=== PATIENT | female | born 1955 | race Caucasian/White ===

== ENCOUNTER 2016-07-20 07:07 | Day surgery (SDC) | payer BC ==
[~2016-07-20 07:07] MED LIST: Acetaminophen TAB* 325 MG PO PRN; Buffered Lidocaine 1% SYRIN* 3 ML/SYR SYRINGE INTRADERM ONE
[2016-07-20] MEDS ORDERED: Midazolam* 1 MG/ML 5 ML VIAL (5 MG) ONE (08:23)
[2016-07-20 09:55] VITALS: BP 113/57
--- NOTE | 2016-07-20 10:48 | OP ---
DATE OF OPERATION: 07/20/2016. DATE OF : 1955. SURGEON: Tone Khanna M.D. PREOPERATIVE DIAGNOSIS: Cataract left eye. POSTOPERATIVE DIAGNOSIS: Cataract left eye. OPERATIVE PROCEDURE: Phacoemulsification left eye with IOL. PROCEDURE: The patient was brought to the operating room after being given 1/2% Alcaine with epinep hrine drops in the preoperative area. The eye was prepped and draped in the usual sterile fashion. Sterile drape and eyelid speculum were placed. Again, topical 1/2% Alcaine with epinephrine was gi nicci. A paracentesis incision was made at the 3 o'clock position with the No.75 blade. Clear cornea incision 2.2 x 2.2-mm was created at the 6 o'clock position starting at the anterior limbus using t he 2.2-mm keratome. The anterior chamber was irrigated with 0.4 mL of 1% non-preservative intracame ral lidocaine and filled with DisCoVisc. A capsulorrhexis was completed using the cystotome and the Utrata forceps. Hydrodissection was performed with balanced salt solution. The lens nucleus was re moved with the Phacoemulsification handpiece without incident. Cortex was removed with the irrigati on-aspiration handpiece. The capsular bag was re-inflated using DisCoVisc and an SN60WF 21.5 implan t was inserted with the shooter. The irrigation-aspiration handpiece was used to remove all residua l DisCoVisc. The eye was refilled with balanced salt solution and the wound checked and found to be watertight. Topical Maxitrol drops were given. [id number]/[facility] #: [id number]
[2016-07-20] MEDS ORDERED: acetaZOLAMIDE TAB* 250 MG ONE (13:40)
[2016-07-20] MEDS ORDERED: Lidocaine 1% MPF* 2 ML VIAL ONE (13:40)
[2016-07-20] MEDS ORDERED: Cyclopentolate 1% OPTH.SOL* 2 ML BTL ONE (13:40)
[2016-07-20] MEDS ORDERED: Flurbiprofen 0.03% OPTH.SOL* 2.5 ML BTL ONE (13:40)
[2016-07-20] MEDS ORDERED: Proparacaine 0.5% OPHTH.SOL* 15 ML BTL ONE (13:41)
[2016-07-20] MEDS ORDERED: Neomycin/Polymy/Dex OPTH.SUSP* MAXITROL 0.1% 5 ML ONE (13:41)
[2016-07-20] MEDS ORDERED: Povidone Iodine 5% OPTH* 30 ML BTL ONE (13:41)
[2016-07-20] MEDS ORDERED: Phenylephrine 2.5% OPTH.SOL* 2 ML BTL ONE (13:41)
[2016-07-20] MEDS ORDERED: Lidocaine 2% EPI 1:200000 MPF* 20 ML VIAL ONE (13:41)
== END 2016-07-20 09:52 | disposition home or self-care (01) ==
LOC: OREAST 07:07
PROVIDERS: ATTEND Specialist
DX: H25.812 Combined forms of age-related cataract, left eye (principal); H43.813 Vitreous degeneration, bilateral; Z87.891 Personal history of nicotine dependence; R01.1 Cardiac murmur, unspecified
CPT/HCPCS: A9270-GY; J2250; V2632

== ENCOUNTER 2017-05-09 13:31 | Emergency (ER) | payer BC ==
[2017-05-09 15:28] VITALS: BP 138/79
--- NOTE | 2017-05-09 16:10 | RAD ---
INDICATION: Right shoulder injury. TECHNIQUE: 4 views of the right shoulder were obtained. FINDINGS: The bones are in normal alignment. No fracture is seen. There is moderate osteoarthritic change in the acromioclavicular joint. IMPRESSION: NO EVIDENCE OF FRACTURE.
--- NOTE | 2017-05-09 16:10 | RAD ---
INDICATION: Right wrist pain and swelling after a fall COMPARISON: None. TECHNIQUE: 3 views right wrist. REPORT: The visualized bones are properly aligned and well corticated. The joint spaces are normal.There is no fracture, dislocation or other focal osseous abnormality. IMPRESSION: Normal radiograph of the right wrist. If the patient's symptoms persist, follow-up imaging is recommended.
--- NOTE | 2017-05-09 16:22 | UC ---
Shoulder Pain HPI - HPI Summary HPI Summary: Pt presents with right shoulder and wrist pain s/p fall earlier today. She tells me that she slipped on the ice and fell onto her right side - landing on her right shoulder and wrist. She heard two pops and had immediate shoulder pain. She came to urgent care directly after. Currently she is having radiation right shoulder pain down her right arm to her right wrist. Denies numbness or tingling. - History of Current Complaint Chief Complaint: UCUpperExtremity Stated Complaint: SHOULDER PAIN Time Seen by Provider: 05/09/17 15:46 Hx Obtained From: Patient Hx Last Menstrual Period: NA Onset/Duration: Sudden Onset Timing: Constant Severity Initially: Moderate Severity Currently: Moderate Pain Intensity: 6 Character: Sharp, Aching Aggravating Factor(s): Movement, Lifting, Flexion Alleviating Factor(s): Rest, Ice - Allergies/Home Medications Allergies/Adverse Reactions: Allergies Allergy/AdvReac Type Severity Reaction Status Date / Time No Known Allergies Allergy Verified 05/09/17 15:28 PMH/Surg Hx/FS Hx/Imm Hx Previously Healthy: Yes - Surgical History Surgical History: Yes Surgery Procedure, Year, and Place: GASTRIC LAP BAND - 2006 - [place]. HAMMER TOE SURGERY X2 - 2007 - [place]. FATTY TUMOR REMOVED FROM BACK - 2008 - [place] - Social History Lives: With Family Alcohol Use: Weekly Alcohol Amount: 3-4 DRINKS PER WEEK Substance Use Type: None Smoking Status (MU): Former Smoker Amount Used/How Often: 1/2 PPD When Did the Patient Quit Smoking/Using Tobacco: 1996 Review of Systems Constitutional: Negative Respiratory: Negative Cardiovascular: Negative Neurovascular: Negative Musculoskeletal: Decreased ROM - Right shoulder and wrist, Other: - Right wrist and shoulder pain Neurological: Negative Psychological: Negative All Other Systems Reviewed And Are Negative: Yes Physical Exam Triage Information Reviewed: Yes Appearance: Well-Appearing, No Pain Distress, Well-Nourished Vital Signs: Initial Vital Signs Temp 99.1 F 05/09/17 15:21 Pulse 76 05/09/17 15:21 Resp 18 05/09/17 15:21 BP 138/79 05/09/17 15:21 Pulse Ox 98 05/09/17 15:21 Vital Signs Reviewed: Yes Neck: Positive: Supple, No Lymphadenopathy, Other: - NTTP. FROM Respiratory: Positive: Lungs clear, Normal breath sounds, No respiratory distress, No accessory muscle use Cardiovascular: Positive: RRR, No Murmur, Pulses Normal - Right radial and ulnar , Brisk Capillary Refill - Right UE Musculoskeletal: Positive: Strength Intact - right wrist, ROM Intact - Right wrist, Strength Limited @ - right shoulder due to pain, ROM Limited @ - Right shoulder due to pain, Edema @ - Right wrist and right lateral shoulder - mild, Other: - TTP over anterior and posterior right shoulder. Unable to perform specialized tests due to shoulder pain. No obvious bony deformities Neurological: Positive: Alert, Other: - Sensations intact right UE C4-T1 Psychological: Positive: Age Appropriate Behavior Skin: Negative: rashes Shoulder Course/Dx - Course Course Of Treatment: Wrist XR: IMPRESSION: Normal radiograph of the right wrist. Shoulder XR: No evidence of fracture. Reference #: [id number]. iSTOP ok. Sling. RICE. [place] at bedtime prn. Ibuprofen throughout the day. F/u with ortho if symptoms persist - Differential Dx/Diagnosis Provider Diagnoses: Right shoulder pain. Right wrist pain Discharge - Discharge Plan Condition: Stable Disposition: HOME Prescriptions: HYDROcodone/ACETAMIN 5-325 MG* [[place] 5-325 TAB*] 1 tab PO BID PRN #8 tab MDD 2 PRN Reason: Pain Patient Education Materials: Shoulder Pain (ED) Referrals: Placido Macias NP [Primary Care Provider] - Pankaj Payton MD [Medical Doctor] - If Needed Additional Instructions: If you develop a fever, shortness of breath, chest pain, new or worsening symptoms - please call your PCP or go to the ED. Your blood pressure was high at todays visit. Please see your primary provider within 4 weeks for recheck and re-evaluation. 1) Rest, Ice, and elevate your wrist/shoulder as much as possible over the next 24-48hours. 2) May take ibuprofen as needed throughout the day every 6-8 hours 3) If your symptoms worsen or persist greater than 7-10 days, please call orthopedics at the number below to schedule a follow up appointment.
== END 2017-05-09 16:45 | disposition home or self-care (01) ==
LOC: UCEAST 13:31
DX: M25.511 Pain in right shoulder (principal); M25.531 Pain in right wrist; Z98.84 Bariatric surgery status; Z87.891 Personal history of nicotine dependence
CPT/HCPCS: 99213; G0463

== ENCOUNTER 2017-07-24 16:46 | Emergency (ER) | payer BC ==
--- OUTSIDE RECORDS SUMMARY | 2017-07-24 16:51 | XMS REPORT ---
:1955 External Reference #:[id number] Author Organization [employer] Address [address] [address] Phone [phone] Care Team Providers Name Role Phone Maci Magaña MD Primary Care Physician Unavailable Payers Type Date Identification Numbers Payment Provider Subscriber Commercial Policy Number: [id number] [employer] Teresa Resendiz PayID: [id number] [address] [address] [place] [address] Problems Date Description Provider Status Onset: 07/06/2016 Essential hypertension Placido Macias NP Active Onset: 07/06/2016 Depressive disorder Placido Macias NP Active Family History Date Family Member(s) Problem(s) Comments Father due to [place] () - 44 Mother brain tumor Mother Cerebrovascular Accident (CVA) at 87 Siblings 2 Brother at 68-throat and lung cancer, HTN Brother-66 HTN Social History Type Date Description Comments Marital Status Lives With Family ETOH Use Currently consumes alcohol 3 drinks/week Smoking Patient is a former smoker Smoking 16 Years Patient is a former smoker Daily Caffeine Consumes on average 2 cups of regular coffee per day Exercise Type/Frequency Exercises rarely Allergies, Adverse Reactions, Alerts Date Description Reaction Status Severity Comments 07/01/2016 NKDA active Medications Medication Date Status Form Strength Qnty SIG Indications Ordering Provider Fluticasone 07/07/ Active Suspension 50mcg/Act 16uni 2 sprays each H81.10 Placido Propionate 2017 ts nostril qd. TREVIN Macias Telmisartan 01/02/ Active Tablets 40mg 90tab One tablet Placido 2017 s daily TREVIN Macias Trintellix 07/25/ Active Tablets 10mg 90tab one tablet Placido 2017 s once daily TREVIN Macias Adults 50+ 00// Active Tablets 1 by mouth Unknown Daily Formula 0000 every day occasionally Sertraline 07/25/ Hx Tablets 50mg Placido HCL 2017 - TREVIN Macias 2016 Adults 50+ 04// Hx Tablets 90tab 1 by mouth Placido Daily Formula 2017 - s every day TREVIN Macias 2016 Immunizations CPT Code Status Date Vaccine Lot # [id number] Given 01/02/2017 Influenza Virus Vaccine, Quadrivalent, Split, [id number] Preservative Free Vital Signs Date Vital Result Comment 07/07/2017 Weight 198.00 lb Heart Rate 79 /min BP Systolic 125 mmHg BP Diastolic 65 mmHg Body Temperature 97.3 F O2 % BldC Oximetry 98 % 01/02/2017 Weight 202.00 lb Heart Rate 68 /min BP Systolic Sitting 126 mmHg BP Diastolic Sitting 68 mmHg O2 % BldC Oximetry 98 % 09/19/2016 Weight 205.75 lb Heart Rate 78 /min BP Systolic 118 mmHg BP Diastolic 64 mmHg Body Temperature 97.7 F O2 % BldC Oximetry 99 % 07/25/2016 Weight 207.50 lb Heart Rate 70 /min BP Systolic 118 mmHg BP Diastolic 66 mmHg Body Temperature 98.3 F O2 % BldC Oximetry 98 % 07/01/2016 Height 61.5 inches 5'1.50" Weight 203.75 lb Heart Rate 76 /min BP Systolic 130 mmHg BP Diastolic 66 mmHg Body Temperature 97.7 F O2 % BldC Oximetry 98 % BMI (Body Mass Index) 37.9 kg/m2 Results Test Date Test Result H/L Range Note CBC Auto Diff 07/05/2017 White Blood Count 7.2 10^3/uL 3.5-10.8 Red Blood Count 4.45 10^6/uL 4.0-5.4 Hemoglobin 13.8 g/dL 12.0-16.0 Hematocrit 41 % 35-47 Mean Corpuscular Volume 92 fL 80-97 Mean Corpuscular Hemoglobin 31 pg 27-31 Mean Corpuscular HGB Conc 34 g/dL 31-36 Red Cell Distribution Width 14 % 10.5-15 Platelet Count 244 10^3/uL 150-450 Mean Platelet Volume 7.7 um3 7.4-10.4 Abs Neutrophils 4.3 10^3/uL 1.5-7.7 Abs Lymphocytes 2.2 10^3/uL 1.0-4.8 Abs Monocytes 0.6 10^3/uL 0-0.8 Abs Eosinophils 0.1 10^3/uL 0-0.6 Abs Basophils 0.1 10^3/uL 0-0.2 Abs Nucleated RBC 0 10^3/uL Granulocyte % 59.8 % 38-83 Lymphocyte % 30.1 % 25-47 Monocyte % 7.7 % High 0-7 Eosinophil % 1.5 % 0-6 Basophil % 0.9 % 0-2 Nucleated Red Blood Cells % 0 Comp Metabolic Panel 07/05/2017 Sodium 139 mmol/L 139-145 Potassium 3.8 mmol/L 3.5-5.0 Chloride 101 mmol/L 101-111 Co2 Carbon Dioxide 28 mmol/L 22-32 Anion Gap 10 mmol/L 2-11 Glucose 93 mg/dL 70-100 Blood Urea Nitrogen 20 mg/dL 6-24 Creatinine 0.72 mg/dL 0.51-0.95 BUN/Creatinine Ratio 27.8 High 8-20 Calcium 9.3 mg/dL 8.6-10.3 Total Protein 7.0 g/dL 6.4-8.9 Albumin 4.2 g/dL 3.2-5.2 Globulin 2.8 g/dL 2-4 Albumin/Globulin Ratio 1.5 1-3 Total Bilirubin 0.50 mg/dL 0.2-1.0 Alkaline Phosphatase 52 U/L 34-104 Alt 11 U/L 7-52 Ast 15 U/L 13-39 Egfr Non- 81.8 >60 Egfr 105.2 >60 1 Laboratory test 12/19/2016 Surgical Interface SEE RESULT BELOW 2, 3 finding Order Comp Metabolic Panel 07/07/2016 Sodium 137 mmol/L 133-145 Potassium 4.2 mmol/L 3.5-5.0 Chloride 100 mmol/L Low 101-111 Co2 Carbon Dioxide 31 mmol/L 22-32 Anion Gap 6 mmol/L 2-11 Glucose 88 mg/dL 70-100 Blood Urea Nitrogen 15 mg/dL 6-24 Creatinine 0.63 mg/dL 0.51-0.95 BUN/Creatinine Ratio 23.8 High 8-20 Calcium 9.6 mg/dL 8.6-10.3 Total Protein 6.9 g/dL 6.4-8.9 Albumin 4.1 g/dL 3.2-5.2 Globulin 2.8 g/dL 2-4 Albumin/Globulin Ratio 1.5 1-3 Total Bilirubin 0.60 mg/dL 0.2-1.0 Alkaline Phosphatase 62 U/L 34-104 Alt 14 U/L 7-52 Ast 17 U/L 13-39 Egfr Non- 95.8 >60 Egfr 123.1 >60 4 CBC Auto Diff 07/07/2016 White Blood Count 6.9 10^3/uL 3.5-10.8 Red Blood Count 4.77 10^6/uL 4.0-5.4 Hemoglobin 14.1 g/dL 12.0-16.0 Hematocrit 42 % 35-47 Mean Corpuscular Volume 89 fL 80-97 Mean Corpuscular Hemoglobin 30 pg 27-31 Mean Corpuscular HGB Conc 33 g/dL 31-36 Red Cell Distribution Width 14 % 10.5-15 Platelet Count 252 10^3/uL 150-450 Mean Platelet Volume 8 um3 7.4-10.4 Abs Neutrophils 4.9 10^3/uL 1.5-7.7 Abs Lymphocytes 1.1 10^3/uL 1.0-4.8 Abs Monocytes 0.6 10^3/uL 0-0.8 Abs Eosinophils 0.2 10^3/uL 0-0.6 Abs Basophils 0.1 10^3/uL 0-0.2 Abs Nucleated RBC 0 10^3/uL Granulocyte % 71.2 % 38-83 Lymphocyte % 16.4 % Low 25-47 Monocyte % 8.2 % 1-9 Eosinophil % 2.9 % 0-6 Basophil % 1.3 % 0-2 Nucleated Red Blood Cells % 0 Laboratory test finding 07/07/2016 TSH (Thyroid Stim Horm) 2.06 mcIU/mL 0.34-5.60 5 Vitamin B12 421 pg/mL 180-914 6 Lipid Profile (Trig/Chol/HDL) 07/07/2016 Triglycerides 152 mg/dL 7 Cholesterol 285 mg/dL 8 HDL Cholesterol 69.7 mg/dL 9 LDL Cholesterol 185 mg/dL 10 1 Because ethnic data is not always readily available, this report includes an eGFR for both -Americans and non- Americans. The National Kidney Disease Education Program (NKDEP) does not endorse the use of the MDRD equation for patients that are not between the ages of 18 and 70, are , have extremes of body size, muscle mass, or nutritional status, or are non- or non-. According to the National Kidney Foundation, irrespective of diagnosis, the stage of the disease is based on the level of kidney function: Stage Description GFR(mL/min/1.73 m(2)) 1 Kidney damage with normal or decreased GFR 90 2 Kidney damage with mild decrease in GFR 60-89 3 Moderate decrease in GFR 30-59 4 Severe decrease in GFR 15-29 5 Kidney failure <15 (or dialysis) 2 [id number] 3 SEE RESULT BELOW Name: TERESA RESENDIZ : [address]: Angela Langston MD Acct: [id number] Unit: [id number] AGE: 61 Location: [facility] Re12/19/16 SEX: F Status: DEP REF SPEC: [id number] DOUGIE: 12/19/16-09[address] [facility] [address]: Angela Langston MD REQ: [id number] RECD: 12/19/16075 STATUS: AKHIL AHUJA DR: Placido Macias DIE CAST TECHNICIAN _ ORDERED: LEVEL 4 COMMENTS: [id number] FINAL DIAGNOSIS Colon, ascending, biopsy: -- Tubular adenoma. -- No high grade dysplasia or malignancy. CLINICAL HISTORY Await pathology, increase fiber in diet POST-OPERATIVE DIAGNOSIS Ascending colon polyp, status post jumbo forceps polypectomy.; internal hemorrhoids GROSS DESCRIPTION The specimen is received in formalin labeled, Ascending Colon Polyp, and consists of a 0.3 x 0.2 x 0.1 cm ojeda polypoid soft tissue fragment which is inked and submitted entirely in one cassette. Signed (signature on file) Mayda Hook MD 1054 END OF REPORT * ML=Testing performed at Main Lab DEPARTMENT OF PATHOLOGY, [address] [place] [address] Fidel Matthew M.D. Director [facility] # [id number] 4 Because ethnic data is not always readily available, this report includes an eGFR for both -Americans and non- Americans. The National Kidney Disease Education Program (NKDEP) does not endorse the use of the MDRD equation for patients that are not between the ages of 18 and 70, are , have extremes of body size, muscle mass, or nutritional status, or are non- or non-. According to the National Kidney Foundation, irrespective of diagnosis, the stage of the disease is based on the level of kidney function: Stage Description GFR(mL/min/1.73 m(2)) 1 Kidney damage with normal or decreased GFR 90 2 Kidney damage with mild decrease in GFR 60-89 3 Moderate decrease in GFR 30-59 4 Severe decrease in GFR 15-29 5 Kidney failure <15 (or dialysis) 5 FASTING 10 HOUR 6 Normal Range 180 to 914 Indeterminate Range 145 to 180 Deficient Range <145 7 Desirable <150 Borderline high 150-199 High 200-499 Very High >500 8 Desirable <200 Borderline high 200-239 High >239 9 Low <40 Desirable: 40-60 High: >60 10 Desirable: <100 mg/dL Near Optimal: 100-129 mg/dL Borderline High: 130-159 mg/dL High: 160-189 mg/dL Very High: >189 mg/dL Procedures Date CPT Code Description Status 12/19/2016 53378 Moderate Sedation Services; Same Phys Intl 15 Mins; PT Completed >=5 Years 12/19/2016 99296 Colonoscopy Flexible W/Biopsy Completed 12/19/2016 Colonoscopy Completed 07/13/2016 Mammogram Completed Encounters Type Date Location Provider CPT E/M Dx Office Visit 01/02/2017 10:20a [facility] [place] [address] F32.89 Emmet E78.5 Z23 Office Visit 09/19/2016 8:40a [facility] [place] [address] F32.89 Jude I10 Office Visit 07/25/2016 9:00a [facility] [place] [address] F32.89 Emmet Office Visit 07/01/2016 11:00a [facility] [place] [address] R53.83 Emmet Z12.31 Z13.220 Z12.11 Plan of Care Future Appointment(s):01/08/2018 8:40 am - Placido Macias NP at [facility] Internal Medicine - Mmoereggs19/13/2018 - Placido Macias NPZ01.818 Encounter for other preprocedural mxvaybcsjprC31.511 Pain in right fahsbnqvF82 Essential (primary) hypertensionFollow up:Cancel 08/01 appt., reschedule for 6 months. KAL: [facility] ddpvglqrQ94.10 Benign paroxysmal vertigo, unspecified earNew Medication:Fluticasone Propionate 50 mcg/ActComments:Try the modified somersault maneuver as we discussed.Start using the Flonase, two sprays each nostril once daily.
--- NOTE | 2017-07-24 16:54 | UC ---
Skin Complaint HPI - HPI Summary HPI Summary: Pt presents with painful red lump to her lower back first noticed 3 days ago. She tells me that she had this about 7-8 years ago and it needed to be drained. Over the last 3 days the area has become increasingly painful, swollen, and red. Denies fever, chills. - History of Current Complaint Time Seen by Provider: 07/24/17 16:54 Stated Complaint: SORE SPOT ON BACK Hx Obtained From: Patient Hx Last Menstrual Period: NA Onset/Duration: Gradual Onset Onset Severity: Mild Current Severity: Moderate Pain Intensity: 5 Pain Scale Used: 0-10 Numeric - Allergy/Home Medications Allergies/Adverse Reactions: Allergies Allergy/AdvReac Type Severity Reaction Status Date / Time No Known Allergies Allergy Verified 07/24/17 16:55 Review of Systems Constitutional: Negative Skin: Other - Abscess lower back Respiratory: Negative Cardiovascular: Negative Gastrointestinal: Negative Neurovascular: Negative Neurological: Negative Psychological: Negative All Other Systems Reviewed And Are Negative: Yes PMH/Surg Hx/FS Hx/Imm Hx Previously Healthy: Yes Cardiovascular History: Hypertension - Surgical History Surgical History: Yes Surgery Procedure, Year, and Place: GASTRIC LAP BAND - 2006 - [place]. HAMMER TOE SURGERY X2 - 2007 - [place]. FATTY TUMOR REMOVED FROM BACK - 2008 - [place] - Family History Known Family History: Positive: Hypertension - Social History Occupation: Employed Full-time Lives: With Family Alcohol Use: Weekly Alcohol Amount: 3-4 DRINKS PER WEEK Substance Use Type: None Smoking Status (MU): Former Smoker Amount Used/How Often: 1/2 PPD When Did the Patient Quit Smoking/Using Tobacco: 1996 Physical Exam - Summary Physical Exam Summary: GENERAL: NAD. WDWN. No pain distress. SKIN: 3.0cm skin abscess to lower back with mild erythema and induration. TTP. No bleeding, drainage, or streaking. NECK: Supple. Nontender. No lymphadenopathy. CHEST: No accessory muscle use. Breathing comfortably and in no distress. CV: RRR. Without m/r/g. NEURO: Alert. CN II-XII grossly intact. PSYCH: Age appropriate behavior. Triage Information Reviewed: Yes Course/Dx - Course Course Of Treatment: A time out was performed, witnessed, and signed. 2mL of 2% lidocaine without epi was administered and good anesthetization was achieved. A 3mm incision was made with a #11 blade and copious purulent material was able to be expressed. Pt tolerated procedure well. Area was bandaged with mepilex. A culture was taken and will be sent to the lab. - Diagnoses Provider Diagnoses: Skin abscess lower back Discharge - Sign-Out/Discharge Documenting (check all that apply): Discharge/Admit/Transfer - Discharge Plan Condition: Stable Disposition: HOME Prescriptions: Cephalexin CAP* [Keflex CAP*] 500 mg PO BID #10 cap Patient Education Materials: Abscess (ED) Referrals: Placido Macias NP [Primary Care Provider] - Additional Instructions: If you develop a fever, shortness of breath, chest pain, new or worsening symptoms - please call your PCP or go to the ED. 1) Change dressing daily - should only need this for 2-3 days 2) If you noticed increased pain/swelling/redness - please call or return to urgent care. - Billing Disposition and Condition Condition: STABLE Disposition: HOME
[2017-07-24 16:56] VITALS: BP 135/78
[2017-07-24] MEDS ORDERED: Lidocaine 2% PF * 5 ML VIAL INJ ONE (17:04)
--- NOTE | 2017-07-27 11:11 | UC ---
- Progress Note Progress Note: MRSA neg 2+ neutrophils await sensitivity pt on cephalexin no change Ashokj 07/27/17 Discharge - Sign-Out/Discharge Documenting (check all that apply): Discharge/Admit/Transfer - Discharge Plan Condition: Stable Disposition: HOME Prescriptions: Cephalexin CAP* [Keflex CAP*] 500 mg PO BID #10 cap Patient Education Materials: Abscess (ED) Referrals: Placido Macias, MANAGEMENT INFORMATION SYSTEMS DIRECTOR [Primary Care Provider] - Additional Instructions: If you develop a fever, shortness of breath, chest pain, new or worsening symptoms - please call your PCP or go to the ED. 1) Change dressing daily - should only need this for 2-3 days 2) If you noticed increased pain/swelling/redness - please call or return to urgent care. - Billing Disposition and Condition Condition: STABLE Disposition: HOME
== END 2017-07-24 17:46 | disposition home or self-care (01) ==
LOC: UCEAST 16:46
DX: L02.212 Cutaneous abscess of back [any part, except buttock and flank] (principal); I10 Essential (primary) hypertension; Z87.891 Personal history of nicotine dependence
CPT/HCPCS: 10060; 87070; 87205; 87640; 87641; 99212; G0463

== ENCOUNTER 2018-02-24 12:19 | Emergency (ER) | payer BC ==
[2018-02-24] MEDS ORDERED: Ibuprofen TAB* 600 MG PO ONE (12:36)
[2018-02-24] MEDS ORDERED: Ondansetron ODT TAB* 4 MG PO ONE (13:37)
--- NOTE | 2018-02-24 14:15 | UC ---
Abdominal Pain Female HPI - HPI Summary HPI Summary: 62 y/o female with PMH + for HTN, depression presents for 24 hours of nausea with active vomiting, unable to tolerate PO, + fever x 24 hours, mild diffuse upper abdominal pain, moer left sided, + chronic back pain. Denies urinary urgency, frequency, burning, no diarrhea, loose stools, no recent or h/o UTIs, no sick contacts, no new foods or others sick after eating same foods. - History of Current Complaint Chief Complaint: UCRespiratory Stated Complaint: FLU SYMPTOMS Time Seen by Provider: 02/24/18 13:46 Hx Obtained From: Patient, Family/Child Care Development Specialist - Hx Last Menstrual Period: NA ?: No Onset/Duration: Sudden Onset, Lasting Hours - 24 hours Severity Initially: Moderate Severity Currently: Moderate Pain Intensity: 7 Pain Scale Used: 0-10 Numeric Location: Discrete At: RUQ, Discrete At: LUQ, Epigastric Character: Dull Associated Signs and Symptoms: Positive: Fever, Vomiting Allergies/Adverse Reactions: Allergies Allergy/AdvReac Type Severity Reaction Status Date / Time No Known Allergies Allergy Verified 02/24/18 12:35 Home Medications: Home Medications D-Methorphan/PE/Acetaminophen [Vicks Dayquil Liquicaps] 2 cap PO 02/24/18 [ History] Multivitamin [Multivitamins] 1 cap PO 02/24/18 [History] PMH/Surg Hx/FS Hx/Imm Hx Previously Healthy: Yes - Surgical History Surgical History: Yes Surgery Procedure, Year, and Place: GASTRIC LAP BAND - 2006 - [place]. HAMMER TOE SURGERY X2 - 2007 - [place]. FATTY TUMOR REMOVED FROM BACK - 2008 - [place] - Family History Known Family History: Positive: Hypertension - Social History Alcohol Use: Daily Alcohol Amount: 3-4 DRINKS PER WEEK Substance Use Type: None Smoking Status (MU): Former Smoker Amount Used/How Often: 1/2 PPD When Did the Patient Quit Smoking/Using Tobacco: 1996 Review of Systems All Other Systems Reviewed And Are Negative: Yes Constitutional: Positive: Fever Is Patient Immunocompromised?: No Physical Exam Triage Information Reviewed: Yes Appearance: No Pain Distress, Well-Nourished, Ill-Appearing - moderately Vital Signs: Initial Vital Signs Temp 102.5 F 02/24/18 12:30 Pulse 113 02/24/18 12:30 Resp 18 02/24/18 12:30 BP 125/70 02/24/18 12:30 Pulse Ox 95 02/24/18 12:30 Vital Signs Reviewed: Yes Eyes: Positive: Conjunctiva Clear ENT: Positive: Pharynx normal, TMs normal, Uvula midline. Negative: Sinus tenderness Neck: Positive: Supple, Nontender, No Lymphadenopathy. Negative: Nuchal Rigidity Respiratory: Positive: Chest non-tender, Lungs clear, Normal breath sounds, No respiratory distress, No accessory muscle use. Negative: Crackles, Rhonchi, Stridor, Wheezing Cardiovascular: Positive: No Murmur, Tachycardia Abdomen Description: Positive: No Organomegaly, Soft, Bruit, Other: - minimal tenderness with deep palpation over gastric, suprapubic area neg psoas, neg obturator. Negative: CVA Tenderness (R), CVA Tenderness (L) Bowel Sounds: Positive: Present Neurological Exam: Normal Skin Exam: Normal Abd Pain Female Course/Dx - Course Course Of Treatment: unable to do CT at urgent care, no US. Discussed with patient, symptoms improved with zofran, able to tolerate PO, discussed need fr ER if increased fever, pain, back pain. - Differential Dx/Diagnosis Provider Diagnosis: UTI (urinary tract infection), Vomiting Discharge - Sign-Out/Discharge Documenting (check all that apply): Patient Departure All imaging exams completed and their final reports reviewed: No Studies - Discharge Plan Condition: Guarded Disposition: HOME Prescriptions: Ciprofloxacin TAB* [Cipro 500 MG TAB*] 500 mg PO BID #14 tab Ondansetron ODT TAB* [Zofran 4 MG Odt TAB*] 4 mg PO Q8H PRN #10 tab.odt PRN Reason: Nausea Patient Education Materials: Urinary Tract Infection in Women (DC) Referrals: Placido Macias, INFORMATION TECHNOLOGY ARCHITECT [Primary Care Provider] - Additional Instructions: - Increase fluid intake - Zofran as needed for nausea/ vomiting - If increased pain, fever, chills, back pain, urinary symptoms, go to ER for further evaluation. Unable to do imaging at urgent care - Motrin as needed for fever, chills. ANtibiotics as directed. Urine culture to be completed in 1-2 days - Billing Disposition and Condition Condition: GUARDED Disposition: Home
[2018-02-24 14:59] VITALS: BP 118/54
--- NOTE | 2018-02-26 08:58 | PN ---
Progress Note - Progress Note Date of Service: 02/26/18 Note: patient urine culture grew staph aureus >100,000. patient was admitted for icu for treatment. no further action required.
== END 2018-02-24 15:11 | disposition home health service (06) ==
LOC: UCEAST 12:19
DX: N39.0 Urinary tract infection, site not specified (principal); B95.61 Methicillin susceptible Staphylococcus aureus infection as the cause of diseases classified elsewhere; R11.10 Vomiting, unspecified; Z87.891 Personal history of nicotine dependence
CPT/HCPCS: 81003; 87077; 87086; 87186; 99212; A9270-GY; G0463

== ENCOUNTER 2018-02-25 08:01 | Inpatient (IN) | payer BC ==
[2018-02-25] MEDS ORDERED: NS 0.9% 1000 ML*IV.FLUID IV ONE (08:25)
[2018-02-25] MEDS ORDERED: cefTRIAXone(*) 2 GM in NS 0.9% 100 ML* 100 ML IVPB ONE (08:28)
[2018-02-25] MEDS ORDERED: Acetaminophen TAB* 325 MG PO ONE (08:28)
--- NOTE | 2018-02-25 08:33 | ED ---
Neurological HPI - HPI Summary HPI Summary: The patient is a 62 y/o F presenting to the ED with a chief complaint of confusion. She reports some left neck pain, fevers, cough, constipation, and abdominal pain in the lower abdomen. The pt denies photophobia, shortness of breath, or chest pain. - History of Current Complaint Chief Complaint: EDAbdPain Stated Complaint: FLU LIKE SYMPTOMS Time Seen by Provider: 02/25/18 08:12 Hx Obtained From: Patient Hx Last Menstrual Period: NA Onset/Duration: Sudden Onset, Started hours ago, Still Present Timing: Constant Onset Severity: Mild Current Severity: Mild Pain Intensity: 9 Pain Scale Used: 0-10 Numeric Character: Confusion, Lethargy - Allergy/Home Medications Allergies/Adverse Reactions: Allergies Allergy/AdvReac Type Severity Reaction Status Date / Time No Known Allergies Allergy Verified 02/25/18 08:05 PMH/Surg Hx/FS Hx/Imm Hx Previously Healthy: No Endocrine/Hematology History: Denies: Hx Diabetes, Hx Thyroid Disease Cardiovascular History: Reports: Hx Hypertension Respiratory History: Denies: Hx Asthma, Hx Chronic Obstructive Pulmonary Disease (COPD) GI History: Denies: Hx Ulcer Musculoskeletal History: Reports: Hx Arthritis - LEFT HIP Sensory History: Reports: Hx Cataracts - BILATERAL Opthamlomology History: Reports: Hx Cataracts - BILATERAL Psychiatric History: Reports: Hx Anxiety - CONTROLLED WITH MED, Hx Depression - CONTROLLED WITH MED - Surgical History Surgery Procedure, Year, and Place: GASTRIC LAP BAND - 2006 - [place]. HAMMER TOE SURGERY X2 - 2007 - [place]. FATTY TUMOR REMOVED FROM BACK - 2008 - [place] Hx Anesthesia Reactions: No Infectious Disease History: No Infectious Disease History: Denies: Hx Hepatitis, Hx Human Immunodeficiency Virus (HIV), Traveled Outside the in Last 30 Days - Family History Known Family History: Positive: Hypertension - Social History Alcohol Use: Daily Alcohol Amount: 3-4 DRINKS PER WEEK Substance Use Type: Reports: None Smoking Status (MU): Former Smoker Amount Used/How Often: 1/2 PPD Review of Systems Positive: Fever Negative: Photophobia Negative: Chest Pain Positive: Cough. Negative: Shortness Of Breath Positive: Abdominal Pain, Other - constipation Positive: Myalgia - L neck pain Neurological: Other - confusion All Other Systems Reviewed And Are Negative: Yes Physical Exam - Summary Physical Exam Summary: VITAL SIGNS: Reviewed. Pt is febrile GENERAL: Patient is a well-developed and nourished female who is lying comfortable in the stretcher. Patient is not in any acute respiratory distress. HEAD AND FACE: No signs of trauma. No ecchymosis, hematomas or skull depressions. No sinus tenderness. EYES: PERRLA, EOMI x 2, No injected conjunctiva, no nystagmus. No photophobia. EARS: Hearing grossly intact. Ear canals and tympanic membranes are within normal limits. MOUTH: Dry oral mucosa. NECK: Supple, trachea is midline, no adenopathy, no JVD, no carotid bruit, no c- spine tenderness, neck with full ROM. No meningeal signs, no Kernig's or brudzinskis signs. CHEST: Symmetric, no tenderness at palpation LUNGS: Clear to auscultation bilaterally. No wheezing or crackles. CVS: Tachycardic, S1 and S2 present, no murmurs or gallops appreciated. ABDOMEN: Soft, non-tender. No signs of distention. No rebound no guarding, and no masses palpated. Bowel sounds are normal. EXTREMITIES: FROM in all major joints, no edema, no cyanosis or clubbing. NEURO: Alert but not oriented. No meningeal symptoms. No acute neurological deficits. Speech is normal and follows commands. SKIN: Dry and warm GCS: 15 Triage Information Reviewed: Yes Vital Signs On Initial Exam: Initial Vitals Temp Pulse Resp BP Pulse Ox 99.5 F 123 16 114/60 96 02/25/18 08:05 02/25/18 08:05 02/25/18 08:05 02/25/18 08:05 02/25/18 08:05 Vital Signs Reviewed: Yes Diagnostics - Vital Signs Vital Signs Temp Pulse Resp BP Pulse Ox 02/25/18 08:05 99.5 F 123 16 114/60 96 - Laboratory Result Diagrams: 02/26/18 05:47 02/26/18 05:47 Lab Statement: Any lab studies that have been ordered have been reviewed, and results considered in the medical decision making process. - Radiology CXR Radiology Interpretation Completed By: Radiologist Summary of Radiographic Findings: No evidence for acute disease. ED physician has reviewed this report. - CT Brain CT CT Interpretation Completed By: Radiologist Summary of CT Findings: No evidence for acute intracranial abnormality. ABD/PELV CT CT Interpretation Completed By: Radiologist Summary of CT Findings: 1. FOCAL AREA OF DECREASED DENSITY IN THE INFERIOR POLE OF THE RIGHT KIDNEY, DIFFERENTIAL. DIAGNOSIS WOULD INCLUDE LOBAR NEPHRONIA, AN INFARCT OR A MASS. RECOMMEND UROLOGIC. CONSULTATION AND FOLLOW-UP CT IMAGING TO DEMONSTRATE RESOLUTION. 2. MILD HEPATOMEGALY AND HEPATIC STEATOSIS. 3. STATUS POST LAPAROSCOPIC BANDING PROCEDURE. 4. 3.3 CM LEFT OVARIAN CYST. RECOMMEND A FOLLOW-UP OUTPATIENT PELVIC ULTRASOUND FOR. FURTHER EVALUATION. ED physician has reviewed this report. - EKG 0836 Cardiac Rate: NL - 96bpm EKG Rhythm: Sinus Rhythm ST Segment: Normal Ectopy: None EKG Comparison: No Significant Change Summary of EKG Findings: Q wave in lead III w/o ST elevation. Similar to assessment. NIH Scale - NIH Scale Level of Consciousness: Alert/Keenly Responsive Ask Patient the Month and His/Her Age: Both Correct Ask Pt to Open/Close Eyes and Business Services Representative/Release Non-Paretic Hand: Both Correctly Best Gaze (Only Horizontal Eye Movement): Normal Visual Field Testing: No Visual Loss Facial Paresis-Pt to Smile & Close Eyes or Grimace Symmetry: Normal/Symmetrical Motor Function - Right Arm: No Drift-Holds 10 Seconds Motor Function - Left Arm: No Drift-Holds 10 Seconds Motor Function - Right Leg: No Drift-Holds 10 Seconds Motor Function - Left Leg: No Drift-Holds 10 Seconds Limb Ataxia-Must be out of Proportion to Weakness Present: Absent Sensory (Use Pinprick to Test Arms/Legs/Trunk/Face): Normal Best Language (Describe Picture, Name Items): No Aphasia Dysarthria (Read Several Words): Normal Extinction and Inattention: No Abnormality Total Score: 0 Course/Dx - Course Assessment/Plan: The patient is a 62 y/o F presenting to the ED with a chief complaint of confusion. She reports some left side neck pain, fevers, cough, constipation, and abdominal pain in the lower abdomen. The pt denies photophobia , headache, shortness of breath, or chest pain. Past medical history significant for hypertension and dyslipidemia and gastric bypass. The patient is tachycardic, febrile, with altered mental status, probably septic therefore the patient was started with IV fluids 30 cc's per KG, I started with vancomycin and Rocephin, a broad-spectrum antibiotic since at this point don't have the source of infection. Blood test results without any significant abnormality except for platelet count of 109, sodium is 131, chloride is 94, BUN is 30, creatinine is 1.39, CPK of 7.8, troponin is 0.8, CRP is 437 and BNP 122. Urinalysis is negative for UTI. Influenza A and B is negative. Head CT impression: No evidence for acute intracranial abnormality. I have a low suspicion for meningitis since the patient does not have any significant headache, she doesn't have any neck pain and she doesn't have any meningeal signs. Abdominal and pelvic CT IMPRESSION: 1. FOCAL AREA OF DECREASED DENSITY IN THE INFERIOR POLE OF THE RIGHT KIDNEY, DIFFERENTIAL DIAGNOSIS WOULD INCLUDE LOBAR NEPHRONIA, AN INFARCT OR A MASS. RECOMMEND UROLOGIC CONSULTATION AND FOLLOW-UP CT IMAGING TO DEMONSTRATE RESOLUTION. 2. MILD HEPATOMEGALY AND HEPATIC STEATOSIS. 3. STATUS POST LAPAROSCOPIC BANDING PROCEDURE. 4. 3.3 CM LEFT OVARIAN CYST. RECOMMEND A FOLLOW-UP OUTPATIENT PELVIC ULTRASOUND FOR FURTHER EVALUATION. I discussed my physical exam findings and test results with and Dr. Randolph from urology and he recommends for the patient to be started and gentamicin 120 mg bolus and he will consult for this patient. Dr. Randolph thinks that the patient is living with urosepsis. Since the patient continues to have these hypotensive episodes the patient was given 4 L of IV fluids in total. At this time I discussed my physical exam, findings and test results with Dr. Prado from the ICU services who accepted the patient for admission. The patient is stable for asmission to critical care. - Diagnoses Provider Diagnoses: Sepsis due to urinary tract infection - Critical Care Time Critical Care Time: 75-104 min Discharge - Sign-Out/Discharge Documenting (check all that apply): Patient Departure - admit - Discharge Plan Condition: Stable Disposition: ADMITTED TO [facility] - Billing Disposition and Condition Condition: STABLE Disposition: Admitted to [facility] - Attestation Statements Document Initiated by Scribe: Yes Documenting Scribe: Bette Sotelo Provider For Whom Birdie is Documenting (Include Credential): Robin Robledo MD. Scribe Attestation: Bette Patel, scribed for Robin Robledo MD. on 02/26/18 at 0731. Scribe Documentation Reviewed: Yes Provider Attestation: The documentation as recorded by the scribe, Bette Sotelo accurately reflects the service I personally performed and the decisions made by me, Robin Robledo MD. Status of Birdie Document: Viewed Consult Consult: [id number] - Spoke with Dr. Randolph about the pt's condition who will be coming to assess the patient.
[2018-02-25] MEDS ORDERED: Acetaminophen SUPP* 650 MG SUPP PR ONE (08:37)
[2018-02-25] MEDS ORDERED: Vancomycin(*) 1,000 MG in NS 0.9% 250 ML* 250 ML IVPB ONE (08:37)
[2018-02-25] MEDS ORDERED: Acetaminophen SUPP* 650 MG SUPP ONE (08:38)
[2018-02-25 09:05] LABS: EGFR Non-African American 38.3 (>60)
[2018-02-25 09:10] LABS: Hematocrit 41 % (35-47); Hemoglobin 13.8 g/dl (12.0-16.0); Mean Corpuscular HGB Conc 34 g/dl (31-36); Mean Corpuscular Hemoglobin 30 pg (27-31); Mean Corpuscular Volume 90 fL (80-97); Mean Platelet Volume 7.7 fL (7.4-10.4); Platelet Count 109 10^3/ul (150-450); Red Blood Count 4.57 10^6/ul (4.00-5.40); Red Cell Distribution Width 13 % (10.5-15); White Blood Count 8.8 10^3/ul (3.5-10.8)
[2018-02-25 09:16] LABS: INR 1.02 (0.77-1.02)
[2018-02-25] MEDS ORDERED: Iodixanol* (CONTRAST) 320 MG/ML 100 ML SDV IV ONE (09:19)
[2018-02-25 09:26] LABS: Urine Appearance Cloudy; Urine Blood 3+ (Negative); Urine Color Amber; Urine Ketones Negative (Negative); Urine Protein 2+(100 mg/dL) (Negative); Urine Red Blood Cell 3+(>10/hpf) (Absent); Urine Specific Gravity 1.024 (1.010-1.030); Urine Urobilinogen Positive (Negative); Urine White Blood Cell 2+(11-20/hpf) (Absent)
[2018-02-25 09:34] LABS: Monocytes % 2 %
[2018-02-25] MEDS ORDERED: NS 0.9% 1000 ML* 1,000 ML IV ONE ×4 (10:00→15:35)
[2018-02-25] MEDS ORDERED: Gentamicin ADULT (*) 40 MG/ML VIAL IVPB ONE (10:52)
--- NOTE | 2018-02-25 11:40 | HP ---
H&P (Free Text) History and Physical: History and Physical Limitations in history/physical: none HPI: 62y F w/pmhx of HTN, Anxiety disorder, past history of Gastric banding 2006 ; presents to ER for complaints of chills/fevers for 2 days (started monday). Associated with nausea/vom since monday, decrease PO intake. no diarrhea. abd pain+, constipiation+. no sick contacts. no cp/sob. cough+, no sputum. has chronic neck pain. no muscle cramps. no dizziness/syncope. no headache. no recent travel. no runny nose/sneezing/rhinorrhea. In ER, she was tmax 104, tachycardic, BP 100s, no resp distress or significant tachypnea. She was started on sepsis protocol with IVF and IV abx. CXR demonstrated no signficant infiltrates. CT brain without acute process. Urinalysis appears contaminated but no overt bacteria noted. CT abd/pelvis showed some hypodensity on right kidney but no apparent hydro. Her BP has been 90s to 100s now, cunningham in place with some urine+. She is in no resp distress, giving history, at bedside. last temps 100-101 range, given tylenol. IV ceftriaxone/vanco/genta given. ROS: negative except for pertinent positives mentioned above. PMHx: HTN, Anxiety disorder, past history of Gastric banding 2006 PSHx: gastric banding Family History: HTN Social History: Ngbsmds-3-9eqwlre/week, Smoking- 1/2 ppd, Drug use-none Allergies: Allergies Allergy/AdvReac Type Severity Reaction Status Date / Time No Known Allergies Allergy Verified 02/25/18 08:05 Home Medications: Telmisartan [Micardis] 40 mg PO QAM 07/07/16 [History Confirmed 05/09/17] Vortioxetine (NF) [Trintellix (NF)] 10 mg PO DAILY 12/19/16 [History Confirmed 05/09/17] Ciprofloxacin TAB* [Cipro 500 MG TAB*] 500 mg PO BID #14 tab 02/24/18 [Rx] D-Methorphan/PE/Acetaminophen [Vicks Dayquil Liquicaps] 2 cap PO 02/24/18 [ History] Multivitamin [Multivitamins] 1 cap PO 02/24/18 [History] Ondansetron ODT TAB* [Zofran 4 MG Odt TAB*] 4 mg PO Q8H PRN #10 tab.odt [Rx] Tele: sinus tachy, now NSR Vitals: Vital Signs Temp 99.7 F 02/25/18 11:45 Pulse 89 02/25/18 11:45 Resp 21 02/25/18 11:45 BP 107/60 02/25/18 11:45 Pulse Ox 95 02/25/18 11:45 Intake & Output 02/24/18 02/25/18 02/25/18 18:59 06:59 18:59 Intake Total 4350 Balance 4350 Weight 56.699 kg Intake: IV Fluids 4350 O2/Vent: 2L NC Infusions: NS bolus Current Medications: Gentamicin Sulfate 120 mg/ (Sodium Chloride) 103 mls @ 206 mls/hr IVPB ED ONCE ONE Stop: 02/25/18 12:29 Last Admin: 02/25/18 11:17 Dose: 206 mls/hr Sodium Chloride (Ns 0.9% 1000 Ml*) 1,000 mls @ 75 mls/hr IV PER RATE ARIANNA Ceftriaxone Sodium 1 gm/ (Sodium Chloride) 50 mls @ 200 mls/hr IVPB Q24H ARIANNA Ondansetron HCl (Zofran Inj*) 4 mg IV Q4H PRN PRN Reason: NAUSEA/VOMITING Physical Exam: General: awake, alert, no distress, no diaphoresis Head: normocephalic, atraumatic HEENT: no pallor, no icterus, moist mucous membranes Neck: soft, supple, no jvd, no stridor CVS: normal rate, regular, no murmur Resp: bilateral air entry, no rhales, no wheeze, no rhonchi, no acc muscle use Abdomen: soft, mild RLQ tenderness on deep palpation, no guarding/ridigity, nondistended, bowel sounds present Ext: pulses+, warm, no edema Skin: intact Neuro: awake, alert, orientedx3, moving all extremities, no gross focal deficit Labs: Laboratory Results - last 24 hr 02/25/18 02/25/18 02/25/18 08:37 08:37 08:37 WBC 8.8 RBC 4.57 Hgb 13.8 Hct 41 MCV 90 MCH 30 MCHC 34 RDW 13 Plt Count 109 L MPV 7.7 Neut % (Auto) Not Reportable Lymph % (Auto) Not Reportable [place] % (Auto) Not Reportable Eos % (Auto) Not Reportable Baso % (Auto) Not Reportable Absolute Neuts (auto) Not Reportable Absolute Lymphs (auto) Not Reportable Absolute Monos (auto) Not Reportable Absolute Eos (auto) Not Reportable Absolute Basos (auto) Not Reportable Absolute Nucleated RBC Not Reportable Immature Gran % 11 H Neutrophils % 83 Band Neutrophils % 11 H Lymphocytes % 4 Monocytes % 2 Nucleated RBC % Not Reportable Platelet Morphology Normal RBC Morphology Normal INR (Anticoag Therapy) 1.02 APTT 26.0 Patient Temperature ABG pH ABG pH (Temp Correct) ABG pCO2 ABG pCO2 (Temp Corrct ABG pO2 ABG pO2 (Temp Correct ABG HCO3 ABG O2 Saturation ABG Base Excess Respiration Rate O2 Delivery Device Ventilator Type Vent Mode FiO2 Inspiratory Time PEEP Pressure Support Pressure Control EPAP IPAP BiPAP Sodium 131 L Potassium 3.5 Chloride 94 L Carbon Dioxide 28 Anion Gap 9 BUN 30 H Creatinine 1.39 H Est GFR ( Amer) 46.3 Est GFR (Non-Af Amer) 38.3 BUN/Creatinine Ratio 21.6 H Glucose 124 H Lactic Acid Calcium 9.1 Total Bilirubin 0.80 AST 71 H ALT 42 Alkaline Phosphatase 62 Total Creatine Kinase 708 H Troponin I 0.80 H* C-Reactive Protein 437.89 H B-Natriuretic Peptide Total Protein 7.1 Albumin 3.7 Globulin 3.4 Albumin/Globulin Ratio 1.1 Procalcitonin Urine Color Urine Appearance Urine pH Ur Specific Matthews Urine Protein Urine Ketones Urine Blood Urine Nitrate Urine Bilirubin Urine Urobilinogen Ur Leukocyte Esterase Urine WBC (Auto) Urine RBC (Auto) Ur Squamous Epith Cells Urine Bacteria Hyaline Casts RBC Casts Urine Glucose Influenza A (Rapid) Influenza B (Rapid) 02/25/18 02/25/18 02/25/18 08:37 08:37 08:37 WBC RBC Hgb Hct MCV MCH MCHC RDW Plt Count MPV Neut % (Auto) Lymph % (Auto) [place] % (Auto) Eos % (Auto) Baso % (Auto) Absolute Neuts (auto) Absolute Lymphs (auto) Absolute Monos (auto) Absolute Eos (auto) Absolute Basos (auto) Absolute Nucleated RBC Immature Gran % Neutrophils % Band Neutrophils % Lymphocytes % Monocytes % Nucleated RBC % Platelet Morphology Normal RBC Morphology INR (Anticoag Therapy) APTT Patient Temperature ABG pH ABG pH (Temp Correct) ABG pCO2 ABG pCO2 (Temp Corrct ABG pO2 ABG pO2 (Temp Correct ABG HCO3 ABG O2 Saturation ABG Base Excess Respiration Rate O2 Delivery Device Ventilator Type Vent Mode FiO2 Inspiratory Time PEEP Pressure Support Pressure Control EPAP IPAP BiPAP Sodium Potassium Chloride Carbon Dioxide Anion Gap BUN Creatinine Est GFR ( Amer) Est GFR (Non-Af Amer) BUN/Creatinine Ratio Glucose Lactic Acid 2.2 H* Calcium Total Bilirubin AST ALT Alkaline Phosphatase Total Creatine Kinase Troponin I C-Reactive Protein B-Natriuretic Peptide 122 H Total Protein Albumin Globulin Albumin/Globulin Ratio Procalcitonin 16.9 H Urine Color Urine Appearance Urine pH Ur Specific Matthews Urine Protein Urine Ketones Urine Blood Urine Nitrate Urine Bilirubin Urine Urobilinogen Ur Leukocyte Esterase Urine WBC (Auto) Urine RBC (Auto) Ur Squamous Epith Cells Urine Bacteria Hyaline Casts RBC Casts Urine Glucose Influenza A (Rapid) Influenza B (Rapid) 02/25/18 02/25/18 02/25/18 09:04 09:20 09:27 WBC RBC Hgb Hct MCV MCH MCHC RDW Plt Count MPV Neut % (Auto) Lymph % (Auto) [place] % (Auto) Eos % (Auto) Baso % (Auto) Absolute Neuts (auto) Absolute Lymphs (auto) Absolute Monos (auto) Absolute Eos (auto) Absolute Basos (auto) Absolute Nucleated RBC Immature Gran % Neutrophils % Band Neutrophils % Lymphocytes % Monocytes % Nucleated RBC % Platelet Morphology Normal RBC Morphology INR (Anticoag Therapy) APTT Patient Temperature Not Reportable ABG pH 7.43 ABG pH (Temp Correct) Not Reportable ABG pCO2 35 ABG pCO2 (Temp Corrct Not Reportable ABG pO2 109 H ABG pO2 (Temp Correct Not Reportable ABG HCO3 24.4 ABG O2 Saturation 99.2 H ABG Base Excess -0.7 Respiration Rate Not Reportable O2 Delivery Device 2l nc Ventilator Type Not Reportable Vent Mode Not Reportable FiO2 Not Reportable Inspiratory Time Not Reportable PEEP Not Reportable Pressure Support Not Reportable Pressure Control Not Reportable EPAP Not Reportable IPAP Not Reportable BiPAP Not Reportable Sodium Potassium Chloride Carbon Dioxide Anion Gap BUN Creatinine Est GFR ( Amer) Est GFR (Non-Af Amer) BUN/Creatinine Ratio Glucose Lactic Acid Calcium Total Bilirubin AST ALT Alkaline Phosphatase Total Creatine Kinase Troponin I C-Reactive Protein B-Natriuretic Peptide Total Protein Albumin Globulin Albumin/Globulin Ratio Procalcitonin Urine Color Betty Urine Appearance Cloudy Urine pH 5.0 Ur Specific [place] 1.024 Urine Protein 2+(100 mg/dl) A Urine Ketones Negative Urine Blood 3+ A Urine Nitrate Negative Urine Bilirubin Negative Urine Urobilinogen Positive A Ur Leukocyte Esterase Negative Urine WBC (Auto) 2+(11-20/hpf) A Urine RBC (Auto) 3+(>10/hpf) A Ur Squamous Epith Cells Present A Urine Bacteria Absent Hyaline Casts Present A RBC Casts Present A Urine Glucose Negative Influenza A (Rapid) Negative Influenza B (Rapid) Negative Imaging: cxr 02/25 - no acute process CT brain 02/25 - no acute process CT abd/pelvis - (report reviewed); right lower kidney hypodensity+ Assessment: 62y F w/pmhx of HTN, Anxiety disorder, past history of Gastric banding 2006; presents to ER for complaints of chills/fevers for 2 days ( started monday). Associated with nausea/vom since monday, decrease PO intake. no diarrhea. abd pain+, constipiation+. cough+, no sputum. has chronic neck pain. In ER, she was tmax 104, tachycardic, BP 100s, no resp distress or significant tachypnea. She was started on sepsis protocol with IVF and IV abx. CXR demonstrated no signficant infiltrates. CT brain without acute process. Urinalysis appears contaminated but no overt bacteria noted. CT abd/pelvis showed some hypodensity on right kidney but no apparent hydro. -Sepsis, unclear origin; r/o UTI -Right kidney hypodensity -NILO, likely pre-renal HTN Anxiety disorder Plan: Neuro- awake, alert. chronic neck pain for years, no symptoms of nuchal rigidity or photophobia concerning for meningeal signs at this time. delirium prec. asp prec CVS- tachycardia improved with IVF. BP >100. making urine, cunningham+. IV abx. hold antihypertensives. Sepsis w/u. Trend LA. start NS infusion Resp- no resp distress, on 2 L NC, cont to wean. CXR clear otherwise. no sig viral symptoms noted either. IV abx empirically. ID- tmax 104. wbc 8, bandemia 11. CXR clear. CT abd/pelvis no signs of diverticulitus/inflammed bowel. pending blood and urine cultures. BP stable. Influenza neg. Agree with empriric IV ABx vanco x1, Ceftriaxone (day#1), Gentamycin x1 dose. GI- improved nausea. Zofran PRN. start clear liquid as tolerated. Mild abd RLQ tenderness, CT a/p unremarkable so far. cont to monitor. Renal- NILO, likely from combination of poor po intake and GI losses from N/V. IVF bolus x3-4 liter given, start NS 75cc/hr. cunningham+. follow urinalysis and culture. -noted CT findings of Right lower kidney hypodensity, no hydronpehrosis noted. unclear what this may be. Urology consult placed. Heme- hg stable. mild thrombocytopenia+, no bleeding. will monitor. DVT proph scds/heparin sq. Endo- check hba1c and tsh tomorrow. Musculsk- pressure ulcer prophylaxis. Bedrest. Wounds- none Nutrition- Clear liquid diet as tolerated DVT prophylaxis: scd/heparin GI prophylaxis: h2n Cunningham Cathetor: yes Disposition: stable for admission to medical floor; signed out to hospitalist service; if any change, reconsult Critical care Code Status: full code Alonso Prado MD [employer] (Electronically Signed)
[2018-02-25] MEDS ORDERED: Ondansetron INJ* 2 MG/ML VIAL IV PRN (11:48)
[2018-02-25] MEDS ORDERED: Gentamicin ADULT (*) 120 MG in NS 0.9% 100 ML* 100 ML IVPB ONE (12:00)
[2018-02-25] MEDS: Acetaminophen TAB* 325 MG PO PRN (15:16)
[2018-02-25] MEDS: NS 0.9% 1000 ML* 1,000 ML IV SCH ×2 (15:18→19:00)
--- NOTE | 2018-02-25 16:34 | PN ---
Progress Note - Progress Note Date of Service: 02/25/18 Note: Patient sent to medical floor, developed sudden severe rigors, temp to 105, tachycardic 130-150s Medical floor SCREW SUPERVISOR saw patient and examined. Transferred to ICU for fevers/rigors and cooling blanket. cont tylenol, add 1 dose motrin noted trop to 1.2, repeat EKG without only some ectopy, no st/t changes. possibly demand ischemia bedside echo done, hyperdynamic LV/RV, trace pericardial effusion only. IVF noncollapsed. current temp 103 now; cont cooling blanket. IV abx continued; no clear source identified. mental status okay, no overt symptoms noted. Possible viral etiology?? Alonso Prado long chain beamer
[2018-02-25] MEDS ORDERED: Ibuprofen TAB* 800 MG PO ONE (16:52)
[2018-02-25] MEDS ORDERED: Azithromycin IV(*) 500 MG in NS 0.9% 250 ML* 250 ML IVPB SCH (17:00)
[2018-02-25 17:36] LABS: Urine Appearance Cloudy; Urine Blood 3+ (Negative); Urine Color Amber; Urine Ketones Trace (Negative); Urine Protein 2+(100 mg/dL) (Negative); Urine Red Blood Cell 3+(>10/hpf) (Absent); Urine Specific Gravity 1.029 (1.010-1.030); Urine Urobilinogen Positive (Negative); Urine White Blood Cell Trace(0-5/hpf) (Absent)
[2018-02-25] MEDS ORDERED: Phenylephrine INJ* 10 MG/ML 1 ML VIAL (10 MG) ONE (19:13)
[2018-02-25] MEDS ORDERED: NS 0.9% 500 ML* 500 ML IV ONE (19:15)
[2018-02-25 19:49] LABS: EGFR Non-African American 73.5 (>60)
[2018-02-25] MEDS ORDERED: Phenylephrine INJ* 50 MG in NS 0.9% 250 ML* 245 ML IV SCH (20:00)
--- NOTE | 2018-02-25 20:04 | CONS ---
CC: Placido Macias NP * UROLOGY CONSULTATION: DATE OF CONSULT: 02/25/18 REQUESTING PHYSICIAN: Dr. Robin Robledo. DIAGNOSIS: Probable urosepsis. HISTORY OF PRESENT ILLNESS: Teresa Gore is a 62-year-old lady who presented to the emergency room with history of confusion and some diffuse lower abdominal pain. She had actually been evaluated at the [facility] the day earlier for symptoms that had been going on for 2 to 3 days and had been diagnosed with urinary tract infection. Because of worsening confusion and fever, she presented to the emergency room and on initial presentation, was noted to have a temperature of 104 and was quite confused. She responded to intravenous fluids and the urinalysis is suspicious, but not definitely diagnostic for a urinary tract infection. In addition, CT scan was obtained which is consistent with what appears to be an area of lobar nephronia (focal pyelonephritis in the lower part of the right kidney). There is no hydronephrosis and no evidence of any urolithiasis. She has improved significantly in terms of her mentation after the hydration. PAST MEDICAL HISTORY: Significant for: 1. Depression. 2. Hypertension. 3. History of morbid obesity status post gastric lap band in 2006. REVIEW OF SYSTEMS: She denies any chest pain or shortness of breath. There is no history of diabetes mellitus or any other major systemic illness. PHYSICAL EXAM: Reveals a pleasant middle-aged lady who is at the time of my examination much more alert and oriented compared to her initial presentation. Blood pressure is 106/57, pulse rate 88 per minute and regular, temperature 100 degrees Fahrenheit, oxygen saturation 97% on room air. Cardiovascular Exam: Regular rate and rhythm. S1 and S2. Lungs: Clear bilaterally. Abdomen is soft with no localized tenderness. There is no rebound or guarding. There is no flank tenderness. DIAGNOSTIC STUDIES/LAB DATA: Review of labs reveal a white count of 8.8, hemoglobin and hematocrit of 13.8 and 41, platelet count is reduced at 109. Review of the chemistry reveals a sodium of 131, BUN and creatinine are mildly elevated at 30 and 1.39 with a glucose of 124. Lactic acid is 2.2. Urinalysis shows pH of 5.0, 2+ protein, greater than 10 per high-power field red blood cells, greater than 10 per high-power field white blood cells, nitrite is negative. Urine and blood cultures are pending. IMPRESSION: Overall picture is consistent with a urinary tract infection, probable right-sided pyelonephritis. The other differential diagnosis given the findings of the right kidney on imaging would have been of a renal infarction. However, given the presentation with confusion, fever, I think a urinary tract infection would be more likely, although an infarction cannot be definitively ruled out at the present time. Since she has responded to intravenous fluids and antibiotics, I think the management at this point should be of urinary sepsis and I would recommend obtaining a repeat imaging study, possibly an ultrasound within the next 24 to 48 hours to check for evolution of the abnormal appearing area in the right kidney. [id number]/CPS #: [id number] MTDD
[2018-02-25] MEDS: Aspirin EC TAB* 81 MG TAB.EC PO SCH (22:07)
[2018-02-25] MEDS ORDERED: Heparin VIAL(*) 5000 UNITS/ML VIAL (FIVE THOUSAND) SUBCUT SCH (23:59)
[2018-02-26] MEDS: ceFAZolin 2 GM in NS PREMIX(*) 2 GM/100 ML BAG IVPB SCH ×2 (00:27→01:12)
[2018-02-26] MEDS: ceFAZolin 2 GM PREMIX in ORs 2 GM/50 ML BAG IVPB SCH ×3 (01:00→17:50)
[2018-02-26 06:12] LABS: Hematocrit 39 % (35-47); Hemoglobin 12.9 g/dl (12.0-16.0); Mean Corpuscular HGB Conc 33 g/dl (31-36); Mean Corpuscular Hemoglobin 30 pg (27-31); Mean Corpuscular Volume 91 fL (80-97); Mean Platelet Volume 8.4 fL (7.4-10.4); Platelet Count 69 10^3/ul (150-450); Red Cell Distribution Width 14 % (10.5-15); White Blood Count 6.4 10^3/ul (3.5-10.8)
[2018-02-26 06:23] LABS: EGFR Non-African American 99.1 (>60)
[2018-02-26] MEDS ORDERED: cefTRIAXone(*) 1 GM in NS 0.9% 50 ML* 50 ML IVPB SCH (08:00)
[2018-02-26] MEDS: Acetaminophen TAB* 325 MG PO PRN ×3 (09:05→17:12)
[2018-02-26] MEDS: Famotidine TAB* 20 MG PO SCH (09:05)
[2018-02-26] MEDS ORDERED: Perflutren Lipid Microsphere* 3 ML VIAL ONE (10:14)
[2018-02-26] MEDS ORDERED: Phenylephrine INJ* 50 MG in NS 0.9% 250 ML* 245 ML IV SCH ×3 (11:00→14:53)
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
[2018-02-26] MEDS ORDERED: ALPRAZolam TAB* 0.25 MG PO ONE (11:12)
[2018-02-26] MEDS ORDERED: LORazepam INJ* 2 MG/ML 1 ML VIAL IV PUSH ONE (11:14)
[2018-02-26] MEDS ORDERED: LORazepam INJ* 2 MG/ML 1 ML VIAL ONE (11:15)
[2018-02-26] MEDS ORDERED: Potassium Chlor TAB* 20 MEQ TAB.ER PO ONE (12:13)
--- NOTE | 2018-02-26 12:27 | PN ---
Progress Note - Progress Note Date of Service: 02/26/18 Note: Progress Note - Critical Care 24 hour events: -awake, alert; yesterday events with wording finding, mild aphasia, left hemianopsia+ -speech unchanged, frustrated; no change in visiion further, no headache/n/v/ dizziness. no cp/sob/abd pain. -CT brain 02/25 with small right parietal watershed infarct+ -BP and HR stable, has been on TRISHA infusion overnight -still on cooling pads; was afebrile, back to 100.9 -TTE done this morning -Neurology and cardiology has seen patient this morning -Brother at bedside, updated yesterday also Tele: NSR now, no further tachycardia Vitals: Vital Signs Temp 100.9 F 02/26/18 10:15 Pulse 87 02/26/18 10:15 Resp 30 02/26/18 10:15 BP 117/69 02/26/18 10:15 Pulse Ox 100 02/26/18 10:15 Intake & Output 02/25/18 02/26/18 02/26/18 18:59 06:59 18:59 Intake Total 5453 1984.7 Output Total 467 905 180 Balance 4986 1079.7 -180 Weight 97.658 kg 98.1 kg 98.1 kg Intake: IV Fluids 5453 1571 NS (0.9%) 1571 IVPB 335 ABX - AZITHROMYCIN 270 ABX - CEFAZOLIN 65 Medicated IV 78.7 CC - Phenylephrine/ 78.7 Neosynephrine Oral 0 Output: Cunningham 467 905 180 Other: Date of Last Bowel 01/27/18 Movement # Bowel Movements 1 Estimated Stool Amount Medium Small O2/Vent: 2L NC Infusions: NS 75 Current Medications: Acetaminophen (Tylenol Tab*) 650 mg PO Q4H PRN PRN Reason: PAIN Last Admin: 02/26/18 09:05 Dose: 650 mg Aspirin (Aspirin Ec Tab*) 81 mg PO 2100 [facility] Last Admin: 02/25/18 22:07 Dose: 81 mg Famotidine (Pepcid Tab*) 20 mg PO DAILY [facility] Last Admin: 02/26/18 09:05 Dose: 20 mg Sodium Chloride (Ns 0.9% 1000 Ml*) 1,000 mls @ 75 mls/hr IV PER RATE [facility] Last Admin: 02/25/18 19:00 Dose: 75 mls/hr Cefazolin Sodium/Dextrose (Kefzol 2 Gm Premix In Ors(*)) 2 gm in 50 mls @ 100 mls/hr IVPB Q8H ARIANNA Last Admin: 02/26/18 09:05 Dose: 100 mls/hr Phenylephrine HCl 50 mg/ (Sodium Chloride) 250 mls @ 6 mls/hr IV Q40H ARIANNA; Protocol Ondansetron HCl (Zofran Inj*) 4 mg IV Q4H PRN PRN Reason: NAUSEA/VOMITING Physical Exam: General: awake, alert, no distress, no diaphoresis Head: normocephalic, atraumatic HEENT: no pallor, no icterus, moist mucous membranes Neck: soft, supple, no jvd, no stridor CVS: normal rate, regular, no murmur Resp: bilateral air entry, no rhales, no wheeze, no rhonchi, no acc muscle use Abdomen: soft, mild RLQ tenderness on deep palpation, no guarding/ridigity, nondistended, bowel sounds present Ext: pulses+, warm, no edema Skin: intact Neuro: awake, alert, orientedx3, no facial droop noted, word finding with mild aphasia on certain words only, left homonymous hemianopsia+, strength 5/5 all ext Labs: Laboratory Results - last 24 hr 02/25/18 02/25/18 02/25/18 08:37 14:21 14:21 WBC RBC Hgb Hct MCV MCH MCHC RDW Plt Count MPV Sodium 131 L Potassium 3.5 Chloride 94 L Carbon Dioxide 28 Anion Gap 9 BUN 30 H Creatinine 1.39 H Est GFR ( Amer) 46.3 Est GFR (Non-Af Amer) 38.3 BUN/Creatinine Ratio 21.6 H Glucose 124 H Hemoglobin A1c Lactic Acid 1.3 Calcium 9.1 Magnesium Total Bilirubin 0.80 AST 71 H ALT 42 Alkaline Phosphatase 62 Total Creatine Kinase 708 H Troponin I 0.80 H* 1.29 H* C-Reactive Protein 437.89 H Total Protein 7.1 Albumin 3.7 Globulin 3.4 Albumin/Globulin Ratio 1.1 Amylase 57 Lipase 166 H TSH Urine Color Urine Appearance Urine pH Ur Specific Edison Urine Protein Urine Ketones Urine Blood Urine Nitrate Urine Bilirubin Urine Urobilinogen Ur Leukocyte Esterase Urine WBC (Auto) Urine RBC (Auto) Urine Bacteria RBC Casts Urine Glucose 02/25/18 02/25/18 02/26/18 16:35 19:05 05:47 WBC RBC Hgb Hct MCV MCH MCHC RDW Plt Count MPV Sodium 136 Potassium 3.0 L Chloride 108 Carbon Dioxide 21 L Anion Gap 7 BUN 15 Creatinine 0.79 Est GFR ( Amer) 88.9 Est GFR (Non-Af Amer) 73.5 BUN/Creatinine Ratio 19.0 Glucose 128 H Hemoglobin A1c 5.7 H Lactic Acid Calcium 7.1 L Magnesium 1.6 L Total Bilirubin AST ALT Alkaline Phosphatase Total Creatine Kinase Troponin I 1.86 H* C-Reactive Protein Total Protein Albumin Globulin Albumin/Globulin Ratio Amylase Lipase TSH Urine Color Betty Urine Appearance Cloudy Urine pH 5.0 Ur Specific Edison 1.029 Urine Protein 2+(100 mg/dl) A Urine Ketones Trace A Urine Blood 3+ A Urine Nitrate Negative Urine Bilirubin Negative Urine Urobilinogen Positive A Ur Leukocyte Esterase Negative Urine WBC (Auto) Trace(0-5/hpf) Urine RBC (Auto) 3+(>10/hpf) A Urine Bacteria Absent RBC Casts Present A Urine Glucose Negative 02/26/18 02/26/18 02/26/18 05:47 05:47 06:17 WBC 6.4 RBC 4.30 Hgb 12.9 Hct 39 MCV 91 MCH 30 MCHC 33 RDW 14 Plt Count 69 L MPV 8.4 Sodium 139 Potassium 3.4 L Chloride 110 Carbon Dioxide 22 Anion Gap 7 BUN 12 Creatinine 0.61 Est GFR ( Amer) 119.9 Est GFR (Non-Af Amer) 99.1 BUN/Creatinine Ratio 19.7 Glucose 103 H Hemoglobin A1c Lactic Acid Calcium 7.6 L Magnesium Total Bilirubin AST ALT Alkaline Phosphatase Total Creatine Kinase 785 H Troponin I 1.22 H* C-Reactive Protein Total Protein Albumin Globulin Albumin/Globulin Ratio Amylase Lipase TSH 3.14 Urine Color Urine Appearance Urine pH Ur Specific Edison Urine Protein Urine Ketones Urine Blood Urine Nitrate Urine Bilirubin Urine Urobilinogen Ur Leukocyte Esterase Urine WBC (Auto) Urine RBC (Auto) Urine Bacteria RBC Casts Urine Glucose Imaging: cxr 02/25 - no acute process CT brain 02/25 - no acute process CT abd/pelvis - (report reviewed); right lower kidney hypodensity+ CT brain 02/25 - subtle acute right MCA/CONSUMER INSIGHT ANALYST parietal watershed infarct Assessment: 62y F w/pmhx of HTN, Anxiety disorder, past history of Gastric banding 2006; presents to ER for complaints of chills/fevers for 2 days ( started monday). Associated with nausea/vom since monday, decrease PO intake. no diarrhea. abd pain+, constipiation+. cough+, no sputum. has chronic neck pain. In ER, she was tmax 104, tachycardic, BP 100s, no resp distress or significant tachypnea. She was started on sepsis protocol with IVF and IV abx. CXR demonstrated no signficant infiltrates. CT brain without acute process. Urinalysis appears contaminated but no overt bacteria noted. CT abd/pelvis showed some hypodensity on right kidney but no apparent hydro. -Severe Sepsis with Shock -Staph aureus bacteremia -Staph aureus UTI?? -Acute Right MCA/CONSUMER INSIGHT ANALYST watershed infarct+ -r/o endocarditis -NSTEMI 2/2 to demand ischemia suspected -Right kidney hypodensity -NILO, likely pre-renal -thrombocytopenia HTN Anxiety disorder Plan: Neuro- awake, alert. Aprexia seems to be present, still with left homonymous hemianopsia+. CT Brain 02/25 reivewed. -Plan for MRI brain/MRA head/neck today. Unable to give contrast due to contrast CT yesterday -swallow intact, taking PO -maintain asa 81mg -maintain SBP >120 or higher, on trisha now -unclear if this is a thrombotic cva vs possible septic emboli given her staph bacteremia/sepsis state. TTE to follow, may need CHARLETTE also. IV abx continued. -change neurochecks to q2h. -PRN xanax/ativan for anxiety if absolutely needed. CVS- HR improved. shock on trisha now. maintain SBP>120 for cerebral perfusion for CVA, in addition for septic shock. Cont NS 75cc/hr. making urine, cunningham+. IV abx for Bacteremia. TTE followup for endocarditis, possible CHARLETTE needed. hold antihypertensives. -trops downtrended; suspect demand ischemia from sepsis, no overt EKG abnormalities otherwise noted. cont ASA. pending TTE findings Resp- on NC, no distress. CXR clear otherwise. ID- tmax 105, afebrile then, now back to low 100s. wbc 6. Urine culture in process. Blood cx x2 with Staph organism, MRSA neg. IV pressors. IV abx now Cefazolin 2gm q8h (day#2). GI- passed bedside swallow, advance clear liquid to mechanical soft for now. advance as tolerated. asp prec. CT a/p unremarkable Renal- NILO, likely from combination of poor po intake and GI losses from N/V. Cr improved. Cont NS 75cc/hr. Making urine. Cunningham+. -noted CT findings of Right lower kidney hypodensity, no hydronpehrosis noted. unclear what this may be. Will plan for repeat imaging of kidney in next 24-48 hours. Heme- hg stable. thrombocytopenia+, 60s, no bleeding. DVT proph scds. Endo- fingerstick prn. Musculsk- pressure ulcer prophylaxis. Bedrest. Wounds- none Nutrition- soft diet DVT prophylaxis: scd GI prophylaxis: h2b Cunningham Cathetor: yes Disposition: ICU for septic shock, CVA, bacteremia Code Status: full code Total Critical Care time 45 min, not including teaching/procedures Alonso Prado MD Boat Camp Operator (Electronically Signed)
--- NOTE | 2018-02-26 13:23 | ECHO ---
Patient: ASHLEY RESENDIZ [facility] Rec#: [id number] : 1955 Date: 02/26/2018 Age: 62y Height: 157 cm / 61.8 in Weight: 102.3 kg / 225.5 lbs Sex: F BSA: 2 Room#: ICU 12 Admit Date#: 02/25/2018 Type: Inpatient Referring: Gladis Avila NP Reading: Jersey Weller MD Locomotive Firer/Fireman: Syeda Campos RN RDCS CC: AN STALEY NP Transthoracic Echocardiogram Indication: Bacteremia, CVA, elevated troponin levels BP: 134/84 HR: 87 Rhythm: NSR Findings History: HTN, HLD, smoker, obesity, gastric banding 2006, heart murmur Technical Comments: The study quality is fair. The study is technically limited due to patient body habitus. The study is technically limited due to the patient's smoking history. Left Ventricle: The left ventricular chamber size is normal. Mild concentric left ventricular hypertrophy is observed. There is increased basal septal hypertrophy noted without evidence of an increased gradient across the left ventricular outflow tract. There is a focal wall motion abnormality present.small area in the inferoseptal region There is normal left ventricular systolic function. The estimated ejection fraction is 55-60%. Abnormal left ventricular diastolic function is observed. Left Atrium: The left atrium is mildly dilated. Right Ventricle: The right ventricular chamber size and systolic function are within normal limits. Right Atrium: The right atrium is mildly dilated. Aortic Valve: The aortic valve is trileaflet. The aortic valve leaflets are mildly thickened. There is evidence of aortic sclerosis without stenosis. There is aortic annular calcification. There is no evidence of aortic regurgitation. Mitral Valve: There is posterior mitral annular calcification.with small mobile areas Endocarditis can not be ruled out The mitral valve leaflets are mildly thickened. There is moderate mitral regurgitation. There is no evidence of mitral stenosis. Tricuspid Valve: The tricuspid valve leaflets are normal. There is moderate tricuspid regurgitation. The right ventricular systolic pressure is estimated to be 65-70 mmHg. There is evidence of severe pulmonary hypertension. There is no tricuspid stenosis. Pulmonic Valve: The pulmonic valve appears normal. There is mild pulmonic regurgitation. There is no pulmonic stenosis. Pericardium: There is no significant pericardial effusion. A pericardial fat pad is visualized. Aorta: There is no dilatation of the ascending aorta. There is no dilatation of the aortic arch. There is no dilation of the aortic root. Pulmonary Artery: The main pulmonary artery is not well visualized. Venous: The venous system is not well visualized. The inferior vena cava is not visualized. Contrast: Definity was used to optimize study. A total of 3 ml of diluted Definity was given IV. Summary: There was not any prior study for comparison. Conclusions Mild concentric left ventricular hypertrophy is observed. There is increased basal septal hypertrophy noted without evidence of an increased gradient across the left ventricular outflow tract. The estimated ejection fraction is 55-60%. There is normal left ventricular systolic function. There is a focal wall motion abnormality present.small area in the inferoseptal region The right ventricular chamber size and systolic function are within normal limits. There is evidence of aortic sclerosis without stenosis. There is aortic annular calcification. There is no evidence of aortic regurgitation. There is posterior mitral annular calcification.with small mobile areas Endocarditis can not be ruled out There is moderate mitral regurgitation. There is no evidence of mitral stenosis. There is moderate tricuspid regurgitation. The right ventricular systolic pressure is estimated to be 65-70 mmHg. There is evidence of severe pulmonary hypertension. There is no significant pericardial effusion. Measurements Name Value Normal Range RVIDd (AP) 2D 3.2 cm (0.9 - 2.6) RVDdMajor (2D) 3.5 cm (2.2 - 4.4) RAd ISD 4CH 5.1 cm (3.4 - 4.9) RA (A4C)W 4 cm (2.9 - 4.6) IVSd (2D) 1.2 cm (0.6 - 1) LVPWd (2D) 1.2 cm (0.6 - 1) LVIDd (2D) 4.1 cm (3.6 - 5.4) LVIDs (2D) 2.9 cm - LV FS (2D) 29 % (25 - 45) Aortic Annulus 1.7 cm (1.4 - 2.6) Ao root diameter (2D) 2.5 cm (2.1 - 3.5) Ascending Ao 3.2 cm (2.1 - 3.4) LA dimension (AP) 2D 4.9 cm (2.3 - 3.8) LAd ISD 4CH 5.7 cm (2.9 - 5.3) LA ISD 4CH W 3.9 cm (2.5 - 4.5) Name Value Normal Range LA ESV BP (A/L) index 32.2 ml/m2 - Name Value Normal Range MV E-wave Vmax 1.5 m/sec - MV deceleration time 278 msec - MV A-wave Vmax 1.4 m/sec - MV E:A ratio 1.1 ratio - LV septal e' Vmax 0.07 m/sec - LV lateral e' Vmax 0.08 m/sec - LV E:e' septal ratio 21.4 ratio - LV E:e' lateral ratio 18.8 ratio - Name Value Normal Range AV Vmax 1.9 m/sec - AV VTI 33.7 cm - AV peak gradient 15 mmHg - AV mean gradient 8 mmHg - LVOT Vmax 1.1 m/sec - LVOT VTI 18.8 cm - LVOT peak gradient 5 mmHg - LVOT mean gradient 3 mmHg - Name Value Normal Range MR Vmax 4.9 m/sec - MR VTI 142 cm - MR volume (PISA) 27 ml - MR ERO 0.19 cm2 - MR PISA radius 0.7 cm - MR alias Vmax 30.8 cm/sec - Name Value Normal Range TR Vmax 3.9 m/sec - TR peak gradient 61 mmHg - RAP 8 mmHg - RVSP 69 mmHg - Name Value Normal Range PV Vmax 1.1 m/sec -
[2018-02-26] MEDS ORDERED: Norepinephrine 16MCG/ML IVPRE* 4,000 MCG/250 ML BAG IV SCH (17:00)
[2018-02-26] MEDS ORDERED: Ibuprofen TAB* 800 MG PO ONE (17:09)
[2018-02-26] MEDS ORDERED: Norepinephrine VIAL* 4 MG in NS 0.9% 250 ML* 246 ML IV SCH ×2 (18:00→23:45)
[2018-02-26] MEDS: NS 0.9% 1000 ML* 1,000 ML IV SCH (18:11)
[2018-02-26] MEDS ORDERED: Lidocaine 1% INJ* 10 MG/ML 30 ML SDV ONE (19:46)
--- NOTE | 2018-02-26 20:36 | PN ---
Progress Note - Progress Note Date of Service: 02/26/18 Note: Arterial Line Procedure Note Indication: invasive hemodynamic monitoring Diagnosis - Severe sepsis with shock, mSSA bacteremia, CVA Performed by: Alonso Prado MD Consent: Informed; placed in bedside chart Risk/Benefits of procedure explained. [place] Protocol: Time-out was performed and the correct patient and site were verified - Prior labs/history was reviewed prior to procedure - Full sterile precautions with chlorhexidine/full drapes/gowns/gloves utilized - left radial artery visualized with US - Vessel accessed with return of pulsatile blood. One attempt was made to access vessel. A cathetor was threaded over wire into vessel. Good arterial waveform was observed on monitor. - Arterial Catheter was sutured to site; dressing applied to site. EBL <2 cc No immediate complications noted, patient tolerated procedure well. Alonso Prado MD [employer] (Electronically Signed)
[2018-02-26] MEDS: Aspirin EC TAB* 81 MG TAB.EC PO SCH (22:04)
[2018-02-27] MEDS: ceFAZolin 2 GM PREMIX in ORs 2 GM/50 ML BAG IVPB SCH ×3 (00:42→17:11)
[2018-02-27] MEDS: Acetaminophen TAB* 325 MG PO PRN ×4 (03:09→20:15)
[2018-02-27] MEDS: Norepinephrine VIAL* 4 MG in NS 0.9% 250 ML* 246 ML IV SCH ×4 (05:30→22:40)
[2018-02-27 06:24] LABS: Hematocrit 36 % (35-47); Hemoglobin 12.1 g/dl (12.0-16.0); Mean Corpuscular HGB Conc 33 g/dl (31-36); Mean Corpuscular Hemoglobin 30 pg (27-31); Mean Corpuscular Volume 90 fL (80-97); Red Blood Count 4.01 10^6/ul (4.00-5.40); Red Cell Distribution Width 14 % (10.5-15); White Blood Count 8.2 10^3/ul (3.5-10.8)
[2018-02-27 06:26] LABS: EGFR Non-African American 127.6 (>60)
[2018-02-27 07:40] LABS: Mean Platelet Volume 9.4 fL (7.4-10.4); Platelet Count 63 10^3/ul (150-450)
[2018-02-27] MEDS: Famotidine TAB* 20 MG PO SCH (09:07)
[2018-02-27] MEDS: NS 0.9% 1000 ML* 1,000 ML IV SCH ×2 (10:14→20:16)
[2018-02-27] MEDS ORDERED: Potassium Chlor TAB* 20 MEQ TAB.ER PO ONE (12:20)
--- NOTE | 2018-02-27 12:42 | PN ---
Progress Note - Progress Note Date of Service: 02/27/18 Note: Progress Note - Critical Care 24 hour events: -no events overnight; remains on levophed; febrile 101 at times still -awake, alert, no distress; still with some word finding/motor dysarthria at some words -no strength weakness Tele: NSR Vitals: Vital Signs Temp 100.6 F 02/27/18 11:30 Pulse 86 02/27/18 11:30 Resp 22 02/27/18 11:30 BP 120/61 02/27/18 07:51 Pulse Ox 96 02/27/18 11:30 Intake & Output 02/26/18 02/27/18 02/27/18 18:59 06:59 18:59 Intake Total 2048 1931 475 Output Total 727 530 205 Balance 1321 1401 270 Weight 98.1 kg 100.9 kg Intake: IV Fluids 1049 862 400 NS (0.9%) 1049 862 400 IVPB 63 60 ABX - CEFAZOLIN 63 60 Medicated IV 456 559 CC - Norepinephrine/ 476 Levophed CC - Phenylephrine/ 456 83 Neosynephrine Oral 480 450 75 Output: Harry 727 530 205 Other: Date of Last Bowel 01/27/18 Movement # Bowel Movements 1 Estimated Stool Amount Small O2/Vent: 2L NC Infusions: NS 75, levophed 15 Current Medications: Acetaminophen (Tylenol Tab*) 650 mg PO Q4H PRN PRN Reason: PAIN Last Admin: 02/27/18 09:07 Dose: 650 mg Aspirin (Aspirin Ec Tab*) 81 mg PO 2100 [facility] Last Admin: 02/26/18 22:04 Dose: 81 mg Famotidine (Pepcid Tab*) 20 mg PO DAILY [facility] Last Admin: 02/27/18 09:07 Dose: 20 mg Sodium Chloride (Ns 0.9% 1000 Ml*) 1,000 mls @ 75 mls/hr IV PER RATE [facility] Last Admin: 02/27/18 10:14 Dose: 75 mls/hr Cefazolin Sodium/Dextrose (Kefzol 2 Gm Premix In Ors(*)) 2 gm in 50 mls @ 100 mls/hr IVPB Q8H [facility] Last Admin: 02/27/18 09:14 Dose: 100 mls/hr Norepinephrine Bitartrate 4 mg (/ Sodium Chloride) 250 mls @ 45 mls/hr IV Q5H [facility]ANNA; Protocol Last Admin: 02/27/18 05:30 Dose: 45 mls/hr Ondansetron HCl (Zofran Inj*) 4 mg IV Q4H PRN PRN Reason: NAUSEA/VOMITING Potassium Chloride (Klor Con Er Tab*) 40 meq PO UC ONCE ONE Stop: 02/27/18 12:21 Physical Exam: General: awake, alert, no distress, no diaphoresis Head: normocephalic, atraumatic HEENT: no pallor, no icterus, moist mucous membranes Neck: soft, supple, no jvd, no stridor CVS: normal rate, regular, no murmur Resp: bilateral air entry, no rhales, no wheeze, no rhonchi, no acc muscle use Abdomen: soft, nontender, nondistended, bowel sounds present Ext: pulses+, warm, no edema Skin: intact Neuro: awake, alert, orientedx3, no facial droop noted, word finding with mild dysarthria on certain words only, left homonymous hemianopsia+, strength 5/5 all ext Labs: Laboratory Results - last 24 hr 02/25/18 02/27/18 02/27/18 08:37 05:50 05:50 WBC 8.2 RBC 4.01 Hgb 12.1 Hct 36 MCV 90 MCH 30 MCHC 33 RDW 14 Plt Count 63 L MPV 9.4 Hem Pathologist Commnt Sodium 138 Potassium 3.4 L Chloride 107 Carbon Dioxide 22 Anion Gap 9 BUN 10 Creatinine 0.49 L Est GFR ( Amer) 154.3 Est GFR (Non-Af Amer) 127.6 BUN/Creatinine Ratio 20.4 H Glucose 114 H Lactic Acid Calcium 7.6 L Procalcitonin 02/27/18 02/27/18 05:50 05:50 WBC RBC Hgb Hct MCV MCH MCHC RDW Plt Count MPV Hem Pathologist Commnt Sodium Potassium Chloride Carbon Dioxide Anion Gap BUN Creatinine Est GFR ( Amer) Est GFR (Non-Af Amer) BUN/Creatinine Ratio Glucose Lactic Acid 1.0 Calcium Procalcitonin 7.6 H Imaging: cxr 02/25 - no acute process CT brain 02/25 - no acute process CT abd/pelvis - (report reviewed); right lower kidney hypodensity+ CT brain 02/25 - subtle acute right MCA/DIRECT CUSTOMER SERVICE REPRESENTATIVE parietal watershed infarct MRI brain 02/26 - right parito-occipital acute infarct++, multiple bilateral areas of hypodense lesions suspicious for emboli MRA brain/neck - no sig stenosis noted TTE 02/26 - intact LV function; MV calcification with some possible small vegetations/projections (report reviewed) Assessment: 62y F w/pmhx of HTN, Anxiety disorder, past history of Gastric banding 2006; presents to ER for complaints of chills/fevers for 2 days ( started monday). Associated with nausea/vom since monday, decrease PO intake. no diarrhea. abd pain+, constipiation+. cough+, no sputum. has chronic neck pain. In ER, she was tmax 104, tachycardic, BP 100s, no resp distress or significant tachypnea. She was started on sepsis protocol with IVF and IV abx. CXR demonstrated no signficant infiltrates. CT brain without acute process. Urinalysis appears contaminated but no overt bacteria noted. CT abd/pelvis showed some hypodensity on right kidney but no apparent hydro. -Severe Sepsis with Shock -Staph aureus bacteremia -Staph aureus UTI?? -Acute Right MCA/DIRECT CUSTOMER SERVICE REPRESENTATIVE watershed infarct+ -r/o endocarditis -NSTEMI 2/2 to demand ischemia suspected -Right kidney hypodensity, possible embolic? -NILO, likely pre-renal -thrombocytopenia HTN Anxiety disorder Plan: Neuro- awake, alert. Aprexia seems to be present, not much change but better than days past. still with left homonymous hemianopsia+. -CT Brain 02/25 reivewed. MRI brain 02/26 with right occipital area infarct thats large and multiple small bilateral infarcts, suspicious for emboli+ -swallow intact, taking PO; speech therapy -maintain asa 81mg; hold if plt drops further -maintain SBP >120 for today and taper down levo; for cerebral perfusion post CVA or higher, on lizzy now -suspect septic emboli, by definition endocarditis; TTE suspected mitral source , already embolized any vegetations. for CHARLETTE for further localization. -IV abx -change neurochecks to q2h. -PRN xanax/ativan for anxiety if absolutely needed. CVS- HR stable, NSR, no arrythmia. On levophed for Shock and cerebral perfusion. Maintain SBP>120. Cont NS 75cc/hr. making urine. -IV abx for MSSA Bacteremia. TTE done, CHARLETTE planned today. -suspect demand ischemia from sepsis, no overt EKG abnormalities otherwise noted. cont ASA. Resp- on NC, no distress. ID- tmax 101, wbc normal. Urine culture nbo growth now; had staph growth on 02/24. Blood cx x2 with MSSA. on Cefazolin 2gm q8h (day#3). May reculture from blood. unclear other source of fever. Septic cerebral emboli+. Suspect Right renal emboli vs nephromia/infection. Will re-image kidney with US to eval for any collection. New cerebral vegetations may also be source. -obtain ID consult GI- NPO for CHARLETTE. regular diet/heart healthy otherwise. asp prec. Renal- NILO, likely from combination of poor po intake and GI losses from N/V. Cr improved. Cont NS 75cc/hr. Making urine. Harry+. -noted CT findings of Right lower kidney hypodensity, no hydronpehrosis noted. Collection? abscess? infarct from emboli? US kidney to further eval again. -discussed with urology Heme- hg stable. thrombocytopenia+, 60s, no bleeding. DVT proph scds. ASA 81mg daily, will hold if further plt drop tomorrow. Endo- fingerstick prn. Musculsk- pressure ulcer prophylaxis. Bedrest. Wounds- none Nutrition- NPO, restart cardiac diet after procedure. DVT prophylaxis: scd GI prophylaxis: h2b midline cath 12/3 right arm arterial line: right rad 12/3 Harry Cathetor: yes Disposition: ICU for septic shock, CVA, bacteremia Code Status: full code Total Critical Care time 45 min, not including teaching/procedures Alonso Prado MD [employer] (Electronically Signed)
[2018-02-27] MEDS ORDERED: Midazolam* 1 MG/ML 10 ML VIAL (10 MG) ONE (15:15)
[2018-02-27] MEDS ORDERED: Flumazenil* 0.1 MG/ML 5 ML MDV ONE (15:16)
[2018-02-27] MEDS ORDERED: Lidocaine 2% VISCOUS* 15 ML UDC ONE (15:16)
[2018-02-27] MEDS ORDERED: fentaNYL* 50 MCG/ML 2 ML VIAL (100 MCG VIAL) ONE (15:16)
[2018-02-27] MEDS ORDERED: Naloxone* 0.4 MG/ML 1 ML VIAL ONE (15:16)
[2018-02-27] MEDS ORDERED: NS 0.9% 1000 ML* 1,000 ML IV ONE (18:00)
--- NOTE | 2018-02-27 20:14 | CONS ---
CONSULTATION REPORT: DATE OF CONSULT: 02/27/18 REQUESTING PHYSICIAN: Dr. Prado. CONSULTING SERVICE: Infectious Disease. REASON FOR CONSULTATION: Staph aureus bacteremia and central nervous system emboli. IMPRESSION: 1. Staphylococcus aureus bacteremia, methicillin sensitive with bilateral embolic infarct to the brain, changes in the mitral valve on transthoracic echocardiogram, suspect all related to infectious endocarditis of the mitral valve. There is right kidney mass, which could be infarct, abscess, or unrelated to this process. She has no prosthetic material present. She has no spine or joint pain to suggest another additional undrained focus. 2. Obesity. 3. Non-ST elevation myocardial infarction, could be embolic as well. 4. Hypertension. RECOMMENDATIONS: Continue Ancef 2 g IV every 8 hours. We will recheck her blood cultures tomorrow. She may be bacteremic for a few days. She is going to have a transesophageal echocardiogram today. I discussed with Dr. 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 Her neurologic exam has been stable over the last 24 hours apparently. HISTORY OF PRESENT ILLNESS: This 62-year-old woman with obesity, hypertension, admitted with sudden onset fever, chills, malaise on Monday. Because of these symptoms, she went to the Urgent Care. She had a urine culture grew staph aureus. Her symptoms persisted, in fact got worse. So, she came to the hospital on 02/25/18. The brain CT showed no acute abnormality. Abdominal CT showed right sided kidney mass. Chest x-ray was unremarkable. Because of left leg and arm weakness and some aphasia a few hours after admission, she had a repeat brain CT. There is acute right MCA, TE[employer]ER [employer]USTRI[employer] watershed infarct. She was seen by Neurology. She had been febrile through that time and was then started on antibiotics. Her brain MRI showed multiple bilateral infarcts that were likely present previously, just not seen on the CT. Today, she has ongoing fever, intermittent pressor requirements, none currently. She has no pain and no headache. She has no neck stiffness or spine pain. No prosthetic material present. Her joints are not bothering her. She feels sick overall with loss of appetite. She is frustrated by difficulty getting her words out. PAST MEDICAL HISTORY: 1. Obesity. 2. Weight loss surgery in the past. 3. Hypertension. 4. Anxiety. ALLERGIES: No known drug allergies. MEDICATIONS: 1. Tylenol. 2. Aspirin. 3. Cefazolin 2 g IV every 8 hours. 4. Famotidine. 5. Zofran. SOCIAL HISTORY: She lives in [place] with her brother. 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 She smokes half a pack a day. No injection drugs. FAMILY HISTORY: Hypertension. REVIEW OF SYSTEMS: All negative except as noted above to 14-point review. PHYSICAL EXAM: Vital Signs: Temperature is 39, heart rate of 100, respiratory rate 25, blood pressure 150/94, oxygen saturation 92% on 2 L by nasal cannula. In general, she is awake, not in distress. Neurologic: She is oriented x3. Follows all commands, answers all questions. She has difficulty getting some words out, but knows what she wants to say. There are left-sided visual field deficits. Cranial nerves II through XII are otherwise intact. HEENT: There is no conjunctival hemorrhage. Oropharynx without lesions. Neck: Supple without mass. Heart: Regular and tachycardic without murmurs. Lungs: Clear to auscultation bilaterally. Abdomen: Soft, nontender, nondistended. There are bowel sounds present. There is no flank tenderness to palpation. Skin: There is no rash or splinter hemorrhages. Musculoskeletal: There is no spine tenderness to palpation or joint synovitis. DIAGNOSTIC STUDIES/LAB DATA: White blood cell count 8, hemoglobin 12, platelets 63. Creatinine is 0.5. Procalcitonin is 7.6, troponin is 1.2. Urinalysis shows blood and protein. Influenza PCR negative. Please see impression and recommendations as outlined above, which I have discussed with Dr. Prado. Thank you for asking me to see Ms. Gore in consultation. [id number]/[facility] #: [id number] [facility] MED[facility] CENTEREnrique
[2018-02-27] MEDS: Aspirin EC TAB* 81 MG TAB.EC PO SCH (20:15)
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
[2018-02-28] MEDS: Norepinephrine VIAL* 4 MG in NS 0.9% 250 ML* 246 ML IV SCH ×3 (00:19→11:08)
[2018-02-28] MEDS ORDERED: Acetaminophen IV 1GM/100ML * 100 ML IVPB ONE (00:30)
[2018-02-28] MEDS ORDERED: Furosemide IV* 10 MG/ML 2 ML VIAL (20 MG) IV ONE ×2 (00:58→10:06)
[2018-02-28] MEDS: ceFAZolin 2 GM PREMIX in ORs 2 GM/50 ML BAG IVPB SCH ×2 (01:13→08:20)
--- NOTE | 2018-02-28 01:58 | PN ---
Progress Note - Progress Note Date of Service: 02/28/18 Note: CXR - increase in interstitial markings. With her history - concern for pulmonary septic emboli. Will give Lasix [address] on vapotherm.
[2018-02-28 06:48] LABS: Hematocrit 33 % (35-47); Hemoglobin 11.1 g/dl (12.0-16.0); Mean Corpuscular HGB Conc 34 g/dl (31-36); Mean Corpuscular Hemoglobin 30 pg (27-31); Mean Corpuscular Volume 89 fL (80-97); Platelet Count 56 10^3/ul (150-450); Red Blood Count 3.68 10^6/ul (4.00-5.40); Red Cell Distribution Width 14 % (10.5-15); White Blood Count 9.7 10^3/ul (3.5-10.8)
[2018-02-28 07:30] LABS: EGFR Non-African American 99.1 (>60)
[2018-02-28] MEDS: Famotidine TAB* 20 MG PO SCH (08:16)
[2018-02-28] MEDS ORDERED: Potassium Chlor TAB* 20 MEQ TAB.ER PO ONE (09:44)
[2018-02-28] MEDS ORDERED: Magnesium Sulfate 2 GM IV* 2 GM/50 ML BAG IV ONE (09:44)
--- NOTE | 2018-02-28 09:49 | PN ---
Progress Note - Progress Note Date of Service: 02/28/18 Note: HPI: Feeling better. Brother at bedside indicates improved speech. Some continued errors. Concern re: vision loss was raised. CHARLETTE yesterday confirmed mobile lesion on mitral valve. Some soreness of throat today. Able to reduce pressers yesterday. Still on low dose Norepinephrine. No new change in vision, numbness or weakness of arms or legs. Continued fevers. CXR with increased interstitial markings last night. Seen by hospitalist and dania ordered. ICU attending discussing case with cardiology and potential transfer to institution with cardiac surgery. ID consulted yesterday. Active Medications Generic Name Dose Route Start Last Admin Trade Name Freq PRN Reason Stop Dose Admin Acetaminophen 650 mg 02/25/18 15:06 02/27/18 20:15 Tylenol Tab* PO 650 mg Q4H PRN Administration PAIN Aspirin 81 mg 02/25/18 22:00 02/27/18 20:15 Aspirin Ec Tab* PO 81 mg 2100 ARIANNA Administration Famotidine 20 mg 02/26/18 09:00 02/28/18 08:16 Pepcid Tab* PO 20 mg DAILY ARIANNA Administration Cefazolin Sodium/Dextrose 2 gm in 50 mls @ 100 mls/hr 02/26/18 01:07 08:20 Kefzol 2 Gm Premix In Ors(*) IVPB 100 mls/hr Q8H ARIANNA Administration Norepinephrine Bitartrate 4 mg 250 mls @ 45 mls/hr 02/27/18 05:00 02/28/18 05 :23 / Sodium Chloride IV 45 mls/hr Q5H ARIANNA Administration Protocol Magnesium Sulfate 2 gm/ Sodium 104 mls @ 104 mls/hr 02/28/18 09:44 Chloride IV 02/28/18 10:43 ONCE ONE Potassium Chloride 20 meq in 100 mls @ 50 mls/hr 02/28/18 10:00 Potassium Chloride 20 Meq/100 Ml Ivpremix* IV 02/28/18 15:59 Q2H ARIANNA Ondansetron HCl 4 mg 02/25/18 11:48 02/27/18 20:36 Zofran Inj* IV 4 mg Q4H PRN Administration NAUSEA/VOMITING Potassium Chloride 40 meq 02/28/18 09:44 Klor Con Er Tab* PO 02/28/18 09:45 UC ONCE ONE EXAMINATION: Temp Pulse Resp BP Pulse Ox 101.8 F 91 41 145/77 96 02/28/18 09:01 02/28/18 09:01 02/28/18 09:01 02/28/18 09:01 02/28/18 09:01 General: Awake, Alert, Oriented x3 HEENT: Normocephelic/MASK for oxygen Neck: Supple Chest: Clear to auscultation bilaterally Cardiovascular: Regular rate and rhythm without murmurs, rubs, gallops Extremities: No edema, rash, petechiae, cord to palpation in calves Neurological Findings: Tired appearing, Oriented x3 Speech: occasional stumbling over words, or difficulty completing a phrase with decreased frequency compared to yesterday. Cranial Nerve: PE, EOM intact, decreased visual mae on left to confrontation , albeit better than yesterday, no nystagmus, face symmetric bilaterally, facial sensation intact Motor: s/s throughout, proximal and distal extremities x4 tone/bulk normal Sensation: intact to LT/PP bilaterally upper and lower extremities Deep Tendon Reflex: 2+ symmetric in the upper/lower extremities, Babinski - down going Finger to nose without dysmetria, heel to wasserman hard, but accurate without dysmetria. Gait: not tested secondary to clinical status. DATA: Laboratory Results - last 24 hr 02/28/18 02/28/18 06:00 06:00 WBC 9.7 RBC 3.68 L Hgb 11.1 L Hct 33 L MCV 89 MCH 30 MCHC 34 RDW 14 Plt Count 56 L MPV 10.0 Sodium 136 Potassium 3.0 L Chloride 104 Carbon Dioxide 25 Anion Gap 7 BUN 10 Creatinine 0.61 Est GFR ( Amer) 119.9 Est GFR (Non-Af Amer) 99.1 BUN/Creatinine Ratio 16.4 Glucose 97 Calcium 7.7 L Magnesium 1.8 L Reviewed: CXR, consult with Dr. Neely in ID, Dr. Del Rio's update last night CHARLETTE: 1.7cm x 0.9cm mitral valve mass on atrial side with extensions that are highly mobile. See report for details. IMPRESSION: 62 year old woman admitted with multiple ischemic strokes in multiple vascular lesions, with fever, hypotension, blood cultures growing out Staph Aureus, elevated CRP and CK, found to have mobile mitral valve lesion consistent with endocarditis. On antibiotics, ICU in discussions with cardiology, and discussing transfer to institution with cardiac surgery. She is at risk for further stroke. Anticoagulation and antiplatelets are not indicated with endocarditis. Will stop aspirin. 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 Slowly tolerating wean of pressers. Required lasix in setting of increased interstitial markings on CXR. Concern re: kidney infarct; Dr. Prado planning further imaging. 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 Education given regarding findings to date, diagnoses of endocarditis and stroke , what strokes she has and deficits, how strokes heal, guarded prognosis, and further treatment plan. Continue speech therapy. Have held off on PT and OT given critical state. > 45 minutes was spent in direct face to face patient care. > 50% of the time was spent in education and counseling.
[2018-02-28] MEDS: KCL 20 MEQ/100 ML IVPREMIX* 20 MEQ/100 ML BAG IV SCH ×3 (10:33→15:21)
--- NOTE | 2018-02-28 10:38 | PN ---
Progress Note - Progress Note Date of Service: 02/28/18 Note: Progress Note - Critical Care 24 hour events: -overnight requiring increasing oxygen requiremtns, was on hiflow, now on oximask -given lasix and fluids stopped -remains febrile persistently 101 -on low dose levophed -CHARLETTE 02/27 done with MV vegetation++ -discussed with family and patient about transfer to center with CTS services for further evaluation, they have decided [facility] -she is awake, alert; no distress. minimal tachypnea. no cough/sputum. no abd pain/n/v/diarrhea. Tele: NSR Vitals: Vital Signs Temp 101.8 F 02/28/18 09:01 Pulse 91 02/28/18 09:01 Resp 41 02/28/18 09:01 BP 145/77 02/28/18 09:01 Pulse Ox 96 02/28/18 09:01 Intake & Output 02/27/18 02/28/18 02/28/18 18:59 06:59 18:59 Intake Total 1992 182 Output Total 625 1430 330 Balance 1368 390 -330 Weight 102.1 kg Intake: IV Fluids 702 1543 NS (0.9%) 702 1543 IVPB 223 ABX - CEFAZOLIN 123 Ofirmev 100 Medicated IV 316 54 CC - Norepinephrine/ 316 54 Levophed Oral 975 Output: Harry 625 1430 330 Other: Estimated Stool Amount Small O2/Vent: 6L oximask Infusions: levophed 2-4 Current Medications: Acetaminophen (Tylenol Tab*) 650 mg PO Q4H PRN PRN Reason: PAIN Last Admin: 02/27/18 20:15 Dose: 650 mg Aspirin (Aspirin Ec Tab*) 81 mg PO 2100 ARIANNA Last Admin: 02/27/18 20:15 Dose: 81 mg Famotidine (Pepcid Tab*) 20 mg PO DAILY ARIANNA Last Admin: 02/28/18 08:16 Dose: 20 mg Furosemide (Lasix Iv*) 20 mg IV ONCE ONE Stop: 02/28/18 10:07 Cefazolin Sodium/Dextrose (Kefzol 2 Gm Premix In Ors(*)) 2 gm in 50 mls @ 100 mls/hr IVPB Q8H [facility] Last Admin: 02/28/18 08:20 Dose: 100 mls/hr Norepinephrine Bitartrate 4 mg (/ Sodium Chloride) 250 mls @ 45 mls/hr IV Q5H ARIANNA; Protocol Last Admin: 02/28/18 05:23 Dose: 45 mls/hr Magnesium Sulfate (Magnesium Sulfate 2 Gm Iv*) 2 gm in 50 mls @ 50 mls/hr IV ONCE ONE Stop: 02/28/18 10:43 Potassium Chloride (Potassium Chloride 20 Meq/100 Ml Ivpremix*) 20 meq in 100 mls @ 50 mls/hr IV Q2H ARIANNA Stop: 02/28/18 15:59 Ondansetron HCl (Zofran Inj*) 4 mg IV Q4H PRN PRN Reason: NAUSEA/VOMITING Last Admin: 02/27/18 20:36 Dose: 4 mg Physical Exam: General: awake, alert, no distress, no diaphoresis Head: normocephalic, atraumatic HEENT: no pallor, no icterus, moist mucous membranes Neck: soft, supple, no jvd, no stridor CVS: normal rate, regular, no murmur Resp: bilateral air entry, mild scattered rhales+, no wheeze, no rhonchi, no acc muscle use Abdomen: soft, nontender, nondistended, bowel sounds present Ext: pulses+, warm, no edema Skin: intact Neuro: awake, alert, orientedx3, no facial droop noted, word finding with mild dysarthria on certain words only, left homonymous hemianopsia+, strength 5/5 all ext Labs: Laboratory Results - last 24 hr 02/28/18 02/28/18 06:00 06:00 WBC 9.7 RBC 3.68 L Hgb 11.1 L Hct 33 L MCV 89 MCH 30 MCHC 34 RDW 14 Plt Count 56 L MPV 10.0 Sodium 136 Potassium 3.0 L Chloride 104 Carbon Dioxide 25 Anion Gap 7 BUN 10 Creatinine 0.61 Est GFR ( Amer) 119.9 Est GFR (Non-Af Amer) 99.1 BUN/Creatinine Ratio 16.4 Glucose 97 Calcium 7.7 L Magnesium 1.8 L Imaging: cxr 02/25 - no acute process CT brain 02/25 - no acute process CT abd/pelvis - (report reviewed); right lower kidney hypodensity+ CT brain 02/25 - subtle 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 Associated with nausea/vom since monday, decrease PO intake. no diarrhea. abd pain+, constipiation+. cough+, no sputum. has chronic neck pain. In ER, she was tmax 104, tachycardic, BP 100s, no resp distress or significant tachypnea. She was started on sepsis protocol with IVF and IV abx. CXR demonstrated no signficant infiltrates. CT brain without acute process. Urinalysis appears contaminated but no overt bacteria noted. CT abd/pelvis showed some hypodensity on right kidney but no apparent hydro. -Severe Sepsis with Shock -MV endocarditis with MSSA -Staph aureus UTI?? 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 vs collection? -NILO, likely pre-renal -thrombocytopenia HTN Anxiety disorder Plan: Neuro- awake, alert. Aprexia stable, still with left homonymous hemianopsia+. -CT Brain 02/25 reivewed. MRI brain 02/26 with right occipital area infarct thats large and multiple small bilateral infarcts, suspicious for emboli+ -swallow intact, taking PO; speech therapy -d/c asa for dropping plts and likely embolic cvas than thrombotic -on levophed -suspect septic emboli 2/2 to endocarditis; confirmed MV vegetation -IV abx -change neurochecks to q4h. -PRN xanax/ativan for anxiety if absolutely needed. CVS- HR stable; remains on levophed low dose, still febrile. no arrythmias/afib noted. Maintain SBP>120. d/c ivf -CXR with congestion; repeat lasix 20mg IV now -CHARLETTE 02/27 noted with MV vegetation, mod MR, no sig valve destruction noted intact LV function -IV abx for MSSA Bacteremia. -suspect demand ischemia from sepsis, no overt EKG abnormalities otherwise noted. Resp- increased fio2 overnight. CXR with congestion, r/o infiltrate. off hiflow , on oximask. s/p lasix, repeat diuretics, off IVF. CT chest ID- tmax 101, wbc 9. Urine cx 02/24 with staph aureus. Blood cx x2 with MSSA; repeat blood culture x2 today. ID consult reviewed. Will ask about possible esaclation of Abx to dapto if needed. Cont Cefazolin 2gm q8h (day#4). CT abd/ pelvis/chest w/ and w/o contrast GI- mechanical soft cardiac diet. asp prec. Renal- NILO resolved. Replete IV KCL and Mg. making urine. d/c ivf. repeat Lasix 20mg IV. still on low dose pressors. -repeat CT abd/pelvis w/ and w/o contrast Heme- hg stable. thrombocytopenia+, 50s, no bleeding. DVT proph scds. d/c asa. Endo- fingerstick prn. Musculsk- pressure ulcer prophylaxis. Bedrest. Wounds- none Nutrition- mech soft diet DVT prophylaxis: scd GI prophylaxis: h2b midline cath 02/26 right arm arterial line: right rad 02/26 Harry Cathetor: yes Disposition: ICU for septic shock, CVA, bacteremia, endocarditis will call [facility] for transfer to higher level of care for CTS evaluation. Code Status: full code Total Critical Care time 45 min, not including teaching/procedures Alonso Prado MD [employer] Chief [employer] (Electronically Signed)
[2018-02-28] MEDS ORDERED: Acetaminophen IV 1GM/100ML * 100 ML ONE (11:20)
[2018-02-28] MEDS ORDERED: Acetaminophen IV 1GM/100ML * 100 ML IVPB SCH (11:30)
[2018-02-28] MEDS ORDERED: Iohexol 300* (CONTRAST) 10 ML SDV IV ONE (13:59)
[2018-02-28 15:20] VITALS: BP 136/89
--- NOTE | 2018-02-28 20:08 | DS ---
Discharge Summary Patient Name: Teresa Gore , [id number] Date of Admission: 02/25/2018 Date of Discharge: 02/28/2018 Attending: Dr Alonso Prado (head start coordinator) Consultants: Dr Claudia Garcia (Neurology), Dr Chan Alexander (neurology), Dr Dominic Newton (ID), Dr Weller (Cardiology) Admitting Diagnoses: 1) Sepsis of unclear origin 2) Metabolic encephalopathy 3) Acute Kidney Injury Discharge Diagnoses: 1) MSSA Bacteremia 2) Mitral Valve Endocarditis 3) Severe Sepsis with Shock 4) Right Parietal/Occipital CVA 2/2 to Septic Emboli 5) Bilateral Cerebral Septic Emboli 6) Acute Kidney Injury 7) Thrombocytopenia 8) Acute Hypoxic Respiratory Failure 9) Acute decompensated LV diastolic heart failure HPI/Hospital Course: 62y F w/pmhx of HTN, Anxiety disorder, past history of Gastric banding 2006; presents to ER for complaints of chills/fevers for 2 days (started monday). Associated with nausea/vom since monday, decrease PO intake. no diarrhea. abd pain+, constipiation+. no sick contacts. no cp/sob. cough+, no sputum. has chronic neck pain. no muscle cramps. no dizziness/syncope. no headache. no recent travel. no runny nose/sneezing/rhinorrhea. In ER, she was tmax 104, tachycardic, BP 100s, no resp distress or significant tachypnea. She was started on sepsis protocol with IVF and IV abx. CXR demonstrated no signficant infiltrates. CT brain without acute process. Urinalysis appears contaminated but no overt bacteria noted. CT abd/pelvis showed some hypodensity on right kidney but no apparent hydro. She was admitted to the medical floor for further sepsis tx/workup. Hours later she developed tachycardia to 150s, fever to 105 and was restless, upgraded to ICU for cooling blankets. At that time fever was being managed with acetaminophen and cooling blankets. Shortly later in the evening she was noted to have some neglect of the left side while have some dinner when the nurse examined. A neuro exam demonstrated a left sided homonomous hemianopsia. On further exam she was also noted to have a mild dysarthria apparent. It was unclear as to the timing of this event as she was verbalizing well on initial admission in the morning and was well as stated by boyfriend. A stat CT brain was performed demonstrating a subtle Right parietal watershed infarct. She was not given tPA due to unknown true time course of this event in the past [address] results. A differential of endocarditis was not being considered given her overall picture. She was started on asa 81mg. IV antibiotics with Vanco/Ceftriaxone and gentamycin x1 were continued. On 02/26 AM she had an MRI/MRA brain performed demonstrating acute right parietal /occipital ischemic infarct along with multiple bilateral acute hypodensities concerning for embolization. Her blood cultures also returned as Staph Aureus, subsequently MSSA+. She was started on lizzy and subsequently norepinephrine for hypotension and septic shock on 02/25 night. IV vasopressors were continued and she was kept at a higher SBP >120-140 for maintaining cerebral perfusion given the acute ischemic embolic CVA, which did show some improvement in symptoms with better BPs. A TTE was performed showing MV calcification with some small possible vegetations. Antibiotics were narrowed to Cefazolin. At this point it was unclear of the original source of MSSA bacteremia, as no wounds/lesions cutaneously were found except a small heel wound which appears healed. A CHARLETTE was performed 02/27 showing moderate MR, with large 1.7x1.0cm Mobile mitral valve vegetation. She remained febrile, mostly ~101, upto 102-[address] abd/pelvis was repeated with contrast and the same right renal hypodensity was noted along with new splenic infarcts. Concern now was for embolization to the spleen and a right renal infarct. Discussion with the family (brother) , boyfriend and patient about the matter was had. We discussed that given her MV endocarditis, cerebral embolization and embolization to other sites and risk of further embolization with the MV vegetation, transfer to a center with Cardiothoracic surgery services would be the best for evaluation and possible need for intervention for source control in the likelihood sepsis could not be controlled or if further embolization were to occur. Family agreed and wished to transfer to [facility] in [place], [place] when [facility]. She was transferred to [facility] on 02/28 to the MICU, i had discussed the case with the ICU head start coordinator, Hospitalist and CT surgery (Dr Zabala). All were in agreement. Procedures/Imaging: Transthoracic echocardiography, Transesophageal echocardiography, Computer Tomography of Brain, MRI brain, MRA head, MRA neck Laboratory/Data: see chart Discharge Medications to other facility: Cefazolin 2gm IV q8h, Norepinephrine Infusion Diet: cardiac diet Condition upon discharge: guarded, critical Disposition: transfer to [place], [place] for MICU/CTS evaluation Code Status: full code Total Discharge time <30minutes Alonso Prado MD [employer] (Electronically Signed)
== END 2018-02-28 15:45 | disposition short-term general hospital (02) | DRG 720 ==
LOC: ED 08:01 → ICU 11:40 → MED 13:44 → ICU 16:05
PROVIDERS: ADMIT Internal Medicine; ATTEND Internal Medicine Critical Care Medicine
PROC: 3E033XZ Introduction of Vasopressor into Peripheral Vein, Percutaneous Approach (ICD-10-PCS; 2018-02-25)
PROC: 4A133B1 Monitoring of Arterial Pressure, Peripheral, Percutaneous Approach (ICD-10-PCS; principal; 2018-02-26)
DX: A41.01 Sepsis due to Methicillin susceptible Staphylococcus aureus (principal); R65.21 Severe sepsis with septic shock; I50.33 Acute on chronic diastolic (congestive) heart failure; J96.01 Acute respiratory failure with hypoxia; I63.49 Cerebral infarction due to embolism of other cerebral artery; G93.41 Metabolic encephalopathy; N17.9 Acute kidney failure, unspecified; N12 Tubulo-interstitial nephritis, not specified as acute or chronic; R47.01 Aphasia; I76 Septic arterial embolism; Z68.41 Body mass index [BMI] 40.0-44.9, adult; M16.12 Unilateral primary osteoarthritis, left hip; K59.00 Constipation, unspecified; M54.2 Cervicalgia; N83.202 Unspecified ovarian cyst, left side; E78.5 Hyperlipidemia, unspecified; F17.210 Nicotine dependence, cigarettes, uncomplicated; K76.0 Fatty (change of) liver, not elsewhere classified; G89.29 Other chronic pain; D69.6 Thrombocytopenia, unspecified; H53.47 Heteronymous bilateral field defects; H26.9 Unspecified cataract; F41.9 Anxiety disorder, unspecified; F32.9 Major depressive disorder, single episode, unspecified; R47.1 Dysarthria and anarthria; R29.700 NIHSS score 0; I05.9 Rheumatic mitral valve disease, unspecified; N28.89 Other specified disorders of kidney and ureter; R53.1 Weakness; E66.01 Morbid (severe) obesity due to excess calories; I11.0 Hypertensive heart disease with heart failure; I95.9 Hypotension, unspecified; Z98.84 Bariatric surgery status; Z82.49 Family history of ischemic heart disease and other diseases of the circulatory system; Z72.89 Other problems related to lifestyle
CPT/HCPCS: 36415; 70450; 70544; 70547; 70551; 71045; 71260; 74177; 80048; 80053; 81003; 81015; 82150; 82550; 82803; 83036; 83516; 83605; 83690; 83735; 83880; 84145; 84443; 84484; 85025; 85027; 85060; 85302; 85306; 85610; 85613; 85730; 86140; 87040; 87077; 87086; 87150; 87186; 87205; 87641; 93005; 93306; 93312; 93325; 99156; 99285; A9270-GY; C8929; J0456; J0690; J0696; J1580; J1940; J2060; J2250; J2310; J2405; J3010; J3370; J3475; J3480; Q9967

== ENCOUNTER 2018-05-23 12:13 | Emergency (ER) | payer BC ==
--- NOTE | 2018-05-23 12:36 | ED ---
Shortness of Breath - HPI Summary HPI Summary: This patient is a 63 year old F presenting to ED with a chief complaint of SOB since a couple days ago. She was sent by her PCP for possibility of jaundice. The patient rates the pain 2/10 in severity. Symptoms aggravated by exertion. Symptoms alleviated by nothing. Patient reports palpitations (heart fluttering) , decreased appetite, and hematuria. Patient denies bilateral pedal edema, fever , and CP. PMHx of heart mitral valve replacement (D/C right after [place] in 2018) and stroke. - History of Current Complaint Chief Complaint: EDDysrhythmPalp Time Seen by Provider: 05/23/18 12:20 Hx Obtained From: Patient Onset/Duration: Sudden Onset, Lasting Days, Still Present Timing: Constant Current Severity: Mild - 2/10 Dyspnea At: Exertion Aggrevating Factors: Other - exertion Alleviating Factors: Nothing - Allergy/Home Medications Allergies/Adverse Reactions: Allergies Allergy/AdvReac Type Severity Reaction Status Date / Time No Known Allergies Allergy Verified 05/23/18 12:34 Home Medications: Home Medications Acetaminophen TAB* [Tylenol TAB*] 650 mg PO Q4H PRN MDD 3000 mg 05/23/18 [ History Confirmed 05/23/18] Atorvastatin* [Lipitor*] 80 mg PO QPM 05/23/18 [History Confirmed 05/23/18] Furosemide TAB* [Lasix TAB*] 80 mg PO DAILY 05/23/18 [History Confirmed 05/23/18 ] Magnesium Oxide TAB* [MagOx 400 TAB*] 400 mg PO BID 05/23/18 [History Confirmed 05/23/18] Metoprolol Tartrate TAB* [Lopressor TAB*] 12.5 mg PO BID 05/23/18 [History Confirmed 05/23/18] Pantoprazole TAB (NF) [Protonix TAB (NF)] 40 mg PO DAILY 05/23/18 [History Confirmed 05/23/18] Potassium Chlor TAB* [Klor Con ER TAB*] 20 meq PO BID 05/23/18 [History Confirmed 05/23/18] RX: Ferrous Sulfate TAB* 325 mg PO DAILY 05/23/18 [History Confirmed 05/23/18] Senna TAB* [Senokot TAB*] 2 tab PO DAILY PRN 05/23/18 [History Confirmed ] Warfarin TAB(*) [Coumadin TAB(*)] 4 mg PO SUTUTHSA 05/23/18 [History Confirmed 05/23/18] Warfarin TAB(*) [Coumadin TAB(*)] 6 mg PO MOWEFR 05/23/18 [History Confirmed ] PMH/Surg Hx/FS Hx/Imm Hx Endocrine/Hematology History: Denies: Hx Diabetes, Hx Thyroid Disease Cardiovascular History: Reports: Hx Hypertension Denies: Hx Pacemaker/ICD Respiratory History: Denies: Hx Asthma, Hx Chronic Obstructive Pulmonary Disease (COPD) GI History: Denies: Hx Ulcer Musculoskeletal History: Reports: Hx Arthritis - LEFT HIP Sensory History: Reports: Hx Cataracts - BILATERAL Denies: Hx Contacts or Glasses, Hx Hearing Aid Opthamlomology History: Reports: Hx Cataracts - BILATERAL Denies: Hx Contacts or Glasses Psychiatric History: Reports: Hx Anxiety - CONTROLLED WITH MED, Hx Depression - CONTROLLED WITH MED Denies: Hx Panic Disorder - Surgical History Surgery Procedure, Year, and Place: GASTRIC LAP BAND - 2006 - [place]. HAMMER TOE SURGERY X2 - 2007 - [place]. FATTY TUMOR REMOVED FROM BACK - 2008 - [place]. ROTATOR CUFF Hx Anesthesia Reactions: No Infectious Disease History: No Infectious Disease History: Denies: Hx Hepatitis, Hx Human Immunodeficiency Virus (HIV), Traveled Outside the [place] in Last 30 Days - Family History Known Family History: Positive: Hypertension - Social History Alcohol Use: Daily Alcohol Amount: 3-4 DRINKS PER WEEK Substance Use Type: Reports: None Smoking Status (MU): Former Smoker Amount Used/How Often: 1/2 PPD Review of Systems Negative: Fever Positive: Palpitations - heart fluttering. Negative: Chest Pain Positive: Shortness Of Breath Positive: Other - decreased appetite Positive: hematuria Negative: Edema All Other Systems Reviewed And Are Negative: Yes Physical Exam - Summary Physical Exam Summary: Appearance: Well appearing, no pain distress Skin: warm, dry, reflects adequate perfusion, Scar over the chest Head/face: normal Eyes: EOMI, DAWSON, Sclera has a little discoloration ENT: normal Neck: supple, non-tender Respiratory: CTA, breath sounds present Cardiovascular: RRR, pulses symmetrical Abdomen: non-tender, soft Musculoskeletal: normal, strength/ROM intact Neuro: normal, sensory motor intact, A&Ox3 Rectal: Brown stool was found. No black stool seen. Female director of placement present. Triage Information Reviewed: Yes Vital Signs On Initial Exam: Initial Vitals Temp Pulse Resp BP Pulse Ox 98.2 F 89 22 155/79 94 05/23/18 12:17 05/23/18 12:17 05/23/18 12:17 05/23/18 12:17 05/23/18 12:17 Vital Signs Reviewed: Yes Diagnostics - Vital Signs Vital Signs Temp Pulse Resp BP Pulse Ox 05/23/18 12:17 98.2 F 89 22 155/79 94 - Laboratory Result Diagrams: 05/23/18 13:07 05/23/18 13:07 Lab Statement: Any lab studies that have been ordered have been reviewed, and results considered in the medical decision making process. - Radiology CXR Radiology Interpretation Completed By: Radiologist Summary of Radiographic Findings: CARDIOMEGALY. NO ACTIVE CARDIOPULMONARY DISEASE. ED physician has reviewed this radiology report. - Ultrasound No standard instances Ultrasound Interpretation Completed By: Radiologist Summary of Ultrasound Findings: Abdomen US reveals ECHOGENIC RIGHT KIDNEY SUGGESTIVE OF MEDICAL RENAL DISEASE. THE RIGHT RENAL INFARCT NOTED ON THE PREVIOUS CT EXAMINATION IS NOT CLEARLY PATIENT IS ON THE CURRENT EXAMINATION. THE GALLBLADDER IS INCOMPLETELY DISTENDED BUT IS GROSSLY NORMAL. ED physician has reviewed this radiology report. - EKG 1238 Cardiac Rate: NL - 77 BPM EKG Rhythm: Sinus Rhythm Summary of EKG Findings: No acute changes Re-Evaluation - Re-Evaluation First Eval Re-Evaluation Time: 14:08 Comment: Discussed all results from workup with the patient. Rectal exam was done at this time. Discussed that she has anemia and will be admitted. Patient understands and agrees with this plan. Course/Dx - Course Assessment/Plan: This patient is a 63 year old F presenting to ED with a chief complaint of SOB since a couple days ago. She was sent by her PCP for possibility of jaundice. Blood work/UA obtained. EKG done at 1238 reveals NSR at 77 BPM and no acute changes. CXR reveals CARDIOMEGALY. NO ACTIVE CARDIOPULMONARY DISEASE. ECHOGENIC RIGHT KIDNEY SUGGESTIVE OF MEDICAL RENAL DISEASE. THE RIGHT RENAL INFARCT NOTED ON THE PREVIOUS CT EXAMINATION IS NOT CLEARLY PATIENT IS ON THE CURRENT EXAMINATION. THE GALLBLADDER IS INCOMPLETELY DISTENDED BUT IS GROSSLY NORMAL. Consulted Dr. Crowe about the patient's case and she accepts her for admission. This patient will be admitted with dx of symptomatic anemia, positive troponin, dyspnea, jaundice, and dehydration. Patient understands and agrees with this plan. - Diagnoses Differential Diagnosis/HQI/PQRI: Positive: CHF, Pneumonia, Pulmonary Edema, Other - dyspnea, jaundice, dehydration Provider Diagnoses: Symptomatic anemia, Elevated troponin, Jaundice, Dehydration, Dyspnea - Physician Notifications Discussed Care of Patient With: Lamar Crowe Time Discussed With Above Provider: 14:36 Instructed by Provider To: Other - Consulted Dr. Crowe about the patient's case and she accepts the patient for admission. - Critical Care Time Critical Care Time: 30-74 min Discharge - Sign-Out/Discharge Documenting (check all that apply): Patient Departure - admit Patient Received Moderate/Deep Sedation with Procedure: No - Discharge Plan Condition: Stable Disposition: ADMITTED TO [facility] Referrals: Placido Macias EVALUATION ANALYST [Primary Care Provider] - - Billing Disposition and Condition Condition: STABLE Disposition: Admitted to [facility] - Attestation Statements Document Initiated by Antonettee: Yes Documenting Scribe: Bo Castellon Provider For Whom Scribe is Documenting (Include Credential): Mike Little MD Scribe Attestation: Bo Patel, scribed for Mike Little MD on 05/23/18 at 1520. Scribe Documentation Reviewed: Yes Provider Attestation: The documentation as recorded by the Bo roberts accurately reflects the service I personally performed and the decisions made by Mike cooper MD Status of Scribe Document: Viewed
[2018-05-23 13:17] LABS: ABS Basophils 0.1 10^3/ul (0-0.2); ABS Eosinophils 0.1 10^3/ul (0-0.6); ABS Lymphocytes 1.1 10^3/ul (1.0-4.8); ABS Monocytes 0.6 10^3/ul (0-0.8); ABS Neutrophils 7.3 10^3/ul (1.5-7.7); ABS Nucleated RBC 0 10^3/ul; Hematocrit 24 % (35-47); Hemoglobin 7.9 g/dl (12.0-16.0); Mean Corpuscular HGB Conc 33 g/dl (31-36); Mean Corpuscular Hemoglobin 28 pg (27-31); Mean Corpuscular Volume 84 fL (80-97); Mean Platelet Volume 8.1 fL (7.4-10.4); Nucleated Red Blood Cells % 0.3; Platelet Count 279 10^3/ul (150-450); Red Blood Count 2.86 10^6/ul (4.00-5.40); Red Cell Distribution Width 18 % (10.5-15); White Blood Count 9.2 10^3/ul (3.5-10.8)
[2018-05-23 13:21] LABS: INR 3.85 (0.77-1.02)
[2018-05-23 13:38] LABS: ALT 31 U/L (7-52); Albumin 3.7 g/dL (3.2-5.2); Albumin/Globulin Ratio 1.1 (1-3); Alkaline Phosphatase 76 U/L (34-104); BUN/Creatinine Ratio 20.8 (8-20); Blood Urea Nitrogen 27 mg/dL (6-24); CO2 Carbon Dioxide 28 mmol/L (22-32); Calcium 9.5 mg/dL (8.6-10.3); Chloride 101 mmol/L (101-111); EGFR African American 49.9 (>60); EGFR Non-African American 41.2 (>60); Globulin 3.4 g/dL (2-4); Glucose 117 mg/dL (70-100); Sodium 138 mmol/L (135-145); Total Protein 7.1 g/dL (6.4-8.9)
[2018-05-23 13:50] LABS: Anion Gap 9 mmol/L (2-11); Troponin I 0.04 ng/mL (<0.04)
--- OUTSIDE RECORDS SUMMARY | 2018-05-23 14:06 | XMS REPORT | Continuity of Care Document ---
:1955 External Reference #:[id number] Author Name Rosalee Jackson Care Team Providers Name Role Phone Maci Magaña MD Primary Care Physician Unavailable Payers Type Date Identification Numbers Payment Provider Subscriber Policy Number: [id number] [employer] Teresa Resendiz PayID: [id number] [address] [address] [place] [address] Advance Directives Description No Information Available Problems Date Description Provider Status Onset: 07/06/2016 Essential hypertension Placido Macias NP Active Onset: 07/06/2016 Depressive disorder Placido Macias NP Active Onset: 03/29/2018 Thrombotic stroke Placido Macias NP Active Onset: 03/29/2018 History of mechanical Placido Macias NP Active prosthetic mitral valve replacement Onset: 03/29/2018 Long-term current use of Placido Macias NP Active anticoagulant Onset: 04/24/2018 Chest pain Karthikeyan Franco M.D., [facility], Active FASNC Onset: 04/23/2018 Acute and subacute bacterial Chan Alexander M.D. Active endocarditis Family History Date Family Member(s) Problem(s) Comments Father due to [place] () - 44 Mother brain tumor Mother Cerebrovascular Accident (CVA) at 87 Siblings 2 Brother at 68-throat and lung cancer, HTN Brother-66 HTN Social History Type Date Description Comments Sex Unknown Marital Status Lives With Family ETOH Use Currently consumes 3 drinks/week alcohol Tobacco Use Start: Unknown End: Patient is a former Unknown smoker Tobacco Use Start: Unknown End: Patient is a former smoker Smoking Status Reviewed: 04/24/18 Patient is a former smoker Exercise Type/Frequency Exercises rarely Allergies, Adverse Reactions, Alerts Description No Known Drug Allergies Medications Medication Date Status Form Strength Qnty SIG Indications Ordering Provider Atorvastatin 04/16 Active Tablets 80mg 30tab 1 by mouth Placido Calcium /2018 s every day TREVIN Macias Furosemide 03/29 Active Tablets 40mg 60tab take 1 tablet Placido /2018 s by mouth TREVIN Macias twice a day Potassium 03/29 Active Tablets ER 20Meq 30tab take 2 Placido Chloride Dhara /2018 s tablets by TREVIN Macias ER mouth once daily Warfarin 03/29 Active Tablets 2mg 60tab take 2 tablet Placido Sodium /2018 s by mouth once TREVIN Macias daily or as directed Adults 50+ 00/00 Active Tablets 1 by mouth Unknown Daily Formula /0000 every day occasionally Metoprolol Active Tablets 25mg take 1/2 Unknown Tartrate /0000 tablet by mouth every 12 hours AT 6Am And 6PM Hold If BL... (Refer To Prescription Notes). Acetaminophen Active Tablets ER 650mg 1 tab by Unknown ER /0000 mouth q4 hours as needed pain Docusate Active Capsules 100mg 1 tab every Unknown Sodium /0000 12 hours as needed for constipation Magnesium Active Capsules 400mg 1 by mouth Unknown Oxide -MG /0000 every day Supplement [facility] Ferrous Active Tablets 325(65Fe) 1 tablet po Unknown Sulfate /0000 mg daily Trintellix 01/08 Hx Tablets 20mg 30tab one tablet Placido s once daily TREVIN Macias - 04/22 Fluticasone 07/07 Hx Suspension 50mcg/Act 16uni 2 sprays each H81.10 Placido ts nostril qd. TREVIN Macias - 04/22 Telmisartan 01/02 Hx Tablets 40mg 90tab take 1 tablet Placido s by mouth once TREVIN Macias - daily 04/22 Sertraline HCL 07/25 Hx Tablets 50mg Placido /2016 TREVIN Macias - 07/25 Trintellix 07/25 Hx Tablets 10mg 90tab one tablet Placido /2016 s once daily TREVIN Macias - 01/08 Adults 50+ /07 Hx Tablets 90tab 1 by mouth Placido Daily Formula s every day TREVIN Macias - 07/01 Pantoprazole 00/[address] 40mg take 1 tablet Unknown Sodium /0000 by mouth at - bedtime 04/22 Cefazolin 00/00 Hx Soln 2GM/20ML Unknown Sodium /0000 Prefill - Syringe 04/22 Immunizations CPT Code Status Date Vaccine Lot # [id number] Given 01/08/2018 Influenza Virus Vaccine, Quadrivalent, Split, [id number] Preservative Free [id number] Given 01/02/2017 Influenza Virus Vaccine, Quadrivalent, Split, [id number] Preservative Free Vital Signs Date Vital Result Comment 04/24/2018 1:53pm Height 61.5 inches 5'1.50" Weight 191.00 lb without shoes Heart Rate 72 /min BP Systolic 124 mmHg Rue reg cuff BP Diastolic 80 mmHg Rue reg cuff BP Systolic Sitting 132 mmHg Lue reg cuff BP Diastolic Sitting 78 mmHg Lue reg cuff BP Systolic Standing 140 mmHg Lue reg cuff BP Diastolic Standing 80 mmHg Lue reg cuff Respiratory Rate 16 /min BMI (Body Mass Index) 35.5 kg/m2 Ejection Fraction 55% date 03/01/18 ECHO 04/23/2018 8:57am Height 61.5 inches 5'1.50" Weight 186.00 lb Heart Rate 97 /min BP Systolic Sitting 138 mmHg BP Diastolic Sitting 80 mmHg Respiratory Rate 18 /min BMI (Body Mass Index) 34.6 kg/m2 03/29/2018 2:04pm Height 61.5 inches 5'1.50" Weight 214.00 lb Heart Rate 74 /min BP Systolic Sitting 150 mmHg BP Diastolic Sitting 89 mmHg BP Systolic Recheck 132 mmHg BP Diastolic Recheck 82 mmHg O2 % BldC Oximetry 99 % BMI (Body Mass Index) 39.8 kg/m2 01/08/2018 8:29am Weight 203.00 lb Heart Rate 68 /min BP Systolic 130 mmHg BP Diastolic 76 mmHg Body Temperature 97.4 F O2 % BldC Oximetry 97 % 07/07/2017 9:14am Weight 198.00 lb Heart Rate 79 /min BP Systolic 125 mmHg BP Diastolic 65 mmHg Body Temperature 97.3 F O2 % BldC Oximetry 98 % 01/02/2017 10:19am Weight 202.00 lb Heart Rate 68 /min BP Systolic Sitting 126 mmHg BP Diastolic Sitting 68 mmHg O2 % BldC Oximetry 98 % 09/19/2016 8:21am Weight 205.75 lb Heart Rate 78 /min BP Systolic 118 mmHg BP Diastolic 64 mmHg Body Temperature 97.7 F O2 % BldC Oximetry 99 % 07/25/2016 8:57am Weight 207.50 lb Heart Rate 70 /min BP Systolic 118 mmHg BP Diastolic 66 mmHg Body Temperature 98.3 F O2 % BldC Oximetry 98 % 07/01/2016 11:20am Height 61.5 inches 5'1.50" Weight 203.75 lb Heart Rate 76 /min BP Systolic 130 mmHg BP Diastolic 66 mmHg Body Temperature 97.7 F O2 % BldC Oximetry 98 % BMI (Body Mass Index) 37.9 kg/m2 Results Test Date Facility Test Result H/L Range Note Protime W/ Inr 04/20/2018 [facility] 1.8 Protime W/ Inr 04/13/2018 [facility] Inr 2.2 CBC Auto Diff 04/06/2018 [facility] White Blood 7.1 10^3/uL N 3.5-10.[address] [place] [address] [phone] Red Blood Count 3.19 10^6/uL Low 4.00-5.40 Hemoglobin 8.8 g/dL Low 12.0-16.0 Hematocrit 27 % Low 35-47 Mean Corpuscular Volume 86 fL N 80-97 Mean Corpuscular Hemoglobin 28 pg N 27-31 Mean Corpuscular HGB Conc 32 g/dL N 31-36 Red Cell Distribution Width 16 % High 10.5-15 Platelet Count 367 10^3/uL N 150-450 Mean Platelet Volume 7.5 fL N 7.4-10.4 Comp Metabolic Panel 04/06/2018 [facility] Sodium 141 mmol/L N 135-[address] [place] [address] [phone] Potassium 3.7 mmol/L N 3.5-5.0 Chloride 102 mmol/L N 101-111 Co2 Carbon Dioxide 31 mmol/L N 22-32 Anion Gap 8 mmol/L N 2-11 Glucose 96 mg/dL N 70-100 Blood Urea Nitrogen 11 mg/dL N 6-24 Creatinine 1.25 mg/dL High 0.51-0.95 BUN/Creatinine Ratio 8.8 N 8-20 Calcium 9.0 mg/dL N 8.6-10.3 Total Protein 6.6 g/dL N 6.4-8.9 Albumin 3.5 g/dL N 3.2-5.2 Globulin 3.1 g/dL N 2-4 Albumin/Globulin Ratio 1.1 N 1-3 Total Bilirubin 0.50 mg/dL N 0.2-1.0 Alkaline Phosphatase 91 U/L N 34-104 Alt < 3 U/L Low 7-52 Ast 16 U/L N 13-39 Egfr Non- 43.3 >60 Egfr 52.4 >60 1 Laboratory test 04/06/2018 [facility] C Reactive 25.90 mg/L High <8.[address] [place] [address] [phone] Manual 04/06/2018 [facility] Neutrophil % 79 % Differential [address] [place] [address] [phone] Lymphocytes % 11 % Monocytes % 6 % Eosinophils % 1 % Basophil % 2 % Variant Lymph % 1 % N 0-6 Polychromasia 1+ Anisocytosis 1+ Abs Neutrophils 5.6 10^3/uL N 1.5-7.7 Abs Lymphocytes 0.85 10^3/uL Low 1.0-4.8 Abs Monocytes 0.43 10^3/uL N 0-0.8 Abs Eosinophils 0.07 10^3/uL N 0-0.6 Abs Basophils 0.15 10^3/uL N 0-0.2 Laboratory test 04/06/2018 [facility] Blood Culture SEE RESULT [address] [place] [address] [phone] Pathologist Review (SEE NOTE) 3 Basic Metabolic Panel 04/02/2018 [facility] Sodium 142 mmol/L N 135-[address] [place] [address] [phone] Potassium 3.2 mmol/L Low 3.5-5.0 Chloride 100 mmol/L Low 101-111 Co2 Carbon Dioxide 33 mmol/L High 22-32 Anion Gap 9 mmol/L N 2-11 Glucose 87 mg/dL N 70-100 Blood Urea Nitrogen 9 mg/dL N 6-24 Creatinine 0.71 mg/dL N 0.51-0.95 BUN/Creatinine Ratio 12.7 N 8-20 Calcium 8.6 mg/dL N 8.6-10.3 Egfr Non- 83.1 >60 Egfr 100.6 >60 5 CBC Auto Diff 04/02/2018 [facility] White Blood 7.4 10^3/uL N 3.5-10.[address] [place] [address] [phone] Red Blood Count 3.13 10^6/uL Low 4.00-5.40 Hemoglobin 8.7 g/dL Low 12.0-16.0 Hematocrit 27 % Low 35-47 Mean Corpuscular Volume 87 fL N 80-97 Mean Corpuscular Hemoglobin 28 pg N 27-31 Mean Corpuscular HGB Conc 32 g/dL N 31-36 Red Cell Distribution Width 16 % High 10.5-15 Platelet Count 397 10^3/uL N 150-450 Mean Platelet Volume 7.6 fL N 7.4-10.4 Abs Neutrophils 5.4 10^3/uL N 1.5-7.7 Abs Lymphocytes 1.4 10^3/uL N 1.0-4.8 Abs Monocytes 0.5 10^3/uL N 0-0.8 Abs Eosinophils 0.1 10^3/uL N 0-0.6 Abs Basophils 0.1 10^3/uL N 0-0.2 Abs Nucleated RBC 0 10^3/uL Granulocyte % 72.7 % Lymphocyte % 18.5 % Monocyte % 6.2 % Eosinophil % 1.9 % Basophil % 0.7 % Nucleated Red Blood Cells % 0.1 Protime W/ Inr 04/02/2018 Other [facility] Inr 2.5 Protime W/ Inr 03/30/2018 Other Rendering Inr 1.4 Protime W/ Inr 03/28/2018 Other Rendering Inr 1.4 CBC Auto Diff 03/26/2018 [facility] White Blood 7.4 10^3/uL N 3.5-10.[address] [place] [address] [phone] Red Blood Count 2.99 10^6/uL Low 4.00-5.40 Hemoglobin 8.3 g/dL Low 12.0-16.0 Hematocrit 26 % Low 35-47 Mean Corpuscular Volume 87 fL N 80-97 Mean Corpuscular Hemoglobin 28 pg N 27-31 Mean Corpuscular HGB Conc 32 g/dL N 31-36 Red Cell Distribution Width 16 % High 10.5-15 Platelet Count 392 10^3/uL N 150-450 Mean Platelet Volume 7.3 fL Low 7.4-10.4 Abs Neutrophils 5.4 10^3/uL N 1.5-7.7 Abs Lymphocytes 1.3 10^3/uL N 1.0-4.8 Abs Monocytes 0.5 10^3/uL N 0-0.8 Abs Eosinophils 0.1 10^3/uL N 0-0.6 Abs Basophils 0.1 10^3/uL N 0-0.2 Abs Nucleated RBC 0 10^3/uL Granulocyte % 73.3 % Lymphocyte % 17.3 % Monocyte % 7.3 % Eosinophil % 1.2 % Basophil % 0.9 % Nucleated Red Blood Cells % 0 Comp Metabolic Panel 03/26/2018 [facility] Sodium 142 mmol/L N 135-145 [address] [place] [address] [phone] Potassium 3.6 mmol/L N 3.5-5.0 Chloride 105 mmol/L N 101-111 Co2 Carbon Dioxide 32 mmol/L N 22-32 Anion Gap 5 mmol/L N 2-11 Glucose 67 mg/dL Low 70-100 Blood Urea Nitrogen 8 mg/dL N 6-24 Creatinine 0.65 mg/dL N 0.51-0.95 BUN/Creatinine Ratio 12.3 N 8-20 Calcium 8.4 mg/dL Low 8.6-10.3 Total Protein 6.2 g/dL Low 6.4-8.9 Albumin 2.9 g/dL Low 3.2-5.2 Globulin 3.3 g/dL N 2-4 Albumin/Globulin Ratio 0.9 Low 1-3 Total Bilirubin 0.30 mg/dL N 0.2-1.0 Alkaline Phosphatase 90 U/L N 34-104 Alt < 3 U/L Low 7-52 Ast 15 U/L N 13-39 Egfr Non- 92.1 >60 Egfr 111.4 >60 7 Laboratory test 03/26/2018 [facility] C Reactive 24.98 mg/L High <8.01 [address] [place] [address] [phone] Arterial Blood 02/25/2018 [facility] O2 Device 2l NC Gas [address] [place] [address] [phone] PH Arterial 7.43 N 7.35-7.45 Pco2 Arterial 35 mmHg N 35-45 Po2 Arterial 109 mmHg High 80-100 O2 Saturation Arterial 99.2 % High 95-98 Base Excess Arterial -0.7 N -2.0-2.0 9 Hco3 Arterial 24.4 mmol/L N 19-31 Rapid Influenza 02/25/2018 [facility] Influenza A NEGATIVE Negative 10 A & B Molecular [address] Molecular [place], [place] [id number] [phone] Influenza B Molecular NEGATIVE Negative Laboratory test 02/25/2018 [facility] Rapid SEE RESULT [address] Influ[place] [address] Antigen [phone] Laboratory test 02/25/2018 [facility] Lactic Acid 2.2 mmol/L High 0.5-2 [address]0 [place], [place] [id number] [phone] Amylase 57 U/L N 29-103 Lipase 166 U/L High 11.0-82.0 Blood Culture SEE RESULT BELOW 13 Pathologist Review (SEE NOTE) 14 Laboratory test 02/25/2018 [facility] B-Type 122 pg/mL High <= [address] [place] [address] Peptide BNP [phone] Comp Metabolic 02/25/2018 [facility] Sodium 131 Low 135-[address] mmol/[place] [address] [phone] Potassium 3.5 mmol/L N 3.5-5.0 Chloride 94 mmol/L Low 101-111 Co2 Carbon Dioxide 28 mmol/L N 22-32 Anion Gap 9 mmol/L N 2-11 Glucose 124 mg/dL High 70-100 Blood Urea Nitrogen 30 mg/dL High 6-24 Creatinine 1.39 mg/dL High 0.51-0.95 BUN/Creatinine Ratio 21.6 High 8-20 Calcium 9.1 mg/dL N 8.6-10.3 Total Protein 7.1 g/dL N 6.4-8.9 Albumin 3.7 g/dL N 3.2-5.2 Globulin 3.4 g/dL N 2-4 Albumin/Globulin Ratio 1.1 N 1-3 Total Bilirubin 0.80 mg/dL N 0.2-1.0 Alkaline Phosphatase 62 U/L N 34-104 Alt 42 U/L N 7-52 Ast 71 U/L High 13-39 Egfr Non- 38.3 >60 Egfr 46.3 >60 15 Laboratory test 02/25/2018 [facility] Creatine 708 U/L High 10 -[address] Kinase(CK) [place], [place] [id number] [phone] C Reactive Protein 437.89 mg/L High <8.01 Troponin-I (TnI) 0.80 ng/mL High <0.04 16 Inr/Protime 02/25/2018 [facility] Inr 1.02 N 0.77-1.[address] [place] [address] [phone] Laboratory test 02/25/2018 [facility] Partial 26.0 seconds N 26.0-36.[address] [place] [address] PTT [phone] CBC Auto Diff 02/25/2018 [facility] White Blood 8.8 10^3/uL N 3.5-10.8 [place] [address] [phone] Red Blood Count 4.57 10^6/uL N 4.00-5.40 Hemoglobin 13.8 g/dL N 12.0-16.0 Hematocrit 41 % N 35-47 Mean Corpuscular Volume 90 fL N 80-97 Mean Corpuscular Hemoglobin 30 pg N 27-31 Mean Corpuscular HGB Conc 34 g/dL N 31-36 Red Cell Distribution Width 13 % N 10.5-15 Platelet Count 109 10^3/uL Low 150-450 Mean Platelet Volume 7.7 fL N 7.4-10.4 Manual Differential 02/25/2018 [facility] Immature 11 % High 0 -[address] [place] [address] [phone] Platelet Morphology (SEE NOTE) 17 Neutrophil % 83 % Band % 11 % High 0-8 Lymphocytes % 4 % Monocytes % 2 % RBC Morphology Normal Normal Laboratory test 02/25/2018 [facility] Procalcitonin 16.9 ng/mL High <0.[address] [place] [address] [phone] Urinalysis 02/25/2018 [facility] Urine Color Betty Profile [address] [place] [address] [phone] Urine Appearance Cloudy Urine Specific [place] 1.024 N 1.010-1.030 Urine pH 5.0 N 5-9 Urine Urobilinogen Positive Abnormal Negative Urine Ketones Negative Negative Urine Protein 2+(100 mg/dL) Abnormal Negative Urine Leukocytes Negative Negative Urine Blood 3+ Abnormal Negative Urine Nitrite Negative Negative Urine Bilirubin Negative Negative Urine Glucose Negative Negative Urine White Blood Cell 2+(11-20/hpf) Abnormal Absent Urine Red Blood Cell 3+(>10/hpf) Abnormal Absent Urine Bacteria Absent Absent Urine Squamous Epithelial Cell Present Abnormal Absent Urine Hyaline Casts Present Abnormal Absent Urine Red Blood Cell Casts Present Abnormal Absent Urine Culture And 02/24/2018 [facility] Urine SEE RESULT 19 , [address] [place] [address] [phone] Rapid Influenza A 02/24/2018 [facility] Influenza A NEGATIVE Negative 21 & B Molecular [address] Molecular [place], [place] [address] [phone] Influenza B Molecular NEGATIVE Negative Poc Urinalysis 02/24/2018 [facility] Poc Glucose, Negative Negative [address] [place] [address] [phone] Poc Bilirubin, Urine 1+ Abnormal Negative Poc Ketone, Urine Negative Negative Poc Specific [place], Urine >=1.030 N 1.010-1.030 Poc Blood, Urine 3+ Abnormal Negative Poc pH, Urine 5.5 N 5-9 Poc Protein, Urine 3+ Abnormal Negative Poc Urobilinogen, Urine 1.0 Negative Poc Nitrite, Urine Positive Abnormal Negative Poc Leukocytes, Urine Negative Negative Poc Color, Urine Betty Poc Clarity, Urine Clear 22 Wound 07/24/2017 [facility] Wound/Misc SEE RESULT 23, 24 Culture/Sensi [address] [place] [address] Stain [phone] Laboratory test 07/24/2017 [facility] MRSA/S. aureus SEE RESULT [address] Ssti PCR BELOW [place], [place] [address] [phone] CBC Auto Diff 07/05/2017 [facility] White Blood 7.2 N 3.5- [address] Count 10^3/uL 10.8 [place] [address] [phone] Red Blood Count 4.45 10^6/uL N 4.0-5.4 Hemoglobin 13.8 g/dL N 12.0-16.0 Hematocrit 41 % N 35-47 Mean Corpuscular Volume 92 fL N 80-97 Mean Corpuscular Hemoglobin 31 pg N 27-31 Mean Corpuscular HGB Conc 34 g/dL N 31-36 Red Cell Distribution Width 14 % N 10.5-15 Platelet Count 244 10^3/uL N 150-450 Mean Platelet Volume 7.7 um3 N 7.4-10.4 Abs Neutrophils 4.3 10^3/uL N 1.5-7.7 Abs Lymphocytes 2.2 10^3/uL N 1.0-4.8 Abs Monocytes 0.6 10^3/uL N 0-0.8 Abs Eosinophils 0.1 10^3/uL N 0-0.6 Abs Basophils 0.1 10^3/uL N 0-0.2 Abs Nucleated RBC 0 10^3/uL Granulocyte % 59.8 % N 38-83 Lymphocyte % 30.1 % N 25-47 Monocyte % 7.7 % High 0-7 Eosinophil % 1.5 % N 0-6 Basophil % 0.9 % N 0-2 Nucleated Red Blood Cells % 0 Comp Metabolic Panel 07/05/2017 [facility] Sodium 139 mmol/L N 139-145 [address] [place] [address] [phone] Potassium 3.8 mmol/L N 3.5-5.0 Chloride 101 mmol/L N 101-111 Co2 Carbon Dioxide 28 mmol/L N 22-32 Anion Gap 10 mmol/L N 2-11 Glucose 93 mg/dL N 70-100 Blood Urea Nitrogen 20 mg/dL N 6-24 Creatinine 0.72 mg/dL N 0.51-0.95 BUN/Creatinine Ratio 27.8 High 8-20 Calcium 9.3 mg/dL N 8.6-10.3 Total Protein 7.0 g/dL N 6.4-8.9 Albumin 4.2 g/dL N 3.2-5.2 Globulin 2.8 g/dL N 2-4 Albumin/Globulin Ratio 1.5 N 1-3 Total Bilirubin 0.50 mg/dL N 0.2-1.0 Alkaline Phosphatase 52 U/L N 34-104 Alt 11 U/L N 7-52 Ast 15 U/L N 13-39 Egfr Non- 81.8 >60 Egfr 105.2 >60 26 Laboratory test 12/19/2016 [facility] Surgical Interface SEE RESULT 27, [address] [place] [address] [phone] Lipid Profile 07/07/2016 [facility] Triglycerides 152 mg/dL N 29 (Trig/Chol/HDL) [address] [place] [address] [phone] Cholesterol 285 mg/dL N 30 HDL Cholesterol 69.7 mg/dL N 31 LDL Cholesterol 185 mg/dL N 32 Laboratory test 07/07/2016 [facility] TSH (Thyroid 2.06 mcIU/mL N 0.34-5.[address] Stim [place]orm) [place] [address] [phone] Vitamin B12 421 pg/mL N 180-914 34 CBC Auto Diff 07/07/2016 [facility] White Blood 6.9 10^3/uL N 3.5-10.[address] [place] [address] [phone] Red Blood Count 4.77 10^6/uL N 4.0-5.4 Hemoglobin 14.1 g/dL N 12.0-16.0 Hematocrit 42 % N 35-47 Mean Corpuscular Volume 89 fL N 80-97 Mean Corpuscular Hemoglobin 30 pg N 27-31 Mean Corpuscular HGB Conc 33 g/dL N 31-36 Red Cell Distribution Width 14 % N 10.5-15 Platelet Count 252 10^3/uL N 150-450 Mean Platelet Volume 8 um3 N 7.4-10.4 Abs Neutrophils 4.9 10^3/uL N 1.5-7.7 Abs Lymphocytes 1.1 10^3/uL N 1.0-4.8 Abs Monocytes 0.6 10^3/uL N 0-0.8 Abs Eosinophils 0.2 10^3/uL N 0-0.6 Abs Basophils 0.1 10^3/uL N 0-0.2 Abs Nucleated RBC 0 10^3/uL N Granulocyte % 71.2 % N 38-83 Lymphocyte % 16.4 % Low 25-47 Monocyte % 8.2 % N 1-9 Eosinophil % 2.9 % N 0-6 Basophil % 1.3 % N 0-2 Nucleated Red Blood Cells % 0 N Comp Metabolic Panel 07/07/2016 [facility] Sodium 137 mmol/L N 133-[address] [place] [address] [phone] Potassium 4.2 mmol/L N 3.5-5.0 Chloride 100 mmol/L Low 101-111 Co2 Carbon Dioxide 31 mmol/L N 22-32 Anion Gap 6 mmol/L N 2-11 Glucose 88 mg/dL N 70-100 Blood Urea Nitrogen 15 mg/dL N 6-24 Creatinine 0.63 mg/dL N 0.51-0.95 BUN/Creatinine Ratio 23.8 High 8-20 Calcium 9.6 mg/dL N 8.6-10.3 Total Protein 6.9 g/dL N 6.4-8.9 Albumin 4.1 g/dL N 3.2-5.2 Globulin 2.8 g/dL N 2-4 Albumin/Globulin Ratio 1.5 N 1-3 Total Bilirubin 0.60 mg/dL N 0.2-1.0 Alkaline Phosphatase 62 U/L N 34-104 Alt 14 U/L N 7-52 Ast 17 U/L N 13-39 Egfr Non- 95.8 N >60 Egfr 123.1 N >60 35 1 Because ethnic data is not always [...] 5 Kidney failure <15 (or dialysis) 2 SEE RESULT BELOW Name: TERESA RESENDIZ : [address]: Jennifer Downing DO Acct: [id number] Unit: [id number] AGE: 62 Location: LABCRAFT Re04/06/18 SEX: F Status: REG REF SPEC: [id number] DOUGIE: 04/06/[address]: Jennifer Downing DO REQ: [id number] RECD: 04/06/18 STATUS: RES OTHR DR: Karthikeyan Nunez, _ SOURCE: BLOOD,VENO SPDESC: ORDERED: Blood Cult Procedure Result Reported Site Aerobic Culture Bottle Preliminary 01/15/19- 1514 ML No Growth Day 4 Anaerobic Culture Bottle Final 04/11/18- 1511 ML No Growth Day 5 * ML - Main Lab . END OF REPORT DEPARTMENT OF PATHOLOGY, [address] [place] [address] Fidel Matthew M.D. Director [facility] # [id number] 3 Moderate normocytic anemia noted. Additional studies as clinically warranted. Reviewed by Dr. Matthew 4 [id number] 5 Because ethnic data is not always readily [...] 15-29 5 Kidney failure <15 (or dialysis) 6 PLEASE FAX COPY TO [place] [phone] DR JENNIFER DOWNING PHONE # [phone] 7 Because ethnic data is not always readily [...] 15-29 5 Kidney failure <15 (or dialysis) 8 PLEASE FAX COPY TO [place] [phone] DR JENNIFER DOWNING PHONE # [phone] 9 Reference ranges based on room air. 10 Sweeper Driver: [id number] 11 SEE RESULT BELOW Name: TERESA RESENDIZ : [address]: Robin Robledo MD Acct: [id number] Unit: [id number] AGE: 62 Location: ED Re02/25/18 SEX: F Status: REG ER SPEC: [id number] DOUGIE: 02/25/[address] [facility] [address]: Robin Robledo MD REQ: [id number] RECD: 02/25/18 STATUS: CHELLY AHUJA DR: Placido Macias CVT TECH _ SOURCE: NASAL SPDESC: ORDERED: Flu A B Request Procedure Result Reported Site Rapid Influenza A B Request Final 02/25/18916 ML Specimen received for Influenza A/B Molecular testing * ML - Main Lab . END OF REPORT DEPARTMENT OF PATHOLOGY, [address] [place] [address] Fidel Matthew M.D. Director [facility] # [id number] 12 Critical Result LACT:2.2 Called to [id number] at: 09:28:02 by:[id number] Read back by:[id number] [facility] Severe Sepsis and Septic Shock Management Bundle Measure requires all lactic acids initially measuring >2.0 mmol/L be repeated. 13 SEE RESULT BELOW Name: TERESA RESENDIZ : [address]: Alonso Prado MD Acct: [id number] Unit: [id number] AGE: 62 Location: ICU [id number] Re02/25/18 SEX: F Status: ADM IN SPEC: [id number] DOUGIE: 02/25/[address] [facility] [address]: Robin Robledo MD REQ: [id number] RECD: 02/25/18 STATUS: COMP [facility] DR: Placido Macias CVT TECH _ SOURCE: BLOOD,VENO SPDESC: ORDERED: Blood Cult COMMENTS: Verbal to [id number] by [id number] at 2320 on 02/25/18. Results read back accurately. Procedure Result Reported Site Aerobic Culture Bottle Final 02/27/18- 0838 ML Aerobic Bottle Gram Stain Gram Positive Cocci, resemb. Staph Organism 1 STAPHYLOCOCCUS AUREUS 1. STAPHYLOCOCCUS AUREUS M.I.C. RX --------- ------ Penicillin R Clindamycin <=0.25 S Erythromycin >=8 R Gentamicin <=0.5 S Linezolid 2 S Oxacillin 0.5 S * Quinupristin/Dalfopristin <=0.25 S Rifampin <=0.5 S Tetracycline <=1 S Doxycycline - Deduced S * Minocycline - Deduced S Trimethoprim/Sulfamethoxazole <=10 S Vancomycin 1 S Imipenem-Deduced S * Ampicillin/Sulbactam-Deduced S Cefazolin-Deduced S * These antibiotics are not available in the [facility] Formulary Contact the Microbiology Department for any additional antibiotic reporting. Anaerobic Culture Bottle Final 02/27/18837 ML CONTINUED ON NEXT PAGE DEPARTMENT OF PATHOLOGY, [address] [place] [address] Fidel Matthew M.D. Director [facility] # [id number] Patient: TERESA RESENDIZ [id number] (Continued) Specimen: [id number] Collected: 02/25/18 Received: 02/25/18 (Continued) Procedure Result Reported Site Anaerobic Culture Bottle Final (continued) 02/27/18- 0838 Anaerobic Btl Gram Stain Gram Positive Cocci resembling Staph Organism 1 STAPHYLOCOCCUS AUREUS#2 Please refer to [id number] culture AEROBIC bottle for sensitivity testing. * ML - Main Lab . END OF REPORT DEPARTMENT OF PATHOLOGY, [address] [place] [place] [address] Fidel Matthew M.D. Director [facility] # [id number] 14 Moderate thrombocytopenia noted. No schistocytes or blasts identified. Additional studies as clinically warranted. Reviewed by Dr. Matthew 15 Because ethnic data is not always readily [...] 15-29 5 Kidney failure <15 (or dialysis) 16 Result TnIDx:0.80 Called to [id number] at: 09:12:51 by:[id number] Read back by: [id number] Troponin-I testing on Plasma Separator Tubes (PST) has a known false positive rate of 0.20-0.40%. All positive troponins reflex immediate secondary confirmatory testing. 17 VACUOLATED NEUTROPHILS SEEN ON SMEAR 18 Interpretive information available on [employer] Test Catalog at [email or web address] 19 [id number] 20 SEE RESULT BELOW Name: SUREKHARayTERESA : [address]: Jennifer Ty MD Acct: [id number] Unit: [id number] AGE: 62 Location: [facility] Re02/24/18 SEX: F Status: DEP ER SPEC: [id number] DOUGIE: 02/24/[address]: Nataliia Hardy NP REQ: [id number] RECD: 02/24/18805 STATUS: CHELLY AHUJA DR: Beatriz Physicians Placido Macias CVT TECH _ SOURCE: URINE SPDESC: ORDERED: Urine Culture COMMENTS: [id number] Procedure Result Reported Site Urine Culture Final 02/26/18- 32 ML Organism 1 STAPHYLOCOCCUS AUREUS [place] Count >100,000 (Many) CFU/ML 1. STAPHYLOCOCCUS AUREUS M.I.C. RX --------- ------ Penicillin 0.25 R Gentamicin <=0.5 S Linezolid 2 S Nitrofurantoin <=16 S Oxacillin 0.5 S * Quinupristin/Dalfopristin <=0.25 S Rifampin <=0.5 S Tetracycline <=1 S Doxycycline - Deduced S * Minocycline - Deduced S Trimethoprim/Sulfamethoxazole <=10 S Vancomycin 1 S Imipenem-Deduced S * Ampicillin/Sulbactam-Deduced S Cefazolin-Deduced S * These antibiotics are not available in the [facility] Formulary Contact the Microbiology Department for any additional antibiotic reporting. * ML - Main Lab . END OF REPORT DEPARTMENT OF PATHOLOGY, [address] [place] [address] Fidel Matthew M.D. Director [facility] # [id number] 21 Sweeper Driver: [id number] Sweeper Driver: [id number] 23 [id number] 24 SEE RESULT BELOW Name: TERESA RESENDIZ : [address]: Fredy Holbrook MD Acct: [id number] Unit: [id number] AGE: 62 Location: [facility] Re07/24/17 SEX: F Status: DEP ER SPEC: [id number] DOUGIE: 07/24/[address] [facility] [address]: Davis GARAY REQ: [id number] RECD: 07/25/17 STATUS: RES LEIGHA DR: Fredy Macias CVT TECH _ SOURCE: BACK SPDESC: ORDERED: MRSA/SA SSTI, Culture Stain COMMENTS: [id number] Procedure Result Reported Site MRSA/S. aureus SSTI PCR PENDING Wound/Misc Gram Stain Final 07/25/17- 1158 ML 2+ Neutrophils Possible 1+ Gram Positive Cocci Wound/Misc Culture PENDING * ML - Main Lab . END OF REPORT DEPARTMENT OF PATHOLOGY, [address] [place] [address] Fidel Matthew M.D. Director [facility] # [id number] 25 SEE RESULT BELOW Name: TERESA RESENDIZ : [address]: Fredy Holbrook MD Acct: [id number] Unit: [id number] AGE: 62 Location: [facility] Re07/24/17 SEX: F Status: DEP ER SPEC: [id number] DOUGIE: 07/24/[address] [facility] [address]: Davis GARAY REQ: [id number] RECD: 07/25/17 STATUS: CHELLY AHUJA DR: Fredy Macias CVT TECH _ SOURCE: BACK [facility]: ORDERED: MRSA/SA SSTI, Culture Stain COMMENTS: [id number] Procedure Result Reported Site MRSA/S. aureus SSTI PCR Final 07/25/17- 1312 ML Organism 1 MRSA NEGATIVE Organism 2 S.AUREUS NEGATIVE Wound/Misc Gram Stain Final 07/25/17- 1158 ML 2+ Neutrophils Possible 1+ Gram Positive Cocci Wound/Misc Culture Final 07/28/17- 1240 ML Organism 1 ACTINOMYCES NEUII Quantity 3+ Organism 2 FINEGOLDIA MAGNA Quantity 3+ Anaerobic sensitivities are not routinely performed. Positive isolates will be saved for one week. Please call the Microbiology Laboratory if susceptibility testing is needed. * ML - Main Lab . END OF REPORT DEPARTMENT OF PATHOLOGY, [address], [place], [place] [address] Fidel Matthew M.D. Director [facility] # [id number] 26 Because ethnic data is not always readily [...] 15-29 5 Kidney failure <15 (or dialysis) 27 [id number] 28 SEE RESULT BELOW Name: MARTÍNLUZ MARIATERESA : [address]: Angela Langston MD Acct: [id number] Unit: [id number] AGE: 61 Location: [facility] Re12/19/16 SEX: F Status: DEP REF SPEC: [id number] DOUGIE: 12/19/16-[address] [facility] [address]: Angela aLngston MD REQ: [id number] RECD: 12/19/16 STATUS: AKHIL AHUJA DR: Placido Macias CVT TECH _ ORDERED: LEVEL 4 COMMENTS: [id number] FINAL DIAGNOSIS Colon, ascending, biopsy: -- Tubular [...] performed at Main Lab DEPARTMENT OF PATHOLOGY, [address] [place] [address] Fidel Matthew M.D. Director [facility] # [id number] 29 Desirable <150 Borderline high 150-199 High 200-499 Very High >500 30 Desirable <200 Borderline high 200-239 High >239 31 Low <40 Desirable: 40-60 High: >60 32 Desirable: <100 mg/dL Near Optimal: 100-129 mg/dL Borderline High: 130-159 mg/dL High: 160-189 mg/dL Very High: >189 mg/dL 33 FASTING 10 HOUR 34 Normal Range 180 to 914 Indeterminate Range 145 to 180 Deficient Range <145 35 Because ethnic data is not always readily [...] 15-29 5 Kidney failure <15 (or dialysis) Procedures Date Code Description Status 04/24/2018 50183 EKG Tracing & Interpretation Completed 02/27/2018 92242 Moderate Sedation Services; Same Phys Intl 15 Mins; PT Completed >=5 Years 02/27/2018 57137 Color Flow Doppler/Interp & Reprt Completed 02/27/2018 77561 Pulse Wave/Continuous-Interp.RPT Completed 02/27/2018 86539 Echocardiography, Transesophageal, Real Time W/Image Completed 2D W/W/O M-M 02/26/2018 46747 ECHO Transthorasic Realtime 2D W Doppler & Color Flow Completed Hosp 11/01/2017 65045198 Mammogram Completed 07/07/2017 31206 EKG Tracing & Interpretation Completed 12/19/2016 33066 Moderate Sedation Services; Same Phys Intl 15 Mins; PT Completed >=5 Years 12/19/2016 68080 Colonoscopy Flexible W/Biopsy Completed 12/19/2016 [id number] Colonoscopy Completed 07/13/2016 78976020 Mammogram Completed 06/29/2016 708004271 Diabetic Retinal Eye Exam Completed Encounters Type Date Location Provider Dx Diagnosis Office Visit 03/29/2018 [facility] Placido Macias NP I63.9 Cerebral infarction, 1:40p Medicine - unspecified [place] R65.21 Severe sepsis with septic shock Z95.2 Presence of prosthetic heart valve R47.02 Dysphasia M54.5 Low back pain Office Visit 02/28/2018 Neurohospitalist Claudia I63.9 Cerebral 7:00a Berto Garcia M.D. 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 infarction, unspecified R93.1 Abnormal findings on dx imaging of heart and cor circ I10 Essential (primary) hypertension Office Visit 02/27/2018 12:20p [facility] Dominic Carlin 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 I33.0 Acute and subacute infective endocarditis I21.4 Non-St elevation (Nstemi) myocardial infarction R78.81 Bacteremia B95.61 Methicillin suscep staph infct causing dis classd elswhr Office Visit 02/27/2018 8:28a Intensivists Alonso Prado MD R65.21 Severe sepsis with septic shock R78.81 Bacteremia D69.6 Thrombocytopenia, unspecified B95.7 Oth staphylococcus as the cause of diseases classd elswhr I21.4 Non-St elevation (Nstemi) myocardial infarction N17.9 Acute kidney failure, unspecified Office 02/26/2018 Neurohospitalist Chna I63.9 Cerebral Visit 7:00a Berto Alexander M.D. infarction, unspecified I10 Essential (primary) hypertension R50.9 Fever, unspecified Office Visit 02/26/2018 8:27a Intensivists Alonso Prado MD R65.21 Severe sepsis with septic shock I63.9 Cerebral infarction, unspecified I10 Essential (primary) hypertension R78.81 Bacteremia B95.7 Oth staphylococcus as the cause of diseases classd elswhr N17.9 Acute kidney failure, unspecified Office Visit 02/25/2018 Intensivists Alonso Prado I63.9 Cerebral 8:27a MD beckham, unspecified Office Visit 01/08/2018 [facility] Placido Gilberto, TREVIN I10 Essential 8:40a Medicine - (primary) [place] hypertension F32.89 Other specified depressive episodes R06.83 Snoring R53.83 Other fatigue Z23 Encounter for immunization Office Visit 07/07/2017 9:20a [facility] Internal Placido Gilberto, Z01.818 Encounter for other Medicine - CVT TECH preprocedural [place]ray[place] examination M25.511 Pain in right shoulder I10 Essential (primary) hypertension H81.10 Benign paroxysmal vertigo, unspecified ear Office Visit 01/02/2017 10:20a [facility] Internal Placido Gilberto, F32.89 Other specified Medicine - CVT TECH depressive Drayton episodes E78.5 Hyperlipidemia, unspecified Z23 Encounter for immunization Office Visit 09/19/2016 8:40a [facility] Internal Placido Gilberto, F32.89 Other specified Medicine - CVT TECH depressive [place]ray[place] episodes I10 Essential (primary) hypertension Office Visit 07/25/2016 9:00a [facility] Internal Placido Gilberto, F32.89 Other specified Medicine - CVT TECH depressive Drayton episodes Office Visit 07/01/2016 11:00a [facility] Internal Placido Gilberto, R53.83 Other fatigue Medicine - CVT TECH [place] Z12.31 Encntr screen mammogram for malignant neoplasm of breast Z13.220 Encounter for screening for lipoid disorders Z12.11 Encounter for screening for malignant neoplasm of colon Plan of Treatment Future Appointment(s):10/22/2018 10:45 am - Chan Alexander M.D. at [facility]07/09/2018 8:40 am - Placido Macias NP at [facility] Internal Medicine [facility]04/24/2018 - Karthikeyan Franco M.D., [facility], IYPZNP65.2 Presence of prosthetic heart valveNew Therapy:Cardiac CpjxfI65.9 Chest pain, unspecifiedNew Orders:Echocardiogram, Ordered: 04/24/18Comments:I will refer you to cardiac rehab. I will recheck your echocardiogram in 3 months.Follow up: after echo in 3 months. Referral completed for cardiac rehab.
--- OUTSIDE RECORDS SUMMARY | 2018-05-23 14:06 | XMS REPORT | Continuity of Care Document ---
:1955 External Reference #:[id number] Author Name Broderick Gonzales M.D. Address [address] [facility] [address] Care Team Providers Name Role Phone Maci Magaña M.D. Primary Care Physician Unavailable Payers Date Identification Numbers Payment Provider Subscriber Policy Number: [id number] [facility] Teresa Gore PayID: [id number] [address] [place] [id number] Advance Directives Description No Information Available Problems Date Description Provider Status Onset: Essential hypertension Active Onset: 06/20/2016 Combined form of senile cataract Tone Khanna M.D. Active Onset: 06/20/2016 Vitreous degeneration Tone Khanna M.D. Active Onset: 07/21/2016 Presence of intraocular lens Tone Khanna M.D. Active Onset: Thrombotic stroke Active Onset: H/O: depression Active Onset: Subacute bacterial endocarditis Active Onset: 05/01/2018 Arterial retinal branch occlusion Broderick Gonzales M.D. Active Onset: 05/01/2018 Central retinal artery occlusion Broderick Gonzales M.D. 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 /2017 eye every 2 Arleo, hours M.D. Telmisartan 00 Active Tablets 40mg Unknown /0000 Multi Vitamin 00 Active Tablets Unknown Daily /0000 Trintellix 00 Active Tablets 10mg Unknown /0000 Atorvastatin Active Tablets 80mg take 1 tablet Unknown Calcium /0000 by mouth once daily Furosemide Active Tablets 40mg take 1 tablet Unknown /0000 by mouth twice a day Potassium Active Tablets ER 20Meq take 2 Unknown Chloride Dhara /0000 tablets by ER mouth once daily Warfarin Active Tablets 2mg Unknown Sodium /0000 Metoprolol Active Tablets 25mg take 1/2 Unknown Tartrate /0000 tablet by mouth every 12 hours AT 6Am And 6PM Hold If BL... (Refer To Prescription Notes). Amoxicillin Active Capsules 500mg take 4 Unknown /0000 capsules by mouth 1 hour prior to dental appointment Ketorolac 07/04 Hx Solution 0.5% 10ml use one drop Tone J. Tromethamine in the right Arleo, - eye three M.D. 08/03 times a day, start the day before surgery Ciprofloxacin 07/04 Hx Solution 0.3% 10ml instill one Tone J. HCL drop in the Arleo, - right eye M.D. 07/27 three times a day, start the day before surgery Prednisolone 07/04 Hx Suspension 1% 10ml 1 drops right Tone J. Acetate /2017 eye three Arleo, - times a day. M.D. 08/03 taper as directed Sertraline HCL Hx Tablets 50mg Unknown /0000 - 08/03 Immunizations Description No Information Available Vital Signs Description No Information Available Results Description No Information Available Procedures Date Code Description Status 07/20/2016 80728 Extracapsular Cataract Extraction W/Intraocular Lens Completed 07/13/2016 81755 Extracapsular Cataract Extraction W/Intraocular Lens Completed 07/04/2016 13740 Ophthalmic Biometry Completed 07/04/2016 17241 Scanning Computerized Opthalmic Diagnostic Posterior Seg Completed Retina 07/04/2016 09704 Computerized Corneal Topography Completed 06/20/2016 52098 New Patient Comprehensive Exam Completed 11/09/2004 01031 Determination Of Refractive State Completed 11/09/2004 99135 New Patient Comprehensive Exam Completed Encounters Type Date Location Provider Dx Diagnosis Office Visit 07/04/2016 Tone Khanna, Tone Khanna, H25.811 Combined forms of 10:45a , daxa Gates age-related cataract, right eye H25.812 Combined forms of age-related cataract, left eye H43.813 Vitreous degeneration, bilateral Plan of Treatment 05/01/2018 - Broderick Gonzales M.D.H34.11 Central retinal artery occlusion, right eyeComments:YOU HAD A BLOCKAGE TO THE BLOOD FLOW TO THE RIGHT EYE.I WILL RECHECK ON YOU AGAIN IN 1 MONTHCALL FORANY FURTHER CHANGE IN THE VISIONFollow up :1MONTH, DFE, OCT MAC You can expect to have your eyes dilated at your next visit. If Dr. Gonzales orders any additional testing, it may require extra time. We recommend that you bring sunglasses, as dilation drops often make you light sensitive until they wear off. We always recommend you bring someone to drive you home if you are uncomfortable driving with your eyes dilated. If you have any questions before your next visit, feel free to call our office at [phone].H34.232 Retinal artery branch occlusion, left eyeComments:You have a Branch Retinal Artery Occlusion in your left eye. This occurs when the retinal arteries have become blocked by, amongst other things, fat deposits or a blood clot. You are at an increased risk of having a Branch Retinal Artery Occlusion if there has been any hardening of the arteries in the eye. Please follow any instructions given to you by Dr. Gonzales.H53.453 Other localized visual field defect, bilateralComments:You have a visual field defect in both eyes. Further testing is often required to properly diagnose the cause of this. Please follow all of Dr. Gonzales's instructions and keep all follow up appointments.
[2018-05-23] MEDS ORDERED: NS 0.9% 1000 ML** 1,000 ML IV ONE (14:48)
[2018-05-23 15:18] LABS: C Reactive Protein 14.72 mg/L (<8.01)
--- NOTE | 2018-05-23 15:48 | ED ---
Progress - Progress Note Progress Note: This patient was evaluated by Dr. Crowe and since the patient has a paravalvular leak, she recommends to transfer the patient to [place] to Dr. Alonso Aguirre. Consulted Dr. Alonso Aguirre at 1606 who says that he is out of town and to call [facility] for transfer. Spoke with the transfer center at [facility] at 1638 and they will call us back with an accepting physician. Spoke with Dr. Portillo, hospitalist, from [facility] at 1723 who accepts patient for admission. Re-Evaluation - Re-Evaluation First Eval Re-Evaluation Time: 14:08 Comment: Discussed all results from workup with the patient. Rectal exam was done at this time. Discussed that she has anemia and will be admitted. Patient understands and agrees with this plan. Second Eval Re-Evaluation Time: 16:10 Comment: Discussed next step in plan of care for the patient. Course/Dx - Course Course Of Treatment: Called the transfer center in [place] and they say that Dr. Aguirre is not in currently and will find someone else to accept the patient. Dr. Portillo, hospitalist, accepts the patient at [facility]. - Diagnoses Provider Diagnoses: Symptomatic anemia, Elevated troponin, Jaundice, Dehydration, Dyspnea, Hemolytic anemia - Critical Care Time Critical Care Time: 30-74 min Discharge - Sign-Out/Discharge Documenting (check all that apply): Patient Departure - transfer - Discharge Plan Condition: Stable Disposition: TRANS HIGHER LVL OF CARE FAC Referrals: Placido Macias, FUR BLOWER [Primary Care Provider] - - Billing Disposition and Condition Condition: STABLE Disposition: Trans Higher Lvl of Care Fac - Attestation Statements Document Initiated by Birdie: Yes Documenting Scribe: Bo Castellon Provider For Whom Birdie is Documenting (Include Credential): Mike Little MD Scribe Attestation: I, Bo Castellon, scribed for Mike Little MD on 05/23/18 at 1842. Scribe Documentation Reviewed: Yes Provider Attestation: The documentation as recorded by the Bo roberts accurately reflects the service I personally performed and the decisions made by me, Mike Little MD Status of Scribe Document: Viewed
--- NOTE | 2018-05-23 16:26 | ECHO ---
Patient: ASHLEY RESENDIZ [facility] Rec#: [id number] : 1955 Date: 05/23/2018 Age: 63y Height: 157 cm / 61.8 in Weight: 86 kg / 189.5 lbs Sex: F BSA: 1.86 Room#: -3 Admit Date#: 05/23/2018 Type: Inpatient Referring: Lamar Crowe MD Reading: Anne Marie Pond MD Reel And Rewinder Operator: Aura Lopez RDCS CC: AN ST[employer] LICENSE EXAMINER Transthoracic Echocardiogram Indication: Dyspnea, s/p MVR BP: 153/88 HR: 80 Rhythm: NSR Findings History: S/P MVR mechanical valve, CVA, HTN, HLD, smoker, obesity, heart murmur. Technical Comments: The study quality is fair. Completed at 1600. Left Ventricle: The left ventricular chamber size is normal. Mild concentric left ventricular hypertrophy is observed. Left ventricular systolic function is at the lower limits of normal. The estimated ejection fraction is 50-55%. Post surgical hypokinesis of the interventricular septum is observed consistent with valve replacement. There is no consistent Doppler evidence of clinically significant diastolic dysfunction.Unable to fully evaluate due to mitral valve prosthesis. Left Atrium: The left atrium is moderate to severely dilated. Right Ventricle: The right ventricle is mild to moderately dilated. The right ventricular global systolic function is low normal. Right Atrium: The right atrium is mildly dilated. A prominent chiari network is noted in the right atrium. Aortic Valve: The aortic valve is trileaflet. The aortic valve leaflets are mildly thickened. There is a trace of aortic regurgitation. There is no evidence of aortic stenosis. Mitral Valve: There is mild mitral regurgitation. There is no evidence of mitral stenosis. A mechanical prosthetic mitral valve is present. There is a perivalvular leak of the mechanical mitral valve. Seen in 3 chamber view, posteriorly directed and on short axis with regurgentent jet along the intra atrial septum (frame 35). Tricuspid Valve: The tricuspid valve leaflets are mildly thickened. There is severe tricuspid regurgitation. The right ventricular systolic pressure is estimated at 73 mmHg. There is evidence of severe pulmonary hypertension. There is no tricuspid stenosis. Pulmonic Valve: The pulmonic valve appears normal. There is mild pulmonic regurgitation. There is no pulmonic stenosis. Pericardium: There is no significant pericardial effusion. A pericardial fat pad is visualized. Aorta: There is no dilatation of the ascending aorta. There is no dilatation of the aortic arch. The aortic root is normal in size. Pulmonary Artery: The main pulmonary artery appears normal. Venous: The inferior vena cava is dilated. There is less than 50% respiratory change in the inferior vena cava dimension. Conclusions Mild concentric left ventricular hypertrophy is observed. Left ventricular systolic function is at the lower limits of normal. The estimated ejection fraction is 50-55%. The right ventricular global systolic function is low normal. The left atrium is moderate to severely dilated. The aortic valve leaflets are mildly thickened with trace aortic regurgitation. A mechanical prosthetic mitral valve is present. There is a perivalvular leak of the mechanical mitral valve seen in 3 chamber view, posteriorly directed and on short axis with regurgentent jet along the intra atrial septum (frame 35). There is severe tricuspid regurgitation. There is evidence of severe pulmonary hypertension estimated at 73 mmHg. Compared pre MVR CHARLETTE of 02/27/18, LVEF is stable, mechanical mitral prosthetic valve is new, prior MR was moderate (and vegetation seen), prior TR was moderate and prior PA pressure was 63 mmHg. Recommendation: consider CHARLETTE (transesophogeal echo) to better evaluate MV prosthesis and leak. Measurements Name Value Normal Range RVIDd (AP) 2D 3.7 cm (0.9 - 2.6) RVDdMajor (2D) 5.3 cm (2.2 - 4.4) RAd ISD 4CH 5 cm (3.4 - 4.9) RA (A4C)W 5 cm (2.9 - 4.6) IVSd (2D) 1.1 cm (0.6 - 1) LVPWd (2D) 1.1 cm (0.6 - 1) LVIDd (2D) 4.5 cm (3.6 - 5.4) LVIDs (2D) 3.8 cm - LV FS (2D) 17 % (25 - 45) Aortic Annulus 1.7 cm (1.4 - 2.6) Ao root diameter (2D) 2.6 cm (2.1 - 3.5) Ascending Ao 3.2 cm (2.1 - 3.4) Aortic arch 2.3 cm (1.8 - 3.4) LA dimension (AP) 2D 4.8 cm (2.3 - 3.8) LAd ISD 4CH 5.6 cm (2.9 - 5.3) LA ISD 4CH W 5.1 cm (2.5 - 4.5) Name Value Normal Range LA ESV BP (A/L) index 48 ml/m2 - Name Value Normal Range MV E-wave Vmax 1.8 m/sec - MV deceleration time 46 msec - MV A-wave Vmax 1.5 m/sec - MV E:A ratio 1.4 ratio - LV septal e' Vmax 0.05 m/sec - LV lateral e' Vmax 0.09 m/sec - LV E:e' septal ratio 36 ratio - LV E:e' lateral ratio 20 ratio - Name Value Normal Range AV Vmax 1.7 m/sec - AV VTI 28 cm - AV peak gradient 12 mmHg - AV mean gradient 5 mmHg - LVOT diameter 2 cm - LVOT Vmax 0.8 m/sec - LVOT VTI 14 cm - LVOT peak gradient 3 mmHg - LVOT mean gradient 1 mmHg - DOI (VTI) 0.5 ratio - LEX Vmax 0.8 m/sec - Name Value Normal Range MV Vmax 1.9 m/sec - MV VTI 31 cm - MV peak gradient 15 mmHg - MV mean gradient 8 mmHg - MV PHT 58 msec - MVA (PHT) 3.8 cm2 - Name Value Normal Range TR Vmax 3.8 m/sec - TR peak gradient 58 mmHg - RAP 15 mmHg - RVSP 73 mmHg - IVC diameter 2.2 cm - Name Value Normal Range PV Vmax 0.9 m/sec - PV peak gradient 4 mmHg - RI end-diastolic Vmax 2 m/sec - PA end-diastolic [id number] mmHg -
[2018-05-23 17:07] LABS: Potassium Redraw 3.7 mmol/L (3.5-5.0)
--- NOTE | 2018-05-23 17:36 | CONS ---
CC: Placido Macias NP; Dr. Pond; Dr. Franco; Dr. Aguirre from Cardiothoracic Surgery in [facility] * BRIEF CONSULTATION REPORT/ER NOTE: DATE OF CONSULT: 05/23/18 - EMERGENCY DEPT PRIMARY CARE PROVIDER: Placido Macias NP PHYSICIAN REQUESTING CONSULT: Dr. Little. REASON FOR CONSULTATION: Possibility of admission of a patient with anemia. CHIEF COMPLAINT: Shortness of breath. 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 The patient was admitted to our facility on 02/25/18 and transferred to hospital in [place] on 02/28/18. The patient stated that in [place], she had mitral valve replaced with mechanical mitral valve. She finished her 6 weeks of IV antibiotic treatment just 2 weeks ago. From the hospital in [place], she was placed in a rehabilitation center from where she was discharged home on . She did well postoperatively. She stated that she just started driving 2 weeks ago. She had been doing overall well with her weight control. She had been on Coumadin with therapeutic INRs. For the past couple of days, she noted worsening shortness of breath and yesterday, she noted blood in her urine. She denies any fevers or chills or recent illnesses. She came to the ED today for evaluation and was noted to have a hemoglobin of 7.9. Please also note that the patient's hemoglobin since her discharge and mitral valve surgery had been in the 8.7 to 9.9 range, although the patient did have hemoglobin of 12.1 documented on 05/08/18. Today, the patient's bilirubin is elevated at 2.7. I discussed the case briefly with Dr. Pond who looked at the patient's echocardiogram and from preliminary report, it was noted that the patient has likely periprosthetic paravalvular mitral valve leak. At this time, the suspicion is that likely the patient has hemolytic anemia due to paravalvular leak. I discussed the case with both the patient as well as Dr. Little. At this point, recommendation is for the patient to be evaluated in the hospital where Cardiothoracic Surgery is available for possibility of repair of paravalvular leak. The patient's preferable hospitalist is at the hospital in [place] since the patient's cardiothoracic surgeon is there. The patient agrees to transfer to the facility for further evaluation and treatment. At this point , due to likely hemolytic anemia and as the patient has mild symptoms of dyspnea on exertion without problems with chest pain or hypoxemia, transfusion was not recommended. From remaining laboratory values, the patient was noted to have creatinine of 1.3, lactic acid of 2.5, troponin of 0.04. Bilirubin was 2.7. LDH and haptoglobin level are pending. C-reactive protein was 14.7. The patient's MCV today on her CBC was 84 with hemoglobin of 7.9 and hematocrit of 24. The patient's white blood cell count was 9.2 and platelets of 279. The patient's portable chest x-ray showed cardiomegaly with no active cardiopulmonary disease. Please note that the above-mentioned report was gathered from conversation when the patient had been undergoing transthoracic echocardiogram. The patient was not examined by myself. The case was discussed with Dr. Little from the emergency department. TIME SPENT: Overall, 20 minutes were spent on this abbreviated consult. Thank you very much for allowing me to see your patient in consultation. [id number] #: [id number] OSIRIS
[2018-05-23 19:14] VITALS: BP 146/82
== END 2018-05-23 19:14 | disposition short-term general hospital (02) ==
LOC: ED 12:13
DX: D64.9 Anemia, unspecified (principal); R17 Unspecified jaundice; E86.0 Dehydration; R06.00 Dyspnea, unspecified; R79.89 Other specified abnormal findings of blood chemistry; Z87.891 Personal history of nicotine dependence; I10 Essential (primary) hypertension; Z79.01 Long term (current) use of anticoagulants; Z95.2 Presence of prosthetic heart valve
CPT/HCPCS: 36415; 71045; 76705; 80053; 82272; 83010; 83605; 83615; 83880; 84484; 85025; 85610; 85730; 86140; 86850; 86880; 86900; 86901; 86922; 87040; 93005; 93306; 96360; 96361; 99284

== ENCOUNTER 2018-07-13 22:00 | Emergency (ER) | payer BC ==
[2018-07-13] MEDS ORDERED: NS 0.9% 1000 ML** 1,000 ML IV ONE (22:33)
--- NOTE | 2018-07-13 22:37 | ED ---
Neurological HPI - HPI Summary HPI Summary: Time seen by provider: [id number]. The patient is a 63 y/o F presenting to [facility] accompanied by with a chief complaint of sudden onset confusion and inability to form sentences tonight. Per , throughout the day, she seemed alright until they were out for dinner, and he had to pull the car over so that she could vomit because she was nauseous. Then she had some confusion and difficulty with her speech. She has hx of stroke in February 2018, and then she had a valve operation later that month due to a plaque formation. Then in May 2018, she had another valve operation at [facility], but she has since been symptom free until today. During the first stroke, she did not have any paralysis, but she had visual and speech changes along with a fever as a result of infection. Currently in the ED, she has a slight left-sided weakness. Three days ago, she had a PICC line removed from long-term abx treatment. - History of Current Complaint Chief Complaint: EDNeurologicalDeficit Stated Complaint: CONFUSED PER PT Time Seen by Provider: 07/13/18 22:24 Hx Obtained From: Patient, Family/Plant And Maintenance Technician - Hx Last Menstrual Period: NA Onset/Duration: Sudden Onset, Started hours ago, Still Present Timing: Sudden Onset Onset Severity: Moderate Current Severity: Moderate Pain Scale Used: 0-10 Numeric Character: Impaired Speech - inability to form a sentence, Confusion Aggravating: Nothing Alleviating: Nothing Associated Signs and Symptoms: Positive: Memory Loss, Weakness - left-sided, Impaired Speech - difficulty forming sentence, Nausea/Vomiting TPA Considered: Yes - Additional Pertinent History Primary Care Physician: [facility]AO - Allergy/Home Medications Allergies/Adverse Reactions: Allergies Allergy/AdvReac Type Severity Reaction Status Date / Time No Known Allergies Allergy Verified 05/23/18 12:34 Home Medications: Home Medications FLUoxetine CAP* 20 mg PO DAILY 07/13/18 [History Confirmed 07/13/18] Sertraline* 50 mg PO DAILY 07/13/18 [History Confirmed 07/13/18] Telmisartan (NF) 40 mg PO DAILY 07/13/18 [History Confirmed 07/13/18] PMH/Surg Hx/FS Hx/Imm Hx Endocrine/Hematology History: Denies: Hx Diabetes, Hx Thyroid Disease Cardiovascular History: Reports: Hx Hypertension Denies: Hx Pacemaker/ICD Respiratory History: Denies: Hx Asthma, Hx Chronic Obstructive Pulmonary Disease (COPD) GI History: Denies: Hx Ulcer Musculoskeletal History: Reports: Hx Arthritis - LEFT HIP Sensory History: Reports: Hx Cataracts - BILATERAL Denies: Hx Contacts or Glasses, Hx Hearing Aid Opthamlomology History: Reports: Hx Cataracts - BILATERAL Denies: Hx Contacts or Glasses Psychiatric History: Reports: Hx Anxiety - CONTROLLED WITH MED, Hx Depression - CONTROLLED WITH MED Denies: Hx Panic Disorder - Surgical History Surgery Procedure, Year, and Place: GASTRIC LAP BAND - 2006 - [place]. HAMMER TOE SURGERY X2 - 2007 - [place]. FATTY TUMOR REMOVED FROM BACK - 2008 - [place]. ROTATOR CUFF Hx Anesthesia Reactions: No - Immunization History Date of Influenza Vaccine: 01/2018 Infectious Disease History: No Infectious Disease History: Denies: Hx Hepatitis, Hx Human Immunodeficiency Virus (HIV), Traveled Outside the in Last 30 Days - Family History Known Family History: Positive: Hypertension - Social History Alcohol Use: Daily Alcohol Amount: 3-4 DRINKS PER WEEK Substance Use Type: Reports: None Hx Tobacco Use: Yes Smoking Status (MU): Former Smoker Amount Used/How Often: 1/2 PPD Review of Systems Positive: Vomiting, Nausea Neurological: Other - confusion Positive: Weakness - on the left side, Slurred Speech - unable to form sentence All Other Systems Reviewed And Are Negative: Yes Physical Exam - Summary Physical Exam Summary: Time seen by provider: 2223. Appearance: Well-appearing, Well-nourished, lying in bed comfortably Skin: Warm, dry, no obvious rash Eyes: sclera anicteric, no conjunctival pallor ENT: mucous membranes moist, pharynx appears normal Neck: Supple, nontender Respiratory: Clear to auscultation, no signs of respiratory distress Cardiovascular: Normal S1, S2. No murmurs. Normal distal pulses in tibial and radial bilaterally. Abdomen: Soft, nontender, normal active bowel sounds present Musculoskeletal: Normal, Strength/ROM Intact Neurological: Awake and alert, seems confused, unable to tell date of or address, Left sided weakness involving left arm and left leg, there is also a left-sided hemineglect, GCS: 15, NIH: 7 Psychiatric: affect is normal, does not appear anxious or depressed Triage Information Reviewed: Yes Vital Signs On Initial Exam: Initial Vitals Temp BP 97.3 F 154/91 07/13/18 22:19 07/13/18 22:19 Vital Signs Reviewed: Yes - Rosa Coma Scale Best Eye Response: 4 - Spontaneous Best Motor Response: 6 - Obeys Commands Best Verbal Response: 5 - Oriented Coma Scale Total: 15 Diagnostics - Vital Signs Vital Signs Temp BP 07/13/18 22:19 97.3 F 154/91 - Laboratory Result Diagrams: 07/13/18 22:42 07/13/18 22:42 Lab Statement: Any lab studies that have been ordered have been reviewed, and results considered in the medical decision making process. - Radiology CXR Radiology Interpretation Completed By: Radiologist Summary of Radiographic Findings: No acute process. ED physician has reviewed this report. - CT Brain CT CT Interpretation Completed By: Radiologist Summary of CT Findings: 1. No acute intracranial abnormality. ASPECT = 10. 2. Chronic right parietal watershed territory infarct. ED physician has reviewed this report. Head CTA CT Interpretation Completed By: Radiologist Summary of CT Findings: 1. Normal head CTA. ASPECT = 10. 2. Chronic right parietal watershed territorial infarct. ED physician has reviewed this report. - EKG 23:03 Cardiac Rate: Other Rate - Ventricular paced, 104 BPM Summary of EKG Findings: Ventricular paced. No ST elevations. NIH Scale - NIH Scale Level of Consciousness: Alert/Keenly Responsive Ask Patient the Month and His/Her Age: One Correct/Not Aphasic Ask Pt to Open/Close Eyes and Site Safety Manager/Release Non-Paretic Hand: Both Correctly Best Gaze (Only Horizontal Eye Movement): Normal Visual Field Testing: No Visual Loss Facial Paresis-Pt to Smile & Close Eyes or Grimace Symmetry: Normal/Symmetrical Motor Function - Right Arm: No Drift-Holds 10 Seconds Motor Function - Left Arm: Effort Against Climax Motor Function - Right Leg: No Drift-Holds 10 Seconds Motor Function - Left Leg: Effort Against [place] Limb Ataxia-Must be out of Proportion to Weakness Present: Absent Sensory (Use Pinprick to Test Arms/Legs/Trunk/Face): Normal Best Language (Describe Picture, Name Items): Some Loss Dysarthria (Read Several Words): Normal Extinction and Inattention: Inattention Total Score: 7 Re-Evaluation - Re-Evaluation First Eval Re-Evaluation Time: 00:00 Change: Unchanged Comment: I spoke with the family concerning results thus far and plan to transfer the patient to [facility]. Course/Dx - Course Course Of Treatment: Time seen by provider: 2324. The patient is a 63 y/o F presenting to [facility] accompanied by with a chief complaint of sudden onset confusion and inability to form sentences tonight. Symptoms started with nausea and vomiting, followed by speech impairment and more recent left-sided weakness. Hx of stroke in February 2018 with valve operations in mid-February and early May 2018 due to plaque formation. During the first stroke, she did not have any paralysis, but she had visual and speech changes along with a fever as a result of infection. PICC line removed three days ago from long-term abx treatment. Reese jones called at 2232. Upon physical exam, the patient reveals to be awake and alert, seems confused, unable to tell date of or address, left sided weakness involving left arm and left leg; there is also a left-sided hemineglect, GCS: 15, NIH: 7. In the ED course, the patient was administered Ns, Ativan, Keppra, and Activase. Blood work reveals elevated RDW, INR, creatinine, glucose, troponin of 0.05, and decreased RBC, hgb, hct, abs lymphs, and potassium. EKG reveals ventricular paced rhythm. CXR reveals no acute process. Brain CT and head CTA reveal chronic right parietal watershed territory infarct but are both otherwise normal. I consulted [facility] at 2335 for admission for transfer. The patient had a seizure at 2354. She is diagnosed with CVA. She and her family agree with and understand the need to transfer to [facility] for further care. Critical care time of 45 minutes. - Diagnoses Provider Diagnoses: CVA (cerebral vascular accident) During the Visit The Following Alert/Code Occurred: Reese Jones - Called at 22:31 - Physician Notifications Time Discussed With Above Provider: 23:35 Instructed by Provider To: Other - I spoke with the provider at [facility] concerning acceptance of admission for transfer of patient at 2335. Admit/Transition Orders Completed By ED Provider: Yes Reason For Transfer: Patient not appropriate for [facility] - Critical Care Time Critical Care Time: 30-74 min - CC of 45 minutes Discharge - Sign-Out/Discharge Documenting (check all that apply): Patient Departure - Patient will be transferred to [facility]. Patient Received Moderate/Deep Sedation with Procedure: No - Discharge Plan Condition: Guarded Disposition: TRANS HIGHER LVL OF CARE FAC Referrals: Placido Macias, GLUE PLANT OPERATOR [Primary Care Provider] - - Billing Disposition and Condition Condition: GUARDED Disposition: Trans Higher Lvl of Care Fac - Attestation Statements Document Initiated by Birdie: Yes Documenting Scribe: Maira Juan Provider For Whom Birdie is Documenting (Include Credential): Dr. Mauricio Tao MD Scribe Attestation: Maira Patel scribed for Dr. Mauricio Tao MD on 07/14/18 at 0056. Scribe Documentation Reviewed: Yes Provider Attestation: The documentation as recorded by the Maira roberts accurately reflects the service I personally performed and the decisions made by me, Dr. Mauricio Tao MD Status of Birdie Document: Viewed
--- OUTSIDE RECORDS SUMMARY | 2018-07-13 22:38 | XMS REPORT | Continuity of Care Document ---
:1955 External Reference #:[id number] Author Name Starr Enrique Care Team Providers Name Role Phone Maci Magaña MD Primary Care Physician Unavailable Payers Date Identification Numbers Payment Provider Subscriber Policy Number: [id number] [employer] Teresa Resendiz PayID: [id number] [address] [address] [place] [address] Advance Directives Description No Information Available Problems Date Description Provider Status Onset: 07/06/2016 Essential hypertension Placido Macias NP Active Onset: 07/06/2016 Depressive disorder Placido Macias NP Active Onset: 03/29/2018 Thrombotic stroke Placido Macias NP Active Onset: 03/29/2018 History of mechanical Placido Macias NP Active prosthetic mitral valve replacement Onset: 03/29/2018 Long-term current use of Placido Macias NP Active anticoagulant Onset: 04/23/2018 Acute and subacute bacterial Chan Alexander M.D. Active endocarditis Onset: 04/24/2018 Chest pain Karthikeyan Franco M.D., [facility], Active FASNC Family History Date Family Member(s) Observation Comments Father due to SD () - 44 Mother brain tumor Mother Cerebrovascular Accident (CVA) at 87 Siblings 2 Brother at 68-throat and lung cancer, HTN Brother-66 HTN Social History Type Date Description Comments Sex Unknown Marital Status Lives With Family ETOH Use Denies alcohol use Tobacco Use Start: Unknown End: Patient is a former smoker Unknown Tobacco Use Start: Unknown End: Patient is a former smoker Smoking Status Reviewed: 07/09/18 Patient is a former smoker Exercise Type/Frequency Exercises rarely Allergies, Adverse Reactions, Alerts Description No Known Drug Allergies Medications Medication Date Status Form Strength Qnty SIG Indications Ordering Provider Warfarin 06/22 Active Tablets 5mg 60tab take 2 Placido Sodium s tablets by TREVIN Macias mouth every evening or as directed Pantoprazole 05/[address] 40mg 30tab take 1 tablet Placido Sodium /2018 s by mouth at TREVIN Macias bedtime prn Atorvastatin 04/16 Active Tablets 80mg 90tab 1 by mouth Placido Calcium /2018 s every day TREVIN Macias Warfarin 03/29 Active Tablets 2mg 60tab take 2 tablet Placido Sodium /2018 s by mouth once TREVIN Macias daily or as directed KP Adults 50+ Active Tablets 1 by mouth Unknown Daily Formula /0000 every day occasionally Metoprolol Active Tablets 25mg 30tab take 1/2 Placido Tartrate / s tablet by TREVIN Macias mouth every 12 hours at 6am and 6pm hold if blood systolic presure less 110 and/or heart rate less 60 Acetaminophen Active Tablets ER 650mg 1 tab by Unknown ER /0000 mouth q4 hours as needed pain Docusate Active Capsules 100mg 1 tab every Unknown Sodium /0000 12 hours as needed for constipation Aspirin Ec Low Active Tablets DR 81mg 1 by mouth Unknown Dose /0000 every day Folic Acid Active Tablets 1mg stopped 1 by Unknown /0000 mouth every day Gentamicin Active 80 mg, Unknown 1.6-0.9 /0000 Intravenous, MG/ML-% every24 hrs Moisturizing Active 1 Unknown Cream /0000 application, apply externally prn Polyvinyl Active Solution 1.4% 1 drop to Unknown Alcohol /0000 both eyes daily as needed for dry eyes. Rifampin Active Capsules 300mg 1 by mouth, Unknown /0000 Shift Vancomycin HCL Active Solution 1gm iv 1,250 mg, Unknown /0000 Rec every 12 hrs Ondansetron Active Tablets 4mg dissolve one Unknown /0000 Dispers tablet orally every 8 hours as needed for nausea. Klor-Con M10 06/11 Active Tablets ER 10Meq 60tab take 2 Placido s tablets once TREVIN Macias daily while taking furosemide Furosemide 03/29 Hx Tablets 40mg 60tab stopped take Placido s 1 tablet by TREVIN Macias - mouth once a Potassium 03/29 Hx Tablets ER 20Meq 180ta take 2 Placido Chloride Dhara bs tablets by TREVIN Macias ER - mouth once 06/04 Trintellix 01/08 Hx Tablets 20mg 30tab one tablet Placido s once daily TREVIN Macias - 04/22 Fluticasone 07/07 Hx Suspension 50mcg/Act 16uni 2 sprays each H81.10 Placido Propionate ts nostril qd. TREVIN Macias - 04/22 Telmisartan 01/02 Hx Tablets 40mg 90tab take 1 tablet s by mouth once TREVIN Macias - daily 04/22 Sertraline HCL 07/25 Hx Tablets 50mg Placido TREVIN Macias - 07/25 Trintellix 07/25 Hx Tablets 10mg 90tab one tablet s once daily TREVIN Macias - 01/08 KP Adults 50+ 07/01 Hx Tablets 90tab 1 by mouth Placido Daily s every day TREVIN Macias - 07/[address] 40mg take 1 tablet Unknown Sodium /0000 by mouth at - bedtime 04/22 Cefazolin Hx Soln 2GM/20ML Unknown Sodium /0000 Prefill - Syringe 04/22 Magnesium 0000 Hx Capsules 400mg 1 by mouth Unknown Oxide -MG /0000 every day Supplement - 07/03 [facility] Ferrous Hx Tablets 325(65Fe) 1 tablet po Unknown Sulfate /0000 mg daily - 07/03 Vitamin C 00 Hx Tablets 500mg 1 by mouth Unknown /0000 every day - 07/03 Potassium 00 Hx Tablets ER 10Meq 20 mEq, oral, Unknown Chloride ER /0000 daily - standard 06/11 Immunizations CPT Code Status Date Vaccine Lot # [id number] Given 01/08/2018 Influenza Virus Vaccine, Quadrivalent, Split, [id number] Preservative Free [id number] Given 01/02/2017 Influenza Virus Vaccine, Quadrivalent, Split, [id number] Preservative Free Vital Signs Date Vital Result Comment 07/09/2018 8:45am Height 61.5 inches 5'1.50" Weight 182.25 lb Heart Rate 89 /min BP Systolic 154 mmHg BP Diastolic 87 mmHg BP Systolic Recheck 142 mmHg BP Diastolic Recheck 84 mmHg Body Temperature 99.0 F O2 % BldC Oximetry 97 % BMI (Body Mass Index) 33.9 kg/m2 07/04/2018 1:22pm Height 61.5 inches 5'1.50" Weight 182.00 lb Heart Rate 80 /min BP Systolic Sitting 120 mmHg lue reg cuff BP Diastolic Sitting 70 mmHg lue reg cuff BP Systolic Standing 124 mmHg lue reg cuff BP Diastolic Standing 70 mmHg lue reg cuff Respiratory Rate 16 /min BMI (Body Mass Index) 33.8 kg/m2 Ejection Fraction 55-60% echo.06/18/18 06/06/2018 11:34am Height 61.5 inches 5'1.50" Weight 191.00 lb Heart Rate 79 /min BP Systolic 123 mmHg BP Diastolic 70 mmHg Body Temperature 98.7 F O2 % BldC Oximetry 96 % BMI (Body Mass Index) 35.5 kg/m2 05/23/2018 11:07am Height 61.5 inches 5'1.50" Weight 191.00 lb Heart Rate 82 /min BP Systolic Sitting 142 mmHg BP Diastolic Sitting 85 mmHg Body Temperature 98.1 F O2 % BldC Oximetry 100 % BMI (Body Mass Index) 35.5 kg/m2 04/24/2018 1:53pm Height 61.5 inches 5'1.50" Weight [...] Result H/L Range Note Protime W/ Inr 07/09/2018 [facility] Prothrombin Time 24.0 Inr 2.0 CBC Auto Diff 07/03/2018 [facility] White Blood 6.5 10^3/uL N 3.5-10.[address] [place] [address] [phone] Red Blood Count 3.57 10^6/uL Low 3.70-4.87 Hemoglobin 9.7 g/dL Low 12.0-16.0 Hematocrit 30 % Low 33-41 Mean Corpuscular Volume 85 fL N 80-97 Mean Corpuscular Hemoglobin 27 pg N 27-31 Mean Corpuscular HGB Conc 32 g/dL N 31-36 Red Cell Distribution Width 17 % High 10.5-15 Platelet Count 276 10^3/uL N 150-450 Mean Platelet Volume 8.0 fL N 7.4-10.4 Abs Neutrophils 5.0 10^3/uL N 1.5-7.7 Abs Lymphocytes 0.6 10^3/uL Low 1.0-4.8 Abs Monocytes 0.5 10^3/uL N 0-0.8 Abs Eosinophils 0.3 10^3/uL N 0-0.6 Abs Basophils 0 10^3/uL N 0-0.2 Abs Nucleated RBC 0 10^3/uL Granulocyte % 77.5 % Lymphocyte % 8.8 % Monocyte % 8.3 % Eosinophil % 4.9 % Basophil % 0.5 % Nucleated Red Blood Cells % 0 Iron & Iron Binding 07/03/2018 [facility] Iron 27 g/dL Low 50-[address] [place] [address] [phone] Unsaturated Iron Binding < 222 g/dL Total Iron Binding Capacity 237 g/dL Low 250-450 Transferrin 169 mg/dL Low 203-362 % Iron Saturation 11 % Low 15-55 Laboratory test 07/03/2018 [facility] Ferritin 296.8 N 11-[address] ng/[place] [address] [phone] Protime W/ Inr 06/25/2018 Other Rendering Inr 1.9 Protime W/ Inr 06/22/2018 Other Rendering Inr 1.9 Protime W/ Inr 06/14/2018 Other Rendering Inr 2.3 Protime W/ Inr 06/11/2018 Other Rendering Inr 2.5 Protime W/ Inr 06/08/2018 Other Rendering Inr 2.1 Protime W/ Inr 06/06/2018 [facility] Prothrombin Time 21.0 Inr 1.7 Ua Routine 05/23/2018 [facility] Ua Specific [place] 1.000 Ua PH 5 Ua Color brown Ua Appera cloudy Ua WBC trace Ua Protein +30 Ua Glucose neg Ua Ketones neg Ua Bilirubin Positive + Ua Urobilinogen neg Ua Nitrite neg Ua Occult Blood 250 Laboratory test 05/23/2018 [facility] Troponin-I 0.04 ng/mL High <0.04 [address] (TnI) [place] [address] [phone] Potassium Redraw 3.7 mmol/L N 3.5-5.0 Ast Redraw 91 U/L High 13-39 LDH 1946 U/L High 140-271 Laboratory test 05/23/2018 [facility] Blood Culture SEE RESULT [address] [place] [address] [phone] Stool Occult 05/23/2018 [facility] Stool Occult SEE RESULT 3 Blood Diag [address] Blood, Diag BELOW [place], [place] [id number] [phone] CBC Auto Diff 05/23/2018 [facility] White Blood 9.2 10^3/uL N 3.5-[address] Count .8 [place] [address] [phone] Red Blood Count 2.86 10^6/uL Low 4.00-5.40 Hemoglobin 7.9 g/dL Low 12.0-16.0 Hematocrit 24 % Low 35-47 Mean Corpuscular Volume 84 fL N 80-97 Mean Corpuscular Hemoglobin 28 pg N 27-31 Mean Corpuscular HGB Conc 33 g/dL N 31-36 Red Cell Distribution Width 18 % High 10.5-15 Platelet Count 279 10^3/uL N 150-450 Mean Platelet Volume 8.1 fL N 7.4-10.4 Abs Neutrophils 7.3 10^3/uL N 1.5-7.7 Abs Lymphocytes 1.1 10^3/uL N 1.0-4.8 Abs Monocytes 0.6 10^3/uL N 0-0.8 Abs Eosinophils 0.1 10^3/uL N 0-0.6 Abs Basophils 0.1 10^3/uL N 0-0.2 Abs Nucleated RBC 0 10^3/uL Granulocyte % 79.5 % Lymphocyte % 12.0 % Monocyte % 6.7 % Eosinophil % 1.0 % Basophil % 0.8 % Nucleated Red Blood Cells % 0.3 Inr/Protime 05/23/2018 [facility] Inr 3.85 High 0.77-1.[address] [place] [address] [phone] Laboratory test 05/23/2018 [facility] Partial 35.0 N 26.0- 36.[address] [place] [address] Time PTT [phone] B-Type Natriuretic Peptide BNP 303 pg/mL High <=100 Comp Metabolic Panel 05/23/2018 [facility] Sodium 138 mmol/L N 135-[address] [place] [address] [phone] Chloride 101 mmol/L N 101-111 Co2 Carbon Dioxide 28 mmol/L N 22-32 Glucose 117 mg/dL High 70-100 Blood Urea Nitrogen 27 mg/dL High 6-24 Creatinine 1.30 mg/dL High 0.51-0.95 BUN/Creatinine Ratio 20.8 High 8-20 Calcium 9.5 mg/dL N 8.6-10.3 Total Protein 7.1 g/dL N 6.4-8.9 Albumin 3.7 g/dL N 3.2-5.2 Globulin 3.4 g/dL N 2-4 Albumin/Globulin Ratio 1.1 N 1-3 Total Bilirubin 2.70 mg/dL High 0.2-1.0 Alkaline Phosphatase 76 U/L N 34-104 Alt 31 U/L N 7-52 Egfr Non- 41.2 >60 Egfr 49.9 >60 4 Potassium TNP mmol/L 3.5-5.0 5 Anion Gap 9 mmol/L N 2-11 Ast TNP U/L 13-39 6 Laboratory test 05/23/2018 [facility] Troponin-I 0.04 ng/mL High <0.[address] (TnI) [place] [address] [phone] Lactic Acid 2.5 mmol/L High 0.5-2.0 8 C Reactive Protein 14.72 mg/L High <8.01 LDH TNP U/L 140-271 Haptoglobin <14 mg/dL Abnormal 30 - 200 9 Urine Culture And 05/23/2018 [facility] Urine Culture SEE RESULT [address] [place] [address] [phone] Protime W/ Inr 05/17/2018 [facility] Prothrombin Time 37.3 Inr 3.1 CBC No Diff 05/08/2018 [facility] White Blood 7.4 10^3/uL N 3.5-10.[address] [place] [address] [phone] Red Blood Count 4.59 10^6/uL N 4.00-5.40 Hemoglobin 12.1 g/dL N 12.0-16.0 Hematocrit 38 % N 35-47 Mean Corpuscular Volume 83 fL N 80-97 Mean Corpuscular Hemoglobin 26 pg Low 27-31 Mean Corpuscular HGB Conc 32 g/dL N 31-36 Red Cell Distribution Width 16 % High 10.5-15 Platelet Count 331 10^3/uL N 150-450 Mean Platelet Volume 7.6 fL N 7.4-10.4 Iron & Iron Binding 05/08/2018 [facility] Iron 42 g/dL Low 50-212 Capacity [address] [place] [address] [phone] Unsaturated Iron Binding < 342 g/dL Total Iron Binding Capacity 357 g/dL N 250-450 Transferrin 255 mg/dL N 203-362 % Iron Saturation 12 % Low 15-55 Laboratory test 05/08/2018 [facility] Ferritin 255.4 ng/mL N 11-307 finding [address] [place] [address] [phone] Protime W/ Inr 05/04/2018 Other Rendering Inr 2.4 Protime W/ Inr 04/27/2018 Other Rendering Inr 2.7 Protime W/ Inr 04/20/2018 Other Rendering Inr 1.8 Protime W/ Inr 04/13/2018 Other Rendering Inr 2.2 CBC Auto Diff 04/06/2018 [facility] White Blood 7.1 10^3/uL N 3.5-10.8 [address] [place] [address] [phone] Red Blood Count 3.19 10^6/uL Low 4.00-5.40 [...] fL N 7.4-10.4 Comp Metabolic Panel 04/06/2018 [facility] Sodium 141 mmol/L N 135-145 [address] [place] [address] [phone] Potassium 3.7 mmol/L N 3.5-5.0 Chloride 102 [...] Egfr Non- 43.3 >60 Egfr 52.4 >60 11 Laboratory test 04/06/2018 [facility] C Reactive 25.90 mg/L High <8.[address] [place] [address] [phone] Manual 04/06/2018 [facility] Neutrophil % 79 % Differential [address] [place] [address] [phone] Lymphocytes % 11 % Monocytes % 6 % Eosinophils % 1 % Basophil % 2 % Variant Lymph % 1 % N 0-6 Polychromasia 1+ Anisocytosis 1+ Abs Neutrophils 5.6 10^3/uL N 1.5-7.7 Abs Lymphocytes 0.85 10^3/uL Low 1.0-4.8 Abs Monocytes 0.43 10^3/uL N 0-0.8 Abs Eosinophils 0.07 10^3/uL N 0-0.6 Abs Basophils 0.15 10^3/uL N 0-0.2 Laboratory test 04/06/2018 [facility] Blood Culture SEE RESULT [address] [place] [address] [phone] Pathologist Review (SEE NOTE) 13 Basic Metabolic Panel 04/02/2018 [facility] Sodium 142 mmol/L N 135-[address] [place] [address] [phone] Potassium 3.2 mmol/L Low 3.5-5.0 Chloride 100 mmol/L Low 101-111 Co2 Carbon Dioxide 33 mmol/L High 22-32 Anion Gap 9 mmol/L N 2-11 Glucose 87 mg/dL N 70-100 Blood Urea Nitrogen 9 mg/dL N 6-24 Creatinine 0.71 mg/dL N 0.51-0.95 BUN/Creatinine Ratio 12.7 N 8-20 Calcium 8.6 mg/dL N 8.6-10.3 Egfr Non- 83.1 >60 Egfr 100.6 >60 15 CBC Auto Diff 04/02/2018 [facility] White Blood 7.4 10^3/uL N 3.5-10.[address] [place] [address] [phone] Red Blood Count 3.13 10^6/uL Low 4.00-5.40 [...] Rendering Inr 1.4 CBC Auto Diff 03/26/2018 [facility] White Blood 7.4 10^3/uL N 3.5-10.[address] [place] [address] [phone] Red Blood Count 2.99 10^6/uL Low 4.00-5.40 [...] Cells % 0 Comp Metabolic Panel 03/26/2018 [facility] Sodium 142 mmol/L N 135-[address] [place] [address] [phone] Potassium 3.6 mmol/L N 3.5-5.0 Chloride 105 [...] Egfr Non- 92.1 >60 Egfr 111.4 >60 17 Laboratory test 03/26/2018 [facility] C Reactive 24.98 mg/L High <8.01 [address] [place] [address] [phone] Arterial Blood 02/25/2018 [facility] O2 Device 2l NC Gas [address] [place] [address] [phone] PH Arterial 7.43 N 7.35-7.45 Pco2 Arterial 35 mmHg N 35-45 Po2 Arterial 109 mmHg High 80-100 O2 Saturation Arterial 99.2 % High 95-98 Base Excess Arterial -0.7 N -2.0-2.0 19 Hco3 Arterial 24.4 mmol/L N 19-31 Rapid Influenza 02/25/2018 [facility] Influenza A NEGATIVE Negative 20 A & B Molecular [address] [place] [address] [phone] Influenza B Molecular NEGATIVE Negative Laboratory test 02/25/2018 [facility] Rapid Influenza SEE RESULT [address] [place] [address] [phone] Laboratory test 02/25/2018 [facility] B-Type 122 pg/mL High <= [address] [place] [address] Peptide BNP [phone] Comp Metabolic 02/25/2018 [facility] Sodium 131 mmol/L Low 135 -[address] [place] [address] [phone] Potassium 3.5 mmol/L N 3.5-5.0 Chloride 94 [...] Egfr Non- 38.3 >60 Egfr 46.3 >60 22 Laboratory test 02/25/2018 [facility] Creatine 708 U/L High 10 -[address] Kinase(CK) [place], [place] [address] [phone] C Reactive Protein 437.89 mg/L High <8.01 Troponin-I (TnI) 0.80 ng/mL High <0.04 23 Inr/Protime 02/25/2018 [facility] Inr 1.02 N 0.77-1.[address] [place] [address] [phone] Laboratory test 02/25/2018 [facility] Partial 26.0 seconds N 26.0-36.[address] [place] [address] PTT [phone] CBC Auto Diff 02/25/2018 [facility] White Blood 8.8 10^3/uL N 3.5-10.[address] [place] [address] [phone] Red Blood Count 4.57 10^6/uL N 4.00-5.40 Hemoglobin 13.8 g/dL N 12.0-16.0 Hematocrit 41 % N 35-47 Mean Corpuscular Volume 90 fL N 80-97 Mean Corpuscular Hemoglobin 30 pg N 27-31 Mean Corpuscular HGB Conc 34 g/dL N 31-36 Red Cell Distribution Width 13 % N 10.5-15 Platelet Count 109 10^3/uL Low 150-450 Mean Platelet Volume 7.7 fL N 7.4-10.4 Manual Differential 02/25/2018 [facility] Immature 11 % High 0 -[address] [place] [address] [phone] Platelet Morphology (SEE NOTE) 24 Neutrophil % 83 % Band % 11 % High 0-8 Lymphocytes % 4 % Monocytes % 2 % RBC Morphology Normal Normal Laboratory test 02/25/2018 [facility] Procalcitonin 16.9 ng/mL High <0.6 [address] [place] [address] [phone] Urinalysis 02/25/2018 [facility] Urine Color Betty Profile [address] [place], [place] [address] [phone] Urine Appearance Cloudy Urine Specific [place] 1.024 N 1.010-1.030 Urine pH 5.0 N [...] Red Blood Cell Casts Present Abnormal Absent Laboratory test 02/25/2018 [facility] Lactic Acid 2.2 mmol/L High 0.5-2.0 [address] [place], [place] [address] [phone] Amylase 57 U/L N 29-103 Lipase 166 U/L High 11.0-82.0 Blood Culture SEE RESULT BELOW 27 Pathologist Review (SEE NOTE) 28 Urine Culture And 02/24/2018 [facility] Urine SEE RESULT 29 , [address] Culture BELOW [place], [place] [address] [phone] Rapid Influenza A 02/24/2018 [facility] Influenza A NEGATIVE Negative 31 & B Molecular [address] [place] [address] [phone] Influenza B Molecular NEGATIVE Negative Poc Urinalysis 02/24/2018 [facility] Poc Glucose, Negative Negative [address] Urine [place], [place] [address] [phone] Poc Bilirubin, Urine 1+ Abnormal Negative Poc Ketone, Urine Negative Negative Poc Specific [place], Urine >=1.030 N 1.010-1.030 Poc Blood, Urine 3+ Abnormal Negative Poc pH, Urine 5.5 N 5-9 Poc Protein, Urine 3+ Abnormal Negative Poc Urobilinogen, Urine 1.0 Negative Poc Nitrite, Urine Positive Abnormal Negative Poc Leukocytes, Urine Negative Negative Poc Color, Urine Betty Poc Clarity, Urine Clear 32 Laboratory test 07/24/2017 [facility] MRSA/S. SEE RESULT 33 , [address] [place] [address] PCR [phone] Wound 07/24/2017 [facility] Wound/Misc SEE RESULT 35 Culture/Sensi [address] [place] [address] Stain [phone] CBC Auto Diff 07/05/2017 [facility] White Blood 7.2 10^3/uL N 3.5-[address] Count 0.8 [place] [address] [phone] Red Blood Count 4.45 10^6/uL N 4.0-5.4 [...] Cells % 0 Comp Metabolic Panel 07/05/2017 [facility] Sodium 139 mmol/L N 139-[address] [place], [place] [address] [phone] Potassium 3.8 mmol/L N 3.5-5.0 Chloride 101 [...] Egfr Non- 81.8 >60 Egfr 105.2 >60 36 Laboratory test 12/19/2016 [facility] Surgical Interface SEE RESULT 37, [address] [place] [address] [phone] Lipid Profile 07/07/2016 [facility] Triglycerides 152 mg/dL N 39 (Trig/Chol/HDL) [address] [place] [address] [phone] Cholesterol 285 mg/dL N 40 HDL Cholesterol 69.7 mg/dL N 41 LDL Cholesterol 185 mg/dL N 42 Laboratory test 07/07/2016 [facility] TSH (Thyroid 2.06 mcIU/mL N 0.34-5.60 [address] Stim [place]) [place] [address] [phone] Vitamin B12 421 pg/mL N 180-914 44 CBC Auto Diff 07/07/2016 [facility] White Blood 6.9 10^3/uL N 3.5-10.[address] [place] [address] [phone] Red Blood Count 4.77 10^6/uL N 4.0-5.4 [...] % 0 N Comp Metabolic Panel 07/07/2016 [facility] Sodium 137 mmol/L N 133-[address] [place] [address] [phone] Potassium 4.2 mmol/L N 3.5-5.0 Chloride 100 [...] 95.8 N >60 Egfr 123.1 N >60 45 1 Result TnIDx:0.04 Called to [id number] at: 17:03:46 by:[id number] Read back by: [id number] Troponin-I testing on Plasma Separator Tubes (PST) has a known false positive rate of 0.20-0.40%. All positive troponins reflex immediate secondary confirmatory testing. 2 SEE RESULT BELOW Name: TERESA RESENDIZ : [address]: Mike Little MD Acct: [id number] Unit: [id number] AGE: 63 Location: ED Re05/23/18 SEX: F Status: DEP ER SPEC: [id number] DOUGIE: 05/23/[address] [facility] [address]: Lamar Crowe MD REQ: [id number] RECD: 05/23/18 STATUS: CHELLY AHUJA DR: Mike Macias SAP DEVELOPER _ SOURCE: BLOOD,VENO SPDESC: ORDERED: Blood Cult Procedure Result Reported Site Aerobic Culture Bottle Final 05/28/18- 1635 ML No Growth Day 5 Anaerobic Culture Bottle Final 05/28/18- 1635 ML No Growth Day 5 * ML - Main Lab . END OF REPORT DEPARTMENT OF PATHOLOGY, [address] [place] [address] Fidel Matthew M.D. Director [facility] # [id number] 3 SEE RESULT BELOW Name: TERESA RESENDIZ : [address]: Mike Little MD Acct: [id number] Unit: [id number] AGE: 63 Location: ED Re05/23/18 SEX: F Status: REG ER SPEC: [id number] DOUGIE: 05/23/18-[address] [facility] [address]: Mike Little MD REQ: [id number] RECD: 05/23/18 STATUS: CHELLY AHUJA DR: Placido Macias SAP DEVELOPER _ SOURCE: STOOL SPDESC: ORDERED: Occult Bl, Diag Procedure Result Reported Site Stool Occult Blood (1) Final 05/23/18- 1441 ML Stool Occult Blood Negative * ML - Main Lab . END OF REPORT DEPARTMENT OF PATHOLOGY, [address] [place] [address] Fidel Matthew M.D. Director [facility] # [id number] 4 Because ethnic data is not always [...] 5 Kidney failure <15 (or dialysis) 5 Specimen Hemolyzed. Result may not be valid. Unable to report test result due to hemolysis. 6 Unable to report test result due to hemolysis. 7 Result TnIDx:0.04 Called to [id number] at: 13:47:14 by:[id number] Read back by: [id number] Troponin-I testing on Plasma Separator Tubes (PST) has a known false positive rate of 0.20-0.40%. All positive troponins reflex immediate secondary confirmatory testing. 8 Critical Result LACT:2.5 Called to [id number] at: 13:56:12 by:[id number] Read back by:[id number] [facility] Severe Sepsis and Septic Shock Management Bundle Measure requires all lactic acids initially measuring >2.0 mmol/L be repeated. 9 Test Performed by: [facility] [address] [place] [address] 10 SEE RESULT BELOW Name: TERESA RESENDIZ : [address]: Carolyn Crawford MD Acct: [id number] Unit: [id number] AGE: 63 Location: [facility] Re05/23/18 SEX: F Status: REG REF SPEC: [id number] DOUGIE: 05/23/18-[address] [facility] [address]: Carolyn Crawford MD REQ: [id number] RECD: 05/23/18 STATUS: COMP _ SOURCE: URINE [facility]: ORDERED: Urine Culture COMMENTS: [id number] Urine Source: Random Procedure Result Reported Site Urine Culture Final 05/24/18- 1605 ML No Growth (<1,000 CFU/mL) * ML - Main Lab . END OF REPORT DEPARTMENT OF PATHOLOGY, [address] [place] [address] Fidel Matthew M.D. Director [facility] # [id number] 11 Because ethnic data is not always readily [...] 15-29 5 Kidney failure <15 (or dialysis) 12 SEE RESULT BELOW Name: TERESA RESENDIZ : [address]: Jennifer Downing DO Acct: [id number] Unit: [id number] AGE: 62 [facility] SEX: F Status: REG REF SPEC: [id number] DOUGIE: 04/06/[address] [facility] DR: Jennifer Downing DO REQ: [id number] RECD: 04/06/18 STATUS: RES MINA DR: Karthikeyan Nunez, _ SOURCE: BLOOD,VENO [facility]: ORDERED: Blood Cult Procedure Result Reported Site Aerobic Culture Bottle Preliminary 04/10/18- 1514 ML No Growth Day 4 Anaerobic Culture Bottle Final 04/11/18- 1511 ML No Growth Day 5 * ML - Main Lab . END OF REPORT DEPARTMENT OF PATHOLOGY, [address] [place] [address] Fidel Matthew M.D. Director [facility] # [id number] 13 Moderate normocytic anemia noted. Additional studies as clinically warranted. Reviewed by Dr. Matthew 14 [id number] 15 Because ethnic data is not always [...] 5 Kidney failure <15 (or dialysis) 16 PLEASE FAX COPY TO [employer] [phone] DR JENNIFER DOWNING PHONE # [phone] 17 Because ethnic data is not always readily [...] 15-29 5 Kidney failure <15 (or dialysis) 18 PLEASE FAX COPY TO [facility] [phone] DR JENNIFER DOWNING PHONE # [phone] 19 Reference ranges based on room air. 20 Sales Administration Specialist: [id number] 21 SEE RESULT BELOW Name: TERESA RESENDIZ : [address]: Robin Robledo MD Acct: [id number] Unit: [id number] AGE: 62 Location: ED Re02/25/18 SEX: F Status: REG ER SPEC: [id number] DOUGIE: 02/25/[address] [facility] DR: Robin Robledo MD REQ: [id number] RECD: 02/25/18 STATUS: CHELLY AHUJA DR: Placido Macias SAP DEVELOPER _ SOURCE: NASAL SPDESC: ORDERED: Flu A B Request Procedure Result Reported Site Rapid Influenza A B Request Final 02/25/18916 ML Specimen received for Influenza A/B Molecular testing * ML - Main Lab . END OF REPORT DEPARTMENT OF PATHOLOGY, [address] [place] [address] Fidel Matthew M.D. Director [facility] # [id number] 22 Because ethnic data is not always readily [...] 15-29 5 Kidney failure <15 (or dialysis) 23 Result TnIDx:0.80 Called to [id number] at: 09:12:51 by:[id number] Read back by: [id number] Troponin-I testing on Plasma Separator Tubes (PST) has a known false positive rate of 0.20-0.40%. All positive troponins reflex immediate secondary confirmatory testing. 24 VACUOLATED NEUTROPHILS SEEN ON SMEAR 25 Interpretive information available on [employer] [facility] Test Catalog at [email or web address] 26 Critical Result LACT:2.2 Called to [id number] at: 09:28:02 by:[id number] Read back by:[id number] [facility] Severe Sepsis and Septic Shock Management Bundle Measure requires all lactic acids initially measuring >2.0 mmol/L be repeated. 27 SEE RESULT BELOW Name: TERESA RESENDIZ : [address]: Alonso Prado MD Acct: [id number] Unit: [id number] AGE: 62 Location: ICU [id number] Re02/25/18 SEX: F Status: ADM IN SPEC: [id number] DOUGIE: 02/25/[address] [facility] [address]: Robin Robledo MD REQ: [id number] RECD: 02/25/18 STATUS: CHELLY AHUJA DR: Placido Macias SAP DEVELOPER _ SOURCE: BLOOD,VENO SPDESC: ORDERED: Blood Cult COMMENTS: Verbal to [id number] by [id number] at 2320 on 02/25/18. Results read back [...] These antibiotics are not available in the [facility] Formulary Contact the Microbiology Department for any additional antibiotic reporting. Anaerobic Culture Bottle Final 02/27/18837 ML CONTINUED ON NEXT PAGE DEPARTMENT OF PATHOLOGY, [address] [place] [address] Fidel Matthew M.D. Director [facility] # [id number] Patient: TERESA RESENDIZ [id number] (Continued) Specimen: [id number] Collected: 02/25/18 Received: 02/25/18 (Continued) Procedure Result Reported Site Anaerobic Culture Bottle Final (continued) 02/27/18- 0838 Anaerobic Btl Gram Stain Gram Positive Cocci resembling Staph Organism 1 STAPHYLOCOCCUS AUREUS#2 Please refer to [id number] culture AEROBIC bottle for sensitivity testing. * ML - Main Lab . END OF REPORT DEPARTMENT OF PATHOLOGY, [address] [place] [address] Fidel Matthew M.D. Director [facility] # [id number] 28 Moderate thrombocytopenia noted. No schistocytes or blasts identified. Additional studies as clinically warranted. Reviewed by Dr. Matthew 29 [id number] 30 SEE RESULT BELOW Name: TERESA RESENDIZ : [address]: Jennifer Ty MD Acct: [id number] Unit: [id number] AGE: 62 Location: [facility] Re02/24/18 SEX: F Status: DEP ER SPEC: [id number] DOUGIE: 02/24/[address] [facility] [address]: Nataliia Hardy NP REQ: [id number] RECD: 02/24/18 STATUS: CHELLY AHUJA DR: [facility] Placido Macias SAP DEVELOPER _ SOURCE: URINE SPDESC: ORDERED: Urine Culture COMMENTS: [id number] Procedure Result Reported Site Urine Culture Final 02/26/18- 0832 ML Organism 1 STAPHYLOCOCCUS AUREUS [place] Count >100,000 (Many) CFU/ML 1. STAPHYLOCOCCUS AUREUS [...] These antibiotics are not available in the [facility] Formulary Contact the Microbiology Department for any additional antibiotic reporting. * - Main Lab . END OF REPORT DEPARTMENT OF PATHOLOGY, [address] [place] [address] Fidel Matthew M.D. Director [facility] # [id number] 31 Sales Administration Specialist: [id number] Sales Administration Specialist: [id number] 34 SEE RESULT BELOW Name: TERESA RESENDIZ : [address]: Fredy Holbrook MD Acct: [id number] Unit: [id number] AGE: 62 Location: [facility] Re07/24/17 SEX: F Status: DEP ER SPEC: [id number] DOUGIE: 07/24/17-[address]: Davis GARAY REQ: [id number] RECD: 07/25/17 STATUS: CHELLY AHUJA DR: Fredy Macias SAP DEVELOPER _ SOURCE: BACK SPDESC: ORDERED: MRSA/SA SSTI, Culture Stain COMMENTS: [id number] Procedure Result Reported Site MRSA/S. aureus SSTI [...] . END OF REPORT DEPARTMENT OF PATHOLOGY, [address] [place] [address] Fidel Matthew M.D. Director [facility] # [id number] 35 SEE RESULT BELOW Name: TERESA RESENDIZ : [address]: Fredy Holbrook MD Acct: [id number] Unit: [id number] AGE: 62 Location: [facility] Re07/24/17 SEX: F Status: DEP ER SPEC: [id number] DOUGIE: 07/24/17-[address] [facility] [address]: Davis GARAY REQ: [id number] RECD: 07/25/17 STATUS: RES OTHR DR: Fredy Macias SAP DEVELOPER _ SOURCE: BACK SPDESC: ORDERED: MRSA/SA SSTI, Culture Stain COMMENTS: [id number] Procedure Result Reported Site MRSA/S. aureus SSTI PCR PENDING Wound/Misc Gram Stain Final 07/25/17- 1158 ML 2+ Neutrophils Possible 1+ Gram Positive Cocci Wound/Misc Culture PENDING * ML - Main Lab . END OF REPORT DEPARTMENT OF PATHOLOGY, [address] [place] [address] Fidel Matthew M.D. Director [facility] # [id number] 36 Because ethnic data is not always readily [...] 15-29 5 Kidney failure <15 (or dialysis) 37 [id number] 38 SEE RESULT BELOW Name: MARTÍNLUZ MARIATERESA : [address]: Angela Langston MD Acct: [id number] Unit: [id number] AGE: 61 Location: [facility] Re12/19/16 SEX: F Status: DEP REF SPEC: [id number] DOUGIE: 12/19/[address] [facility] DR: Angela Langston MD REQ: [id number] RECD: 12/19/16 STATUS: AKHIL AHUJA DR: Placido Macias SAP DEVELOPER _ ORDERED: LEVEL 4 COMMENTS: [id number] FINAL DIAGNOSIS Colon, ascending, biopsy: -- Tubular [...] performed at Main Lab DEPARTMENT OF PATHOLOGY, [address] [place] [address] Fidel Matthew M.D. Director [facility] # [id number] 39 Desirable <150 Borderline high 150-199 High 200-499 Very High >500 40 Desirable <200 Borderline high 200-239 High >239 41 Low <40 Desirable: 40-60 High: >60 42 Desirable: <100 mg/dL Near Optimal: 100-129 mg/dL Borderline High: 130-159 mg/dL High: 160-189 mg/dL Very High: >189 mg/dL 43 FASTING 10 HOUR 44 Normal Range 180 to 914 Indeterminate Range 145 to 180 Deficient Range <145 45 Because ethnic data is not always readily [...] (or dialysis) Procedures Date Code Description Status 07/05/2018 00706 Pace Maker Eval W/Iterative Adjment Dual Lead Completed 07/04/2018 49756 EKG Tracing & Interpretation Completed 05/23/2018 98241 ECHO Transthorasic Realtime 2D W Doppler & Color Flow Completed Hosp 05/23/2018 78235 ECHO Transthoracic, Real-Time 2D With Doppler And Completed Color Flow 04/24/2018 89879 EKG Tracing & Interpretation Completed 02/27/2018 99120 Echocardiography, Transesophageal, Real Time W/Image Completed 2D W/W/O M-M 02/27/2018 60036 Pulse Wave/Continuous-Interp.RPT Completed 02/27/2018 95769 Color Flow Doppler/Interp & Reprt Completed 02/27/2018 27977 Moderate Sedation Services; Same Phys Intl 15 Mins; PT Completed >=5 Years 02/26/2018 80885 ECHO Transthorasic Realtime 2D W Doppler & Color Flow Completed Hosp 11/01/2017 76011037 Mammogram Completed 07/07/2017 80228 EKG Tracing & Interpretation Completed 12/19/2016 59716 Moderate Sedation Services; Same Phys Intl 15 Mins; PT Completed >=5 Years 12/19/2016 70828 Colonoscopy Flexible W/Biopsy Completed 12/19/2016 94619829 Colonoscopy Completed 07/13/2016 97723463 Mammogram Completed 06/29/2016 512377761 Diabetic Retinal Eye Exam Completed Encounters Type Date Location Provider Dx Diagnosis Office Visit 07/04/2018 [facility] Karthikeyan Martin 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 prosthetic heart Services 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 Internal Placido Macias, I63.9 Cerebral Medicine SAP DEVELOPER infarction, unspecified R65.21 Severe sepsis with septic shock Z95.2 [...] I10 Essential (primary) hypertension Office Visit 02/27/2018 8:28a [facility] Alonso Prado MD R65.21 Severe sepsis with septic shock R78.81 Bacteremia D69.6 Thrombocytopenia, unspecified B95.7 Oth staphylococcus as the cause of diseases classd elswhr I21.4 Non-St elevation (Nstemi) myocardial infarction N17.9 Acute kidney failure, unspecified [facility]27[facility]2018 [facility] I[facility].443 Cerebral infrc Infectious Yajaira Newton due to embolism Diseases of bilateral cereblr arteries I33.0 Acute and subacute infective endocarditis I21.4 Non-St elevation (Nstemi) myocardial infarction R78.81 Bacteremia B95.61 Methicillin suscep staph infct causing dis classd elswhr Office Visit 02/27/2018 [facility] Claudia I63.9 Cerebral 7:00a Berto Garcia M.D. infarction, unspecified R93.1 Abnormal findings on dx imaging of heart and cor circ I10 Essential (primary) hypertension Office 02/26/2018 [facility] Chan I63.9 Cerebral Visit 7:00a Berto Alexander M.D. infarction, unspecified I10 Essential (primary) hypertension R50.9 Fever, unspecified Office Visit 02/26/2018 8:27a [facility] Alonso Prado MD R65.21 Severe sepsis with septic shock I63.9 Cerebral infarction, unspecified I10 Essential (primary) hypertension R78.81 Bacteremia B95.7 Oth staphylococcus as the cause of diseases classd elswhr N17.9 Acute kidney failure, unspecified Office Visit 02/25/2018 [facility] Sariah Gaitan.Moris Cerebral 8:27a infarction, unspecified Office Visit 01/08/2018 [facility] Internal Placido Macias NP I10 Essential 8:40a Medicine (primary) hypertension F32.89 Other specified depressive episodes R06.83 Snoring R53.83 Other fatigue Z23 Encounter for immunization Office Visit 07/07/2017 9:20a [facility] Internal Placido Gilberto, Z01.818 Encounter for other Medicine SAP DEVELOPER preprocedural examination M25.511 Pain in right shoulder I10 Essential (primary) hypertension H81.10 Benign paroxysmal vertigo, unspecified ear Office Visit 01/02/2017 10:20a [facility] Internal Placido Gilberto, F32.89 Other specified Medicine SAP DEVELOPER depressive episodes E78.5 Hyperlipidemia, unspecified Z23 Encounter for immunization Office Visit 09/19/2016 8:40a [facility] Internal Placido Gilberto, F32.89 Other specified Medicine SAP DEVELOPER depressive episodes I10 Essential (primary) hypertension Office Visit 07/25/2016 9:00a [facility] Internal Placidogio Macias, F32.89 Other specified Medicine SAP DEVELOPER depressive episodes Office Visit 07/01/2016 11:00a [facility] Internal Placidogio Macias, R53.83 Other fatigue Medicine SAP DEVELOPER Z12.31 Encntr screen mammogram for malignant neoplasm of breast Z13.220 Encounter for screening for lipoid disorders Z12.11 Encounter for screening for malignant neoplasm of colon Plan of Treatment Future Appointment(s):10/08/2018 9:00 am - Placido Macias NP at [facility] Internal Yjdnpmje83/29/2019 10:45 am - Chan Alexander M.D. at [place] [facility]07/09/2018 - Placido Macias NPI10 Essential (primary) hypertensionComments:HYPERTENSION:Continue present management. Continue checking your blood pressure as you have been.F32.89 Other specified depressive episodesComments:Restart the Trintellix at 5mg daily. After a week increase to 10mg. After 4 weeks let me know how things are going.Follow up:3 csinlnR67.9 Anemia, unspecifiedComments:Have the repeat bloodwork done in two months.Z95.2 Presence of prosthetic heart iszcvD87.01 terminal superintendent (current) use of anticoagulants
--- OUTSIDE RECORDS SUMMARY | 2018-07-13 22:38 | XMS REPORT | Continuity of Care Document ---
:1955 External Reference #:[id number] Author Name Jesusita Ayoub Care Team Providers Name Role Phone Maci Magaña MD Primary Care Physician Unavailable Payers Date Identification Numbers Payment Provider Subscriber Policy Number: [id number] [employer] Teresa Resendiz PayID: [id number] [address] [address] [place] [address] Advance Directives Description No Information Available Problems [...] Onset: 04/24/2018 Chest pain Karthikeyan Franco M.D., [facility], Active FAS[facility] Family History Date Family Member(s) Observation Comments Father due to OR () - 44 Mother brain tumor Mother [...] is a former smoker Smoking Status Reviewed: 06/06/18 Patient is a former smoker Exercise Type/Frequency Exercises rarely Allergies, Adverse Reactions, Alerts Description No Known Drug Allergies Medications Medication Date Status Form Strength Qnty SIG Indications Ordering Provider Juliocesar M10 06/11 Active Tablets ER 10Meq 60tab take 2 Placido /2018 s tablets once TREVIN Macias daily while taking furosemide Pantoprazole 05/[address] 40mg 30tab take 1 tablet Placido Sodium /2018 s by mouth at TREVIN Macias bedtime Atorvastatin 04/16 Active Tablets 80mg 90tab 1 by mouth Placido Calcium /2018 s every day TREVIN Macias Furosemide 03/29 Active Tablets 40mg 60tab take 1 tablet Placido /2018 s by mouth TREVIN Macias twice a day Warfarin 03/29 Active Tablets 2mg 60tab take [...] tablet po Unknown Sulfate /0000 mg daily Vitamin C Active Tablets 500mg 1 by mouth Unknown /0000 every day Aspirin Ec Low Active Tablets DR 81mg 1 by mouth Unknown Dose /0000 every day Folic Acid Active Tablets 1mg 1 by mouth Unknown /0000 every day Gentamicin Active 80 mg, Unknown [...] mg, Unknown /0000 Rec every 12 hrs Potassium 01/03 Hx Tablets ER 20Meq 180ta take 2 [...] every day TREVIN Macias - 07/01 Pantoprazole [address] 40mg take 1 tablet Unknown Sodium /0000 by mouth at - bedtime 04/22 Cefazolin 00 Hx Soln 2GM/20ML Unknown Sodium /0000 Prefill - Syringe 04/22 Potassium 00/00 Hx Tablets ER 10Meq 20 mEq, oral, Unknown Chloride ER /0000 daily - standard 06/11 Immunizations CPT Code Status Date Vaccine Lot # [id number] Given 01/08/2018 Influenza Virus Vaccine, Quadrivalent, Split, [id number] Preservative Free [id number] Given 01/02/2017 Influenza Virus Vaccine, Quadrivalent, Split, [id number] Preservative Free Vital Signs Date Vital Result Comment 06/06/2018 11:34am Height 61.5 inches 5'1.50" Weight [...] Result H/L Range Note Protime W/ Inr 06/14/2018 Other Rendering Inr 2.3 Protime W/ Inr 06/11/2018 Other Rendering Inr 2.5 Protime W/ Inr 06/08/2018 Other Rendering Inr 2.1 Protime W/ Inr 06/06/2018 [facility] House Prothrombin Time 21.0 Inr 1.7 Ua Routine 05/23/2018 [facility] House Ua Specific [place] 1.000 Ua PH 5 Ua Color brown Ua Appera cloudy Ua WBC trace Ua Protein +30 Ua Glucose neg Ua Ketones neg Ua Bilirubin Positive + Ua Urobilinogen neg Ua Nitrite neg Ua Occult Blood 250 Urine Culture And 05/23/2018 [facility] Urine SEE RESULT [address] [place] [place] [address] [phone] Laboratory test 05/23/2018 [facility] Troponin-I 0.04 ng/mL High <0.04 [address] (TnI) [place] [address] [phone] Lactic Acid 2.5 mmol/L High 0.5-2.0 3 C Reactive Protein 14.72 mg/L High <8.01 LDH TNP U/L 140-271 Haptoglobin <14 mg/dL Abnormal 30 - 200 4 Comp Metabolic Panel 05/23/2018 [facility] Sodium 138 mmol/L N 135-[address] [place] [address] [phone] Chloride 101 mmol/L N 101-111 Co2 Carbon [...] Egfr Non- 41.2 >60 Egfr 49.9 >60 5 Potassium TNP mmol/L 3.5-5.0 6 Anion Gap 9 mmol/L N 2-11 Ast TNP U/L 13-39 7 Laboratory test 05/23/2018 [facility] Partial 35.0 seconds N 26.0-36.[address] [place] [address] PTT [phone] B-Type Natriuretic Peptide BNP 303 pg/mL High <=100 Inr/Protime 05/23/2018 [facility] Inr 3.85 High 0.77-1.[address] [place] [address] [phone] CBC Auto Diff 05/23/2018 [facility] White Blood 9.2 N 3.5- 10.[address] Count 10^3/[place] [address] [phone] Red Blood Count 2.86 10^6/uL Low 4.00-5.40 [...] % Nucleated Red Blood Cells % 0.3 Stool Occult 05/23/2018 [facility] Stool Occult SEE RESULT 8 Blood Diag [address] Blood, [place] [address] [phone] Laboratory test 05/23/2018 [facility] Blood Culture SEE RESULT [address] [place] [address] [phone] Laboratory test 05/23/2018 [facility] Troponin-I 0.04 ng/mL High <0.[address] (TnI) [place] [address] [phone] Potassium Redraw 3.7 mmol/L N 3.5-5.0 Ast Redraw 91 U/L High 13-39 LDH 1946 U/L High 140-271 Protime W/ Inr 05/17/2018 [facility] Prothrombin Time 37.3 Inr 3.1 CBC No Diff 05/08/2018 [facility] White Blood 7.4 10^3/uL N 3.5-10.[address] [place] [address] [phone] Red Blood Count 4.59 10^6/uL N 4.00-5.40 [...] N 7.4-10.4 Iron & Iron Binding 05/08/2018 [facility] Iron 42 g/dL Low 50-[address] [place] [address] [phone] Unsaturated Iron Binding < 342 g/dL Total Iron Binding Capacity 357 g/dL N 250-450 Transferrin 255 mg/dL N 203-362 % Iron Saturation 12 % Low 15-55 Laboratory test 05/08/2018 [facility] Ferritin 255.4 ng/mL N 11-[address] [place] [address] [phone] Protime W/ Inr 05/04/2018 Other Rendering Inr 2.4 Protime W/ Inr 04/27/2018 Other Rendering Inr 2.7 Protime W/ Inr 04/20/2018 Other Rendering Inr 1.8 Protime W/ Inr 04/13/2018 Other Rendering Inr 2.2 Manual Differential 04/06/2018 [facility] Neutrophil % 79 % [address] [place] [address] [phone] Lymphocytes % 11 % Monocytes % 6 % Eosinophils % 1 % Basophil % 2 % Variant Lymph % 1 % N 0-6 Polychromasia 1+ Anisocytosis 1+ Abs Neutrophils 5.6 10^3/uL N 1.5-7.7 Abs Lymphocytes 0.85 10^3/uL Low 1.0-4.8 Abs Monocytes 0.43 10^3/uL N 0-0.8 Abs Eosinophils 0.07 10^3/uL N 0-0.6 Abs Basophils 0.15 10^3/uL N 0-0.2 Laboratory test 04/06/2018 [facility] Blood Culture SEE RESULT [address] [place] [address] [phone] Pathologist Review (SEE NOTE) 12 CBC Auto Diff 04/06/2018 [facility] White Blood 7.1 10^3/uL N 3.5-10.8 [place] [address] [phone] Red Blood Count 3.19 10^6/uL Low 4.00-5.40 Hemoglobin 8.8 g/dL Low 12.0-16.0 Hematocrit 27 % Low 35-47 Mean Corpuscular Volume 86 fL N 80-97 Mean Corpuscular Hemoglobin 28 pg N 27-31 Mean Corpuscular HGB Conc 32 g/dL N 31-36 Red Cell Distribution Width 16 % High 10.5-15 Platelet Count 367 10^3/uL N 150-450 Mean Platelet Volume 7.5 fL N 7.4-10.4 Laboratory test 04/06/2018 [facility] C Reactive 25.90 mg/L High <8.[address] [place] [address] [phone] Comp Metabolic 04/06/2018 [facility] Sodium 141 mmol/L N 135- [address] [place] [address] [phone] Potassium 3.7 mmol/L N 3.5-5.0 Chloride 102 [...] Egfr Non- 43.3 >60 Egfr 52.4 >60 13 Basic Metabolic Panel 04/02/2018 [facility] Sodium 142 mmol/L N 135-[address] [place] [address] [phone] Potassium 3.2 mmol/L Low 3.5-5.0 Chloride 100 mmol/L Low 101-111 Co2 Carbon Dioxide 33 mmol/L High 22-32 Anion Gap 9 mmol/L N 2-11 Glucose 87 mg/dL N 70-100 Blood Urea Nitrogen 9 mg/dL N 6-24 Creatinine 0.71 mg/dL N 0.51-0.95 BUN/Creatinine Ratio 12.7 N 8-20 Calcium 8.6 mg/dL N 8.6-10.3 Egfr Non- 83.1 >60 Egfr 100.6 >60 15 CBC Auto Diff 04/02/2018 [facility] White Blood 7.4 10^3/uL N 3.5-10.[address] [place] [address] [phone] Red Blood Count 3.13 10^6/uL Low 4.00-5.40 [...] W/ Inr 03/28/2018 Other Rendering Inr 1.4 Laboratory test 03/26/2018 [facility] C Reactive 24.98 High < 8.01 16, [address] Protein mg/[place] [address] [phone] Comp Metabolic 03/26/2018 [facility] Sodium 142 N 135-[address] mmol/L 5 [place] [address] [phone] Potassium 3.6 mmol/L N 3.5-5.0 Chloride 105 [...] Egfr Non- 92.1 >60 Egfr 111.4 >60 18 CBC Auto Diff 03/26/2018 [facility] White Blood 7.4 10^3/uL N 3.5-10.[address] [place] [address] [phone] Red Blood Count 2.99 10^6/uL Low 4.00-5.40 [...] % Nucleated Red Blood Cells % 0 Arterial Blood Gas 02/25/2018 [facility] O2 Device 2l NC [address] [place] [address] [phone] PH Arterial 7.43 N 7.35-7.45 Pco2 Arterial 35 mmHg N 35-45 Po2 Arterial 109 mmHg High 80-100 O2 Saturation Arterial 99.2 % High 95-98 Base Excess Arterial -0.7 N -2.0-2.0 19 Hco3 Arterial 24.4 mmol/L N 19-31 Rapid Influenza 02/25/2018 [facility] Influenza A NEGATIVE Negative 20 A & B Molecular [address] [place] [address] [phone] Influenza B Molecular NEGATIVE Negative Laboratory test 02/25/2018 [facility] Rapid Influenza SEE RESULT [address] [place] [address] [phone] Laboratory test 02/25/2018 [facility] B-Type 122 pg/mL High <= [address] [place] [address] Peptide BNP [phone] Comp Metabolic 02/25/2018 [facility] Sodium 131 mmol/L Low 135 -[address] [place] [address] [phone] Potassium 3.5 mmol/L N 3.5-5.0 Chloride 94 [...] Egfr 46.3 >60 22 Laboratory test 02/25/2018 [facility] Creatine 708 U/L High 10 -[address] Kinase(CK) [place], [place] [address] [phone] C Reactive Protein 437.89 mg/L High <8.01 Troponin-I (TnI) 0.80 ng/mL High <0.04 23 Inr/Protime 02/25/2018 [facility] Inr 1.02 N 0.77-1.[address] [place] [address] [phone] Laboratory test 02/25/2018 [facility] Partial 26.0 seconds N 26.0-36.[address] [place] [address] PTT [phone] CBC Auto Diff 02/25/2018 [facility] White Blood 8.8 10^3/uL N 3.5-10.[address] [place] [address] [phone] Red Blood Count 4.57 10^6/uL N 4.00-5.40 Hemoglobin 13.8 g/dL N 12.0-16.0 Hematocrit 41 % N 35-47 Mean Corpuscular Volume 90 fL N 80-97 Mean Corpuscular Hemoglobin 30 pg N 27-31 Mean Corpuscular HGB Conc 34 g/dL N 31-36 Red Cell Distribution Width 13 % N 10.5-15 Platelet Count 109 10^3/uL Low 150-450 Mean Platelet Volume 7.7 fL N 7.4-10.4 Manual Differential 02/25/2018 [facility] Immature 11 % High 0 -9 [address] [place] [address] [phone] Platelet Morphology (SEE NOTE) 24 Neutrophil % 83 % Band % 11 % High 0-8 Lymphocytes % 4 % Monocytes % 2 % RBC Morphology Normal Normal Laboratory test 02/25/2018 [facility] Procalcitonin 16.9 ng/mL High <0.6 25 finding [address] [place] [address] [phone] Urinalysis 02/25/2018 [facility] Urine Color Betty Profile [address] [place] [address] [phone] Urine Appearance Cloudy Urine Specific [place] 1.024 N 1.010-1.030 Urine pH 5.0 N [...] Casts Present Abnormal Absent Laboratory test 02/25/2018 [facility] Lactic Acid 2.2 mmol/L High 0.5-2.0 26 finding [address] [place] [address] [phone] Amylase 57 U/L N 29-103 Lipase 166 U/L High 11.0-82.0 Blood Culture SEE RESULT BELOW 27 Pathologist Review (SEE NOTE) 28 Urine Culture And 02/24/2018 [facility] Urine SEE RESULT 29 , [address] [place] [address] [phone] Rapid Influenza A 02/24/2018 [facility] Influenza A NEGATIVE Negative 31 & B Molecular [address] [place] [address] [phone] Influenza B Molecular NEGATIVE Negative Poc Urinalysis 02/24/2018 [facility] Poc Glucose, Negative Negative [address] [place] [address] [phone] Poc Bilirubin, Urine 1+ Abnormal Negative Poc Ketone, Urine Negative Negative Poc Specific [place], Urine >=1.030 N 1.010-1.030 Poc Blood, Urine 3+ Abnormal Negative Poc pH, Urine 5.5 N 5-9 Poc Protein, Urine 3+ Abnormal Negative Poc Urobilinogen, Urine 1.0 Negative Poc Nitrite, Urine Positive Abnormal Negative Poc Leukocytes, Urine Negative Negative Poc Color, Urine Betty Poc Clarity, Urine Clear 32 Laboratory test 07/24/2017 [facility] MRSA/S. SEE RESULT 33 , [address] [place] [address] PCR [phone] Wound 07/24/2017 [facility] Wound/Misc SEE RESULT 35 Culture/Sensi [address] [place] [address] Stain [phone] Comp Metabolic 07/05/2017 [facility] Sodium 139 mmol/L N 139- [address] [place] [address] [phone] Potassium 3.8 mmol/L N 3.5-5.0 Chloride 101 [...] Non- 81.8 >60 Egfr 105.2 >60 36 CBC Auto Diff 07/05/2017 [facility] White Blood 7.2 10^3/uL N 3.5-10.[address] [place] [address] [phone] Red Blood Count 4.45 10^6/uL N 4.0-5.4 [...] Red Blood Cells % 0 Laboratory test 12/19/2016 [facility] Surgical Interface SEE RESULT 37, [address] [place] [address] [phone] Lipid Profile 07/07/2016 [facility] Triglycerides 152 mg/dL N 39 (Trig/Chol/HDL) [address] [place] [address] [phone] Cholesterol 285 mg/dL N 40 HDL Cholesterol 69.7 mg/dL N 41 LDL Cholesterol 185 mg/dL N 42 Laboratory test 07/07/2016 [facility] TSH (Thyroid 2.06 mcIU/mL N 0.34-5.60 [address] Stim [place]) [place] [address] [phone] Vitamin B12 421 pg/mL N 180-910 44 CBC Auto Diff 07/07/2016 [facility] White Blood 6.9 10^3/uL N 3.5-10.[address] [place] [address] [phone] Red Blood Count 4.77 10^6/uL N 4.0-5.4 [...] % 0 N Comp Metabolic Panel 07/07/2016 [facility] Sodium 137 mmol/L N 133-[address] [place] [address] [phone] Potassium 4.2 mmol/L N 3.5-5.0 Chloride 100 [...] >60 Egfr 123.1 N >60 45 1 SEE RESULT BELOW Name: TERESA RESENDIZ : [address]: Carolyn Crawford MD Acct: [id number] Unit: [id number] AGE: 63 Location: [facility] Re05/23/18 SEX: F Status: REG REF SPEC: [id number] DOUGIE: 05/23/18-1118 [facility] DR: Carolyn Crawford MD REQ: [id number] RECD: 05/23/18 STATUS: COMP _ SOURCE: URINE SPDESC: ORDERED: Urine Culture COMMENTS: [id number] Urine Source: Random Procedure Result Reported Site Urine Culture Final 05/24/18- 1605 ML No Growth (<1,000 CFU/mL) * ML - Main Lab . END OF REPORT DEPARTMENT OF PATHOLOGY, [address] [place] [address] Fidel Matthew M.D. Director [facility] # [id number] 2 Result TnIDx:0.04 Called to [id number] at: 13:47:14 by:[id number] Read back by: [id number] Troponin-I testing on Plasma Separator Tubes (PST) has a known false positive rate of 0.20-0.40%. All positive troponins reflex immediate secondary confirmatory testing. 3 Critical Result LACT:2.5 Called to [id number] at: 13:56:12 by:[id number] Read back by:[id number] [facility] Severe Sepsis and Septic Shock Management Bundle Measure requires all lactic acids initially measuring >2.0 mmol/L be repeated. 4 Test Performed by: [facility] [address] [place] [address] 5 Because ethnic data is not always [...] 5 Kidney failure <15 (or dialysis) 6 Specimen Hemolyzed. Result may not be valid. Unable to report test result due to hemolysis. 7 Unable to report test result due to hemolysis. 8 SEE RESULT BELOW Name: TERESA RESENDIZ : [address]: Mike Little MD Acct: [id number] Unit: [id number] AGE: 63 Location: ED Re05/23/18 SEX: F Status: REG ER SPEC: [id number] DOUGIE: 05/23/18-[address]: Mike Little MD REQ: [id number] RECD: 05/23/18 STATUS: CHELLY ENRIQUEZ DR: Placido Macias EXPRESSIVE THERAPIST _ SOURCE: STOOL SPDESC: ORDERED: Occult Bl, Diag Procedure Result Reported Site Stool Occult Blood (1) Final 05/23/18- 9 ML Stool Occult Blood Negative * ML - Main Lab . END OF REPORT DEPARTMENT OF PATHOLOGY, [address] [place] [address] Fidel Matthew M.D. Director [facility] # [id number] 9 SEE RESULT BELOW Name: TERESA RESENDIZ : [address]: Mike Little MD Acct: [id number] Unit: [id number] AGE: 63 Location: ED Re05/23/18 SEX: F Status: DEP ER SPEC: [id number] DOUGIE: 05/23/18 [facility] DR: Lamar Crowe MD REQ: [id number] RECD: 05/23/18 STATUS: CHELLY AHUJA DR: Mike Macias EXPRESSIVE THERAPIST _ SOURCE: BLOOD,VENO SPDESC: ORDERED: Blood Cult Procedure Result Reported Site Aerobic Culture Bottle Final 05/28/18- 1635 ML No Growth Day 5 Anaerobic Culture Bottle Final 05/28/18- 1635 ML No Growth Day 5 * ML - Main Lab . END OF REPORT DEPARTMENT OF PATHOLOGY, [address] [place] [address] Fidel Matthew M.D. Director [facility] # [id number] 10 Result TnIDx:0.04 Called to [id number] at: 17:03:46 by:[id number] Read back by: [id number] Troponin-I testing on Plasma Separator Tubes (PST) has a known false positive rate of 0.20-0.40%. All positive troponins reflex immediate secondary confirmatory testing. 11 SEE RESULT BELOW Name: TERESA RESENDIZ : [address]: Jnenifer Downing DO Acct: [id number] Unit: [id number] AGE: 62 Location: [facility] Re04/06/18 SEX: F Status: REG REF SPEC: [id number] DOUGIE: 04/06/[address]: Jennifer Downing DO REQ: [id number] RECD: 04/06/18 STATUS: RES OT DR: Karthikeyan Nunez, _ SOURCE: BLOOD,VENO SPDESC: ORDERED: Blood Cult Procedure Result Reported Site Aerobic Culture Bottle Preliminary 04/10/18- 1514 ML No Growth Day 4 Anaerobic Culture Bottle Final 04/11/18- 1511 ML No Growth Day 5 * ML - Main Lab . END OF REPORT DEPARTMENT OF PATHOLOGY, [address] [place] [address] Fidel Matthew M.D. Director [facility] # [id number] 12 Moderate normocytic anemia noted. Additional studies as clinically warranted. Reviewed by Dr. Matthew 13 Because ethnic data is not always readily [...] 15-29 5 Kidney failure <15 (or dialysis) 14 [id number] 15 Because ethnic data is not always [...] (or dialysis) 16 PLEASE FAX COPY TO vns [phone] DR JENNIFER DOWNING PHONE # [phone] 17 PLEASE FAX COPY TO vns [phone] DR JENNIFER DOWNING PHONE # [phone] 18 Because ethnic data is not always readily [...] 15-29 5 Kidney failure <15 (or dialysis) 19 Reference ranges based on room air. 20 Internet Marketing Assistant: [id number] 21 SEE RESULT BELOW Name: TERESA RESENDIZ : [address]: Robin Robledo MD Acct: [id number] Unit: [id number] AGE: 62 Location: ED Re02/25/18 SEX: F Status: REG ER SPEC: [id number] DOUGIE: 02/25/18 [facility] DR: Robin Robledo MD REQ: [id number] RECD: 02/25/18 STATUS: CHELLY AHUJA DR: Placido Macias EXPRESSIVE THERAPIST _ SOURCE: NASAL SPDESC: ORDERED: Flu A B Request Procedure Result Reported Site Rapid Influenza A B Request Final 02/25/18- 916 ML Specimen received for Influenza A/B Molecular testing * ML - Main Lab . END OF REPORT DEPARTMENT OF PATHOLOGY, [address] [place] [address] Fidel Matthew M.D. Director [facility] # [id number] 22 Because ethnic data is not always [...] (or dialysis) 23 Result TnIDx:0.80 Called to [id number] at: 09:12:51 by:[id number] Read back by: [id number] Troponin-I testing on Plasma Separator Tubes (PST) has a known false positive rate of 0.20-0.40%. All positive troponins reflex immediate secondary confirmatory testing. 24 VACUOLATED NEUTROPHILS SEEN ON SMEAR 25 Interpretive information available on [facility] Test Catalog at [email or web address] 26 Critical Result LACT:2.2 Called to [id number] at: 09:28:02 by:[id number] Read back by:[id number] [facility] Severe Sepsis and Septic Shock Management Bundle Measure requires all lactic acids initially measuring >2.0 mmol/L be repeated. 27 SEE RESULT BELOW Name: TERESA RESENDIZ : [address]: Alonso Prado MD Acct: [id number] Unit: [id number] AGE: 62 Location: ICU [id number] Re02/25/18 SEX: F Status: ADM IN SPEC: [id number] DOUGIE: 02/25/18 [facility] DR: Robin Robledo MD REQ: [id number] RECD: 02/25/18 STATUS: COMP MINAHR DR: Placido Macias EXPRESSIVE THERAPIST _ SOURCE: BLOOD,VENO SPDESC: ORDERED: Blood Cult COMMENTS: Verbal to [id number] by [id number] at 2320 on 02/25/18. Results read back accurately. Procedure Result Reported Site Aerobic Culture Bottle Final 02/27/18837 ML Aerobic Bottle Gram Stain Gram Positive [...] These antibiotics are not available in the [facility] Formulary Contact the Microbiology Department for any additional antibiotic reporting. Anaerobic Culture Bottle Final 02/27/18837 ML CONTINUED ON NEXT PAGE DEPARTMENT OF PATHOLOGY, [address] [place] [address] Fidel Matthew M.D. Director [facility] # [id number] Patient: TERESA RESENDIZ [id number] (Continued) Specimen: [id number] Collected: 02/25/18 Received: 02/25/18 (Continued) Procedure Result Reported Site Anaerobic Culture Bottle Final (continued) 02/27/18837 Anaerobic Btl Gram Stain Gram Positive Cocci resembling Staph Organism 1 STAPHYLOCOCCUS AUREUS#2 Please refer to [id number] culture AEROBIC bottle for sensitivity testing. * ML - Main Lab . END OF REPORT DEPARTMENT OF PATHOLOGY, [address] [place] [address] Fidel Matthew M.D. Director [facility] # [id number] 28 Moderate thrombocytopenia noted. No schistocytes or blasts identified. Additional studies as clinically warranted. Reviewed by Dr. Matthew 29 [id number] 30 SEE RESULT BELOW Name: TERESA RESENDIZ : [address]: Jennifer Ty MD Acct: [id number] Unit: [id number] AGE: 62 Location: [facility] Re02/24/18 SEX: F Status: DEP ER SPEC: [id number] DOUGIE: 02/24/18 [facility] DR: Nataliia Hardy NP REQ: [id number] RECD: 02/24/18 STATUS: CHELLY AHUJA DR: Beat[facility] Placido Macias NP _ SOURCE: URINE SPDESC: ORDERED: Urine Culture COMMENTS: [id number] Procedure Result Reported Site Urine Culture Final 02/26/18- 0832 ML Organism 1 STAPHYLOCOCCUS AUREUS [place] Count >100,000 (Many) CFU/ML 1. STAPHYLOCOCCUS AUREUS [...] These antibiotics are not available in the [facility] Formulary Contact the Microbiology Department for any additional antibiotic reporting. * ML - Main Lab . END OF REPORT DEPARTMENT OF PATHOLOGY, [address] [place] [address] Fidel Matthew M.D. Director [facility] # [id number] 31 Internet Marketing Assistant: [id number] Internet Marketing Assistant: [id number] 34 SEE RESULT BELOW Name: TERESA RESENDIZ : [address]: Fredy Holbrook MD Acct: [id number] Unit: [id number] AGE: 62 Location: [facility] Re07/24/17 SEX: F Status: DEP ER SPEC: [id number] DOUGIE: 07/24/17 [facility] DR: Davis GARAY REQ: [id number] RECD: 07/25/17-1058 STATUS: CHELLY AHUJA DR: Fredy Macias EXPRESSIVE THERAPIST _ [facility]: MRSA/SA SSTI, Culture Stain COMMENTS: [id number] Procedure Result Reported Site MRSA/S. aureus SSTI [...] . END OF REPORT DEPARTMENT OF PATHOLOGY, [address] [place] [address] Fidel Matthew M.D. Director [facility] # [id number] 35 SEE RESULT BELOW Name: TERESA RESENDIZ : [address]: Fredy Holbrook MD Acct: [id number] Unit: [id number] AGE: 62 Location: [facility] Re07/24/17 SEX: F Status: DEP ER SPEC: [id number] DOUGIE: 07/24/17-[address]: Davis GARAY REQ: [id number] RECD: 07/25/171 STATUS: RES [facility] DR: Fredy Macias EXPRESSIVE THERAPIST _ SOURCE: BACK SPDES: ORDERED: MRSA/SA SSTI, Culture Stain COMMENTS: [id number] Procedure Result Reported Site MRSA/S. aureus SSTI PCR PENDING Wound/Misc Gram Stain Final 07/25/17- 1158 ML 2+ Neutrophils Possible 1+ Gram Positive Cocci Wound/Misc Culture PENDING * ML - Main Lab . END OF REPORT DEPARTMENT OF PATHOLOGY, [address] [place] [address] Fidel Matthew M.D. Director [facility] # [id number] Because ethnic data is not always [...] 5 Kidney failure <15 (or dialysis) 37 [id number] SEE RESULT BELOW Name: TERESA RESENDIZ : [address]: Angela Langston MD Acct: [id number] Unit: [id number] AGE: 61 Location: [facility] Re12/19/16 SEX: F Status: DEP REF SPEC: [id number] DOUGIE: 12/19/1645 [facility] DR: Angela Langston MD REQ: [id number] RECD: 12/19/16390 STATUS: AKHIL AHUJA DR: Placido Macias EXPRESSIVE THERAPIST _ ORDERED: LEVEL 4 COMMENTS: [id number] FINAL DIAGNOSIS Colon, ascending, biopsy: -- Tubular [...] performed at Main Lab DEPARTMENT OF PATHOLOGY, [address] [place] [address] Fidel Matthew M.D. Director [facility] # [id number] 39 Desirable <150 Borderline high 150-199 High [...] (or dialysis) Procedures Date Code Description Status 05/23/2018 80191 ECHO Transthorasic Realtime 2D W Doppler & Color Flow Completed Hosp 05/23/2018 28673 ECHO Transthoracic, Real-Time 2D With Doppler And Completed Color Flow 04/24/2018 33122 EKG Tracing & Interpretation Completed 02/27/2018 92470 Moderate Sedation Services; Same Phys Intl 15 Mins; PT Completed >=5 Years 02/27/2018 87476 Color Flow Doppler/Interp & Reprt Completed 02/27/2018 37081 Pulse Wave/Continuous-Interp.RPT Completed 02/27/2018 75157 Echocardiography, Transesophageal, Real Time W/Image Completed 2D W/W/O M-M 02/26/2018 49510 ECHO Transthorasic Realtime 2D W Doppler & Color Flow Completed Hosp 11/01/2017 27604692 Mammogram Completed 07/07/2017 36353 EKG Tracing & Interpretation Completed 12/19/2016 08363 Moderate Sedation Services; Same Phys Intl 15 Mins; PT Completed >=5 Years 12/19/2016 75144 Colonoscopy Flexible W/Biopsy Completed 12/19/2016 35285320 Colonoscopy Completed 07/13/2016 03705347 Mammogram Completed 06/29/2016 041992438 Diabetic Retinal Eye Exam Completed Encounters Type Date Location Provider Dx Diagnosis Office Visit 05/23/2018 [facility] Lamar Crowe, R06.02 Shortness of 8:35a Assoc,daxa Gates breath Hospitalists R31.9 Hematuria, unspecified Office Visit 05/23/2018 11:00a [facility] Carolyn Ty, R31.9 Hematuria, Medicine - MD unspecified [place] R17 Unspecified jaundice R06.02 Shortness of breath Office Visit 04/24/2018 2:00p [facility] Karthikeyan Martin 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 Alberto Franco M.D., prosthetic heart FACC, FASNC valve R07.9 Chest pain, unspecified 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 Office Visit 04/23/2018 9:00a [place] Chan Alexander Z95.2 Presence of Neurologic Yajaira prosthetic heart [facility] valve I33.0 Acute and subacute infective 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 infarction, unspecified I33.0 Acute and subacute infective endocarditis I10 Essential (primary) hypertension Office Visit 02/27/2018 [facility] Claudia I63.9 Cerebral 7:00a Berto Garcia M.D. infarction, unspecified R93.1 Abnormal findings on dx imaging of heart and cor circ I10 Essential (primary) hypertension Office Visit 02/27/2018 12:20p [facility] Dominic Carlin I63.443 Cerebral infrc Cj [...] Acute kidney failure, unspecified Office 02/26/2018 Neurohospitalist Chan I63.9 Cerebral Visit [...] failure, unspecified Office Visit 02/25/2018 [facility] Alonso Prado, I63.9 Cerebral 8:27a MD infarction, unspecified Office Visit 01/08/2018 [facility] Placido Macias NP I10 Essential 8:40a Medicine - (primary) [place] hypertension F32.89 Other specified depressive episodes R06.83 Snoring R53.83 Other fatigue Z23 Encounter for immunization Office Visit 07/07/2017 9:20a [facility] Placidogio Macias, Z01.818 Encounter for other Medicine - EXPRESSIVE THERAPIST preprocedural [place] examination M25.511 Pain in right shoulder I10 Essential (primary) hypertension H81.10 Benign paroxysmal vertigo, unspecified ear Office Visit 01/02/2017 10:20a [facility] Placidogio Macias, F32.89 Other specified Medicine - EXPRESSIVE THERAPIST depressive [place] episodes E78.5 Hyperlipidemia, unspecified Z23 Encounter for immunization Office Visit 09/19/2016 8:40a [facility] Placido Gilberto, F32.89 Other specified Medicine - EXPRESSIVE THERAPIST depressive [place] episodes I10 Essential (primary) hypertension Office Visit 07/25/2016 9:00a [facility] Placidogio Macias, F32.89 Other specified Medicine - EXPRESSIVE THERAPIST depressive [place] episodes Office Visit 07/01/2016 11:00a [facility] Placidogio Macias, R53.83 Other fatigue Medicine - EXPRESSIVE THERAPIST [place] Z12.31 Encntr screen mammogram for malignant neoplasm of breast Z13.220 Encounter for screening for lipoid disorders Z12.11 Encounter for screening for malignant neoplasm of colon Plan of Treatment Future Appointment(s):07/04/2018 1:15 pm - Karthikeyan Franco M.D., [facility] at [facility]10/22/2018 10:45 am - Chan Alexander M.D. at [place] [facility]07/09/2018 8:40 am - Placido Macias NP at [facility] Internal Medicine [facility]06/06/2018 - Placido Macias NPZ95.2 Presence of prosthetic heart valveComments:It is important to keep your appointment with Dr. Franco on 07/04/18.D59.9 Acquired hemolytic anemia, unspecifiedComments: Continue taking the iron daily.Have your iron rechecked in 4 weeks.Z79.01 terminal superintendent (current) use of yvitjbqlumhvudN52.89 Other specified depressive episodesComments:I recommend contacting your brim molder at [facility] regarding when you can restart the [employer].
[2018-07-13] MEDS ORDERED: Iodixanol* (CONTRAST) 320 MG/ML 100 ML SDV IV ONE (22:40)
[2018-07-13 23:18] LABS: ABS Basophils 0.1 10^3/ul (0-0.2); ABS Eosinophils 0.1 10^3/ul (0-0.6); ABS Lymphocytes 0.7 10^3/ul (1.0-4.8); ABS Monocytes 0.5 10^3/ul (0-0.8); ABS Neutrophils 5.6 10^3/ul (1.5-7.7); ABS Nucleated RBC 0 10^3/ul; Eosinophil % 2.1 %; Hematocrit 31 % (33-41); Lymphocyte % 10.6 %; Mean Corpuscular HGB Conc 32 g/dL (31-36); Mean Corpuscular Hemoglobin 27 pg (27-31); Mean Corpuscular Volume 85 fL (80-97); Nucleated Red Blood Cells % 0; Platelet Count 301 10^3/uL (150-450); Red Blood Count 3.68 10^6 /uL (3.70-4.87); Red Cell Distribution Width 17 % (10.5-15)
[2018-07-13 23:27] LABS: Activated Partial Thrombo Time 28.3 seconds (26.0-36.3); INR 1.43 (0.77-1.02)
[2018-07-13 23:33] LABS: ALT 9 U/L (7-52); AST 16 U/L (13-39); Albumin 3.8 g/dL (3.2-5.2); Albumin/Globulin Ratio 1.1 (1-3); Alkaline Phosphatase 82 U/L (34-104); Anion Gap 7 mmol/L (2-11); BUN/Creatinine Ratio 15.3 (8-20); Blood Urea Nitrogen 21 mg/dL (6-24); CO2 Carbon Dioxide 31 mmol/L (22-32); Calcium 8.9 mg/dL (8.6-10.3); Chloride 101 mmol/L (101-111); Cholesterol 164 mg/dL; EGFR Non-African American 38.8 (>60); Globulin 3.6 g/dL (2-4); Glucose 108 mg/dL (70-100); HDL Cholesterol 51.6 mg/dL; LDL Cholesterol 84 mg/dL; Potassium 3.2 mmol/L (3.5-5.0); Sodium 139 mmol/L (135-145); Total Protein 7.4 g/dL (6.4-8.9); Triglycerides 140 mg/dL
[2018-07-13 23:38] LABS: Troponin I 0.05 ng/mL (<0.04)
[2018-07-13] MEDS ORDERED: Lorazepam PYXIS KEY ONE (23:55)
[2018-07-13] MEDS ORDERED: LORazepam INJ* 2 MG/ML 1 ML VIAL ONE (23:56)
[2018-07-14] MEDS ORDERED: Alteplase* 100 MG VIAL ONE (00:02)
[2018-07-14] MEDS ORDERED: LORazepam INJ* 2 MG/ML 1 ML VIAL IV PUSH ONE (00:07)
[2018-07-14] MEDS ORDERED: levETIRAcetam 1000MG IVPREMIX* 1,000 MG/100 ML BAG IVPB ONE (00:08)
[2018-07-14] MEDS ORDERED: Alteplase* 100 MG VIAL IV ONE (00:10)
[2018-07-14 00:57] LABS: Urine Appearance Cloudy; Urine Bacteria Absent (Absent); Urine Bilirubin Negative (Negative); Urine Blood 3+ (Negative); Urine Color Yellow; Urine Glucose Negative (Negative); Urine Ketones Negative (Negative); Urine Nitrite Negative (Negative); Urine Protein Negative (Negative); Urine Red Blood Cell 2+(6-10/hpf) (Absent); Urine Specific Gravity 1.021 (1.010-1.030); Urine Urobilinogen Negative (Negative); Urine White Blood Cell 1+(6-10/hpf) (Absent)
[2018-07-14 01:09] VITALS: BP 113/73
== END 2018-07-14 00:44 | disposition short-term general hospital (02) ==
LOC: ED 22:00
DX: I63.9 Cerebral infarction, unspecified (principal); R53.1 Weakness; I10 Essential (primary) hypertension; Z98.84 Bariatric surgery status; R41.3 Other amnesia; Z87.891 Personal history of nicotine dependence
CPT/HCPCS: 36415; 70450; 70496; 70498; 71045; 80053; 80061; 81003; 81015; 83605; 84484; 85025; 85610; 85730; 87086; 93005; 96361; 96374; 96375; 99285; J1953; J2060; J2997; Q9967

== ENCOUNTER 2018-08-12 07:41 | Inpatient (IN) | payer BC ==
--- OUTSIDE RECORDS SUMMARY | 2018-08-12 07:48 | XMS REPORT | Continuity of Care Document ---
:1955 External Reference #:[id number] Author Name Starr Enrique Care Team Providers Name Role Phone Maci Magaña MD Primary Care Physician Unavailable Payers Date Identification Numbers Payment Provider Subscriber Policy Number: [id number] [employer] Teresa Resendiz PayID: [id number] [address] [address] [place] [address] Advance Directives Description No Information Available Problems Active Problems Provider Date Essential hypertension Placido Macias NP Onset: 07/06/2016 Depressive disorder Placido Macias NP Onset: 07/06/2016 Thrombotic stroke Placido Macias NP Onset: 03/29/2018 History of mechanical prosthetic Placido Macias NP Onset: 03/29/2018 mitral valve replacement Long-term current use of Placido Macias NP Onset: 03/29/2018 anticoagulant Acute and subacute bacterial Chan Alexander M.D. Onset: 04/23/2018 endocarditis Chest pain Karthikeyan Franco M.D., [facility], Onset: 04/24/2018 FASNC Family History Date Family Member(s) Observation Comments Father due to MT () - 44 Mother brain tumor Mother Cerebrovascular Accident (CVA) at 87 Siblings 2 Brother at 68-throat and lung cancer, HTN Brother-66 HTN Social History Type Date Description Comments Sex Unknown Marital Status Lives With Family ETOH Use Currently consumes 3-4 drinks per week alcohol Tobacco Use Start: Unknown End: Patient is a former Unknown smoker Recreational Drug Use Denies Drug Use Tobacco Use Start: Unknown End: Patient is a former smoker Smoking Status Reviewed: 05/14/19 Patient is a former smoker Exercise Type/Frequency Exercises rarely Allergies, Adverse Reactions, Alerts Active Allergies Reaction Severity Comments Date Buspirone 07/20/2018 Medications Active Medications SIG Qnty Indications Ordering Date Provider Oxygen 2L while sleeping R09.02 Placido Macias NP 07/12/2018 Warfarin Sodium as directed 60tabs Placido Macias NP 06/22/2018 5mg Tablets Pantoprazole Sodium 08/07/18 reports not 30tabs Placido Macias NP 05/08/2018 taking take [address] by mouth at bedtime prn Atorvastatin Calcium 1 by mouth every day 90tabs Placido Macias NP 2018 80mg Tablets Warfarin Sodium take 2 tablet by 60tabs Placido Macias NP 03/29/2018 2mg mouth once daily or Tablets as directed=not using 2mg tabs as of 07/20/18 visit Protozone-HC cream uses as needed Unknown to leg Furosemide 08/07/18 reports not Unknown 40mg taking 1 by mouth Tablets twice daily Doxycycline 100MG 1 capsule by mouth Unknown Capsules twice daily Ondansetron dissolve one tablet Unknown 4mg orally every 8 hours Tablets Dispers as needed for nausea. Polyvinyl Alcohol 1 drop to both eyes Unknown daily as needed for 1.4% Solution dry eyes. Docusate Sodium 1 tab every 12 hours Unknown 100mg as needed for Capsules constipation Metoprolol Tartrate take 1/2 tablet by 30tabs Placido Macias NP mouth every 12 hours 25mg Tablets at 6am and 6pm hold if blood systolic presure less 110 and/or heart rate less 60 KP Adults 50+ Daily 1 by mouth every day Unknown Formula occasionally Tablets History Medications Potassium Chloride ER takes 2 tabs by 14tabs Placido Macias NP 07/09/2018 - mouth daily per pt 07/26/2018 20Meq Tablets ER Klor-Con M10 take 2 tablets 60tabs Placido Macias NP 06/11/2018 - 10Meq once daily while 07/13/2018 Tablets ER taking furosemide Furosemide stopped take 1 60tabs Placido Macias NP 03/29/2018 - 40mg Tablets tablet by mouth 07/09/2018 once a day Potassium Chloride take 2 tablets by 180tabs Placido Macias NP 03/29/2018 - Dhara ER mouth once daily 06/04/2018 20Meq Tablets ER Trintellix one tablet once 30tabs Placido Macias NP 01/08/2018 - 20mg Tablets daily 04/22/2018 Fluticasone 2 sprays each 16units H81.10 Placido Macias NP 07/07/2017 - Propionate nostril qd. 04/22/2018 50mcg/Act Suspension Telmisartan take 1 tablet by 90tabs Placido Macias NP 01/02/2017 - 40mg mouth once daily 04/22/2018 Tablets Sertraline HCL Placido Macias NP 07/25/2016 - 50mg 07/25/2016 Tablets Trintellix one tablet once 90tabs Placido Macias NP 07/25/2016 - 10mg Tablets daily 01/08/2018 KP Adults 50+ Daily 1 by mouth every 90tabs Placido Macias NP 07/01/2016 - Formula day 07/01/2016 Tablets Lovenox use one injection Unknown - 80mg/0.8ML twice daily 08/06/2018 Solution Vancomycin HCL iv 1,250 mg, every Unknown - 1gm 12 hrs 07/18/2018 Solution Rec Rifampin 1 by mouth, Shift Unknown - 300mg Capsules 07/18/2018 Potassium Chloride ER 20 mEq, oral, Unknown - daily standard 06/11/2018 10Meq Tablets ER Moisturizing Cream 1 application, Unknown - apply externally 07/19/2018 prn Gentamicin 1.6-0.9 80 mg, Unknown - MG/ML-% Intravenous, 07/18/2018 every24 hrs Folic Acid stopped 1 by mouth Unknown - 1mg Tablets every day 07/18/2018 Aspirin Ec Low Dose 1 by mouth every Unknown - day 07/18/[address] Vitamin C 1 by mouth every Unknown - 500mg Tablets day 07/03/2018 [facility] Ferrous 1 tablet po daily Unknown - Sulfate 07/03/2018 325(65Fe) mg Tablets Magnesium Oxide -MG 1 by mouth every Unknown - Supplement day 07/03/2018 400mg Capsules Cefazolin Sodium Unknown - 04/22/2018 2GM/20ML Soln Prefill Syringe Acetaminophen ER 1 tab by mouth q4 Unknown - 650mg hours as needed 07/26/2018 Tablets ER pain Pantoprazole Sodium take 1 tablet by Unknown - mouth at bedtime 04/22/2018 40mg Tablets Immunizations CPT Code Status Date Vaccine Lot # [id number] Given 01/08/2018 Influenza Virus Vaccine, Quadrivalent, Split, [id number] Preservative Free [id number] Given 01/02/2017 Influenza Virus Vaccine, Quadrivalent, Split, [id number] Preservative Free Vital Signs Date Vital Result Comment 08/07/2018 9:30am Height 61.5 inches 5'1.50" Weight 180.12 lb Heart Rate 69 /min BP Systolic 143 mmHg BP Diastolic 84 mmHg Body Temperature 98.0 F O2 % BldC Oximetry 96 % BMI (Body Mass Index) 33.5 kg/m2 08/07/2018 8:16am Height 61.5 inches 5'1.50" Weight 179.38 lb Heart Rate 80 /min BP Systolic 152 mmHg BP Diastolic 98 mmHg BMI (Body Mass Index) 33.3 kg/m2 07/27/2018 8:28am Height 61.5 inches 5'1.50" Weight 169.50 lb Heart Rate 78 /min BP Systolic 124 mmHg BP Diastolic 86 mmHg BMI (Body Mass Index) 31.5 kg/m2 07/20/2018 10:17am Height 61.5 inches 5'1.50" Weight 173.00 lb Heart Rate 80 /min regular BP Systolic Sitting 130 mmHg LA Large Cuff BP Diastolic Sitting 86 mmHg LA Large Cuff BP Systolic Standing 134 mmHg LA Large Cuff BP Diastolic Standing 88 mmHg LA Large Cuff Respiratory Rate 20 /min Pain Level 0 O2 % BldC Oximetry 98 % BMI (Body Mass Index) 32.2 kg/m2 07/09/2018 8:45am Height 61.5 inches 5'1.50" Weight [...] Result H/L Range Note Protime W/ Inr 08/06/2018 Other Rendering Inr 2.7 CBC Auto Diff 08/03/2018 [facility] White Blood 6.5 10^3/uL N 3.5-10.[address] [place] [address] [phone] Red Blood Count 4.31 10^6/uL N 3.70-4.87 Hemoglobin 11.9 g/dL Low 12.0-16.0 Hematocrit 36 % N 35-47 Mean Corpuscular Volume 83 fL N 80-97 Mean Corpuscular Hemoglobin 28 pg N 27-31 Mean Corpuscular HGB Conc 33 g/dL N 31-36 Red Cell Distribution Width 17 % High 10.5-15 Platelet Count 253 10^3/uL N 150-450 Mean Platelet Volume 8.4 fL N 7.4-10.4 Abs Neutrophils 4.8 10^3/uL N 1.5-7.7 Abs Lymphocytes 1.0 10^3/uL N 1.0-4.8 Abs Monocytes 0.6 10^3/uL N 0-0.8 Abs Eosinophils 0.1 10^3/uL N 0-0.6 Abs Basophils 0.0 10^3/uL N 0-0.2 Abs Nucleated RBC 0.0 10^3/uL Granulocyte % 73.3 % Lymphocyte % 14.8 % Monocyte % 8.9 % Eosinophil % 2.3 % Basophil % 0.7 % Nucleated Red Blood Cells % 0.1 Iron & Iron Binding 08/03/2018 [facility] Iron 44 g/dL Low 50-[address] [place] [address] [phone] Unsaturated Iron Binding < 289 g/dL Total Iron Binding Capacity 304 g/dL N 250-450 Transferrin 217 mg/dL N 203-362 % Iron Saturation 14 % Low 15-55 Protime W/ Inr 08/02/2018 [facility] Prothrombin Time 23.4 Inr 1.9 Protime W/ Inr 07/31/2018 Other Rendering Inr 2.5 Protime W/ Inr 07/26/2018 Other Rendering Inr 2.3 Protime W/ Inr 07/23/2018 [facility] Prothrombin Time 24.3 Inr 2.0 Protime W/ Inr 07/19/2018 [facility] Prothrombin Time 16.9 Inr 1.5 Laboratory test 07/13/2018 [facility] Point of 121 mg/dL High 70-100 1 finding 101 [facility] [place] [address] [phone] Urine Culture And 07/13/2018 [facility] Urine SEE RESULT [address] [place] [address] [phone] Urinalysis Profile 07/13/2018 [facility] Urine Color Yellow [address] [place] [address] [phone] Urine Appearance Cloudy Urine Specific [place] 1.021 N 1.010-1.030 Urine pH 5.0 N 5-9 Urine Urobilinogen Negative Negative Urine Ketones Negative Negative Urine Protein Negative Negative Urine Leukocytes 1+ Abnormal Negative Urine Blood 3+ Abnormal Negative Urine Nitrite Negative Negative Urine Bilirubin Negative Negative Urine Glucose Negative Negative Urine White Blood Cell 1+(6-10/hpf) Abnormal Absent Urine Red Blood Cell 2+(6-10/hpf) Abnormal Absent Urine Bacteria Absent Absent Laboratory test 07/13/2018 [facility] Troponin-I (TnI) 0.05 ng/ mL High <0.04 [address] [place] [address] [phone] Lipid Profile 07/13/2018 [facility] Triglycerides 140 mg/dL 4 (Trig/Chol/HDL) [address] [place] [address] [phone] Cholesterol 164 mg/dL 5 HDL Cholesterol 51.6 mg/dL 6 LDL Cholesterol 84 mg/dL 7 Comp Metabolic Panel 07/13/2018 [facility] Sodium 139 mmol/L N 135-145 [address] [place] [address] [phone] Potassium 3.2 mmol/L Low 3.5-5.0 Chloride 101 mmol/L N 101-111 Co2 Carbon Dioxide 31 mmol/L N 22-32 Anion Gap 7 mmol/L N 2-11 Glucose 108 mg/dL High 70-100 Blood Urea Nitrogen 21 mg/dL N 6-24 Creatinine 1.37 mg/dL High 0.51-0.95 BUN/Creatinine Ratio 15.3 N 8-20 Calcium 8.9 mg/dL N 8.6-10.3 Total Protein 7.4 g/dL N 6.4-8.9 Albumin 3.8 g/dL N 3.2-5.2 Globulin 3.6 g/dL N 2-4 Albumin/Globulin Ratio 1.1 N 1-3 Total Bilirubin 0.40 mg/dL N 0.2-1.0 Alkaline Phosphatase 82 U/L N 34-104 Alt 9 U/L N 7-52 Ast 16 U/L N 13-39 Egfr Non- 38.8 >60 Egfr 47.0 >60 8 Laboratory test 07/13/2018 [facility] Lactic Acid 1.0 mmol/L N 0.5-2.0 9 finding [address] [place] [address] [phone] Comp Metabolic 07/09/2018 [facility] Sodium 144 mmol/L N 135- 145 Panel [address] [place] [address] [phone] Chloride 102 mmol/L N 101-111 Co2 Carbon Dioxide 34 mmol/L High 22-32 Glucose 94 mg/dL N 70-100 Blood Urea Nitrogen 12 mg/dL N 6-24 Creatinine 1.19 mg/dL High 0.51-0.95 BUN/Creatinine Ratio 10.1 N 8-20 Calcium 9.4 mg/dL N 8.6-10.3 Total Protein 6.8 g/dL N 6.4-8.9 Albumin 3.7 g/dL N 3.2-5.2 Globulin 3.1 g/dL N 2-4 Albumin/Globulin Ratio 1.2 N 1-3 Total Bilirubin 0.40 mg/dL N 0.2-1.0 Alkaline Phosphatase 77 U/L N 34-104 Alt 7 U/L N 7-52 Ast 14 U/L N 13-39 Egfr Non- 45.7 >60 Egfr 55.3 >60 10 Potassium 2.6 mmol/L Low 3.5-5.0 11 Anion Gap 8 mmol/L N 2-11 Iron & Iron Binding 07/09/2018 [facility] Iron 31 g/dL Low 50-[address] [place] [address] [phone] Unsaturated Iron Binding < 237 g/dL Total Iron Binding Capacity 252 g/dL N 250-450 Transferrin 180 mg/dL Low 203-362 % Iron Saturation 12 % Low 15-55 Laboratory test 07/09/2018 [facility] Vancomycin Random 15.4 g /mL [address] [place] [address] [phone] C Reactive Protein 19.95 mg/L High <8.01 13 CBC Auto Diff 07/09/2018 [facility] White Blood 5.9 10^3/uL N 3.5-10.[address] [place] [address] [phone] Red Blood Count 3.67 10^6/uL Low 3.70-4.87 Hemoglobin 10.1 g/dL Low 12.0-16.0 Hematocrit 31 % Low 33-41 Mean Corpuscular Volume 85 fL N 80-97 Mean Corpuscular Hemoglobin 28 pg N 27-31 Mean Corpuscular HGB Conc 33 g/dL N 31-36 Red Cell Distribution Width 17 % High 10.5-15 Platelet Count 315 10^3/uL N 150-450 Mean Platelet Volume 7.9 fL N 7.4-10.4 Abs Neutrophils 4.4 10^3/uL N 1.5-7.7 Abs Lymphocytes 0.7 10^3/uL Low 1.0-4.8 Abs Monocytes 0.4 10^3/uL N 0-0.8 Abs Eosinophils 0.3 10^3/uL N 0-0.6 Abs Basophils 0.1 10^3/uL N 0-0.2 Abs Nucleated RBC 0 10^3/uL Granulocyte % 74.4 % Lymphocyte % 11.6 % Monocyte % 7.6 % 14 Eosinophil % 5.4 % Basophil % 1.0 % Nucleated Red Blood Cells % 0 Laboratory test 07/09/2018 [facility] Erythrocyte Sed 86 mm/Hr High 0-29 [address] [place] [address] [phone] Protime W/ Inr 07/09/2018 [facility] Prothrombin Time 24.0 Inr 2.0 CBC Auto Diff 07/03/2018 [facility] White Blood 6.5 10^3/uL N 3.5-10.[address] [place] [address] [phone] Red Blood Count 3.57 10^6/uL Low 3.70-4.87 [...] % 0 Iron & Iron Binding 07/03/2018 [facility] Iron 27 g/dL Low 50-[address] [place] [address] [phone] Unsaturated Iron Binding < 222 g/dL Total Iron Binding Capacity 237 g/dL Low 250-450 Transferrin 169 mg/dL Low 203-362 % Iron Saturation 11 % Low 15-55 Laboratory test 07/03/2018 [facility] Ferritin 296.8 N 11-[address] ng/mL [place], [place] [id number] [phone] Protime W/ Inr 06/25/2018 Other Rendering Inr 1.9 Protime W/ Inr 06/22/2018 Other Rendering Inr 1.9 Protime W/ Inr 06/14/2018 Other Rendering Inr 2.3 Protime W/ Inr 06/11/2018 Other Rendering Inr 2.5 Protime W/ Inr 06/08/2018 Other Rendering Inr 2.1 Protime W/ Inr 06/06/2018 [facility] Prothrombin Time 21.0 Inr 1.7 Laboratory test 05/23/2018 [facility] Troponin-I 0.04 ng/mL High <0.04 [address] (TnI) [place] [address] [phone] Potassium Redraw 3.7 mmol/L N 3.5-5.0 Ast Redraw 91 U/L High 13-39 LDH 1946 U/L High 140-271 Laboratory test 05/23/2018 [facility] Blood Culture SEE RESULT [address] [place] [address] [phone] Stool Occult 05/23/2018 [facility] Stool Occult SEE RESULT 18 Blood Diag [address] Blood, Diag BELOW [place], [place] [address] [phone] CBC Auto Diff 05/23/2018 [facility] White Blood 9.2 10^3/uL N 3.5-[address] Count .8 [place] [address] [phone] Red Blood Count 2.86 10^6/uL Low 4.00-5.40 [...] Red Blood Cells % 0.3 Inr/Protime 05/23/2018 [facility] Inr 3.85 High 0.77-1.[address] [place] [address] [phone] Laboratory test 05/23/2018 [facility] Partial 35.0 N 26.0- 36.[address] [place] [address] Time PTT [phone] B-Type Natriuretic Peptide BNP 303 pg/mL High <=100 Comp Metabolic Panel 05/23/2018 [facility] Sodium 138 mmol/L N 135-[address] [place] [address] [phone] Chloride 101 mmol/L N 101-111 Co2 Carbon [...] Egfr Non- 41.2 >60 Egfr 49.9 >60 19 Potassium TNP mmol/L 3.5-5.0 20 Anion Gap 9 mmol/L N 2-11 Ast TNP U/L 13-39 21 Laboratory test 05/23/2018 [facility] Troponin-I 0.04 ng/mL High <0.[address] (TnI) [place] [address] [phone] Lactic Acid 2.5 mmol/L High 0.5-2.0 23 C Reactive Protein 14.72 mg/L High <8.01 LDH TNP U/L 140-271 Haptoglobin <14 mg/dL Abnormal 30 - 200 24 Urine Culture And 05/23/2018 [facility] Urine Culture SEE RESULT [address] [place] [address] [phone] Ua Routine 05/23/2018 [facility] Ua Specific 1.000 [place] Ua PH 5 Ua Color brown Ua Appera cloudy Ua WBC trace Ua Protein +30 Ua Glucose neg Ua Ketones neg Ua Bilirubin Positive + Ua Urobilinogen neg Ua Nitrite neg Ua Occult Blood 250 Protime W/ Inr 05/17/2018 [facility] Prothrombin Time 37.3 Inr 3.1 CBC No Diff 05/08/2018 [facility] White Blood 7.4 10^3/uL N 3.5-10.[address] [place] [address] [phone] Red Blood Count 4.59 10^6/uL N 4.00-5.40 [...] N 7.4-10.4 Iron & Iron Binding 05/08/2018 [facility] Iron 42 g/dL Low 50-[address] [place] [address] [phone] Unsaturated Iron Binding < 342 g/dL Total Iron Binding Capacity 357 g/dL N 250-450 Transferrin 255 mg/dL N 203-362 % Iron Saturation 12 % Low 15-55 Laboratory test 05/08/2018 [facility] Ferritin 255.4 ng/mL N 11-[address] [place] [address] [phone] Protime W/ Inr 05/04/2018 Other Rendering Inr 2.4 Protime W/ Inr 04/27/2018 Other Rendering Inr 2.7 Protime W/ Inr 04/20/2018 Other Rendering Inr 1.8 Protime W/ Inr 04/13/2018 Other Rendering Inr 2.2 CBC Auto Diff 04/06/2018 [facility] White Blood 7.1 10^3/uL N 3.5-10.[address] [place] [address] [phone] Red Blood Count 3.19 10^6/uL Low 4.00-5.40 [...] fL N 7.4-10.4 Comp Metabolic Panel 04/06/2018 [facility] Sodium 141 mmol/L N 135-[address] [place] [address] [phone] Potassium 3.7 mmol/L N 3.5-5.0 Chloride 102 [...] Egfr Non- 43.3 >60 Egfr 52.4 >60 26 Laboratory test 04/06/2018 [facility] C Reactive 25.90 mg/L High <8.[address] [place] [address] [phone] Manual 04/06/2018 [facility] Neutrophil % 79 % Differential [address] [place] [address] [phone] Lymphocytes % 11 % Monocytes % 6 % Eosinophils % 1 % Basophil % 2 % Variant Lymph % 1 % N 0-6 Polychromasia 1+ Anisocytosis 1+ Abs Neutrophils 5.6 10^3/uL N 1.5-7.7 Abs Lymphocytes 0.85 10^3/uL Low 1.0-4.8 Abs Monocytes 0.43 10^3/uL N 0-0.8 Abs Eosinophils 0.07 10^3/uL N 0-0.6 Abs Basophils 0.15 10^3/uL N 0-0.2 Laboratory test 04/06/2018 [facility] Blood Culture SEE RESULT [address] [place] [address] [phone] Pathologist Review (SEE NOTE) 28 Basic Metabolic Panel 04/02/2018 [facility] Sodium 142 mmol/L N 135-[address] [place] [address] [phone] Potassium 3.2 mmol/L Low 3.5-5.0 Chloride 100 mmol/L Low 101-111 Co2 Carbon Dioxide 33 mmol/L High 22-32 Anion Gap 9 mmol/L N 2-11 Glucose 87 mg/dL N 70-100 Blood Urea Nitrogen 9 mg/dL N 6-24 Creatinine 0.71 mg/dL N 0.51-0.95 BUN/Creatinine Ratio 12.7 N 8-20 Calcium 8.6 mg/dL N 8.6-10.3 Egfr Non- 83.1 >60 Egfr 100.6 >60 30 CBC Auto Diff 04/02/2018 [facility] White Blood 7.4 10^3/uL N 3.5-10.[address] [place] [address] [phone] Red Blood Count 3.13 10^6/uL Low 4.00-5.40 [...] Rendering Inr 1.4 CBC Auto Diff 03/26/2018 [facility] White Blood 7.4 10^3/uL N 3.5-10.[address] [place], [place] [address] [phone] Red Blood Count 2.99 10^6/uL Low 4.00-5.40 [...] Cells % 0 Comp Metabolic Panel 03/26/2018 [facility] Sodium 142 mmol/L N 135-145 [address] [place] [address] [phone] Potassium 3.6 mmol/L N 3.5-5.0 Chloride 105 [...] Egfr Non- 92.1 >60 Egfr 111.4 >60 32 Laboratory test 03/26/2018 [facility] C Reactive 24.98 mg/L High <8.01 33 finding [address] [facility] [place] [address] [phone] Arterial Blood 02/25/2018 [facility] O2 Device 2l NC Gas [address] [place] [address] [phone] PH Arterial 7.43 N 7.35-7.45 Pco2 Arterial 35 mmHg N 35-45 Po2 Arterial 109 mmHg High 80-100 O2 Saturation Arterial 99.2 % High 95-98 Base Excess Arterial -0.7 N -2.0-2.0 34 Hco3 Arterial 24.4 mmol/L N 19-31 Rapid Influenza 02/25/2018 [facility] Influenza A NEGATIVE Negative 35 A & B Molecular [address] [facility] [place] [address] [phone] Influenza B Molecular NEGATIVE Negative Laboratory test 02/25/2018 [facility] Rapid Influenza SEE RESULT [address] [place] [address] [phone] Laboratory test 02/25/2018 [facility] B-Type 122 pg/mL High <= [address] [place] [address] Peptide BNP [phone] Comp Metabolic 02/25/2018 [facility] Sodium 131 mmol/L Low 135 -[address] [place] [address] [phone] Potassium 3.5 mmol/L N 3.5-5.0 Chloride 94 [...] Egfr Non- 38.3 >60 Egfr 46.3 >60 37 Laboratory test 02/25/2018 [facility] Creatine 708 U/L High 10 -[address] Kinase(CK) [place] [address] [phone] C Reactive Protein 437.89 mg/L High <8.01 Troponin-I (TnI) 0.80 ng/mL High <0.04 38 Inr/Protime 02/25/2018 [facility] Inr 1.02 N 0.77-1.[address] [place] [address] [phone] Laboratory test 02/25/2018 [facility] Partial 26.0 seconds N 26.0-36.[address] [place] [address] PTT [phone] CBC Auto Diff 02/25/2018 [facility] White Blood 8.8 10^3/uL N 3.5-10.[address] [place] [address] [phone] Red Blood Count 4.57 10^6/uL N 4.00-5.40 Hemoglobin 13.8 g/dL N 12.0-16.0 Hematocrit 41 % N 35-47 Mean Corpuscular Volume 90 fL N 80-97 Mean Corpuscular Hemoglobin 30 pg N 27-31 Mean Corpuscular HGB Conc 34 g/dL N 31-36 Red Cell Distribution Width 13 % N 10.5-15 Platelet Count 109 10^3/uL Low 150-450 Mean Platelet Volume 7.7 fL N 7.4-10.4 Manual Differential 02/25/2018 [facility] Immature 11 % High 0 -[address] [place] [address] [phone] Platelet Morphology (SEE NOTE) 39 Neutrophil % 83 % Band % 11 % High 0-8 Lymphocytes % 4 % Monocytes % 2 % RBC Morphology Normal Normal Laboratory test 02/25/2018 [facility] Procalcitonin 16.9 ng/mL High <0.6 40 finding [address] [place] [address] [phone] Urinalysis 02/25/2018 [facility] Urine Color Betty Profile [address] [place] [address] [phone] Urine Appearance Cloudy Urine Specific [place] 1.024 N 1.010-1.030 Urine pH 5.0 N [...] Casts Present Abnormal Absent Laboratory test 02/25/2018 [facility] Lactic Acid 2.2 mmol/L High 0.5-2.0 41 finding [address] [place] [address] [phone] Amylase 57 U/L N 29-103 Lipase 166 U/L High 11.0-82.0 Blood Culture SEE RESULT BELOW 42 Pathologist Review (SEE NOTE) 43 Urine Culture And 02/24/2018 [facility] Urine SEE RESULT 44 , [address] [place] [address] [phone] Rapid Influenza A 02/24/2018 [facility] Influenza A NEGATIVE Negative 46 & B Molecular [address] [place] [address] [phone] Influenza B Molecular NEGATIVE Negative Poc Urinalysis 02/24/2018 [facility] Poc Glucose, Negative Negative [address] [place] [address] [phone] Poc Bilirubin, Urine 1+ Abnormal Negative Poc Ketone, Urine Negative Negative Poc Specific [place], Urine >=1.030 N 1.010-1.030 Poc Blood, Urine 3+ Abnormal Negative Poc pH, Urine 5.5 N 5-9 Poc Protein, Urine 3+ Abnormal Negative Poc Urobilinogen, Urine 1.0 Negative Poc Nitrite, Urine Positive Abnormal Negative Poc Leukocytes, Urine Negative Negative Poc Color, Urine Betty Poc Clarity, Urine Clear 47 Laboratory test 07/24/2017 [facility] MRSA/S. SEE RESULT 48 , [address] [place] [address] PCR [phone] Wound 07/24/2017 [facility] Wound/Misc SEE RESULT 50 Culture/Sensi [address] [place] [address] Stain [phone] Comp Metabolic 07/05/2017 [facility] Sodium 139 mmol/L N 139- [address] [place], [place] [address] [phone] Potassium 3.8 mmol/L N 3.5-5.0 Chloride 101 [...] Egfr Non- 81.8 >60 Egfr 105.2 >60 51 CBC Auto Diff 07/05/2017 [facility] White Blood 7.2 10^3/uL N 3.5-10.[address] [place] [address] [phone] Red Blood Count 4.45 10^6/uL N 4.0-5.4 [...] Blood Cells % 0 Laboratory test 12/19/2016 [facility] Surgical SEE RESULT 52, [address] [place] [address] Order [phone] CBC Auto Diff 07/07/2016 [facility] White Blood 6.9 10^3/uL N 3.5-[address] Count 0.8 [place] [address] [phone] Red Blood Count 4.77 10^6/uL N 4.0-5.4 [...] % 0 N Comp Metabolic Panel 07/07/2016 [facility] Sodium 137 mmol/L N 133-145 [address] [place] [place] [address] [phone] Potassium 4.2 mmol/L N 3.5-5.0 Chloride 100 [...] 95.8 N >60 Egfr 123.1 N >60 54 Laboratory test 07/07/2016 [facility] TSH (Thyroid 2.06 mcIU/mL N 0.34-5.60 [address] [place] [address] [phone] Vitamin B12 421 pg/mL N 180-914 56 Lipid Profile 07/07/2016 [facility] Triglycerides 152 mg/dL N 57 (Trig/Chol/HDL) [address] [place] [address] [phone] Cholesterol 285 mg/dL N 58 HDL Cholesterol 69.7 mg/dL N 59 LDL Cholesterol 185 mg/dL N 60 1 Supply Chain Consultant: [id number] 2 SEE RESULT BELOW Name: TERESA RESENDIZ : [address]: Mauricio Tao MD Acct: [id number] Unit: [id number] AGE: 63 Location: ED Re07/13/18 SEX: F Status: DEP ER SPEC: [id number] DOUGIE: 07/14/[address]: Mauricio Tao MD REQ: [id number] RECD: 07/14/18 STATUS: COMP OTHR DR: Placido Fall MD _ SOURCE: URINE SPDESC: ORDERED: Urine Culture Procedure Result Reported Site Urine Culture Final 07/15/18- 0909 ML No Growth (<1,000 CFU/mL) * ML - Main Lab . END OF REPORT DEPARTMENT OF PATHOLOGY, [address] [place] [address] Fidel Matthew M.D. Director [facility] # [id number] 3 Result TnIDx:0.05 Called to [id number] at: 23:38:03 by:[id number] Read back by: [id number] Troponin-I testing on Plasma Separator Tubes (PST) has a known false positive rate of 0.20-0.40%. All positive troponins reflex immediate secondary confirmatory testing. 4 Desirable: <150 Borderline High: 150-199 High: 200-499 Very High: >500 5 Desirable: <200 Borderline High: 200-239 High: >239 6 Low: <40 Desirable: 40-60 High: >60 7 Desirable: <100 Near Optimal: 100-129 Borderline High: 130-159 High: 160-189 Very High: >189 8 Because ethnic data is not always readily [...] 15-29 5 Kidney failure <15 (or dialysis) 9 [facility] Severe Sepsis and Septic Shock Management Bundle Measure requires all lactic acids initially measuring >2.0 mmol/L be repeated. 10 Because ethnic data is not always readily [...] 15-29 5 Kidney failure <15 (or dialysis) 11 Critical Result K:2.6 Called to WEI NEVILLE at: 14:17:07 by:[id number] Read back by:WEI NEVILLE 12 15-20 for HCAP, VAP, +++Osteomyelitis, Endocarditis, Meningitis 10-15 for All Other Infections 13 CRITICAL RESULTS CALLED AND MESSAGE LEFT TO CALL BACK AT 1309 ordered-june 05, 2018 expires-december 06 2018 14 Consistent with Previous Results Reported on 07/03/18 15 ordered-june 05, 2018 expires-december 06 2018 16 Result TnIDx:0.04 Called to [id number] at: 17:03:46 by:[id number] Read back by: [id number] Troponin-I testing on Plasma Separator Tubes (PST) has a known false positive rate of 0.20-0.40%. All positive troponins reflex immediate secondary confirmatory testing. 17 SEE RESULT BELOW Name: TERESA RESENDIZ : [address]: Mike Little MD Acct: [id number] Unit: [id number] AGE: 63 Location: ED Re05/23/18 SEX: F Status: DEP ER SPEC: [id number] DOUGIE: 05/23/18 [facility] DR: Lamar Crowe MD REQ: [id number] RECD: 05/23/18 STATUS: COMP LEIGHA DR: Mike Macias STOCK CHASER _ SOURCE: BLOOD,VENO SPDESC: ORDERED: Blood Cult Procedure Result Reported Site Aerobic Culture Bottle Final 05/28/18- 1635 ML No Growth Day 5 Anaerobic Culture Bottle Final 05/28/18- 1635 ML No Growth Day 5 * ML - Main Lab . END OF REPORT DEPARTMENT OF PATHOLOGY, [address] [place] [address] Fidel Matthew M.D. Director [facility] # [id number] 18 SEE RESULT BELOW Name: TERESA RESENDIZ : [address]: Mike Little MD Acct: [id number] Unit: [id number] AGE: 63 Location: ED Re05/23/18 SEX: F Status: REG ER SPEC: [id number] DOUGIE: 05/23/18 [facility] DR: Mike Little MD REQ: [id number] RECD: 05/23/18 STATUS: CHELLY AHUJA DR: Placido Macias STOCK CHASER _ SOURCE: STOOL SPDESC: ORDERED: Occult Bl, Diag Procedure Result Reported Site Stool Occult Blood (1) Final 05/23/181440 ML Stool Occult Blood Negative * ML - Main Lab . END OF REPORT DEPARTMENT OF PATHOLOGY, [address] [place] [address] Fidel Matthew M.D. Director [facility] # [id number] 19 Because ethnic data is not always readily [...] 15-29 5 Kidney failure <15 (or dialysis) 20 Specimen Hemolyzed. Result may not be valid. Unable to report test result due to hemolysis. 21 Unable to report test result due to hemolysis. 22 Result TnIDx:0.04 Called to [id number] at: 13:47:14 by:[id number] Read back by: [id number] Troponin-I testing on Plasma Separator Tubes (PST) has a known false positive rate of 0.20-0.40%. All positive troponins reflex immediate secondary confirmatory testing. 23 Critical Result LACT:2.5 Called to [id number] at: 13:56:12 by:[id number] Read back by:[id number] [facility] Severe Sepsis and Septic Shock Management Bundle Measure requires all lactic acids initially measuring >2.0 mmol/L be repeated. 24 Test Performed by: [facility] [address] [place] [id number] 25 SEE RESULT BELOW Name: TERESA RESENDIZ : [address]: Carolyn Crawford MD Acct: [id number] Unit: [id number] AGE: 63 Location: [facility] Re05/23/18 SEX: F Status: REG REF SPEC: [id number] DOUGIE: 05/23/18-1118 [facility] DR: Carolyn Crawford MD REQ: [id number] RECD: 05/23/18 STATUS: COMP _ SOURCE: URINE SPDESC: ORDERED: Urine Culture COMMENTS: [id number] Urine Source: Random Procedure Result Reported Site Urine Culture Final 05/24/18- 1605 ML No Growth (<1,000 CFU/mL) * ML - Main Lab . END OF REPORT DEPARTMENT OF PATHOLOGY, [address] [place] [address] Fidel Matthew M.D. Director [facility] # [id number] 26 Because ethnic data is not always [...] 5 Kidney failure <15 (or dialysis) 27 SEE RESULT BELOW Name: TERESA RESENDIZ : [address]: Jennifer Downing DO Acct: [id number] Unit: [id number] AGE: 62 Location: [facility] Re04/06/18 SEX: F Status: REG REF SPEC: [id number] DOUGIE: 04/06/[address]: Jennifer Guevara Popeye DO REQ: [id number] RECD: 04/06/18 STATUS: RES OTHR DR: Karthikeyan Lozano Elisa Kendalfreddie, _ SOURCE: BLOOD,VENO SPDESC: ORDERED: Blood Cult Procedure Result Reported Site Aerobic Culture Bottle Preliminary 04/10/18- 1513 ML No Growth Day 4 Anaerobic Culture Bottle Final 04/11/18- 1510 ML No Growth Day 5 * ML - Main Lab . END OF REPORT DEPARTMENT OF PATHOLOGY, [address] [place] [address] Fidel Matthew M.D. Director [facility] # [id number] 28 Moderate normocytic anemia noted. Additional studies as clinically warranted. Reviewed by Dr. Matthew 29 [id number] 30 Because ethnic data is not always readily [...] 15-29 5 Kidney failure <15 (or dialysis) 31 PLEASE FAX COPY TO [employer] [phone] DR JENNIFER DOWNING PHONE # [phone] 32 Because ethnic data is not always readily [...] 15-29 5 Kidney failure <15 (or dialysis) 33 PLEASE FAX COPY TO [employer] [phone] DR JENNIFER DOWNING PHONE # [phone] 34 Reference ranges based on room air. 35 Supply Chain Consultant: [id number] 36 SEE RESULT BELOW Name: TERESA RESENDIZ : [address]: Robin Robledo MD Acct: [id number] Unit: [id number] AGE: 62 Location: ED Re02/25/18 SEX: F Status: REG ER SPEC: [id number] DOUGIE: 02/25/18 [facility] DR: Robin Robledo MD REQ: [id number] RECD: 02/25/18 STATUS: CHELLY AHUJA DR: Placido Macias STOCK CHASER _ SOURCE: NASAL SPDESC: ORDERED: Flu A B Request Procedure Result Reported Site Rapid Influenza A B Request Final 02/25/18916 ML Specimen received for Influenza A/B Molecular testing * ML - Main Lab . END OF REPORT DEPARTMENT OF PATHOLOGY, [address] [place] [address] Fidel Matthew M.D. Director [facility] # [id number] 37 Because ethnic data is not always readily [...] 15-29 5 Kidney failure <15 (or dialysis) 38 Result TnIDx:0.80 Called to [id number] at: 09:12:51 by:[id number] Read back by: [id number] Troponin-I testing on Plasma Separator Tubes (PST) has a known false positive rate of 0.20-0.40%. All positive troponins reflex immediate secondary confirmatory testing. 39 VACUOLATED NEUTROPHILS SEEN ON SMEAR 40 Interpretive information available on [facility] Test Catalog at [email or web address] 41 Critical Result LACT:2.2 Called to [id number] at: 09:28:02 by:[id number] Read back by:[id number] [facility] Severe Sepsis and Septic Shock Management Bundle Measure requires all lactic acids initially measuring >2.0 mmol/L be repeated. 42 SEE RESULT BELOW Name: TERESA RESENDIZ : [address]: Alonso Prado MD Acct: [id number] Unit: [id number] AGE: 62 Location: ICU [id number] Re02/25/18 SEX: F Status: ADM IN SPEC: [id number] DOUGIE: 02/25/18 [facility] DR: Robin Robledo MD REQ: [id number] RECD: 02/25/18 STATUS: CHELLY AHUJA DR: Placido Macias STOCK CHASER _ SOURCE: BLOOD,VENO SPDESC: ORDERED: Blood Cult COMMENTS: Verbal to [id number] by [id number] at 2320 on 02/25/18. Results read back [...] These antibiotics are not available in the [facility] Formulary Contact the Microbiology Department for any additional antibiotic reporting. Anaerobic Culture Bottle Final 02/27/18837 ML CONTINUED ON NEXT PAGE DEPARTMENT OF PATHOLOGY, [address] [place] [address] Fidel Matthew M.D. Director [facility] # [id number] Patient: TERESA RESENDIZ [id number] (Continued) Specimen: [id number] Collected: 02/25/18 Received: 02/25/18 (Continued) Procedure Result Reported Site Anaerobic Culture Bottle Final (continued) 02/27/18837 Anaerobic Btl Gram Stain Gram Positive Cocci resembling Staph Organism 1 STAPHYLOCOCCUS AUREUS#2 Please refer to EC1570 culture AEROBIC bottle for sensitivity testing. * ML - Main Lab . END OF REPORT DEPARTMENT OF PATHOLOGY, [address] [place] [address] Fidel Matthew M.D. Director [facility] # [id number] 43 Moderate thrombocytopenia noted. No schistocytes or blasts identified. Additional studies as clinically warranted. Reviewed by Dr. Matthew 44 [id number] 45 SEE RESULT BELOW Name: TERESA RESENDIZ : [address]: Jennifer Ty MD Acct: [id number] Unit: [id number] AGE: 62 Location: [facility] Re02/24/18 SEX: F Status: DEP ER SPEC: [id number] DOUGIE: 02/24/18-1259 [facility] DR: Nataliia Hardy NP REQ: [id number] RECD: 02/24/18 STATUS: CHELLY AHUJA DR: [facility] Placido Macias STOCK CHASER _ SOURCE: URINE SPDESC: ORDERED: Urine Culture COMMENTS: [id number] Procedure Result Reported Site Urine Culture Final 02/26/18- 0832 ML Organism 1 STAPHYLOCOCCUS AUREUS [place] Count >100,000 (Many) CFU/ML 1. STAPHYLOCOCCUS AUREUS [...] These antibiotics are not available in the [facility] Formulary Contact the Microbiology Department for any additional antibiotic reporting. * ML - Main Lab . END OF REPORT DEPARTMENT OF PATHOLOGY, [address] [place] [address] Fidel Matthew M.D. Director [facility] # [id number] Supply Chain Consultant: [id number] Supply Chain Consultant: [id number] 49 SEE RESULT BELOW Name: TERESA RESENDIZ : [address]: Fredy Holbrook MD Acct: [id number] Unit: [id number] AGE: 62 Location: [facility] Re07/24/17 SEX: F Status: DEP ER SPEC: [id number] DOUGIE: 07/24/17 [facility] DR: Davis GARAY REQ: [id number] RECD: 07/25/17 STATUS: CHELLY AHUJA DR: Fredy Macias STOCK CHASER _ [facility]: MRSA/SA SSTI, Culture Stain COMMENTS: [id number] Procedure Result Reported Site MRSA/S. aureus SSTI [...] Laboratory if susceptibility testing is needed. * - [facility] . END OF REPORT DEPARTMENT OF PATHOLOGY, [address] [place] [address] Fidel Matthew M.D. Director [facility] # [id number] 50 SEE RESULT BELOW Name: LUZ MARIA RESENDIZAINE : [address]: Fredy Holbrook MD Acct: [id number] Unit: [id number] AGE: 62 Location: [facility] Re07/24/17 SEX: F Status: DEP ER SPEC: [id number] DOUGIE: 07/24/17 [facility] DR: Davis GARAY REQ: [id number] RECD: 07/25/17 STATUS: RES [facility] DR: Fredy Macias STOCK CHASER _ [facility]: MRSA/SA SSTI, Culture Stain COMMENTS: [id number] Procedure Result Reported Site MRSA/S. aureus SSTI PCR PENDING Wound/Misc Gram Stain Final 07/25/17- 1158 ML 2+ Neutrophils Possible 1+ Gram Positive Cocci Wound/Misc Culture PENDING * ML - Main Lab . END OF REPORT DEPARTMENT OF PATHOLOGY, [address] [place] [address] Fidel Matthew M.D. Director [facility] # [id number] 51 Because ethnic data is not always readily [...] 15-29 5 Kidney failure <15 (or dialysis) 52 [id number] 53 SEE RESULT BELOW Name: TERESA RESENDIZ : [address]: Angeal Langston MD Acct: [id number] Unit: [id number] AGE: 61 Location: [facility] Re12/19/16 SEX: F Status: DEP REF SPEC: [id number] DOUGIE: 12/19/16 [facility] DR: Angela Langston MD REQ: [id number] RECD: 12/19/16 STATUS: AKHIL AHUJA DR: Placido Macias STOCK CHASER _ ORDERED: LEVEL 4 COMMENTS: [id number] FINAL DIAGNOSIS Colon, ascending, biopsy: -- Tubular [...] performed at Main Lab DEPARTMENT OF PATHOLOGY, [address] [place] [address] Fidel Matthew M.D. Director [facility] # [id number] 54 Because ethnic data is not always readily [...] 15-29 5 Kidney failure <15 (or dialysis) 55 FASTING 10 HOUR 56 Normal Range 180 to 914 Indeterminate Range 145 to 180 Deficient Range <145 57 Desirable <150 Borderline high 150-199 High 200-499 Very High >500 58 Desirable <200 Borderline high 200-239 High >239 59 Low <40 Desirable: 40-60 High: >60 60 Desirable: <100 mg/dL Near Optimal: 100-129 mg/dL Borderline High: 130-159 mg/dL High: 160-189 mg/dL Very High: >189 mg/dL Procedures Date Code Description Status 07/20/2018 65244 EKG Tracing & Interpretation Completed 07/05/2018 62293 Pace Maker Eval W/Iterative Adjment Dual Lead Completed 07/05/2018 51544 Pace Maker Eval W/Iterative Adjment Dual Lead Completed 07/04/2018 38822 EKG Tracing & Interpretation Completed 05/23/2018 85801 ECHO Transthorasic Realtime 2D W Doppler & Color Flow Completed Hosp 05/23/2018 17625 ECHO Transthoracic, Real-Time 2D With Doppler And Completed Color Flow 04/24/2018 93761 EKG Tracing & Interpretation Completed 02/27/2018 02686 Echocardiography, Transesophageal, Real Time W/Image Completed 2D W/W/O M-M 02/27/2018 96855 Pulse Wave/Continuous-Interp.RPT Completed 02/27/2018 90214 Color Flow Doppler/Interp & Reprt Completed 02/27/2018 20446 Moderate Sedation Services; Same Phys Intl 15 Mins; PT Completed >=5 Years 02/26/2018 27126 ECHO Transthorasic Realtime 2D W Doppler & Color Flow Completed Hosp 11/01/2017 30351983 Mammogram Completed 07/07/2017 61250 EKG Tracing & Interpretation Completed 12/19/2016 49834 Moderate Sedation Services; Same Phys Intl 15 Mins; PT Completed >=5 Years 12/19/2016 03473 Colonoscopy Flexible W/Biopsy Completed 12/19/2016 91267926 Colonoscopy Completed 07/13/2016 57395918 Mammogram Completed 06/29/2016 212260116 Diabetic Retinal Eye Exam Completed Encounters Type Date Location Provider Dx Diagnosis Office Visit 07/20/2018 Cardiology Karthikeyan Martin Z95.2 Presence of 10:30a Services Of Alberto Franco M.D., prosthetic heart Stefan FAC, FASID valve Office Visit 07/09/2018 [facility] Placido Gilberto, STOCK CHASER I10 Essential (primary ) 8:40a Medicine hypertension F32.89 Other specified depressive episodes D64.9 Anemia, unspecified Z95.2 Presence of prosthetic heart valve Z79.01 USP (current) use of anticoagulants Office Visit 07/04/2018 1:15p [facility] Karthikeyan Martin 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 Alberto Franco M.D., prosthetic heart FACC, FASNC valve Office Visit 06/06/2018 11:40a [facility] Internal Placido Gilberto, Z95.2 Presence of Medicine STOCK CHASER prosthetic heart valve D59.9 Acquired hemolytic anemia, unspecified Z79.01 terminal operator (current) use of anticoagulants F32.89 Other specified depressive episodes Office Visit 05/23/2018 [facility] Am[facility], R06.02 Shortness of Assoc,pc Yajaira breath Hospitalists R31.9 Hematuria, unspecified Office Visit 05/23/2018 11:00a [facility] Internal Carolyn Ty, R31.9 Hematuria, Medicine MD unspecified R17 Unspecified jaundice R06.02 Shortness of breath Office Visit 04/24/2018 2:00p [facility] Karthikeyan Mario 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 [facility] Yajaira Franco, prosthetic heart FACC, FASNC valve R07.9 Chest pain, unspecified Z79.01 terminal operator (current) use of anticoagulants Office Visit 04/23/2018 9:00a [place] Chan Alexander, Z95.2 Presence of Neurologic MJose prosthetic heart Services Of [facility] valve I33.0 Acute and subacute infective endocarditis I69.320 Aphasia following cerebral infarction Office Visit 03/29/2018 1:40p [facility] Internal Placido Gilberto, I63.9 Cerebral Medicine STOCK CHASER infarction, unspecified R65.21 Severe sepsis with septic [...] kidney failure, unspecified Office Visit 02/27/2018 12:20p [place] Jack Carlin 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 I33.0 Acute and subacute infective endocarditis I21.4 Non-St elevation (Nstemi) myocardial infarction R78.81 Bacteremia B95.61 Methicillin suscep staph infct causing dis classd elswhr Office Visit 02/27/2018 Neurohospitalist Claudia I63.9 Cerebral 7:00a Clinic Yajaira Garcia infarction, unspecified R93.1 Abnormal findings on dx imaging of heart and cor circ I10 Essential (primary) hypertension Office 02/26/2018 Neurohospitalist Chan I63.9 Cerebral Visit 7:00a Clinic Yajaira Alexander infarction, unspecified I10 Essential (primary) hypertension R50.9 Fever, unspecified Office Visit 02/26/2018 8:27a Intensivists Alonso Prado MD R65.21 Severe sepsis with septic shock I63.9 Cerebral infarction, unspecified I10 Essential (primary) hypertension R78.81 Bacteremia B95.7 Oth staphylococcus as the cause of diseases classd elswhr N17.9 Acute kidney failure, unspecified Office Visit 02/25/2018 Intensivists Alonso Prado I63.9 Cerebral 8:27a MD infarction, unspecified Office Visit 01/08/2018 [facility] Internal Placidogio Macias, STOCK CHASER I10 Essential 8:40a Medicine (primary) hypertension F32.89 Other specified depressive episodes R06.83 Snoring R53.83 Other fatigue Z23 Encounter for immunization Office Visit 07/07/2017 9:20a [facility] Internal Placido Gilberto, Z01.818 Encounter for other Medicine STOCK CHASER preprocedural examination M25.511 Pain in right shoulder I10 Essential (primary) hypertension H81.10 Benign paroxysmal vertigo, unspecified ear Office Visit 01/02/2017 10:20a [facility] Internal Placido Gilberto, F32.89 Other specified Medicine STOCK CHASER depressive episodes E78.5 Hyperlipidemia, unspecified Z23 Encounter for immunization Office Visit 09/19/2016 8:40a [employer] Internal Placido Gilberto, F32.89 Other specified Medicine STOCK CHASER depressive episodes I10 Essential (primary) hypertension Office Visit 07/25/2016 9:00a [facility] Internal Placido Gilberto, F32.89 Other specified Medicine STOCK CHASER depressive episodes Office Visit 07/01/2016 11:00a [facility] Internal Placido Gilberto, R53.83 Other fatigue Medicine STOCK CHASER Z12.31 Encntr screen mammogram for malignant neoplasm of breast Z13.220 Encounter for screening for lipoid disorders Z12.11 Encounter for screening for malignant neoplasm of colon Plan of Treatment Future Appointment(s):08/22/2018 9:00 am - Vero Peñaloza LCSW at [facility] Internal Hkyndrjo67/15/2019 9:30 am - Jamal Walker N.P. at [place] [facility]10/16/2018 1:00 pm - Marietta Vargas MD at [facility]10/10/2018 1:00 pm - Karthikeyan Franco M.D., FAC, FASNC at [facility]10/01/2018 1:30 pm - Traveling ECHO 1 at [facility]10/08/2018 9:00 am - Placido Macias NP at [facility] Internal [id number] 10:45 am - Chan Alexander M.D. at [place] [facility]08/07/2018 - Placido Macias NPI63.9 Cerebral infarction, unspecifiedComments: The diagnosis made at [facility] was "Recrudescence of prior stroke symptoms due to toxic/metabolic etiology secondary to pneumonitis"Continue following with neurology.Go to the ER with any recurrent stroke sx. or seizures.Z79.01 USP (current) use of skvsrojxgsrasaP52.8 Other nonspecific abnormal finding of lung gabasQ20.89 Other specified depressive episodesReferral:Vero Peñaloza LCSW , Writing Manager
--- OUTSIDE RECORDS SUMMARY | 2018-08-12 07:49 | XMS REPORT | Continuity of Care Document ---
:1955 External Reference #:[id number] Author Name Val Pereira Care Team Providers Name Role Phone Maci Magaña MD Primary Care Physician Unavailable Payers Date Identification Numbers Payment Provider Subscriber Policy Number: [id number] [employer] Teresa Resendiz PayID: [id number] [address] [address] [place] [address] Advance Directives Description No Information Available Problems Active Problems Provider Date Essential hypertension Placidogio Macias NP Onset: 07/06/2016 Depressive disorder Placido Macias NP Onset: 07/06/2016 Thrombotic stroke Placido Macias NP Onset: 03/29/2018 History of mechanical prosthetic Placido Macias NP Onset: 03/29/2018 mitral valve replacement Long-term current use of Placido Macias NP Onset: 03/29/2018 anticoagulant Acute and subacute bacterial Chan Alexander M.D. Onset: 04/23/2018 endocarditis Chest pain Karthikeyan Franco M.D., [facility], Onset: 04/24/2018 FASNC Family History Date Family Member(s) Observation Comments Father due to [place] () - 44 Mother brain tumor Mother [...] is a former smoker Smoking Status Reviewed: 05/03/19 Patient is a former smoker Exercise Type/Frequency Exercises rarely Allergies, Adverse Reactions, Alerts Active Allergies Reaction Severity Comments Date Buspirone 07/20/2018 Medications Active Medications SIG Qnty Indications Ordering Date Provider Oxygen 2L while sleeping R09.02 Placido Macias NP 07/12/2018 Warfarin Sodium as directed 60tabs Placido Macias NP 06/22/2018 5mg Tablets Pantoprazole Sodium take 1 tablet by 30tabs Placido Macias NP 05/08/2018 mouth at bedtime prn 40mg Tablets DR Atorvastatin Calcium 1 by mouth every day 90tabs Placido Macias NP 2018 80mg Tablets Warfarin Sodium take 2 tablet by 60tabs Placido Macias NP 03/29/2018 2mg mouth once daily or Tablets as directed=not using 2mg tabs as of 07/20/18 visit Protozone-HC cream uses as needed Unknown to leg Furosemide 1 by mouth twice Unknown 40mg daily Tablets Lovenox use one injection Unknown 80mg/0.8ML twice daily Solution Doxycycline 100MG 1 capsule by mouth Unknown [...] 04/22/2018 Fluticasone 2 sprays each 16units H81.10 lPacido Macias NP 07/07/2017 - Propionate nostril qd. [...] NP 07/01/2016 - Formula day 07/01/2016 Tablets Vancomycin HCL iv 1,250 mg, every Unknown [...] - mouth at bedtime 04/22/[address] Andrade CPT Code Status Date Vaccine Lot # [id number] Given 01/08/2018 Influenza Virus Vaccine, Quadrivalent, Split, [id number] Preservative Free [id number] Given 01/02/2017 Influenza Virus Vaccine, Quadrivalent, Split, [id number] Preservative Free Vital Signs Date Vital Result Comment 07/27/2018 8:28am Height 61.5 inches 5'1.50" Weight [...] Result H/L Range Note Protime W/ Inr 07/26/2018 Other Rendering Inr 2.3 Protime W/ Inr 07/23/2018 [facility] House Prothrombin Time 24.3 Inr 2.0 Protime W/ Inr 07/19/2018 [facility] Prothrombin Time 16.9 Inr 1.5 Laboratory test 07/13/2018 [facility] Lactic Acid 1.0 mmol/L N 0.5-2.0 [address] [place] [address] [phone] Laboratory test 07/13/2018 [facility] Point of 121 mg/dL High 70-100 [address] [place] [place] [address] [phone] Urine Culture And 07/13/2018 [facility] Urine SEE RESULT [address] [place] [place] [address] [phone] Comp Metabolic 07/13/2018 [facility] Sodium 139 mmol/L N 135- [address] [place] [address] [phone] Potassium 3.2 mmol/L Low 3.5-5.0 Chloride 101 [...] Egfr Non- 38.8 >60 Egfr 47.0 >60 4 Lipid Profile 07/13/2018 [facility] Triglycerides 140 mg/dL 5 (Trig/Chol/HDL) [address] [place] [address] [phone] Cholesterol 164 mg/dL 6 HDL Cholesterol 51.6 mg/dL 7 LDL Cholesterol 84 mg/dL 8 Urinalysis Profile 07/13/2018 [facility] Urine Color Yellow [address] [place] [address] [phone] Urine Appearance Cloudy Urine Specific Powers 1.021 N 1.010-1.030 Urine pH 5.0 N 5-9 Urine Urobilinogen Negative Negative Urine Ketones Negative Negative Urine Protein Negative Negative Urine Leukocytes 1+ Abnormal Negative Urine Blood 3+ Abnormal Negative Urine Nitrite Negative Negative Urine Bilirubin Negative Negative Urine Glucose Negative Negative Urine White Blood Cell 1+(6-10/hpf) Abnormal Absent Urine Red Blood Cell 2+(6-10/hpf) Abnormal Absent Urine Bacteria Absent Absent Laboratory test 07/13/2018 [facility] Troponin-I (TnI) 0.05 ng/ mL High <0.04 9 finding [address] [place] [address] [phone] Protime W/ Inr 07/09/2018 [facility] Prothrombin Time 24.0 Inr 2.0 Comp Metabolic Panel 07/09/2018 [facility] Sodium 144 mmol/L N 135-145 [address] [place] [address] [phone] Chloride 102 mmol/L N 101-111 Co2 Carbon [...] N 2-11 Iron & Iron Binding 07/09/2018 [facility] Iron 31 g/dL Low 50-[address] [place] [address] [phone] Unsaturated Iron Binding < 237 g/dL Total Iron Binding Capacity 252 g/dL N 250-450 Transferrin 180 mg/dL Low 203-362 % Iron Saturation 12 % Low 15-55 Laboratory test 07/09/2018 [facility] Vancomycin Random 15.4 g /mL [address] [place] [address] [phone] C Reactive Protein 19.95 mg/L High <8.01 13 CBC Auto Diff 07/09/2018 [facility] White Blood 5.9 10^3/uL N 3.5-10.[address] [place] [address] [phone] Red Blood Count 3.67 10^6/uL Low 3.70-4.87 [...] Blood Cells % 0 Laboratory test 07/09/2018 [facility] Erythrocyte Sed 86 mm/Hr High 0-29 [address] [place] [address] [phone] CBC Auto Diff 07/03/2018 [facility] White Blood 6.5 N 3.5- 10.[address] Count 10^3/[place] [address] [phone] Red Blood Count 3.57 10^6/uL Low 3.70-4.87 [...] % 0 Iron & Iron Binding 07/03/2018 [facility] Iron 27 g/dL Low 50-[address] [place] [address] [phone] Unsaturated Iron Binding < 222 g/dL Total Iron Binding Capacity 237 g/dL Low 250-450 Transferrin 169 mg/dL Low 203-362 % Iron Saturation 11 % Low 15-55 Laboratory test 07/03/2018 [facility] Ferritin 296.8 N 11-[address] ng/[place] [address] [phone] Protime W/ Inr 06/25/2018 Other Rendering Inr 1.9 Protime W/ Inr 06/22/2018 Other Rendering Inr 1.9 Protime W/ Inr 06/14/2018 Other Rendering Inr 2.3 Protime W/ Inr 06/11/2018 Other Rendering Inr 2.5 Protime W/ Inr 06/08/2018 Other Rendering Inr 2.1 Protime W/ Inr 06/06/2018 [facility] Prothrombin Time 21.0 Inr 1.7 Laboratory test 05/23/2018 [facility] Troponin-I 0.04 ng/mL High <0.04 [address] (TnI) [place] [address] [phone] Potassium Redraw 3.7 mmol/L N 3.5-5.0 Ast Redraw 91 U/L High 13-39 LDH 1946 U/L High 140-271 Laboratory test 05/23/2018 [facility] Blood Culture SEE RESULT [address] [place] [address] [phone] Stool Occult 05/23/2018 [facility] Stool Occult SEE RESULT 18 Blood Diag [address] Blood, [place] [address] [phone] CBC Auto Diff 05/23/2018 [facility] White Blood 9.2 10^3/uL N 3.5-[address] Count .8 [place] [address] [phone] Red Blood Count 2.86 10^6/uL Low 4.00-5.40 [...] Red Blood Cells % 0.3 Inr/Protime 05/23/2018 [facility] Inr 3.85 High 0.77-1.[address] [place] [address] [phone] Laboratory test 05/23/2018 [facility] Partial 35.0 N 26.0- 36.[address] [place] [address] Time PTT [phone] B-Type Natriuretic Peptide BNP 303 pg/mL High <=100 Comp Metabolic Panel 05/23/2018 [facility] Sodium 138 mmol/L N 135-[address] [place] [address] [phone] Chloride 101 mmol/L N 101-111 Co2 Carbon [...] TNP U/L 13-39 21 Laboratory test 05/23/2018 [facility] Troponin-I 0.04 ng/mL High <0.[address] (TnI) [place] [address] [phone] Lactic Acid 2.5 mmol/L High 0.5-2.0 23 C Reactive Protein 14.72 mg/L High <8.01 LDH TNP U/L 140-271 Haptoglobin <14 mg/dL Abnormal 30 - 200 24 Urine Culture And 05/23/2018 [facility] Urine Culture SEE RESULT [address] [place] [address] [phone] Ua Routine 05/23/2018 [facility] Ua Specific 1.000 Powers Ua PH 5 Ua Color brown Ua Appera cloudy Ua WBC trace Ua Protein +30 Ua Glucose neg Ua Ketones neg Ua Bilirubin Positive + Ua Urobilinogen neg Ua Nitrite neg Ua Occult Blood 250 Protime W/ Inr 05/17/2018 [facility] Prothrombin Time 37.3 Inr 3.1 CBC No Diff 05/08/2018 [facility] White Blood 7.4 10^3/uL N 3.5-10.[address] [place] [address] [phone] Red Blood Count 4.59 10^6/uL N 4.00-5.40 [...] N 7.4-10.4 Iron & Iron Binding 05/08/2018 [facility] Iron 42 g/dL Low 50-[address] [place] [address] [phone] Unsaturated Iron Binding < 342 g/dL Total Iron Binding Capacity 357 g/dL N 250-450 Transferrin 255 mg/dL N 203-362 % Iron Saturation 12 % Low 15-55 Laboratory test 05/08/2018 [facility] Ferritin 255.4 ng/mL N 11-[address] [place] [address] [phone] Protime W/ Inr 05/04/2018 Other Rendering Inr 2.4 Protime W/ Inr 04/27/2018 Other Rendering Inr 2.7 Protime W/ Inr 04/20/2018 Other Rendering Inr 1.8 Protime W/ Inr 04/13/2018 Other Rendering Inr 2.2 CBC Auto Diff 04/06/2018 [facility] White Blood 7.1 10^3/uL N 3.5-10.[address] [place] [address] [phone] Red Blood Count 3.19 10^6/uL Low 4.00-5.40 [...] fL N 7.4-10.4 Comp Metabolic Panel 04/06/2018 [facility] Sodium 141 mmol/L N 135-[address] [place] [address] [phone] Potassium 3.7 mmol/L N 3.5-5.0 Chloride 102 [...] Egfr 52.4 >60 26 Laboratory test 04/06/2018 [facility] C Reactive 25.90 mg/L High <8.[address] [place] [address] [phone] Manual 04/06/2018 [facility] Neutrophil % 79 % Differential [address] [place] [address] [phone] Lymphocytes % 11 % Monocytes % 6 % Eosinophils % 1 % Basophil % 2 % Variant Lymph % 1 % N 0-6 Polychromasia 1+ Anisocytosis 1+ Abs Neutrophils 5.6 10^3/uL N 1.5-7.7 Abs Lymphocytes 0.85 10^3/uL Low 1.0-4.8 Abs Monocytes 0.43 10^3/uL N 0-0.8 Abs Eosinophils 0.07 10^3/uL N 0-0.6 Abs Basophils 0.15 10^3/uL N 0-0.2 Laboratory test 04/06/2018 [facility] Blood Culture SEE RESULT [address] [place] [address] [phone] Pathologist Review (SEE NOTE) 28 Basic Metabolic Panel 04/02/2018 [facility] Sodium 142 mmol/L N 135-[address] [place] [address] [phone] Potassium 3.2 mmol/L Low 3.5-5.0 Chloride 100 mmol/L Low 101-111 Co2 Carbon Dioxide 33 mmol/L High 22-32 Anion Gap 9 mmol/L N 2-11 Glucose 87 mg/dL N 70-100 Blood Urea Nitrogen 9 mg/dL N 6-24 Creatinine 0.71 mg/dL N 0.51-0.95 BUN/Creatinine Ratio 12.7 N 8-20 Calcium 8.6 mg/dL N 8.6-10.3 Egfr Non- 83.1 >60 Egfr 100.6 >60 30 CBC Auto Diff 04/02/2018 [facility] White Blood 7.4 10^3/uL N 3.5-10.[address] [place] [address] [phone] Red Blood Count 3.13 10^6/uL Low 4.00-5.40 [...] Rendering Inr 1.4 CBC Auto Diff 03/26/2018 [facility] White Blood 7.4 10^3/uL N 3.5-10.[address] [place] [address] [phone] Red Blood Count 2.99 10^6/uL Low 4.00-5.40 [...] Cells % 0 Comp Metabolic Panel 03/26/2018 [facility] Sodium 142 mmol/L N 135-[address] [place] [address] [phone] Potassium 3.6 mmol/L N 3.5-5.0 Chloride 105 [...] Egfr 111.4 >60 32 Laboratory test 03/26/2018 [facility] C Reactive 24.98 mg/L High <8.01 [address] [place] [address] [phone] Arterial Blood 02/25/2018 [facility] O2 Device 2l NC Gas [address] [place] [address] [phone] PH Arterial 7.43 N 7.35-7.45 Pco2 Arterial 35 mmHg N 35-45 Po2 Arterial 109 mmHg High 80-100 O2 Saturation Arterial 99.2 % High 95-98 Base Excess Arterial -0.7 N -2.0-2.0 34 Hco3 Arterial 24.4 mmol/L N 19-31 Laboratory test 02/25/2018 [facility] Rapid SEE RESULT [address] [place] [address] Antigen [phone] Laboratory test 02/25/2018 [facility] Creatine 708 U/L High 10 -[address] Kinase(CK) 3 [place] [address] [phone] C Reactive Protein 437.89 mg/L High <8.01 Troponin-I (TnI) 0.80 ng/mL High <0.04 36 Laboratory test 02/25/2018 [facility] Procalcitonin 16.9 High <0.6 [address] ng/[place] [address] [phone] Manual 02/25/2018 [facility] Immature 11 % High 0-[address] [place] [address] [phone] Platelet Morphology (SEE NOTE) 38 Neutrophil % 83 % Band % 11 % High 0-8 Lymphocytes % 4 % Monocytes % 2 % RBC Morphology Normal Normal CBC Auto Diff 02/25/2018 [facility] White Blood 8.8 10^3/uL N 3.5-10.[address] [place] [address] [phone] Red Blood Count 4.57 10^6/uL N 4.00-5.40 Hemoglobin 13.8 g/dL N 12.0-16.0 Hematocrit 41 % N 35-47 Mean Corpuscular Volume 90 fL N 80-97 Mean Corpuscular Hemoglobin 30 pg N 27-31 Mean Corpuscular HGB Conc 34 g/dL N 31-36 Red Cell Distribution Width 13 % N 10.5-15 Platelet Count 109 10^3/uL Low 150-450 Mean Platelet Volume 7.7 fL N 7.4-10.4 Laboratory 02/25/2018 [facility] B-Type 122 pg/mL High <=100 test finding [address] [place] [address] Peptide BNP [phone] Laboratory 02/25/2018 [facility] Partial 26.0 N 26.0-36.[address] [address] PTT [phone] Rapid 02/25/2018 [facility] Influenza A NEGATIVE Negative 39 Influenza A & [address] [place] [address] [phone] Influenza B Molecular NEGATIVE Negative Inr/Protime 02/25/2018 [facility] Inr 1.02 N 0.77-1.[address] [place] [address] [phone] Comp Metabolic 02/25/2018 [facility] Sodium 131 mmol/L Low 135 -[address] [place] [address] [phone] Potassium 3.5 mmol/L N 3.5-5.0 Chloride 94 [...] Egfr Non- 38.3 >60 Egfr 46.3 >60 40 Laboratory test 02/25/2018 [facility] Lactic Acid 2.2 mmol/L High 0.5-2.0 41 finding [address] [place] [address] [phone] Amylase 57 U/L N 29-103 Lipase 166 U/L High 11.0-82.0 Blood Culture SEE RESULT BELOW 42 Pathologist Review (SEE NOTE) 43 Urinalysis Profile 02/25/2018 [facility] Urine Color Betty [address] [place] [address] [phone] Urine Appearance Cloudy Urine Specific Powers 1.024 N 1.010-1.030 Urine pH 5.0 N [...] Red Blood Cell Casts Present Abnormal Absent Rapid Influenza 02/24/2018 [facility] Influenza A NEGATIVE Negative 44 A & B Molecular [address] [place] [address] [phone] Influenza B Molecular NEGATIVE Negative Poc Urinalysis 02/24/2018 [facility] Poc Glucose, Negative Negative [address] [place] [address] [phone] Poc Bilirubin, Urine 1+ Abnormal Negative Poc Ketone, Urine Negative Negative Poc Specific Powers, Urine >=1.030 N 1.010-1.030 Poc Blood, Urine 3+ Abnormal Negative Poc pH, Urine 5.5 N 5-9 Poc Protein, Urine 3+ Abnormal Negative Poc Urobilinogen, Urine 1.0 Negative Poc Nitrite, Urine Positive Abnormal Negative Poc Leukocytes, Urine Negative Negative Poc Color, Urine Betty Poc Clarity, Urine Clear 45 Urine Culture And 02/24/2018 [facility] Urine SEE RESULT 46 , [address] [place] [address] [phone] Laboratory test 07/24/2017 [facility] MRSA/S. SEE RESULT 48 , [address] [place] [address] PCR [phone] Wound 07/24/2017 [facility] Wound/Misc SEE RESULT 50 Culture/Sensi [address] [place] [address] Stain [phone] Comp Metabolic 07/05/2017 [facility] Sodium 139 mmol/L N 139- [address] [place] [address] [phone] Potassium 3.8 mmol/L N 3.5-5.0 Chloride 101 [...] 105.2 >60 51 CBC Auto Diff 07/05/2017 [facility] White Blood 7.2 10^3/uL N 3.5-10.[address] [place] [address] [phone] Red Blood Count 4.45 10^6/uL N 4.0-5.4 [...] Blood Cells % 0 Laboratory test 12/19/2016 [facility] Surgical SEE RESULT 52, [address] [place] [place] [address] Order [phone] Laboratory test 07/07/2016 [facility] TSH (Thyroid 2.06 N 0.34 - [address] Stim Horm) mcIU/mL 5.60 [place], [place] [address] [phone] Vitamin B12 421 pg/mL N 180-914 55 Lipid Profile 07/07/2016 [facility] Triglycerides 152 mg/dL N 56 (Trig/Chol/HDL) [address] [place] [address] [phone] Cholesterol 285 mg/dL N 57 HDL Cholesterol 69.7 mg/dL N 58 LDL Cholesterol 185 mg/dL N 59 Comp Metabolic Panel 07/07/2016 [facility] Sodium 137 mmol/L N 133-[address] [place] [address] [phone] Potassium 4.2 mmol/L N 3.5-5.0 Chloride 100 [...] 95.8 N >60 Egfr 123.1 N >60 60 CBC Auto Diff 07/07/2016 [facility] White Blood 6.9 10^3/uL N 3.5-10.[address] [place] [address] [phone] Red Blood Count 4.77 10^6/uL N 4.0-5.4 [...] Nucleated Red Blood Cells % 0 N 1 [place] Severe Sepsis and Septic Shock Management Bundle Measure requires all lactic acids initially measuring >2.0 mmol/L be repeated. 2 Mixed Crop Farmer: [id number] 3 SEE RESULT BELOW Name: TERESA RESENDIZ : [address]: Mauricio Tao MD Acct: [id number] Unit: [id number] AGE: 63 Location: ED Re07/13/18 SEX: F Status: DEP ER SPEC: [id number] DOUGIE: 07/14/18 [facility] DR: Mauricio Tao MD REQ: [id number] RECD: 07/14/18 STATUS: CHELLY AHUJA DR: Placido Fall MD _ SOURCE: URINE SPDESC: ORDERED: Urine Culture Procedure Result Reported Site Urine Culture Final 07/15/18- 908 ML No Growth (<1,000 CFU/mL) * ML - Main Lab . END OF REPORT DEPARTMENT OF PATHOLOGY, [address] [place] [address] Fidel Matthew M.D. Director [facility] # [id number] 4 Because ethnic data is not always [...] 5 Kidney failure <15 (or dialysis) 5 Desirable: <150 Borderline High: 150-199 High: 200-499 Very High: >500 6 Desirable: <200 Borderline High: 200-239 High: >239 7 Low: <40 Desirable: 40-60 High: >60 8 Desirable: <100 Near Optimal: 100-129 Borderline High: 130-159 High: 160-189 Very High: >189 9 Result TnIDx:0.05 Called to [id number] at: 23:38:03 by:[id number] Read back by: [id number] Troponin-I testing on Plasma Separator Tubes (PST) has a known false positive rate of 0.20-0.40%. All positive troponins reflex immediate secondary confirmatory testing. 10 Because ethnic data is not always [...] K:2.6 Called to WEI NEVILLE at: 14:17:07 by:[id number] Read back by:WEI NEVILLE 12 15-20 for HCAP, VAP, +++Osteomyelitis, Endocarditis, Meningitis 10-15 for All Other Infections 13 CRITICAL RESULTS CALLED AND MESSAGE LEFT TO CALL BACK AT 1309 ordered-june 05, 2018 expires-december 06 2018 14 Consistent with Previous Results Reported on 07/03/18 15 ordered-june 05, 2018 expires-december 06 2018 16 Result TnIDx:0.04 Called to [id number] at: 17:03:46 by:[id number] Read back by: [id number] Troponin-I testing on Plasma Separator Tubes (PST) has a known false positive rate of 0.20-0.40%. All positive troponins reflex immediate secondary confirmatory testing. 17 SEE RESULT BELOW Name: TERESA RESENDIZ : [address]: Mike Little MD Acct: [id number] Unit: [id number] AGE: 63 Location: ED Re05/23/18 SEX: F Status: DEP ER SPEC: [id number] DOUGIE: 05/23/18 [facility] DR: Lamar Crowe MD REQ: [id number] RECD: 05/23/18 STATUS: CHELLY AHUJA DR: Mike Macias Z OS [employer] SYSTEM[employer] PROGRAMMER _ SOURCE: BLOOD,VENO SPDES: ORDERED: Blood Cult Procedure Result Reported Site Aerobic Culture Bottle Final 05/28/18- 1635 ML No Growth Day 5 Anaerobic Culture Bottle Final 05/28/18- 1635 ML No Growth Day 5 * [facility] . END OF REPORT DEPARTMENT OF PATHOLOGY, [address] [place] [address] Fidel Matthew M.D. Director [facility] # [id number] 18 SEE RESULT BELOW Name: TERESA RESENDIZ : [address]: Mike Little MD Acct: [id number] Unit: [id number] AGE: 63 Location: ED Re05/23/18 SEX: F Status: REG ER SPEC: [id number] DOUGIE: 05/23/[address]: Mike Little MD REQ: [id number] RECD: 05/23/18 STATUS: CHELLY AHUJA DR: Placido Macias Z OS [employer] PROGRAMMER _ SOURCE: STOOL SPDESC: ORDERED: Occult Bl, Diag Procedure Result Reported Site Stool Occult Blood (1) Final 05/23/18- 144 ML Stool Occult Blood Negative * ML - Main Lab . END OF REPORT DEPARTMENT OF PATHOLOGY, [address] [place] [address] Fidel Matthew M.D. Director [facility] # [id number] Because ethnic data is not always readily [...] to hemolysis. 22 Result TnIDx:0.04 Called to [employer] at: 13:47:14 by:[id number] Read back by: [id number] Troponin-I testing on Plasma Separator Tubes (PST) has a known false positive rate of 0.20-0.40%. All positive troponins reflex immediate secondary confirmatory testing. 23 Critical Result LACT:2.5 Called to [id number] at: 13:56:12 by:[id number] Read back by:[id number] [facility] Severe Sepsis and Septic Shock Management Bundle Measure requires all lactic acids initially measuring >2.0 mmol/L be repeated. 24 Test Performed by: [facility] [address] [place] [address] 25 SEE RESULT BELOW Name: MARTÍNTERESA : [address]: Carolyn Crawford MD Acct: [id number] Unit: [id number] AGE: 63 Location: [facility] Re05/23/18 SEX: F Status: REG REF SPEC: [id number] DOUGIE: 05/23/18-1118 [facility] DR: Carolyn Crawford MD REQ: [id number] RECD: 05/23/18 STATUS: COMP _ SOURCE: URINE [facility]: ORDERED: Urine Culture COMMENTS: [id number] Urine Source: Random Procedure Result Reported Site Urine Culture Final 05/24/18- 1605 ML No Growth (<1,000 CFU/mL) * ML - Main Lab . END OF REPORT DEPARTMENT OF PATHOLOGY, [address] [place] [address] Fidel Matthew M.D. Director [facility] # [id number] 26 Because ethnic data is not always [...] [address]: Jennifer Downing DO Acct: [id number] Unit: [id number] AGE: 62 Location: [facility] Re04/06/18 SEX: F Status: REG REF SPEC: [id number] DOUGIE: 04/06/[address]: Jennifer Downing DO REQ: [id number] RECD: 04/06/18 STATUS: RES OT DR: Karthikeyan Nunez, _ SOURCE: BLOOD,VENO SPDESC: ORDERED: Blood Cult Procedure Result Reported Site Aerobic Culture Bottle Preliminary 04/10/18- 1514 ML No Growth Day 4 Anaerobic Culture Bottle Final 04/11/18- 1511 ML No Growth Day 5 * ML - Main Lab . END OF REPORT DEPARTMENT OF PATHOLOGY, [address] [place] [address] Fidel Matthew M.D. Director [facility] # [id number] 28 Moderate normocytic anemia noted. Additional studies as clinically warranted. Reviewed by Dr. Matthew 29 [id number] 30 Because ethnic data is not always [...] (or dialysis) 31 PLEASE FAX COPY TO [facility] [phone] DR JENNIFER DOWNING PHONE # [phone] 32 Because ethnic data is not always [...] (or dialysis) 33 PLEASE FAX COPY TO [facility] [phone] DR JENNIFER DOWNING PHONE # [phone] 34 Reference ranges based on room air. 35 SEE RESULT BELOW Name: TERESA RESENDIZ : [address]: Robin Robledo MD Acct: [id number] Unit: [id number] AGE: 62 Location: ED Re02/25/18 SEX: F Status: REG ER SPEC: [id number] DOUGIE: 02/25/18 [facility] DR: Robin Robledo MD REQ: [id number] RECD: 02/25/18 STATUS: COMP LEIGHA DR: Placido Macias Z OS MAINFRAME SYSTEMS PROGRAMMER _ SOURCE: NASAL SPDESC: ORDERED: Flu A B Request Procedure Result Reported Site Rapid Influenza A B Request Final 02/25/18916 ML Specimen received for Influenza A/B Molecular testing * ML - Main Lab . END OF REPORT DEPARTMENT OF PATHOLOGY, [address] [place] [address] Fidel Matthew M.D. Director [facility] # [id number] 36 Result TnIDx:0.80 Called to [id number] at: 09:12:51 by:[id number] Read back by: [id number] Troponin-I testing on Plasma Separator Tubes (PST) has a known false positive rate of 0.20-0.40%. All positive troponins reflex immediate secondary confirmatory testing. 37 Interpretive information available on [employer] Test Catalog at [email or web address] 38 VACUOLATED NEUTROPHILS SEEN ON SMEAR 39 Mixed Crop Farmer: [id number] 40 Because ethnic data is not always readily [...] 15-29 5 Kidney failure <15 (or dialysis) 41 Critical Result LACT:2.2 Called to [id number] at: 09:28:02 by:[id number] Read back by:[id number] [facility] Severe Sepsis and Septic Shock Management Bundle Measure requires all lactic acids initially measuring >2.0 mmol/L be repeated. 42 SEE RESULT BELOW Name: TERESA RESENDIZ DOB: [address]: Alonso Prado MD Acct: [id number] Unit: [id number] AGE: 62 Location: ICU Re02/25/18 SEX: F Status: ADM IN SPEC: [id number] DOUGIE: 02/25/[address]: Robin Robledo MD REQ: [id number] RECD: 02/25/18 STATUS: COMP OTHR DR: Placido Macias Z OS MAINFRAME SYSTEMS PROGRAMMER _ SOURCE: BLOOD,VENO SPDESC: ORDERED: Blood Cult COMMENTS: Verbal to [id number] by [id number] at 2320 on 02/25/18. Results read back [...] These antibiotics are not available in the [facility] Formulary Contact the Microbiology Department for any additional antibiotic reporting. Anaerobic Culture Bottle Final 02/27/18837 ML CONTINUED ON NEXT PAGE DEPARTMENT OF PATHOLOGY, [address] [place] [address] Fidel Matthew M.D. Director [facility] # [id number] Patient: TERESA RESENDIZ [id number] (Continued) Specimen: [id number] Collected: 02/25/18 Received: 02/25/18 (Continued) Procedure Result Reported Site Anaerobic Culture Bottle Final (continued) 02/27/18 0838 Anaerobic Btl Gram Stain Gram Positive Cocci resembling Staph Organism 1 STAPHYLOCOCCUS AUREUS#2 Please refer to [id number] culture AEROBIC bottle for sensitivity testing. * ML - Main Lab . END OF REPORT DEPARTMENT OF PATHOLOGY, [address] [place] [address] Fidel Matthew M.D. Director [facility] # [id number] 43 Moderate thrombocytopenia noted. No schistocytes or blasts identified. Additional studies as clinically warranted. Reviewed by Dr. Matthew 44 Mixed Crop Farmer: [id number] 45 Mixed Crop Farmer: [id number] 46 [id number] 47 SEE RESULT BELOW Name: TERESA RESENDIZ : [address]: Jennifer Ty MD Acct: [id number] Unit: [id number] AGE: 62 Location: [facility] Re02/24/18 SEX: F Status: DEP ER SPEC: [id number] DOUGIE: 02/24/18-125 [facility] DR: Nataliia Hardy NP REQ: [id number] RECD: 02/24/18 STATUS: CHELLY AHUJA DR: Beatriz Physicians Placido Macias NP _ SOURCE: URINE SPDESC: ORDERED: Urine Culture COMMENTS: [id number] Procedure Result Reported Site Urine Culture Final 02/26/18- 0832 ML Organism 1 STAPHYLOCOCCUS AUREUS Weikert Count >100,000 (Many) CFU/ML 1. STAPHYLOCOCCUS AUREUS [...] These antibiotics are not available in the [facility] Formulary Contact the Microbiology Department for any additional antibiotic reporting. * - [facility] . END OF REPORT DEPARTMENT OF PATHOLOGY, [address] [place] [address] Fidel Matthew M.D. Director [facility] # [id number] 48 [id number] 49 SEE RESULT BELOW Name: TERESA RESENDIZ : [address]: Fredy Holbrook MD Acct: [id number] Unit: [id number] AGE: 62 Location: [facility] Re07/24/17 SEX: F Status: DEP ER SPEC: [id number] DOUGIE: 04/ ELOY DR: Davis GARAY REQ: [id number] RECD: 07/25/17 STATUS: CHELLY AHUJA DR: Fredy Macias Z OS MAINFRAME SYSTEMS PROGRAMMER _ SOURCE: BACK [facility]: ORDERED: MRSA/SA SSTI, Culture Stain COMMENTS: [id number] Procedure Result Reported Site MRSA/S. aureus SSTI [...] . END OF REPORT DEPARTMENT OF PATHOLOGY, [address] [place] [address] Fidel Matthew M.D. Director [facility] # [id number] 50 SEE RESULT BELOW Name: TERESA RESENDIZ : [address]: Fredy Holbrook MD Acct: [id number] Unit: [id number] AGE: 62 Location: [facility] Re07/24/17 SEX: F Status: DEP ER SPEC: [id number] DOUGIE: 07/24/17-1736 [facility] DR: Davis GARAY REQ: [id number] RECD: 07/25/17 STATUS: RES LEIGHA DR: Fredy Macias Z OS MAINFRAME SYSTEMS PROGRAMMER _ SOURCE: BACK SPDESC: ORDERED: MRSA/SA SSTI, Culture Stain COMMENTS: [id number] Procedure Result Reported Site MRSA/S. aureus SSTI PCR PENDING Wound/Misc Gram Stain Final 07/25/17- 1158 ML 2+ Neutrophils Possible 1+ Gram Positive Cocci Wound/Misc Culture PENDING * ML - Main Lab . END OF REPORT DEPARTMENT OF PATHOLOGY, [address] [place] [address] Fidel Matthew M.D. Director [facility] # [id number] 51 Because ethnic data is not always [...] 5 Kidney failure <15 (or dialysis) 52 [id number] 53 SEE RESULT BELOW Name: TERESA RESENDIZ : [address]: Angela Langston MD Acct: [id number] Unit: [id number] AGE: 61 Location: [facility] Re12/19/16 SEX: F Status: DEP REF SPEC: [id number] DOUGIE: 12/19/1645 [facility] DR: Angela Langston MD REQ: [id number] RECD: 12/19/16 STATUS: AKHIL AHUJA DR: Placido Macias Z OS MAINFRAME SYSTEMS PROGRAMMER _ ORDERED: LEVEL 4 COMMENTS: [id number] FINAL DIAGNOSIS Colon, ascending, biopsy: -- Tubular [...] performed at Main Lab DEPARTMENT OF PATHOLOGY, [address] [place] [address] Fidel Matthew M.D. Director [facility] # [id number] 54 FASTING 10 HOUR 55 Normal Range 180 to 914 Indeterminate Range 145 to 180 Deficient Range <145 56 Desirable <150 Borderline high 150-199 High 200-499 Very High >500 57 Desirable <200 Borderline high 200-239 High >239 58 Low <40 Desirable: 40-60 High: >60 59 Desirable: <100 mg/dL Near Optimal: 100-129 mg/dL Borderline High: 130-159 mg/dL High: 160-189 mg/dL Very High: >189 mg/dL 60 Because ethnic data is not always readily [...] (or dialysis) Procedures Date Code Description Status 07/20/2018 66902 EKG Tracing & Interpretation Completed 07/05/2018 87317 Pace Maker Eval W/Iterative Adjment Dual Lead Completed 07/05/2018 71957 Pace Maker Eval W/Iterative Adjment Dual Lead Completed 07/04/2018 83296 EKG Tracing & Interpretation Completed 05/23/2018 30864 ECHO Transthorasic Realtime 2D W Doppler & Color Flow Completed Hosp 05/23/2018 32906 ECHO Transthoracic, Real-Time 2D With Doppler And Completed Color Flow 04/24/2018 23685 EKG Tracing & Interpretation Completed 02/27/2018 66212 Echocardiography, Transesophageal, Real Time W/Image Completed 2D W/W/O M-M 02/27/2018 61922 Pulse Wave/Continuous-Interp.RPT Completed 02/27/2018 54791 Color Flow Doppler/Interp & Reprt Completed 02/27/2018 62348 Moderate Sedation Services; Same Phys Intl 15 Mins; PT Completed >=5 Years 02/26/2018 83767 ECHO Transthorasic Realtime 2D W Doppler & Color Flow Completed Hosp 11/01/2017 71811888 Mammogram Completed 07/07/2017 80235 EKG Tracing & Interpretation Completed 12/19/2016 86910 Moderate Sedation Services; Same Phys Intl 15 Mins; PT Completed >=5 Years 12/19/2016 02792 Colonoscopy Flexible W/Biopsy Completed 12/19/2016 03034554 Colonoscopy Completed 07/13/2016 31070705 Mammogram Completed 06/29/2016 146938317 Diabetic Retinal Eye Exam Completed Encounters Type Date Location Provider Dx Diagnosis Office Visit 07/27/2018 [facility] Chan Alexander, I63.9 Cerebral 8:30a Services Of Alberto Gates infarction, unspecified I69.320 Aphasia following cerebral infarction G40.89 Other seizures Office Visit 07/20/2018 10:30a Cardiology Karthikeyanlisa Martin 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., prosthetic heart [facility] valve Office Visit 07/09/2018 8:40a [facility] Placido Macias, I10 Essential ( primary) Medicine Z OS [employer]IN[employer] SYSTEMS PROGRAMMER hypertension F32.89 Other specified depressive episodes D64.9 Anemia, unspecified Z95.2 Presence of prosthetic heart valve Z79.01 retirement (current) use of anticoagulants Office Visit 07/04/2018 1:15p [facility] Karthikeyanlisa Martin 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 Alberto Franco M.D., prosthetic heart [facility] valve Office Visit 06/06/2018 11:40a [facility] Placido Macias, Z95.2 Presence of Medicine Z OS MAINFRAME SYSTEMS PROGRAMMER prosthetic heart valve D59.9 Acquired hemolytic anemia, unspecified Z79.01 retirement (current) use of anticoagulants F32.89 Other specified depressive episodes Office Visit 05/23/2018 8:35a [facility] Lamar Crowe, R06.02 Shortness of Assoc,daxa Gates breath Hospitalists R31.9 Hematuria, unspecified Office Visit 05/23/2018 11:00a [facility] Internal Carolyn Ty, R31.9 Hematuria, Medicine MD unspecified R17 Unspecified jaundice R06.02 Shortness of breath Office Visit 04/24/2018 2:00p [facility] Karthikeyan Mario 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 [facility]to Franco M.D., prosthetic heart FACC, FASNC valve R07.9 Chest pain, unspecified Z79.01 meterman (current) use of anticoagulants Office Visit 04/23/2018 9:00a [place] Chan Alexander, Z95.2 Presence of Neurologic M.D. 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 infarction, unspecified R93.1 Abnormal findings on dx [...] 8:27a MD infarction, unspecified Office Visit 01/08/2018 [facility] Internal Placidogio Macias, Z OS MAINFRAME SYSTEMS PROGRAMMER I10 Essential 8:40a Medicine (primary) hypertension F32.89 Other specified depressive episodes R06.83 Snoring R53.83 Other fatigue Z23 Encounter for immunization Office Visit 07/07/2017 9:20a [employer] [facility] Internal Placidogio Macias, Z01.818 Encounter for other Medicine Z OS MAINFRAME SYSTEMS PROGRAMMER preprocedural examination M25.511 Pain in right shoulder I10 Essential (primary) hypertension H81.10 Benign paroxysmal vertigo, unspecified ear Office Visit 01/02/2017 10:20a [facility] Internal Placido Gilberto, F32.89 Other specified Medicine Z OS MAINFRAME SYSTEMS PROGRAMMER depressive episodes E78.5 Hyperlipidemia, unspecified Z23 Encounter for immunization Office Visit 09/19/2016 8:40a [facility] Internal Placido Gilberto, F32.89 Other specified Medicine Z OS MAINFRAME SYSTEMS PROGRAMMER depressive episodes I10 Essential (primary) hypertension Office Visit 07/25/2016 9:00a [employer] Internal Placidogio Macias, F32.89 Other specified Medicine Z OS MAINFRAME SYSTEMS PROGRAMMER depressive episodes Office Visit 07/01/2016 11:00a [facility] Internal Placidogio Macias, R53.83 Other fatigue Medicine Z OS MAINFRAME SYSTEMS PROGRAMMER Z12.31 Encntr screen mammogram for malignant neoplasm of breast Z13.220 Encounter for screening for lipoid disorders Z12.11 Encounter for screening for malignant neoplasm of colon Plan of Treatment Future Appointment(s):08/07/2018 8:30 am - Jamal Walker N.P. at [facility]10/16/2018 1:00 pm - Marietta Vargas MD at [facility]10/10/2018 1:00 pm - Karthikeyan Franco M.D., [facility], FASNV at [facility]10/01/2018 1:30 pm - Traveling ECHO 1 at [facility]08/07/2018 9:20 am - Placido Macias NP at [facility] Internal Opqlecse97/15/2019 9:00 am - Placido Macias NP at [facility] Internal [id number] 10:45 am - Chan Alexander M.D. at [facility]07/27/2018 - Chan Alexander M.D.I63.9 Cerebral infarction, unspecifiedFollow up:2 weeks ok with JoshI69.320 Aphasia following cerebral tgubqflrakS76.89 Other seizuresNew Orders:EEG, Routine, Scheduled: 07/30/18
--- OUTSIDE RECORDS SUMMARY | 2018-08-12 07:49 | XMS REPORT | Continuity of Care Document ---
:1955 External Reference #:[id number] Author Name Andrew Bolanos Care Team Providers Name Role Phone Maci Magaña MD Primary Care Physician Unavailable Payers Date Identification Numbers Payment Provider Subscriber Policy Number: [id number] [employer] Teresa Resendiz PayID: [id number] [address] [address] [place] [address] Advance Directives Description No Information Available Problems [...] 04/23/2018 endocarditis Chest pain Karthikeyan Franco M.D., [facility], Onset: 04/24/2018 [facility] Family History Date Family Member(s) Observation Comments Father due to [place] () - 44 Mother brain tumor Mother [...] is a former smoker Smoking Status Reviewed: 08/07/18 Patient is a former smoker Exercise Type/Frequency [...] CPT Code Status Date Vaccine Lot # [id number] Given 01/08/2018 Influenza Virus Vaccine, Quadrivalent, Split, [id number] Preservative Free [id number] Given 01/02/2017 Influenza Virus Vaccine, Quadrivalent, Split, [id number] Preservative Free Vital Signs Date Vital Result Comment 08/07/2018 8:16am Height 61.5 inches 5'1.50" Weight [...] Mass Index) 33.8 kg/m2 Ejection Fraction 55-60% echo.03/25/19 06/06/2018 11:34am Height 61.5 inches 5'1.50" Weight [...] Rendering Inr 2.7 CBC Auto Diff 08/03/2018 [facility] White Blood 6.5 10^3/uL N 3.5-10.[address] [place] [address] [phone] Red Blood Count 4.31 10^6/uL N 3.70-4.87 [...] % 0.1 Iron & Iron Binding 08/03/2018 [facility] Iron 44 g/dL Low 50-[address] [place] [address] [phone] Unsaturated Iron Binding < 289 g/dL Total Iron Binding Capacity 304 g/dL N 250-450 Transferrin 217 mg/dL N 203-362 % Iron Saturation 14 % Low 15-55 Protime W/ Inr 08/02/2018 [facility] In House Prothrombin Time 23.4 Inr 1.9 Protime W/ Inr 07/31/2018 Other Rendering Inr 2.5 Protime W/ Inr 07/26/2018 Other Rendering Inr 2.3 Protime W/ Inr 07/23/2018 [facility] In House Prothrombin Time 24.3 Inr 2.0 Protime W/ Inr 07/19/2018 [facility] In House Prothrombin Time 16.9 Inr 1.5 Laboratory test 07/13/2018 [facility] Point of 121 mg/dL High 70-100 1 finding 101 [facility] [place] [address] [phone] Urine Culture And 07/13/2018 [facility] Urine SEE RESULT [address] [place] [address] [phone] Urinalysis Profile 07/13/2018 [facility] Urine Color Yellow [address] [place] [address] [phone] Urine Appearance Cloudy Urine Specific [place] 1.021 N 1.010-1.030 Urine pH 5.0 N 5-9 Urine Urobilinogen Negative Negative Urine Ketones Negative Negative Urine Protein Negative Negative Urine Leukocytes 1+ Abnormal Negative Urine Blood 3+ Abnormal Negative Urine Nitrite Negative Negative Urine Bilirubin Negative Negative Urine Glucose Negative Negative Urine White Blood Cell 1+(6-10/hpf) Abnormal Absent Urine Red Blood Cell 2+(6-10/hpf) Abnormal Absent Urine Bacteria Absent Absent Laboratory test 07/13/2018 [facility] Troponin-I (TnI) 0.05 ng/ mL High <0.04 3 finding [address] [place] [address] [phone] Lipid Profile 07/13/2018 [facility] Triglycerides 140 mg/dL 4 (Trig/Chol/HDL) [address] [place] [address] [phone] Cholesterol 164 mg/dL 5 HDL Cholesterol 51.6 mg/dL 6 LDL Cholesterol 84 mg/dL 7 Comp Metabolic Panel 07/13/2018 [facility] Sodium 139 mmol/L N 135-145 [address] [place] [address] [phone] Potassium 3.2 mmol/L Low 3.5-5.0 Chloride 101 [...] Egfr 47.0 >60 8 Laboratory test 07/13/2018 [facility] Lactic Acid 1.0 mmol/L N 0.5-2.0 9 finding [address] [place] [address] [phone] Comp Metabolic 07/09/2018 [facility] Sodium 144 mmol/L N 135- 145 Panel [address] [place] [address] [phone] Chloride 102 mmol/L N 101-111 Co2 Carbon [...] N 2-11 Iron & Iron Binding 07/09/2018 [facility] Iron 31 g/dL Low 50-[address] [place] [address] [phone] Unsaturated Iron Binding < 237 g/dL Total Iron Binding Capacity 252 g/dL N 250-450 Transferrin 180 mg/dL Low 203-362 % Iron Saturation 12 % Low 15-55 Laboratory test 07/09/2018 [facility] Vancomycin Random 15.4 g /mL [address] [place] [address] [phone] C Reactive Protein 19.95 mg/L High <8.01 13 CBC Auto Diff 07/09/2018 [facility] White Blood 5.9 10^3/uL N 3.5-10.[address] [place] [address] [phone] Red Blood Count 3.67 10^6/uL Low 3.70-4.87 [...] Blood Cells % 0 Laboratory test 07/09/2018 [facility] Erythrocyte Sed 86 mm/Hr High 0-29 [address] [place] [address] [phone] Protime W/ Inr 07/09/2018 [facility] In House Prothrombin Time 24.0 Inr 2.0 CBC Auto Diff 07/03/2018 [facility] White Blood 6.5 10^3/uL N 3.5-10.[address] [place] [address] [phone] Red Blood Count 3.57 10^6/uL Low 3.70-4.87 [...] % 0 Iron & Iron Binding 07/03/2018 [facility] Iron 27 g/dL Low 50-[address] [place] [address] [phone] Unsaturated Iron Binding < 222 g/dL Total Iron Binding Capacity 237 g/dL Low 250-450 Transferrin 169 mg/dL Low 203-362 % Iron Saturation 11 % Low 15-55 Laboratory test 07/03/2018 [facility] Ferritin 296.8 N 11-[address] ng/[place] [address] [phone] Protime W/ Inr 06/25/2018 Other Rendering Inr 1.9 Protime W/ Inr 06/22/2018 Other Rendering Inr 1.9 Protime W/ Inr 06/14/2018 Other Rendering Inr 2.3 Protime W/ Inr 06/11/2018 Other Rendering Inr 2.5 Protime W/ Inr 06/08/2018 Other Rendering Inr 2.1 Protime W/ Inr 06/06/2018 [facility]Transl[facility] In House Prothrombin Time 21.0 Inr 1.7 Laboratory test 05/23/2018 [facility] Troponin-I 0.04 ng/mL High <0.04 [address] (TnI) [place] [address] [phone] Potassium Redraw 3.7 mmol/L N 3.5-5.0 Ast Redraw 91 U/L High 13-39 LDH 1946 U/L High 140-271 Laboratory test 05/23/2018 [facility] Blood Culture SEE RESULT [address] [place] [address] [phone] Stool Occult 05/23/2018 [facility] Stool Occult SEE RESULT 18 Blood Diag [address] Blood, [place] [address] [phone] CBC Auto Diff 05/23/2018 [facility] White Blood 9.2 10^3/uL N 3.5-[address] Count .8 [place] [address] [phone] Red Blood Count 2.86 10^6/uL Low 4.00-5.40 [...] Red Blood Cells % 0.3 Inr/Protime 05/23/2018 [facility] Inr 3.85 High 0.77-1.[address] [place] [address] [phone] Laboratory test 05/23/2018 [facility] Partial 35.0 N 26.0- 36.[address] [place] [address] Time PTT [phone] B-Type Natriuretic Peptide BNP 303 pg/mL High <=100 Comp Metabolic Panel 05/23/2018 [facility] Sodium 138 mmol/L N 135-[address] [place] [address] [phone] Chloride 101 mmol/L N 101-111 Co2 Carbon [...] TNP U/L 13-39 21 Laboratory test 05/23/2018 [facility] Troponin-I 0.04 ng/mL High <0.[address] (TnI) [place] [address] [phone] Lactic Acid 2.5 mmol/L High 0.5-2.0 23 C Reactive Protein 14.72 mg/L High <8.01 LDH TNP U/L 140-271 Haptoglobin <14 mg/dL Abnormal 30 - 200 24 Urine Culture And 05/23/2018 [facility] Urine Culture SEE RESULT [address] [place] [address] [phone] Ua Routine 05/23/2018 [facility]Transl[facility] In House Ua Specific 1.000 [place] Ua PH 5 Ua Color brown Ua Appera cloudy Ua WBC trace Ua Protein +30 Ua Glucose neg Ua Ketones neg Ua Bilirubin Positive + Ua Urobilinogen neg Ua Nitrite neg Ua Occult Blood 250 Protime W/ Inr 05/17/2018 [facility]Transl[facility] In House Prothrombin Time 37.3 Inr 3.1 CBC No Diff 05/08/2018 [facility] White Blood 7.4 10^3/uL N 3.5-10.[address] [place] [address] [phone] Red Blood Count 4.59 10^6/uL N 4.00-5.40 [...] N 7.4-10.4 Iron & Iron Binding 05/08/2018 [facility] Iron 42 g/dL Low 50-[address] [place] [address] [phone] Unsaturated Iron Binding < 342 g/dL Total Iron Binding Capacity 357 g/dL N 250-450 Transferrin 255 mg/dL N 203-362 % Iron Saturation 12 % Low 15-55 Laboratory test 05/08/2018 [facility] Ferritin 255.4 ng/mL N 11-[address] [place] [address] [phone] Protime W/ Inr 05/04/2018 Other Rendering Inr 2.4 Protime W/ Inr 04/27/2018 Other Rendering Inr 2.7 Protime W/ Inr 04/20/2018 Other Rendering Inr 1.8 Protime W/ Inr 04/13/2018 Other Rendering Inr 2.2 CBC Auto Diff 04/06/2018 [facility] White Blood 7.1 10^3/uL N 3.5-10.[address] [place] [address] [phone] Red Blood Count 3.19 10^6/uL Low 4.00-5.40 [...] fL N 7.4-10.4 Comp Metabolic Panel 04/06/2018 [facility] Sodium 141 mmol/L N 135-[address] [place] [address] [phone] Potassium 3.7 mmol/L N 3.5-5.0 Chloride 102 [...] Egfr 52.4 >60 26 Laboratory test 04/06/2018 [facility] C Reactive 25.90 mg/L High <8.[address] [place] [address] [phone] Manual 04/06/2018 [facility] Neutrophil % 79 % Differential [address] [place] [address] [phone] Lymphocytes % 11 % Monocytes % 6 % Eosinophils % 1 % Basophil % 2 % Variant Lymph % 1 % N 0-6 Polychromasia 1+ Anisocytosis 1+ Abs Neutrophils 5.6 10^3/uL N 1.5-7.7 Abs Lymphocytes 0.85 10^3/uL Low 1.0-4.8 Abs Monocytes 0.43 10^3/uL N 0-0.8 Abs Eosinophils 0.07 10^3/uL N 0-0.6 Abs Basophils 0.15 10^3/uL N 0-0.2 Laboratory test 04/06/2018 [facility] Blood Culture SEE RESULT [address] [place] [address] [phone] Pathologist Review (SEE NOTE) 28 Basic Metabolic Panel 04/02/2018 [facility] Sodium 142 mmol/L N 135-[address] [place] [address] [phone] Potassium 3.2 mmol/L Low 3.5-5.0 Chloride 100 mmol/L Low 101-111 Co2 Carbon Dioxide 33 mmol/L High 22-32 Anion Gap 9 mmol/L N 2-11 Glucose 87 mg/dL N 70-100 Blood Urea Nitrogen 9 mg/dL N 6-24 Creatinine 0.71 mg/dL N 0.51-0.95 BUN/Creatinine Ratio 12.7 N 8-20 Calcium 8.6 mg/dL N 8.6-10.3 Egfr Non- 83.1 >60 Egfr 100.6 >60 30 CBC Auto Diff 04/02/2018 [facility] White Blood 7.4 10^3/uL N 3.5-10.[address] [place] [address] [phone] Red Blood Count 3.13 10^6/uL Low 4.00-5.40 [...] Rendering Inr 1.4 CBC Auto Diff 03/26/2018 [facility] White Blood 7.4 10^3/uL N 3.5-10.[address] [place] [address] [phone] Red Blood Count 2.99 10^6/uL Low 4.00-5.40 [...] Cells % 0 Comp Metabolic Panel 03/26/2018 [facility] Sodium 142 mmol/L N 135-[address] [place] [address] [phone] Potassium 3.6 mmol/L N 3.5-5.0 Chloride 105 [...] Egfr 111.4 >60 32 Laboratory test 03/26/2018 [facility] C Reactive 24.98 mg/L High <8.01 [address] [place] [address] [phone] Arterial Blood 02/25/2018 [facility] O2 Device 2l NC Gas [address] [place] [address] [phone] PH Arterial 7.43 N 7.35-7.45 Pco2 Arterial 35 mmHg N 35-45 Po2 Arterial 109 mmHg High 80-100 O2 Saturation Arterial 99.2 % High 95-98 Base Excess Arterial -0.7 N -2.0-2.0 34 Hco3 Arterial 24.4 mmol/L N 19-31 Rapid Influenza 02/25/2018 [facility] Influenza A NEGATIVE Negative 35 A & B Molecular [address] [place] [address] [phone] Influenza B Molecular NEGATIVE Negative Laboratory test 02/25/2018 [facility] Rapid Influenza SEE RESULT [address] A [place] [address] [phone] Laboratory test 02/25/2018 [facility] B-Type 122 pg/mL High <= [address] [place] [address] Peptide BNP [phone] Comp Metabolic 02/25/2018 [facility] Sodium 131 mmol/L Low 135 -[address] [place] [address] [phone] Potassium 3.5 mmol/L N 3.5-5.0 Chloride 94 [...] Egfr 46.3 >60 37 Laboratory test 02/25/2018 [facility] Creatine 708 U/L High 10 -[address] Kinase(CK) [place] [address] [phone] C Reactive Protein 437.89 mg/L High <8.01 Troponin-I (TnI) 0.80 ng/mL High <0.04 38 Inr/Protime 02/25/2018 [facility] Inr 1.02 N 0.77-1.[address] [place] [address] [phone] Laboratory test 02/25/2018 [facility] Partial 26.0 seconds N 26.0-36.[address] [place] [address] PTT [phone] CBC Auto Diff 02/25/2018 [facility] White Blood 8.8 10^3/uL N 3.5-10.[address] [place] [address] [phone] Red Blood Count 4.57 10^6/uL N 4.00-5.40 Hemoglobin 13.8 g/dL N 12.0-16.0 Hematocrit 41 % N 35-47 Mean Corpuscular Volume 90 fL N 80-97 Mean Corpuscular Hemoglobin 30 pg N 27-31 Mean Corpuscular HGB Conc 34 g/dL N 31-36 Red Cell Distribution Width 13 % N 10.5-15 Platelet Count 109 10^3/uL Low 150-450 Mean Platelet Volume 7.7 fL N 7.4-10.4 Manual Differential 02/25/2018 [facility] Immature 11 % High 0 -[address] [place] [address] [phone] Platelet Morphology (SEE NOTE) 39 Neutrophil % 83 % Band % 11 % High 0-8 Lymphocytes % 4 % Monocytes % 2 % RBC Morphology Normal Normal Laboratory test 02/25/2018 [facility] Procalcitonin 16.9 ng/mL High <0.6 [address] [place] [address] [phone] Urinalysis 02/25/2018 [facility] Urine Color Betty Profile [address] [place] [address] [phone] Urine Appearance Cloudy Urine Specific [place] 1.024 N 1.010-1.030 Urine pH 5.0 N [...] Casts Present Abnormal Absent Laboratory test 02/25/2018 [facility] Lactic Acid 2.2 mmol/L High 0.5-2.0 [address] [place] [address] [phone] Amylase 57 U/L N 29-103 Lipase 166 U/L High 11.0-82.0 Blood Culture SEE RESULT BELOW 42 Pathologist Review (SEE NOTE) 43 Urine Culture And 02/24/2018 [facility] Urine SEE RESULT 44 , [address] [place] [address] [phone] Rapid Influenza A 02/24/2018 [facility] Influenza A NEGATIVE Negative 46 & B Molecular [address] [place] [address] [phone] Influenza B Molecular NEGATIVE Negative Poc Urinalysis 02/24/2018 [facility] Poc Glucose, Negative Negative [address] [place] [address] [phone] Poc Bilirubin, Urine 1+ Abnormal Negative Poc Ketone, Urine Negative Negative Poc Specific [place], Urine >=1.030 N 1.010-1.030 Poc Blood, Urine 3+ Abnormal Negative Poc pH, Urine 5.5 N 5-9 Poc Protein, Urine 3+ Abnormal Negative Poc Urobilinogen, Urine 1.0 Negative Poc Nitrite, Urine Positive Abnormal Negative Poc Leukocytes, Urine Negative Negative Poc Color, Urine Betty Poc Clarity, Urine Clear 47 Wound 07/24/2017 [facility] Wound/Misc SEE RESULT 48, 49 Culture/Sensi [address] [place] [address] Stain [phone] Laboratory test 07/24/2017 [facility] MRSA/S. aureus SEE RESULT [address] Ssti PCR BELOW [place], [place] [address] [phone] CBC Auto Diff 07/05/2017 [facility] White Blood 7.2 N 3.5- [address] Count 10^3/uL 10.8 [place] [address] [phone] Red Blood Count 4.45 10^6/uL N 4.0-5.4 [...] Cells % 0 Comp Metabolic Panel 07/05/2017 [facility] Sodium 139 mmol/L N 139-[address] [place] [address] [phone] Potassium 3.8 mmol/L N 3.5-5.0 Chloride 101 [...] Non- 81.8 >60 Egfr 105.2 >60 51 Laboratory test 12/19/2016 [facility] Surgical Interface SEE RESULT 52, [address] [place] [address] [phone] Lipid Profile 07/07/2016 [facility] Triglycerides 152 mg/dL N 54 (Trig/Chol/HDL) [address] [place] [address] [phone] Cholesterol 285 mg/dL N 55 HDL Cholesterol 69.7 mg/dL N 56 LDL Cholesterol 185 mg/dL N 57 Laboratory test 07/07/2016 [facility] TSH (Thyroid 2.06 mcIU/mL N 0.34-5.60 [address] Stim Horm) [place] [address] [phone] Vitamin B12 421 pg/mL N 180-914 59 CBC Auto Diff 07/07/2016 [facility] White Blood 6.9 10^3/uL N 3.5-10.[address] [place] [address] [phone] Red Blood Count 4.77 10^6/uL N 4.0-5.4 [...] % 0 N Comp Metabolic Panel 07/07/2016 [facility] Sodium 137 mmol/L N 133-[address] [place] [address] [phone] Potassium 4.2 mmol/L N 3.5-5.0 Chloride 100 [...] N >60 Egfr 123.1 N >60 60 1 Rebrander: [id number] 2 SEE RESULT BELOW Name: TERESA RESENDIZ : [address]: Mauricio Tao MD Acct: [id number] Unit: [id number] AGE: 63 Location: ED Re07/13/18 SEX: F Status: DEP ER SPEC: [id number] DOUGIE: 07/14/[address] [facility] [address]: Mauricio Tao MD REQ: [id number] RECD: 07/14/18 STATUS: CHELLY AHUJA DR: Placido Fall MD _ SOURCE: URINE SPDESC: ORDERED: Urine Culture Procedure Result Reported Site Urine Culture Final 07/15/18- 0909 ML No Growth (<1,000 CFU/mL) * ML - Main Lab . END OF REPORT DEPARTMENT OF PATHOLOGY, [address] [place] [address] Fidel Matthew M.D. Director [facility] # [id number] 3 Result TnIDx:0.05 Called to [id number] at: 23:38:03 by:[id number] Read back by: [id number] Troponin-I testing on Plasma Separator Tubes (PST) [...] 5 Kidney failure <15 (or dialysis) 9 [facility] Severe Sepsis and Septic Shock Management [...] K:2.6 Called to WEI NEVILLE at: 14:17:07 by:[id number] Read back by:WEI NEVILLE 12 15-20 for HCAP, VAP, +++Osteomyelitis, Endocarditis, Meningitis 10-15 for All Other Infections 13 CRITICAL RESULTS CALLED AND MESSAGE LEFT TO CALL BACK AT 1309 ordered-june 05, 2018 expires-december 06 2018 14 Consistent with Previous Results Reported on 07/03/18 15 ordered-june 05, 2018 expires-december 06 2018 16 Result TnIDx:0.04 Called to [id number] at: 17:03:46 by:[id number] Read back by: [id number] Troponin-I testing on Plasma Separator Tubes (PST) has a known false positive rate of 0.20-0.40%. All positive troponins reflex immediate secondary confirmatory testing. 17 SEE RESULT BELOW Name: TERESA RESENDIZ : [address]: Mike Little MD Acct: [id number] Unit: [id number] AGE: 63 Location: ED Re05/23/18 SEX: F Status: DEP ER SPEC: [id number] DOUGIE: 05/23/[address] [facility] [address]: Lamar Crowe MD REQ: [id number] RECD: 05/23/18 STATUS: CHELLY AHUJA DR: Mike Macias [employer]ER _ SOURCE: BLOOD,VENO SPDESC: ORDERED: Blood Cult Procedure Result Reported Site Aerobic Culture Bottle Final 05/28/18- 1635 ML No Growth Day 5 Anaerobic Culture Bottle Final 05/28/18- 1635 ML No Growth Day 5 * ML - Main Lab . END OF REPORT DEPARTMENT OF PATHOLOGY, [address] [place] [address] Fidel Matthew M.D. Director [facility] # [id number] 18 SEE RESULT BELOW Name: TERESA RESENDIZ : [address]: Mike Little MD Acct: [id number] Unit: [id number] AGE: 63 Location: ED Re05/23/18 SEX: F Status: REG ER SPEC: [id number] DOUGIE: 05/23/18[facility] DR: Mike Little MD REQ: [id number] RECD: 05/23/18143 STATUS: CHELLY AHUJA DR: Placido Macias [employer] _ SOURCE: STOOL SPDESC: ORDERED: Occult Bl, Diag Procedure Result Reported Site Stool Occult Blood (1) Final 05/23/18- 144 ML Stool Occult Blood Negative * ML - Main Lab . END OF REPORT DEPARTMENT OF PATHOLOGY, [address] [place] [address] Fidel Matthew M.D. Director [facility] # [id number] 19 Because ethnic data is not always [...] to hemolysis. 22 Result TnIDx:0.04 Called to [id number] at: 13:47:14 by:[id number] Read back by: [id number] Troponin-I testing on Plasma Separator Tubes (PST) has a known false positive rate of 0.20-0.40%. All positive troponins reflex immediate secondary confirmatory testing. 23 Critical Result LACT:2.5 Called to [id number] at: 13:56:12 by:[id number] Read back by:[id number] [facility] Severe Sepsis and Septic Shock Management Bundle Measure requires all lactic acids initially measuring >2.0 mmol/L be repeated. 24 Test Performed by: [facility] [address] [place] [address] 25 SEE RESULT BELOW Name: TERESA RESENDIZ : [address]: Carolyn Crawford MD Acct: [id number] Unit: [id number] AGE: 63 Location: [facility] Re05/23/18 SEX: F Status: REG REF SPEC: [id number] DOUGIE: 05/23/18-[address] [facility] [address]: Carolyn Crawford MD REQ: [id number] RECD: 05/23/18 STATUS: COMP _ SOURCE: URINE SPDESC: ORDERED: Urine Culture COMMENTS: [id number] Urine Source: Random Procedure Result Reported Site Urine Culture Final 05/24/18- 1605 ML No Growth (<1,000 CFU/mL) * ML - Main Lab . END OF REPORT DEPARTMENT OF PATHOLOGY, [address] [place] [address] Fidel Matthew M.D. Director [facility] # [id number] 26 Because ethnic data is not always [...] [address]: Jennifer Downing DO Acct: [id number] Unit: [id number] AGE: 62 Location: [facility] Re04/06/18 SEX: F Status: REG REF SPEC: [id number] DOUGIE: 04/06/[address]: Jennifer Downing DO REQ: [id number] RECD: 04/06/18 STATUS: RES [facility] DR: Karthikeyan Nunez, _ SOURCE: BLOOD,VENO SPDESC: ORDERED: Blood Cult Procedure Result Reported Site Aerobic Culture Bottle Preliminary 04/10/18- 1514 ML No Growth Day 4 Anaerobic Culture Bottle Final 04/11/18- 1511 ML No Growth Day 5 * ML - Main Lab . END OF REPORT DEPARTMENT OF PATHOLOGY, [address] [place] [address] Fidel Matthew M.D. Director [facility] # [id number] 28 Moderate normocytic anemia noted. Additional studies as clinically warranted. Reviewed by Dr. Matthew 29 [id number] 30 Because ethnic data is not always [...] (or dialysis) 31 PLEASE FAX COPY TO [employer] [phone] DR JENNIFER DOWNING PHONE # [phone] 32 Because ethnic data is not always [...] (or dialysis) 33 PLEASE FAX COPY TO [employer] [phone] DR JENNIFER DOWNING PHONE # [phone] 34 Reference ranges based on room air. 35 Rebrander: [id number] 36 SEE RESULT BELOW Name: TERESA RESENDIZ : [address]: Robin Robledo MD Acct: [id number] Unit: [id number] AGE: 62 Location: ED Re/02/18 SEX: F Status: REG ER SPEC: [id number] DOUGIE: 02/25/[address] [facility] [address]: Robin Robledo MD REQ: [id number] RECD: 02/25/18 STATUS: COMP [facility] DR: Placido Macias [employer] BR[employer]ER _ SOURCE: NASAL SPDESC: ORDERED: Flu A B Request Procedure Result Reported Site Rapid Influenza A B Request Final 02/25/18916 ML Specimen received for Influenza A/B Molecular testing * ML - Main Lab . END OF REPORT DEPARTMENT OF PATHOLOGY, [address] [place] [address] Fidel Matthew M.D. Director [facility] # [id number] 37 Because ethnic data is not always [...] (or dialysis) 38 Result TnIDx:0.80 Called to [id number] at: 09:12:51 by:[id number] Read back by: [id number] Troponin-I testing on Plasma Separator Tubes (PST) has a known false positive rate of 0.20-0.40%. All positive troponins reflex immediate secondary confirmatory testing. 39 VACUOLATED NEUTROPHILS SEEN ON SMEAR 40 Interpretive information available on [facility] Test Catalog at [email or web address] 41 Critical Result LACT:2.2 Called to [id number] at: 09:28:02 by:[id number] Read back by:[id number] [facility] Severe Sepsis and Septic Shock Management Bundle Measure requires all lactic acids initially measuring >2.0 mmol/L be repeated. 42 SEE RESULT BELOW Name: TERESA RESENDIZ : [address]: Alonso Prado MD Acct: [id number] Unit: [id number] AGE: 62 Location: ICU [id number] Re02/25/18 SEX: F Status: ADM IN SPEC: [id number] DOUGIE: 02/25/[address] [facility] [address]: Robin Robledo MD REQ: [id number] RECD: 02/25/18 STATUS: COMP OTHR DR: Placido Macias [employer] _ SOURCE: BLOOD,VENO SPDESC: ORDERED: Blood Cult COMMENTS: Verbal to [id number] by [id number] at 2320 on 02/25/18. Results read back [...] These antibiotics are not available in the [facility] Formulary Contact the Microbiology Department for any additional antibiotic reporting. Anaerobic Culture Bottle Final 02/27/18837 ML CONTINUED ON NEXT PAGE DEPARTMENT OF PATHOLOGY, [address] [place] [address] Fidel Matthew M.D. Director [facility] # [id number] Patient: TERESA RESENDIZ [id number] (Continued) Specimen: [id number] Collected: 02/25/18 Received: 02/25/18 (Continued) Procedure Result Reported Site Anaerobic Culture Bottle Final (continued) 02/27/18- 0838 Anaerobic Btl Gram Stain Gram Positive Cocci resembling Staph Organism 1 STAPHYLOCOCCUS AUREUS#2 Please refer to [id number] culture AEROBIC bottle for sensitivity testing. * ML - Main Lab . END OF REPORT DEPARTMENT OF PATHOLOGY, [address] [place] [address] Fidel Matthew M.D. Director [facility] # [id number] 43 Moderate thrombocytopenia noted. No schistocytes or blasts identified. Additional studies as clinically warranted. Reviewed by Dr. Matthew 44 [id number] 45 SEE RESULT BELOW Name: TERESA RESENDIZ : [address]: Jennifer Ty MD Acct: [id number] Unit: [id number] AGE: 62 Location: [facility] Re02/24/18 SEX: F Status: DEP ER SPEC: [id number] DOUGIE: 02/24/[address]: Nataliia Hardy NP REQ: [id number] RECD: 02/24/18 STATUS: CHELLY AHUJA DR: Beatriz Physicians Placido Macias [employer] _ SOURCE: URINE SPDESC: ORDERED: Urine Culture COMMENTS: [id number] Procedure Result Reported Site Urine Culture Final 02/26/18- 0832 ML Organism 1 STAPHYLOCOCCUS AUREUS Olema Count >100,000 (Many) CFU/ML 1. STAPHYLOCOCCUS AUREUS [...] These antibiotics are not available in the [facility] Formulary Contact the Microbiology Department for any additional antibiotic reporting. * ML - Main Lab . END OF REPORT DEPARTMENT OF PATHOLOGY, [address] [place] [address] Fidel Matthew M.D. Director [facility] # [id number] 46 Rebrander: [id number] Rebrander: [id number] 49 SEE RESULT BELOW Name: TERESA RESENDIZ : [address]: Fredy Holbrook MD Acct: [id number] Unit: [id number] AGE: 62 Location: [facility] Re07/24/17 SEX: F Status: DEP ER SPEC: [id number] DOUGIE: 07/24/17-[address]: Davis GARAY REQ: [id number] RECD: 07/25/17 STATUS: RES [facility] DR: Fredy Macias [employer] _ SOURCE: BACK [facility]: ORDERED: MRSA/SA SSTI, Culture Stain COMMENTS: [id number] Procedure Result Reported Site MRSA/S. aureus SSTI PCR PENDING Wound/Misc Gram Stain Final 07/25/171157 ML 2+ Neutrophils Possible 1+ Gram Positive Cocci Wound/Misc Culture PENDING * ML - Main Lab . END OF REPORT DEPARTMENT OF PATHOLOGY, [address] [place] [address] Fidel Matthew M.D. Director [facility] # [id number] 50 SEE RESULT BELOW Name: TERESA RESENDIZ : [address]: Fredy Holbrook MD Acct: [id number] Unit: [id number] AGE: 62 Location: [facility] Re07/24/17 SEX: F Status: DEP ER SPEC: [id number] DOUGIE: 07/24/17-[address] [facility] [address]: Davis GARAY REQ: [id number] RECD: 07/25/17 STATUS: CHELLY AHUJA DR: Fredy Macias [employer] _ SOURCE: BACK SPDESC: ORDERED: MRSA/SA SSTI, Culture Stain COMMENTS: [id number] Procedure Result Reported Site MRSA/S. aureus SSTI [...] . END OF REPORT DEPARTMENT OF PATHOLOGY, [address] [place] [address] Fidel Matthew M.D. Director [facility] # [id number] 51 Because ethnic data is not always [...] 5 Kidney failure <15 (or dialysis) 52 [id number] 53 SEE RESULT BELOW Name: TERESA RESENDIZ : [address]: Angela Langston MD Acct: [id number] Unit: [id number] AGE: 61 Location: [facility] Re12/19/16 SEX: F Status: DEP REF SPEC: [id number] DOUGIE: 12/19/[address] [facility] [address]: Angela Langston MD REQ: [id number] RECD: 12/19/16 STATUS: AKHIL AHUJA DR: Placido Macias [employer] _ ORDERED: LEVEL 4 COMMENTS: [id number] FINAL DIAGNOSIS Colon, ascending, biopsy: -- Tubular [...] performed at Main Lab DEPARTMENT OF PATHOLOGY, [address] [place] [address] Fidel Matthew M.D. Director [facility] # [id number] 54 Desirable <150 Borderline high 150-199 High 200-499 Very High >500 55 Desirable <200 Borderline high 200-239 High >239 56 Low <40 Desirable: 40-60 High: >60 57 Desirable: <100 mg/dL Near Optimal: 100-129 mg/dL Borderline High: 130-159 mg/dL High: 160-189 mg/dL Very High: >189 mg/dL 58 FASTING 10 HOUR 59 Normal Range 180 to 914 Indeterminate Range 145 to 180 Deficient Range <145 60 Because ethnic data is not always [...] dialysis) Procedures Date Code Description Status 07/20/2018 20889 EKG Tracing & Interpretation Completed 07/05/2018 59617 Pace Maker Eval W/Iterative Adjment Dual Lead Completed 07/05/2018 54829 Pace Maker Eval W/Iterative Adjment Dual Lead Completed 07/04/2018 34760 EKG Tracing & Interpretation Completed 05/23/2018 43956 ECHO Transthorasic Realtime 2D W Doppler & Color Flow Completed Hosp 05/23/2018 46392 ECHO Transthoracic, Real-Time 2D With Doppler And Completed Color Flow 04/24/2018 14823 EKG Tracing & Interpretation Completed 02/27/2018 27494 Echocardiography, Transesophageal, Real Time W/Image Completed 2D W/W/O M-M 02/27/2018 65356 Pulse Wave/Continuous-Interp.RPT Completed 02/27/2018 16109 Color Flow Doppler/Interp & Reprt Completed 02/27/2018 88728 Moderate Sedation Services; Same Phys Intl 15 Mins; PT Completed >=5 Years 02/26/2018 22731 ECHO Transthorasic Realtime 2D W Doppler & Color Flow Completed Hosp 11/01/2017 [id number] Mammogram Completed 07/07/2017 57988 EKG Tracing & Interpretation Completed 12/19/2016 26061 Moderate Sedation Services; Same Phys Intl 15 Mins; PT Completed >=5 Years 12/19/2016 68525 Colonoscopy Flexible W/Biopsy Completed 12/19/2016 92001937 Colonoscopy Completed 07/13/2016 42799058 Mammogram Completed 06/29/2016 [id number] Diabetic Retinal Eye Exam Completed Encounters Type Date Location Provider Dx Diagnosis Office Visit 07/20/2018 Cardiology Karthikeyanlisa Martin Z95.2 Presence of 10:30a Services Of Alberto Franco M.D., prosthetic heart [place] FAC, [facility] valve Office Visit 07/09/2018 [facility] Internal Placidogio Macias, [employer] I10 Essential (primary ) 8:40a Medicine hypertension F32.89 Other specified depressive episodes D64.9 Anemia, unspecified Z95.2 Presence of prosthetic heart valve Z79.01 correction (current) use of anticoagulants 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 Alberto Franco M.D., prosthetic heart [facility], [facility] valve Office Visit 06/06/2018 11:40a [facility] Internal Placido Gilberto, Z95.2 Presence of Medicine [employer] prosthetic heart valve D59.9 Acquired hemolytic anemia, unspecified Z79.01 correction (current) use of anticoagulants F32.89 Other specified depressive episodes Office Visit 05/23/2018 8:35a [facility] Lamar Crowe, R06.02 Shortness of Assoc,daxa Gates breath Hospitalists R31.9 Hematuria, unspecified Office Visit 05/23/2018 11:00a [facility] Internal Carolyn Ty, R31.9 Hematuria, Medicine MD unspecified R17 Unspecified jaundice R06.02 Shortness of breath Office Visit 04/24/2018 2[facility]p [facility] 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 Alberto Franco M.D., prosthetic heart FACC, FASNC valve R07.9 Chest pain, unspecified Z79.01 correction (current) use of anticoagulants Office Visit 04/23/2018 9:00a [place] Chan Alexander, Z95.2 Presence of Neurologic M.D. prosthetic heart Services Of [facility] valve I33.0 Acute and subacute infective endocarditis I69.320 Aphasia following cerebral infarction Office Visit 03/29/2018 1:40p [facility] Internal Placido Gilberto, I63.9 Cerebral Medicine [employer] infarction, unspecified R65.21 Severe sepsis with septic shock Z95.2 Presence of prosthetic heart valve R47.02 Dysphasia M54.5 Low back pain Office Visit 02/28/2018 Neurohospitalist Claudia Rolle.9 Cerebral 7:00a Berto Garcia M.D. 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 infarction, unspecified [...] 02/25/2018 Intens[facility]ists Alonso Prado I63.9 Cerebral 8:27a infarction, unspecified Office Visit 01/08/2018 [facility] Internal Placido Macias NP I10 Essential 8:40a Medicine (primary) hypertension F32.89 Other specified depressive episodes R06.83 Snoring R53.83 Other fatigue Z23 Encounter for immunization Office Visit 07/07/2017 9:20a [facility] Internal Placidogio Macias, Z01.818 Encounter for other Medicine [employer] preprocedural examination M25.511 Pain in right shoulder I10 Essential (primary) hypertension H81.10 Benign paroxysmal vertigo, unspecified ear Office Visit 01/02/2017 10:20a [facility] Internal Placido Gilberto, F32.89 Other specified Medicine [employer] depressive episodes E78.5 Hyperlipidemia, unspecified Z23 Encounter for immunization Office Visit 09/19/2016 8:40a [facility] Internal Placido Gilberto, F32.89 Other specified Medicine [employer] depressive episodes I10 Essential (primary) hypertension Office Visit 07/25/2016 9:00a [facility] Internal Placido Gilberto, F32.89 Other specified Medicine [employer] depressive episodes Office Visit 07/01/2016 11:00a [facility] Internal Placido Gilberto, R53.83 Other fatigue Medicine [employer] Z12.31 Encntr screen mammogram for malignant neoplasm of breast Z13.220 Encounter for screening for lipoid disorders Z12.11 Encounter for screening for malignant neoplasm of colon Plan of Treatment Future Appointment(s):10/08/2018 9:30 am - Jamal Walker NNikia at [place] [facility]10/16/2018 1:00 pm - Marietta Vargas MD at [facility]10/10/2018 1:00 pm - Karthikeyan Franco M.D., FACC, FASNC at [facility]10/01/2018 1:30 pm - Traveling ECHO 1 at [facility]10/08/2018 9:00 am - Placido Macias NP at [facility] Internal Wqdfrbrf22/29/2019 10:45 am - Chan Alexander M.D. at [place] [facility]08/07/2018 - Jamal Walker, N.P.G40.89 Other seizuresFollow up:2 uqosqoP46.320 Aphasia following cerebral grnrebgattN15.9 Cerebral infarction, unspecified
--- OUTSIDE RECORDS SUMMARY | 2018-08-12 07:50 | XMS REPORT | Continuity of Care Document ---
:1955 External Reference #:[id number] Author Name Vera Fuentes Care Team Providers Name Role Phone Maci Magaña MD Primary Care Physician Unavailable Payers Date Identification Numbers Payment Provider Subscriber Policy Number: [id number] BS [employer]ets Teresa Resendiz PayID: [id number] [address] [address] [place] [address] Advance Directives Description No Information Available Problems [...] 04/23/2018 endocarditis Chest pain Karthikeyan Franco M.D., [facility], Onset: 04/24/2018 FASNC Family History Date Family Member(s) Observation Comments Father due to [place] () - 44 Mother brain tumor Mother [...] is a former smoker Smoking Status Reviewed: 07/20/18 Patient is a former smoker Exercise Type/Frequency Exercises rarely Allergies, Adverse Reactions, Alerts Active Allergies Reaction Severity Comments Date Buspirone 07/20/2018 Medications Active Medications SIG Qnty Indications Ordering Date Provider Oxygen 2L while sleeping R09.02 Placido Macias NP 07/12/2018 Potassium Chloride ER takes 2 tabs by 14tabs Placido Macias NP 07/09/2018 mouth daily per pt 20Meq Tablets ER Warfarin Sodium take 2 tablets by 60tabs Placido Macias NP 06/22/2018 5mg mouth every evening Tablets or as directed Pantoprazole Sodium take 1 tablet by 30tabs Placido Macias NP 05/08/2018 mouth at bedtime 40mg Tablets DR florez Atorvastatin Calcium 1 by mouth every 90tabs Placido Macias NP 04/16/2018 day 80mg Tablets Warfarin Sodium take 2 tablet by 60tabs Placido Macias NP 03/29/2018 2mg mouth once daily or Tablets as directed=not using 2mg tabs as of 07/20/18 visit Protozone-HC cream uses as Unknown needed to leg Furosemide 1 by mouth twice Unknown 40mg Tablets daily Lovenox use one injection Unknown 80mg/0.8ML twice daily Solution Doxycycline 100MG 1 capsule by mouth Unknown Capsules twice daily Ondansetron dissolve one tablet Unknown 4mg Tablets orally every 8 Dispers hours as needed for nausea. Polyvinyl Alcohol 1 drop to both eyes Unknown 1.4% daily as needed for Solution dry eyes. Docusate Sodium 1 tab every 12 Unknown 100mg hours as needed for Capsules constipation Acetaminophen ER 1 tab by mouth q4 Unknown 650mg hours as needed Tablets ER pain Metoprolol Tartrate take 1/2 tablet by 30tabs Placiod Macias NP mouth every 12 25mg Tablets hours at 6am and 6pm hold if blood systolic presure less 110 and/or heart rate less 60 KP Adults 50+ Daily 1 by mouth every Unknown Formula day occasionally Tablets History Medications Klor-Con M10 take 2 tablets 60tabs Placido Macias NP 06/11/2018 - 10Meq once daily while 07/13/2018 Tablets ER taking furosemide Potassium Chloride take 2 tablets by 180tabs Placido Macias NP 03/29/2018 - Dhara ER mouth once daily 06/04/2018 20Meq Tablets ER Furosemide stopped take 1 60tabs Placido Macias NP 03/29/2018 - 40mg tablet by mouth 07/09/2018 Tablets once a day Trintellix one tablet once 30tabs Placido Macias NP 01/08/2018 - 20mg daily 04/22/2018 Tablets Fluticasone 2 sprays each 16units H81.10 Placido Macias NP 07/07/2017 - Propionate nostril qd. 04/22/2018 50mcg/Act Suspension Telmisartan take 1 tablet by 90tabs Placido Macias NP 01/02/2017 - 40mg mouth once daily 04/22/2018 Tablets Sertraline HCL Placido Macias NP 07/25/2016 - 50mg 07/25/2016 Tablets Trintellix one tablet once 90tabs Placido Macias NP 07/25/2016 - 10mg daily 01/08/2018 Tablets KP Adults 50+ Daily 1 by mouth every 90tabs Placido Macias NP 07/01/2016 - Formula day 07/01/2016 Tablets Vancomycin HCL iv 1,250 mg, every Unknown - 1gm 12 hrs 07/18/2018 Solution Rec Rifampin 1 by mouth, Shift Unknown - 300mg 07/18/2018 Capsules Potassium Chloride 20 mEq, oral, Unknown - ER daily standard 06/11/2018 10Meq Tablets ER Moisturizing Cream 1 application, Unknown - apply externally 07/19/2018 prn Gentamicin 1.6-0.9 80 mg, Unknown - MG/ML-% Intravenous, 07/18/2018 every24 hrs Folic Acid stopped 1 by mouth Unknown - 1mg every day 07/18/2018 Tablets Aspirin Ec Low Dose 1 by mouth every Unknown - day 07/18/[address] Vitamin C 1 by mouth every Unknown - 500mg day 07/03/2018 Tablets [facility] Ferrous 1 tablet po daily Unknown - Sulfate 07/03/2018 325(65Fe) mg Tablets Magnesium Oxide -MG 1 by mouth every Unknown - Supplement day 07/03/2018 400mg Capsules Cefazolin Sodium Unknown - 04/22/2018 2GM/20ML Soln Prefill Syringe Pantoprazole Sodium take 1 tablet by Unknown - mouth at bedtime 04/22/2018 40mg Tablets Immunizations CPT Code Status Date Vaccine Lot # [id number] Given 01/08/2018 Influenza Virus Vaccine, Quadrivalent, Split, [id number] Preservative Free [id number] Given 01/02/2017 Influenza Virus Vaccine, Quadrivalent, Split, [id number] Preservative Free Vital Signs Date Vital Result Comment 07/20/2018 10:17am Height 61.5 inches 5'1.50" Weight [...] Result H/L Range Note Protime W/ Inr 07/19/2018 [facility] Prothrombin Time 16.9 Inr 1.5 Laboratory test 07/13/2018 [facility] Lactic Acid 1.0 mmol/L N 0.5-2.0 1 finding [address] [place] [address] [phone] Comp Metabolic 07/13/2018 [facility] Sodium 139 mmol/L N 135- 145 Panel [address] [place] [address] [phone] Potassium 3.2 mmol/L Low 3.5-5.0 Chloride 101 [...] Egfr Non- 38.8 >60 Egfr 47.0 >60 2 Lipid Profile 07/13/2018 [facility] Triglycerides 140 mg/dL 3 (Trig/Chol/HDL) [address] [place] [address] [phone] Cholesterol 164 mg/dL 4 HDL Cholesterol 51.6 mg/dL 5 LDL Cholesterol 84 mg/dL 6 Laboratory test 07/13/2018 [facility] Troponin-I 0.05 ng/mL High <0.04 7 finding 101 (TnI) [place] [address] [phone] Urinalysis 07/13/2018 [facility] Urine Color Yellow Profile [address] [place] [address] [phone] Urine Appearance Cloudy Urine Specific [place] 1.021 N 1.010-1.030 Urine pH 5.0 N 5-9 Urine Urobilinogen Negative Negative Urine Ketones Negative Negative Urine Protein Negative Negative Urine Leukocytes 1+ Abnormal Negative Urine Blood 3+ Abnormal Negative Urine Nitrite Negative Negative Urine Bilirubin Negative Negative Urine Glucose Negative Negative Urine White Blood Cell 1+(6-10/hpf) Abnormal Absent Urine Red Blood Cell 2+(6-10/hpf) Abnormal Absent Urine Bacteria Absent Absent Urine Culture And 07/13/2018 [facility] Urine Culture SEE RESULT [address] [place] [address] [phone] Laboratory test 07/13/2018 [facility] Point of Care 121 mg/dL High 70-1 [address] Glucose 00 [place] [address] [phone] Protime W/ Inr 07/09/2018 [facility] Prothrombin Time 24.0 Inr 2.0 Laboratory test 07/09/2018 [facility] Erythrocyte Sed 86 mm/Hr High 0-29 [address] [place] [address] [phone] CBC Auto Diff 07/09/2018 [facility] White Blood 5.9 N 3.5- 10.[address] Count 10^3/[place] [address] [phone] Red Blood Count 3.67 10^6/uL Low 3.70-4.87 [...] % 11.6 % Monocyte % 7.6 % 11 Eosinophil % 5.4 % Basophil % 1.0 % Nucleated Red Blood Cells % 0 Laboratory test 07/09/2018 [facility] Vancomycin Random 15.4 g /mL 12 finding [address] [place] [address] [phone] C Reactive Protein 19.95 mg/L High <8.01 13 Iron & Iron Binding 07/09/2018 [facility] Iron 31 g/dL Low 50-212 Capacity [address] [place] [address] [phone] Unsaturated Iron Binding < 237 g/dL Total Iron Binding Capacity 252 g/dL N 250-450 Transferrin 180 mg/dL Low 203-362 % Iron Saturation 12 % Low 15-55 Comp Metabolic Panel 07/09/2018 [facility] Sodium 144 mmol/L N 135-145 [address] [place] [address] [phone] Chloride 102 mmol/L N 101-111 Co2 Carbon [...] Egfr Non- 45.7 >60 Egfr 55.3 >60 14 Potassium 2.6 mmol/L Low 3.5-5.0 15 Anion Gap 8 mmol/L N 2-11 CBC Auto Diff 07/03/2018 [facility] White Blood 6.5 10^3/uL N 3.5-10.[address] [place] [address] [phone] Red Blood Count 3.57 10^6/uL Low 3.70-4.87 [...] % 0 Iron & Iron Binding 07/03/2018 [facility] Iron 27 g/dL Low 50-[address] [place] [address] [phone] Unsaturated Iron Binding < 222 g/dL Total Iron Binding Capacity 237 g/dL Low 250-450 Transferrin 169 mg/dL Low 203-362 % Iron Saturation 11 % Low 15-55 Laboratory test 07/03/2018 [facility] Ferritin 296.8 N 11-[address] ng/[place] [address] [phone] Protime W/ Inr 06/25/2018 Other Rendering Inr 1.9 Protime W/ Inr 06/22/2018 Other Rendering Inr 1.9 Protime W/ Inr 06/14/2018 Other Rendering Inr 2.3 Protime W/ Inr 06/11/2018 Other Rendering Inr 2.5 Protime W/ Inr 06/08/2018 Other Rendering Inr 2.1 Protime W/ Inr 06/06/2018 [facility] Prothrombin Time 21.0 Inr 1.7 Laboratory test 05/23/2018 [facility] Troponin-I 0.04 ng/mL High <0.04 [address] (TnI) [place] [address] [phone] Potassium Redraw 3.7 mmol/L N 3.5-5.0 Ast Redraw 91 U/L High 13-39 LDH 1946 U/L High 140-271 Laboratory test 05/23/2018 [facility] Blood Culture SEE RESULT [address] [place] [address] [phone] Stool Occult 05/23/2018 [facility] Stool Occult SEE RESULT 18 Blood Diag [address] Blood, [place] [address] [phone] CBC Auto Diff 05/23/2018 [facility] White Blood 9.2 10^3/uL N 3.5-[address] Count .8 [place] [address] [phone] Red Blood Count 2.86 10^6/uL Low 4.00-5.40 [...] Red Blood Cells % 0.3 Inr/Protime 05/23/2018 [facility] Inr 3.85 High 0.77-1.[address] [place] [address] [phone] Laboratory test 05/23/2018 [facility] Partial 35.0 N 26.0- 36.[address] [place] [address] Time PTT [phone] B-Type Natriuretic Peptide BNP 303 pg/mL High <=100 Comp Metabolic Panel 05/23/2018 [facility] Sodium 138 mmol/L N 135-[address] [place] [address] [phone] Chloride 101 mmol/L N 101-111 Co2 Carbon [...] TNP U/L 13-39 21 Laboratory test 05/23/2018 [facility] Troponin-I 0.04 ng/mL High <0.04 [address] (TnI) [place] [address] [phone] Lactic Acid 2.5 mmol/L High 0.5-2.0 23 C Reactive Protein 14.72 mg/L High <8.01 LDH TNP U/L 140-271 Haptoglobin <14 mg/dL Abnormal 30 - 200 24 Urine Culture And 05/23/2018 [facility] Urine Culture SEE RESULT [address] [place] [address] [phone] Ua Routine 05/23/2018 [facility] Ua Specific 1.000 [place] Ua PH 5 Ua Color brown Ua Appera cloudy Ua WBC trace Ua Protein +30 Ua Glucose neg Ua Ketones neg Ua Bilirubin Positive + Ua Urobilinogen neg Ua Nitrite neg Ua Occult Blood 250 Protime W/ Inr 05/17/2018 [facility] Prothrombin Time 37.3 Inr 3.1 CBC No Diff 05/08/2018 [facility] White Blood 7.4 10^3/uL N 3.5-10.[address] [place] [address] [phone] Red Blood Count 4.59 10^6/uL N 4.00-5.40 [...] N 7.4-10.4 Iron & Iron Binding 05/08/2018 [facility] Iron 42 g/dL Low 50-[address] [place] [address] [phone] Unsaturated Iron Binding < 342 g/dL Total Iron Binding Capacity 357 g/dL N 250-450 Transferrin 255 mg/dL N 203-362 % Iron Saturation 12 % Low 15-55 Laboratory test 05/08/2018 [facility] Ferritin 255.4 ng/mL N 11-[address] [place] [address] [phone] Protime W/ Inr 05/04/2018 Other Rendering Inr 2.4 Protime W/ Inr 04/27/2018 Other Rendering Inr 2.7 Protime W/ Inr 04/20/2018 Other Rendering Inr 1.8 Protime W/ Inr 04/13/2018 Other Rendering Inr 2.2 CBC Auto Diff 04/06/2018 [facility] White Blood 7.1 10^3/uL N 3.5-10.[address] [place] [address] [phone] Red Blood Count 3.19 10^6/uL Low 4.00-5.40 [...] fL N 7.4-10.4 Comp Metabolic Panel 04/06/2018 [facility] Sodium 141 mmol/L N 135-[address] [place] [address] [phone] Potassium 3.7 mmol/L N 3.5-5.0 Chloride 102 [...] Egfr 52.4 >60 26 Laboratory test 04/06/2018 [facility] C Reactive 25.90 mg/L High <8.[address] [place] [address] [phone] Manual 04/06/2018 [facility] Neutrophil % 79 % Differential [address] [place] [address] [phone] Lymphocytes % 11 % Monocytes % 6 % Eosinophils % 1 % Basophil % 2 % Variant Lymph % 1 % N 0-6 Polychromasia 1+ Anisocytosis 1+ Abs Neutrophils 5.6 10^3/uL N 1.5-7.7 Abs Lymphocytes 0.85 10^3/uL Low 1.0-4.8 Abs Monocytes 0.43 10^3/uL N 0-0.8 Abs Eosinophils 0.07 10^3/uL N 0-0.6 Abs Basophils 0.15 10^3/uL N 0-0.2 Laboratory test 04/06/2018 [facility] Blood Culture SEE RESULT [address] [place] [address] [phone] Pathologist Review (SEE NOTE) 28 Basic Metabolic Panel 04/02/2018 [facility] Sodium 142 mmol/L N 135-[address] [place] [address] [phone] Potassium 3.2 mmol/L Low 3.5-5.0 Chloride 100 mmol/L Low 101-111 Co2 Carbon Dioxide 33 mmol/L High 22-32 Anion Gap 9 mmol/L N 2-11 Glucose 87 mg/dL N 70-100 Blood Urea Nitrogen 9 mg/dL N 6-24 Creatinine 0.71 mg/dL N 0.51-0.95 BUN/Creatinine Ratio 12.7 N 8-20 Calcium 8.6 mg/dL N 8.6-10.3 Egfr Non- 83.1 >60 Egfr 100.6 >60 30 CBC Auto Diff 04/02/2018 [facility] White Blood 7.4 10^3/uL N 3.5-10.[address] [place] [address] [phone] Red Blood Count 3.13 10^6/uL Low 4.00-5.40 [...] Rendering Inr 1.4 CBC Auto Diff 03/26/2018 [facility] White Blood 7.4 10^3/uL N 3.5-10.[address] [place] [address] [phone] Red Blood Count 2.99 10^6/uL Low 4.00-5.40 [...] Cells % 0 Comp Metabolic Panel 03/26/2018 [facility] Sodium 142 mmol/L N 135-[address] [place] [address] [phone] Potassium 3.6 mmol/L N 3.5-5.0 Chloride 105 [...] Egfr 111.4 >60 32 Laboratory test 03/26/2018 [facility] C Reactive 24.98 mg/L High <8.01 [address] [place] [address] [phone] Arterial Blood 02/25/2018 [facility] O2 Device 2l NC Gas [address] [place] [address] [phone] PH Arterial 7.43 N 7.35-7.45 Pco2 Arterial 35 mmHg N 35-45 Po2 Arterial 109 mmHg High 80-100 O2 Saturation Arterial 99.2 % High 95-98 Base Excess Arterial -0.7 N -2.0-2.0 34 Hco3 Arterial 24.4 mmol/L N 19-31 Rapid Influenza 02/25/2018 [facility] Influenza A NEGATIVE Negative 35 A & B Molecular [address] [place] [address] [phone] Influenza B Molecular NEGATIVE Negative Laboratory test 02/25/2018 [facility] Rapid Influenza SEE RESULT [address] [place] [address] [phone] Laboratory test 02/25/2018 [facility] B-Type 122 pg/mL High <= [address] [place] [address] Peptide BNP [phone] Comp Metabolic 02/25/2018 [facility] Sodium 131 mmol/L Low 135 -[address] [place] [address] [phone] Potassium 3.5 mmol/L N 3.5-5.0 Chloride 94 [...] Egfr 46.3 >60 37 Laboratory test 02/25/2018 [facility] Creatine 708 U/L High 10 -[address] Kinase(CK) [place] [address] [phone] C Reactive Protein 437.89 mg/L High <8.01 Troponin-I (TnI) 0.80 ng/mL High <0.04 38 Inr/Protime 02/25/2018 [facility] Inr 1.02 N 0.77-1.[address] [place] [address] [phone] Laboratory test 02/25/2018 [facility] Partial 26.0 seconds N 26.0-36.[address] [place] [place] [address] PTT [phone] CBC Auto Diff 02/25/2018 [facility] White Blood 8.8 10^3/uL N 3.5-10.[address] [place] [address] [phone] Red Blood Count 4.57 10^6/uL N 4.00-5.40 Hemoglobin 13.8 g/dL N 12.0-16.0 Hematocrit 41 % N 35-47 Mean Corpuscular Volume 90 fL N 80-97 Mean Corpuscular Hemoglobin 30 pg N 27-31 Mean Corpuscular HGB Conc 34 g/dL N 31-36 Red Cell Distribution Width 13 % N 10.5-15 Platelet Count 109 10^3/uL Low 150-450 Mean Platelet Volume 7.7 fL N 7.4-10.4 Manual Differential 02/25/2018 [facility] Immature 11 % High 0 -[address] [place] [address] [phone] Platelet Morphology (SEE NOTE) 39 Neutrophil % 83 % Band % 11 % High 0-8 Lymphocytes % 4 % Monocytes % 2 % RBC Morphology Normal Normal Laboratory test 02/25/2018 [facility] Procalcitonin 16.9 ng/mL High <0.6 [address] [place], [place] [address] [phone] Urinalysis 02/25/2018 [facility] Urine Color Betty Profile [address] [place] [address] [phone] Urine Appearance Cloudy Urine Specific [place] 1.024 N 1.010-1.030 Urine pH 5.0 N [...] Casts Present Abnormal Absent Laboratory test 02/25/2018 [facility] Lactic Acid 2.2 mmol/L High 0.5-2.0 [address] [place] [address] [phone] Amylase 57 U/L N 29-103 Lipase 166 U/L High 11.0-82.0 Blood Culture SEE RESULT BELOW 42 Pathologist Review (SEE NOTE) 43 Urine Culture And 02/24/2018 [facility] Urine SEE RESULT 44 , [address] [place] [address] [phone] Poc Urinalysis 02/24/2018 [facility] Poc Negative Negative [address] Glucose, [place] [address] Urine [phone] Poc Bilirubin, Urine 1+ Abnormal Negative Poc Ketone, Urine Negative Negative Poc Specific [place], Urine >=1.030 N 1.010-1.030 Poc Blood, Urine 3+ Abnormal Negative Poc pH, Urine 5.5 N 5-9 Poc Protein, Urine 3+ Abnormal Negative Poc Urobilinogen, Urine 1.0 Negative Poc Nitrite, Urine Positive Abnormal Negative Poc Leukocytes, Urine Negative Negative Poc Color, Urine Betty Poc Clarity, Urine Clear 46 Rapid Influenza 02/24/2018 [facility] Influenza A NEGATIVE Negative 47 A & B Molecular [address] [place] [address] [phone] Influenza B Molecular NEGATIVE Negative Laboratory test 07/24/2017 [facility] MRSA/S. SEE RESULT 48 , [address] [place] [address] PCR [phone] Wound 07/24/2017 [facility] Wound/Misc SEE RESULT 50 Culture/Sensi [address] [place] [address] Stain [phone] Comp Metabolic 07/05/2017 [facility] Sodium 139 mmol/L N 139- [address] [place] [address] [phone] Potassium 3.8 mmol/L N 3.5-5.0 Chloride 101 [...] 105.2 >60 51 CBC Auto Diff 07/05/2017 [facility] White Blood 7.2 10^3/uL N 3.5-10.[address] [place] [address] [phone] Red Blood Count 4.45 10^6/uL N 4.0-5.4 [...] Blood Cells % 0 Laboratory test 12/19/2016 [facility] Surgical Interface SEE RESULT 52, [address] [place] [address] [phone] Lipid Profile 07/07/2016 [facility] Triglycerides 152 mg/dL N 54 (Trig/Chol/HDL) [address] [place] [address] [phone] Cholesterol 285 mg/dL N 55 HDL Cholesterol 69.7 mg/dL N 56 LDL Cholesterol 185 mg/dL N 57 Laboratory test 07/07/2016 [facility] TSH (Thyroid 2.06 mcIU/mL N 0.34-5.60 [address] Stim [place]orm) [place] [address] [phone] Vitamin B12 421 pg/mL N 180-914 59 CBC Auto Diff 07/07/2016 [facility] White Blood 6.9 10^3/uL N 3.5-10.[address] [place] [address] [phone] Red Blood Count 4.77 10^6/uL N 4.0-5.4 [...] % 0 N Comp Metabolic Panel 07/07/2016 [facility] Sodium 137 mmol/L N 133-[address] [place] [address] [phone] Potassium 4.2 mmol/L N 3.5-5.0 Chloride 100 [...] >60 Egfr 123.1 N >60 60 1 [facility] Severe Sepsis and Septic Shock Management Bundle Measure requires all lactic acids initially measuring >2.0 mmol/L be repeated. 2 Because ethnic data is not always readily [...] 15-29 5 Kidney failure <15 (or dialysis) 3 Desirable: <150 Borderline High: 150-199 High: 200-499 Very High: >500 4 Desirable: <200 Borderline High: 200-239 High: >239 5 Low: <40 Desirable: 40-60 High: >60 6 Desirable: <100 Near Optimal: 100-129 Borderline High: 130-159 High: 160-189 Very High: >189 7 Result TnIDx:0.05 Called to [id number] at: 23:38:03 by:[id number] Read back by: [id number] Troponin-I testing on Plasma Separator Tubes (PST) has a known false positive rate of 0.20-0.40%. All positive troponins reflex immediate secondary confirmatory testing. 8 SEE RESULT BELOW Name: TERESA RESENDIZ : [address]: Mauricio Tao MD Acct: [id number] Unit: [id number] AGE: 63 Location: ED Re07/13/18 SEX: F Status: DEP ER SPEC: [id number] DOUGIE: 07/14/[address]: Mauricio Tao MD REQ: [id number] RECD: 07/14/18 STATUS: CHELLY AHUJA DR: Placido Fall MD _ SOURCE: URINE SPDESC: ORDERED: Urine Culture Procedure Result Reported Site Urine Culture Final 07/15/18- 0909 ML No Growth (<1,000 CFU/mL) * ML - Main Lab . END OF REPORT DEPARTMENT OF PATHOLOGY, [address] [place] [address] Fidel Matthew M.D. Director [facility] # [id number] 9 Car Hostler: [id number] ordered-june 05, 2018 expires-december 06 2018 11 Consistent with Previous Results Reported on 07/03/18 12 15-20 for HCAP, VAP, +++Osteomyelitis, Endocarditis, Meningitis 10-15 for All Other Infections 13 CRITICAL RESULTS CALLED AND MESSAGE LEFT TO CALL BACK AT 1309 ordered-june 05, 2018 expires-december 06 2018 14 Because ethnic data is not always readily [...] 15-29 5 Kidney failure <15 (or dialysis) 15 Critical Result K:2.6 Called to WEI NEVILLE at: 14:17:07 by:[id number] Read back by:WEI NEVILLE 16 Result TnIDx:0.04 Called to [id number] at: 17:03:46 by:[id number] Read back by: [id number] Troponin-I testing on Plasma Separator Tubes (PST) has a known false positive rate of 0.20-0.40%. All positive troponins reflex immediate secondary confirmatory testing. 17 SEE RESULT BELOW Name: TERESA RESENDIZ : [address]: Miek Little MD Acct: [id number] Unit: [id number] AGE: 63 Location: ED Re05/23/18 SEX: F Status: DEP ER SPEC: [id number] DOUGIE: 05/23/[address]: Lamar Crowe MD REQ: [id number] RECD: 05/23/18 STATUS: CHELLY AHUJA DR: Mike Macias SHIP KEEPER _ SOURCE: BLOOD,VENO SPDESC: ORDERED: Blood Cult Procedure Result Reported Site Aerobic Culture Bottle Final 05/28/18- 1635 ML No Growth Day 5 Anaerobic Culture Bottle Final 05/28/18- 1635 ML No Growth Day 5 * ML - Main Lab . END OF REPORT DEPARTMENT OF PATHOLOGY, [address] [place] [address] Fidel Matthew M.D. Director [facility] # [id number] 18 SEE RESULT BELOW Name: TERESA RESENDIZ : [address]: Mike Little MD Acct: [id number] Unit: [id number] AGE: 63 Location: ED Re05/23/18 SEX: F Status: REG ER SPEC: [id number] DOUGIE: 05/23/18-[address] [facility] [address]: Mike Little MD REQ: [id number] RECD: 05/23/18 STATUS: CHELLY AHUJA DR: Placido Macias SHIP KEEPER _ SOURCE: STOOL SPDESC: ORDERED: Occult Bl, Diag Procedure Result Reported Site Stool Occult Blood (1) Final 05/23/18- 1441 ML Stool Occult Blood Negative * ML - Main Lab . END OF REPORT DEPARTMENT OF PATHOLOGY, [address] [place] [address] Fidel Matthew M.D. Director [facility] # [id number] 19 Because ethnic data is not always [...] to hemolysis. 22 Result TnIDx:0.04 Called to [id number] at: 13:47:14 by:[id number] Read back by: [id number] Troponin-I testing on Plasma Separator Tubes (PST) has a known false positive rate of 0.20-0.40%. All positive troponins reflex immediate secondary confirmatory testing. 23 Critical Result LACT:2.5 Called to [id number] at: 13:56:12 by:[id number] Read back by:[id number] [facility] Severe Sepsis and Septic Shock Management Bundle Measure requires all lactic acids initially measuring >2.0 mmol/L be repeated. 24 Test Performed by: [facility] [address] [place] [address] 25 SEE RESULT BELOW Name: TERESA RESENDIZ : [address]: Carolyn Crawford MD Acct: [id number] Unit: [id number] AGE: 63 Location: [facility] Re05/23/18 SEX: F Status: REG REF SPEC: [id number] DOUGIE: 05/23/18-[address] [facility] [address]: Carolyn Crawford MD REQ: [id number] RECD: 05/23/18321 STATUS: COMP _ SOURCE: URINE [facility]: ORDERED: Urine Culture COMMENTS: [id number] Urine Source: Random Procedure Result Reported Site Urine Culture Final 05/24/18- 1605 ML No Growth (<1,000 CFU/mL) * ML - Main Lab . END OF REPORT DEPARTMENT OF PATHOLOGY, [address] [place] [address] Fidel Matthew M.D. Director [facility] # [id number] 26 Because ethnic data is not always [...] [address]: Jennifer Downing DO Acct: [id number] Unit: [id number] AGE: 62 Location: [facility] Re04/06/18 SEX: F Status: REG REF SPEC: [id number] DOUGIE: 04/06/[address] [facility] [address]: Jennifer Downing DO REQ: [id number] RECD: 04/06/18 STATUS: RES MINA DR: Karthikeyan Nunez, _ SOURCE: BLOOD,VENO SPDES: ORDERED: Blood Cult Procedure Result Reported Site Aerobic Culture Bottle Preliminary 04/10/18- 1514 ML No Growth Day 4 Anaerobic Culture Bottle Final 04/11/18- 1511 ML No Growth Day 5 * ML - Main Lab . END OF REPORT DEPARTMENT OF PATHOLOGY, [address] [place] [address] Fidel Matthew M.D. Director [facility] # [id number] 28 Moderate normocytic anemia noted. Additional studies as clinically warranted. Reviewed by Dr. Matthew 29 [id number] 30 Because ethnic data is not always [...] (or dialysis) 31 PLEASE FAX COPY TO [employer] [phone] DR JENNIFER DOWNING PHONE # [phone] 32 Because ethnic data is not always [...] (or dialysis) 33 PLEASE FAX COPY TO [email or web address] [phone] DR JENNIFER DOWNING PHONE # [phone] 34 Reference ranges based on room air. 35 Car Hostler: [id number] 36 SEE RESULT BELOW Name: TERESA RESENDIZ : [address]: Robin Robledo MD Acct: [id number] Unit: [id number] AGE: 62 Location: ED Re02/25/18 SEX: F Status: REG ER SPEC: [id number] DOUGIE: 02/25/[address] [facility] [address]: Robin Robledo MD REQ: [id number] RECD: 02/25/18 STATUS: CHELLY AHUJA DR: Placido Macias SHIP KEEPER _ SOURCE: NASAL SPDESC: ORDERED: Flu A B Request Procedure Result Reported Site Rapid Influenza A B Request Final 02/25/18916 ML Specimen received for Influenza A/B Molecular testing * ML - Main Lab . END OF REPORT DEPARTMENT OF PATHOLOGY, [address] [place] [address] Fidel Matthew M.D. Director [facility] # [id number] 37 Because ethnic data is not always [...] (or dialysis) 38 Result TnIDx:0.80 Called to [id number] at: 09:12:51 by:[id number] Read back by: [id number] Troponin-I testing on Plasma Separator Tubes (PST) has a known false positive rate of 0.20-0.40%. All positive troponins reflex immediate secondary confirmatory testing. 39 VACUOLATED NEUTROPHILS SEEN ON SMEAR 40 Interpretive information available on [employer] Lab Test Catalog at [email or web address] 41 Critical Result LACT:2.2 Called to [id number] at: 09:28:02 by:[id number] Read back by:[id number] [facility] Severe Sepsis and Septic Shock Management Bundle Measure requires all lactic acids initially measuring >2.0 mmol/L be repeated. 42 SEE RESULT BELOW Name: TERESA RESENDIZ : [address]: Alonso Prado MD Acct: [id number] Unit: [id number] AGE: 62 Location: ICU [id number] Re02/25/18 SEX: F Status: ADM IN SPEC: [id number] DOUGIE: 02/25/[address] [facility] [address]: Robin Robledo MD REQ: [id number] RECD: 02/25/18 STATUS: CHELLY AHUJA DR: Placido Macias SHIP KEEPER _ SOURCE: BLOOD,VENO SPDESC: ORDERED: Blood Cult COMMENTS: Verbal to [id number] by [id number] at 2320 on 02/25/18. Results read back [...] These antibiotics are not available in the [facility] Formulary Contact the Microbiology Department for any additional antibiotic reporting. Anaerobic Culture Bottle Final 02/27/18837 ML CONTINUED ON NEXT PAGE DEPARTMENT OF PATHOLOGY, [address] [place] [address] Fidel Matthew M.D. Director [facility] # [id number] Patient: TERESA RESENDIZ [id number] (Continued) Specimen: [id number] Collected: 02/25/18 Received: 02/25/18 (Continued) Procedure Result Reported Site Anaerobic Culture Bottle Final (continued) 02/27/18- 837 Anaerobic Btl Gram Stain Gram Positive Cocci resembling Staph Organism 1 STAPHYLOCOCCUS AUREUS#2 Please refer to [id number] culture AEROBIC bottle for sensitivity testing. * ML - Main Lab . END OF REPORT DEPARTMENT OF PATHOLOGY, [address] [place] [address] Fidel Matthew M.D. Director [facility] # [id number] 43 Moderate thrombocytopenia noted. No schistocytes or blasts identified. Additional studies as clinically warranted. Reviewed by Dr. Matthew 44 [id number] 45 SEE RESULT BELOW Name: MARTÍNTERESA : [address]: Jennifer Ty MD Acct: [id number] Unit: [id number] AGE: 62 Location: [facility] Re02/24/18 SEX: F Status: DEP ER SPEC: [id number] DOUGIE: 02/24/[address] [facility] [address]: Nataliia Hardy NP REQ: [id number] RECD: 02/24/18578 STATUS: CHELLY AHUJA DR: [facility] Placido Macias SHIP KEEPER _ SOURCE: URINE SPDESC: ORDERED: Urine Culture COMMENTS: [id number] Procedure Result Reported Site Urine Culture Final 02/26/18- 0832 ML Organism 1 STAPHYLOCOCCUS AUREUS [place] Count >100,000 (Many) CFU/ML 1. STAPHYLOCOCCUS AUREUS [...] These antibiotics are not available in the [facility] Formulary Contact the Microbiology Department for any additional antibiotic reporting. * - Main Lab . END OF REPORT DEPARTMENT OF PATHOLOGY, [address] [place] [address] Fidel Matthew M.D. Director [facility] # [id number] 46 Car Hostler: [id number] Car Hostler: [id number] 49 SEE RESULT BELOW Name: TERESA RESENDIZ : [address]: Fredy Holbrook MD Acct: [id number] Unit: [id number] AGE: 62 Location: [facility] Re07/24/17 SEX: F Status: DEP ER SPEC: [id number] DOUGIE: 07/24/17-[address]: Davis GARAY REQ: [id number] RECD: 07/25/17 STATUS: CHELLY AHUJA DR: Fredy Macias SHIP KEEPER _ SOURCE: BACK SPDESC: ORDERED: MRSA/SA SSTI, Culture Stain COMMENTS: [id number] Procedure Result Reported Site MRSA/S. aureus SSTI [...] . END OF REPORT DEPARTMENT OF PATHOLOGY, [address] [place] [address] Fidel Matthew M.D. Director [facility] # [id number] 50 SEE RESULT BELOW Name: TERESA RESENDIZ : [address]: Fredy Holbrook MD Acct: [id number] Unit: [id number] AGE: 62 Location: [facility] Re07/24/17 SEX: F Status: DEP ER SPEC: [id number] DOUGIE: 07/24/17-[address] [facility] [address]: Davis GARAY REQ: [id number] RECD: 07/25/17 STATUS: RES MINA DR: Fredy Macias SHIP KEEPER _ SOURCE: BACK SPDESC: ORDERED: MRSA/SA SSTI, Culture Stain COMMENTS: [id number] Procedure Result Reported Site MRSA/S. aureus SSTI PCR PENDING Wound/Misc Gram Stain Final 07/25/17- 1158 ML 2+ Neutrophils Possible 1+ Gram Positive Cocci Wound/Misc Culture PENDING * ML - Main Lab . END OF REPORT DEPARTMENT OF PATHOLOGY, [address] [place] [address] Fidel Matthew M.D. Director [facility] # [id number] 51 Because ethnic data is not always [...] 5 Kidney failure <15 (or dialysis) 52 [id number] 53 SEE RESULT BELOW Name: TERESA RESENDIZ : [address]: Angela Langston MD Acct: [id number] Unit: [id number] AGE: 61 Location: [facility] Re12/19/16 SEX: F Status: DEP REF SPEC: [id number] DOUGIE: 12/19/[address] [facility] [address]: Angela Langston MD REQ: [id number] RECD: 12/19/16 STATUS: AKHIL AHUJA DR: Placido Macias SHIP KEEPER _ ORDERED: LEVEL 4 COMMENTS: [id number] FINAL DIAGNOSIS Colon, ascending, biopsy: -- Tubular [...] performed at Main Lab DEPARTMENT OF PATHOLOGY, [address] [place] [address] Fidel Matthew M.D. Director [facility] # [id number] 54 Desirable <150 Borderline high 150-199 High [...] dialysis) Procedures Date Code Description Status 07/20/2018 96294 EKG Tracing & Interpretation Completed 07/05/2018 49700 Pace Maker Eval W/Iterative Adjment Dual Lead Completed 07/05/2018 65060 Pace Maker Eval W/Iterative Adjment Dual Lead Completed 07/04/2018 90508 EKG Tracing & Interpretation Completed 05/23/2018 07342 ECHO Transthorasic Realtime 2D W Doppler & Color Flow Completed Hosp 05/23/2018 35680 ECHO Transthoracic, Real-Time 2D With Doppler And Completed Color Flow 04/24/2018 59148 EKG Tracing & Interpretation Completed 02/27/2018 21710 Echocardiography, Transesophageal, Real Time W/Image Completed 2D W/W/O M-M 02/27/2018 57349 Pulse Wave/Continuous-Interp.RPT Completed 02/27/2018 13152 Color Flow Doppler/Interp & Reprt Completed 02/27/2018 22362 Moderate Sedation Services; Same Phys Intl 15 Mins; PT Completed >=5 Years 02/26/2018 44878 ECHO Transthorasic Realtime 2D W Doppler & Color Flow Completed Hosp 11/01/2017 14020926 Mammogram Completed 07/07/2017 82069 EKG Tracing & Interpretation Completed 12/19/2016 64840 Moderate Sedation Services; Same Phys Intl 15 Mins; PT Completed >=5 Years 12/19/2016 17406 Colonoscopy Flexible W/Biopsy Completed 12/19/2016 45892087 Colonoscopy Completed 07/13/2016 63788094 Mammogram Completed 06/29/2016 317042133 Diabetic Retinal Eye Exam Completed Encounters Type Date Location Provider Dx Diagnosis Office Visit 07/20/2018 Cardiology Karthikeyan Martin Z95.2 Presence of 10:30a Services Of Alberto Franco M.D., prosthetic heart [place] FACC, FASNC valve Office Visit 07/09/2018 [facility] Internal Placido Macias NP I10 Essential (primary ) 8:40a Medicine hypertension F32.89 Other specified depressive episodes D64.9 Anemia, unspecified Z95.2 Presence of prosthetic heart valve Z79.01 assisted (current) use of anticoagulants Office Visit 07/04/2018 1:15p [facility] Karthikeyan Martin 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 Alberto Franco M.D., prosthetic heart FACC, FASNC valve Office Visit 06/06/2018 11:40a [facility] Internal Placido Macias Z95.2 Presence of Medicine SHIP KEEPER prosthetic heart valve D59.9 Acquired hemolytic anemia, unspecified Z79.01 oven dumper (current) use of anticoagulants F32.89 Other specified depressive episodes Office Visit 05/23/2018 8:35a [facility] Lamar Crowe, R06.02 Shortness of Assoc,daxa Gates breath Hospitalists R31.9 Hematuria, unspecified Office Visit 05/23/2018 11:00a [facility] Internal Carolyn Ty, R31.9 Hematuria, Medicine MD unspecified R17 Unspecified jaundice R06.02 Shortness of breath Office Visit 04/24/2018 2:00p [facility] Karthikeyan Martin 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 Alberto Franco M.D., prosthetic heart FACC, FASNC valve R07.9 Chest pain, unspecified Z79.01 oven dumper (current) use of anticoagulants Office Visit 04/23/2018 9:00a [place] Chan Alexander Z95.2 Presence of Neurologic M.D. 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 Office Visit 03/29/2018 1:40p [facility] Internal Placido Gilberto, I63.9 Cerebral Medicine SHIP KEEPER infarction, unspecified R65.21 Severe sepsis with septic shock Z95.2 Presence of prosthetic heart valve R47.02 Dysphasia M54.5 Low back pain Office Visit 02/28/2018 [facility] Claudia Patel63.Moris Cerebral 7:00a Clinic Yajaria Garcia infarction, unspecified I33.0 Acute and subacute infective [...] kidney failure, unspecified [facility] I[facility].443 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 infarction, [...] 8:27a MD infarction, unspecified Office Visit 01/08/2018 [facility] Internal Placido Macias SHIP KEEPER I10 Essential 8:40a Medicine (primary) hypertension F32.89 Other specified depressive episodes R06.83 Snoring R53.83 Other fatigue Z23 Encounter for immunization Office Visit 07/07/2017 9:20a [facility] Internal Placidogio Macias, Z01.818 Encounter for other Medicine SHIP KEEPER preprocedural examination M25.511 Pain in right shoulder I10 Essential (primary) hypertension H81.10 Benign paroxysmal vertigo, unspecified ear Office Visit 01/02/2017 10:20a [facility] Internal Placido Gilberto, F32.89 Other specified Medicine SHIP KEEPER depressive episodes E78.5 Hyperlipidemia, unspecified Z23 Encounter for immunization Office Visit 09/19/2016 8:40a [facility] Internal Placido Gilberto, F32.89 Other specified Medicine SHIP KEEPER depressive episodes I10 Essential (primary) hypertension Office Visit 07/25/2016 9:00a [facility] Internal Placido Gilberto, F32.89 Other specified Medicine SHIP KEEPER depressive episodes Office Visit 07/01/2016 11:00a [facility] Internal Placido Gilberto, R53.83 Other fatigue Medicine SHIP KEEPER Z12.31 Encntr screen mammogram for malignant neoplasm of breast Z13.220 Encounter for screening for lipoid disorders Z12.11 Encounter for screening for malignant neoplasm of colon Plan of Treatment Future Appointment(s):10/10/2018 1:00 pm - Karthikeyan Franco M.D., FACC, FASNC at [facility]10/01/2018 1:30 pm - Traveling ECHO 1 at [facility]08/07/2018 9:20 am - Placido Macias NP at [facility] 9:00 am - Placido Macias NP at [facility]10/22/2018 10:45 am - Chan Alexander M.D. at [facility]07/20/2018 - Karthikeyan Franco M.D., [facility], UGSPDJ51.2 Presence of prosthetic heart valveComments: As discussed, you may start cardiac rehab. Please follow up with Dr. Alexander of neurology.Follow up:after echo as prior ordered at last OV. Please give pt excuse letter I printed for her today.
--- OUTSIDE RECORDS SUMMARY | 2018-08-12 07:50 | XMS REPORT | Continuity of Care Document ---
:1955 External Reference #:[id number] Author Name Val Pereira Care Team Providers Name Role Phone Maci Magaña MD Primary Care Physician Unavailable Payers Date Identification Numbers Payment Provider Subscriber Policy Number: [id number] [employer] Teresa Resendiz PayID: [id number] [address] [address] [place] [address] Advance Directives Description No Information Available Problems [...] 04/23/2018 endocarditis Chest pain Karthikeyan Franco M.D., [facility], Onset: 04/24/2018 [facility] Family History Date Family Member(s) Observation Comments Father due to ID () - 44 Mother brain tumor Mother [...] CPT Code Status Date Vaccine Lot # [id number] Given 01/08/2018 Influenza Virus Vaccine, Quadrivalent, Split, [id number] Preservative Free [id number] Given 01/02/2017 Influenza Virus Vaccine, Quadrivalent, Split, [...] Rendering Inr 2.3 Protime W/ Inr 07/23/2018 [facility] Prothrombin Time 24.3 Inr 2.0 Protime W/ Inr 07/19/2018 [facility] Prothrombin Time 16.9 Inr 1.5 Laboratory test 07/13/2018 [facility] Lactic Acid 1.0 mmol/L N 0.5-2.0 [address] [place] [address] [phone] Laboratory test 07/13/2018 [facility] Point of 121 mg/dL High 70-100 [address] [address] [phone] Urine Culture And 07/13/2018 [facility] Urine SEE RESULT [address] [address] [phone] Comp Metabolic 07/13/2018 [facility] Sodium 139 mmol/L N 135- [address] [place] [address] [phone] Potassium 3.2 mmol/L Low 3.5-5.0 Chloride 101 [...] Egfr 47.0 >60 4 Lipid Profile 07/13/2018 [facility] Triglycerides 140 mg/dL 5 (Trig/Chol/HDL) [address] [place] [address] [phone] Cholesterol 164 mg/dL 6 HDL Cholesterol 51.6 mg/dL 7 LDL Cholesterol 84 mg/dL 8 Urinalysis Profile 07/13/2018 [facility] Urine Color Yellow [address] [place] [address] [phone] Urine Appearance Cloudy Urine Specific [place] 1.021 N 1.010-1.030 Urine pH 5.0 N 5-9 Urine Urobilinogen Negative Negative Urine Ketones Negative Negative Urine Protein Negative Negative Urine Leukocytes 1+ Abnormal Negative Urine Blood 3+ Abnormal Negative Urine Nitrite Negative Negative Urine Bilirubin Negative Negative Urine Glucose Negative Negative Urine White Blood Cell 1+(6-10/hpf) Abnormal Absent Urine Red Blood Cell 2+(6-10/hpf) Abnormal Absent Urine Bacteria Absent Absent Laboratory test 07/13/2018 [facility] Troponin-I (TnI) 0.05 ng/ mL High <0.04 9 finding [address] [place] [address] [phone] Protime W/ Inr 07/09/2018 [facility] Prothrombin Time 24.0 Inr 2.0 Comp Metabolic Panel 07/09/2018 [facility] Sodium 144 mmol/L N 135-145 [address] [place] [address] [phone] Chloride 102 mmol/L N 101-111 Co2 Carbon [...] N 2-11 Iron & Iron Binding 07/09/2018 [facility] Iron 31 g/dL Low 50-[address] [place] [address] [phone] Unsaturated Iron Binding < 237 g/dL Total Iron Binding Capacity 252 g/dL N 250-450 Transferrin 180 mg/dL Low 203-362 % Iron Saturation 12 % Low 15-55 Laboratory test 07/09/2018 [facility] Vancomycin Random 15.4 g /mL [address] [place] [address] [phone] C Reactive Protein 19.95 mg/L High <8.01 13 CBC Auto Diff 07/09/2018 [facility] White Blood 5.9 10^3/uL N 3.5-10.[address] [place] [address] [phone] Red Blood Count 3.67 10^6/uL Low 3.70-4.87 [...] Blood Cells % 0 Laboratory test 07/09/2018 [facility] Erythrocyte Sed 86 mm/Hr High 0-29 [address] [place] [address] [phone] CBC Auto Diff 07/03/2018 [facility] White Blood 6.5 N 3.5- 10.[address] Count 10^3/[place] [address] [phone] Red Blood Count 3.57 10^6/uL Low 3.70-4.87 [...] % 0 Iron & Iron Binding 07/03/2018 [facility] Iron 27 g/dL Low 50-[address] [place] [address] [phone] Unsaturated Iron Binding < 222 g/dL Total Iron Binding Capacity 237 g/dL Low 250-450 Transferrin 169 mg/dL Low 203-362 % Iron Saturation 11 % Low 15-55 Laboratory test 07/03/2018 [facility] Ferritin 296.8 N 11-[address] ng/[place] [address] [phone] Protime W/ Inr 06/25/2018 Other Rendering Inr 1.9 Protime W/ Inr 06/22/2018 Other Rendering Inr 1.9 Protime W/ Inr 06/14/2018 Other Rendering Inr 2.3 Protime W/ Inr 06/11/2018 Other Rendering Inr 2.5 Protime W/ Inr 06/08/2018 Other Rendering Inr 2.1 Protime W/ Inr 06/06/2018 [facility] Prothrombin Time 21.0 Inr 1.7 Laboratory test 05/23/2018 [facility] Troponin-I 0.04 ng/mL High <0.04 [address] (TnI) [place] [address] [phone] Potassium Redraw 3.7 mmol/L N 3.5-5.0 Ast Redraw 91 U/L High 13-39 LDH 1946 U/L High 140-271 Laboratory test 05/23/2018 [facility] Blood Culture SEE RESULT [address] [place] [address] [phone] Stool Occult 05/23/2018 [facility] Stool Occult SEE RESULT 18 Blood Diag [address] Blood, [place] [address] [phone] CBC Auto Diff 05/23/2018 [facility] White Blood 9.2 10^3/uL N 3.5-[address] Count .8 [place] [address] [phone] Red Blood Count 2.86 10^6/uL Low 4.00-5.40 [...] Red Blood Cells % 0.3 Inr/Protime 05/23/2018 [facility] Inr 3.85 High 0.77-1.[address] [place] [address] [phone] Laboratory test 05/23/2018 [facility] Partial 35.0 N 26.0- 36.[address] [place] [address] Time PTT [phone] B-Type Natriuretic Peptide BNP 303 pg/mL High <=100 Comp Metabolic Panel 05/23/2018 [facility] Sodium 138 mmol/L N 135-[address] [place] [address] [phone] Chloride 101 mmol/L N 101-111 Co2 Carbon [...] TNP U/L 13-39 21 Laboratory test 05/23/2018 [facility] Troponin-I 0.04 ng/mL High <0.[address] (TnI) [place] [address] [phone] Lactic Acid 2.5 mmol/L High 0.5-2.0 23 C Reactive Protein 14.72 mg/L High <8.01 LDH TNP U/L 140-271 Haptoglobin <14 mg/dL Abnormal 30 - 200 24 Urine Culture And 05/23/2018 [facility] Urine Culture SEE RESULT [address] [place] [address] [phone] Ua Routine 05/23/2018 [facility] Ua Specific 1.000 [place] Ua PH 5 Ua Color brown Ua Appera cloudy Ua WBC trace Ua Protein +30 Ua Glucose neg Ua Ketones neg Ua Bilirubin Positive + Ua Urobilinogen neg Ua Nitrite neg Ua Occult Blood 250 Protime W/ Inr 05/17/2018 [facility] Prothrombin Time 37.3 Inr 3.1 CBC No Diff 05/08/2018 [facility] White Blood 7.4 10^3/uL N 3.5-10.[address] [place] [address] [phone] Red Blood Count 4.59 10^6/uL N 4.00-5.40 [...] N 7.4-10.4 Iron & Iron Binding 05/08/2018 [facility] Iron 42 g/dL Low 50-[address] [place] [address] [phone] Unsaturated Iron Binding < 342 g/dL Total Iron Binding Capacity 357 g/dL N 250-450 Transferrin 255 mg/dL N 203-362 % Iron Saturation 12 % Low 15-55 Laboratory test 05/08/2018 [facility] Ferritin 255.4 ng/mL N 11-[address] [place] [address] [phone] Protime W/ Inr 05/04/2018 Other Rendering Inr 2.4 Protime W/ Inr 04/27/2018 Other Rendering Inr 2.7 Protime W/ Inr 04/20/2018 Other Rendering Inr 1.8 Protime W/ Inr 04/13/2018 Other Rendering Inr 2.2 CBC Auto Diff 04/06/2018 [facility] White Blood 7.1 10^3/uL N 3.5-10.[address] [place] [address] [phone] Red Blood Count 3.19 10^6/uL Low 4.00-5.40 [...] fL N 7.4-10.4 Comp Metabolic Panel 04/06/2018 [facility] Sodium 141 mmol/L N 135-[address] [place] [address] [phone] Potassium 3.7 mmol/L N 3.5-5.0 Chloride 102 [...] Egfr 52.4 >60 26 Laboratory test 04/06/2018 [facility] C Reactive 25.90 mg/L High <8.[address] [place] [address] [phone] Manual 04/06/2018 [facility] Neutrophil % 79 % Differential [address] [place] [address] [phone] Lymphocytes % 11 % Monocytes % 6 % Eosinophils % 1 % Basophil % 2 % Variant Lymph % 1 % N 0-6 Polychromasia 1+ Anisocytosis 1+ Abs Neutrophils 5.6 10^3/uL N 1.5-7.7 Abs Lymphocytes 0.85 10^3/uL Low 1.0-4.8 Abs Monocytes 0.43 10^3/uL N 0-0.8 Abs Eosinophils 0.07 10^3/uL N 0-0.6 Abs Basophils 0.15 10^3/uL N 0-0.2 Laboratory test 04/06/2018 [facility] Blood Culture SEE RESULT [address] [place] [address] [phone] Pathologist Review (SEE NOTE) 28 Basic Metabolic Panel 04/02/2018 [facility] Sodium 142 mmol/L N 135-[address] [place] [address] [phone] Potassium 3.2 mmol/L Low 3.5-5.0 Chloride 100 mmol/L Low 101-111 Co2 Carbon Dioxide 33 mmol/L High 22-32 Anion Gap 9 mmol/L N 2-11 Glucose 87 mg/dL N 70-100 Blood Urea Nitrogen 9 mg/dL N 6-24 Creatinine 0.71 mg/dL N 0.51-0.95 BUN/Creatinine Ratio 12.7 N 8-20 Calcium 8.6 mg/dL N 8.6-10.3 Egfr Non- 83.1 >60 Egfr 100.6 >60 30 CBC Auto Diff 04/02/2018 [facility] White Blood 7.4 10^3/uL N 3.5-10.[address] [place] [address] [phone] Red Blood Count 3.13 10^6/uL Low 4.00-5.40 [...] Rendering Inr 1.4 CBC Auto Diff 03/26/2018 [facility] White Blood 7.4 10^3/uL N 3.5-10.[address] [place] [address] [phone] Red Blood Count 2.99 10^6/uL Low 4.00-5.40 [...] Cells % 0 Comp Metabolic Panel 03/26/2018 [facility] Sodium 142 mmol/L N 135-[address] [place] [address] [phone] Potassium 3.6 mmol/L N 3.5-5.0 Chloride 105 [...] Egfr 111.4 >60 32 Laboratory test 03/26/2018 [facility] C Reactive 24.98 mg/L High <8.01 [address] [place] [address] [phone] Arterial Blood 02/25/2018 [facility] O2 Device 2l NC Gas [address] [place] [address] [phone] PH Arterial 7.43 N 7.35-7.45 Pco2 Arterial 35 mmHg N 35-45 Po2 Arterial 109 mmHg High 80-100 O2 Saturation Arterial 99.2 % High 95-98 Base Excess Arterial -0.7 N -2.0-2.0 34 Hco3 Arterial 24.4 mmol/L N 19-31 Laboratory test 02/25/2018 [facility] Rapid SEE RESULT [address] Influenza [place] [address] Antigen [phone] Laboratory test 02/25/2018 [facility] Creatine 708 U/L High 10 -[address] Kinase(CK) 3 [place] [address] [phone] C Reactive Protein 437.89 mg/L High <8.01 Troponin-I (TnI) 0.80 ng/mL High <0.04 36 Laboratory test 02/25/2018 [facility] Procalcitonin 16.9 High <0.6 [address] ng/[place] [address] [phone] Manual 02/25/2018 [facility] Immature 11 % High 0-[address] [place] [address] [phone] Platelet Morphology (SEE NOTE) 38 Neutrophil % 83 % Band % 11 % High 0-8 Lymphocytes % 4 % Monocytes % 2 % RBC Morphology Normal Normal CBC Auto Diff 02/25/2018 [facility] White Blood 8.8 10^3/uL N 3.5-10.[address] [place] [address] [phone] Red Blood Count 4.57 10^6/uL N 4.00-5.40 Hemoglobin 13.8 g/dL N 12.0-16.0 Hematocrit 41 % N 35-47 Mean Corpuscular Volume 90 fL N 80-97 Mean Corpuscular Hemoglobin 30 pg N 27-31 Mean Corpuscular HGB Conc 34 g/dL N 31-36 Red Cell Distribution Width 13 % N 10.5-15 Platelet Count 109 10^3/uL Low 150-450 Mean Platelet Volume 7.7 fL N 7.4-10.4 Laboratory 02/25/2018 [facility] B-Type 122 pg/mL High <=100 test finding [address] [place] [address] Peptide BNP [phone] Laboratory 02/25/2018 [facility] Partial 26.0 N 26.0-36.[address] [place] [address] PTT [phone] Rapid 02/25/2018 [facility] Influenza A NEGATIVE Negative 39 Influenza A & [address] [place] [address] [phone] Influenza B Molecular NEGATIVE Negative Inr/Protime 02/25/2018 [facility] Inr 1.02 N 0.77-1.[address] [place] [address] [phone] Comp Metabolic 02/25/2018 [facility] Sodium 131 mmol/L Low 135 -[address] [place] [address] [phone] Potassium 3.5 mmol/L N 3.5-5.0 Chloride 94 [...] Egfr 46.3 >60 40 Laboratory test 02/25/2018 [facility] Lactic Acid 2.2 mmol/L High 0.5-2.0 41 finding [address] [place] [address] [phone] Amylase 57 U/L N 29-103 Lipase 166 U/L High 11.0-82.0 Blood Culture SEE RESULT BELOW 42 Pathologist Review (SEE NOTE) 43 Urinalysis Profile 02/25/2018 [facility] Urine Color Betty [address] [place] [address] [phone] Urine Appearance Cloudy Urine Specific [place] 1.024 N 1.010-1.030 Urine pH 5.0 N [...] Casts Present Abnormal Absent Rapid Influenza 02/24/2018 [facility] Influenza A NEGATIVE Negative 44 A & B Molecular [address] [place] [address] [phone] Influenza B Molecular NEGATIVE Negative Poc Urinalysis 02/24/2018 [facility] Poc Glucose, Negative Negative [address] [place] [address] [phone] Poc Bilirubin, Urine 1+ Abnormal Negative Poc Ketone, Urine Negative Negative Poc Specific [place], Urine >=1.030 N 1.010-1.030 Poc Blood, Urine 3+ Abnormal Negative Poc pH, Urine 5.5 N 5-9 Poc Protein, Urine 3+ Abnormal Negative Poc Urobilinogen, Urine 1.0 Negative Poc Nitrite, Urine Positive Abnormal Negative Poc Leukocytes, Urine Negative Negative Poc Color, Urine Betty Poc Clarity, Urine Clear 45 Urine Culture And 02/24/2018 [facility] Urine SEE RESULT 46 , [address] [place] [address] [phone] Laboratory test 07/24/2017 [facility] MRSA/S. SEE RESULT 48 , [address] [place] [address] PCR [phone] Wound 07/24/2017 [facility] Wound/Misc SEE RESULT 50 Culture/Sensi [address] Culture[place] [address] Stain [phone] Comp Metabolic 07/05/2017 [facility] Sodium 139 mmol/L N 139- [address] [place] [address] [phone] Potassium 3.8 mmol/L N 3.5-5.0 Chloride 101 [...] 105.2 >60 51 CBC Auto Diff 07/05/2017 [facility] White Blood 7.2 10^3/uL N 3.5-10.[address] [place] [address] [phone] Red Blood Count 4.45 10^6/uL N 4.0-5.4 [...] Blood Cells % 0 Laboratory test 12/19/2016 [facility] Surgical SEE RESULT 52, [address] [address] Order [phone] Laboratory test 07/07/2016 [facility] TSH (Thyroid 2.06 N 0.34 - [address] Stim Horm) mcIU/mL 5.60 [place], [place] [address] [phone] Vitamin B12 421 pg/mL N 180-914 55 Lipid Profile 07/07/2016 [facility] Triglycerides 152 mg/dL N 56 (Trig/Chol/HDL) [address] [place] [address] [phone] Cholesterol 285 mg/dL N 57 HDL Cholesterol 69.7 mg/dL N 58 LDL Cholesterol 185 mg/dL N 59 Comp Metabolic Panel 07/07/2016 [facility] Sodium 137 mmol/L N 133-[address] [place] [address] [phone] Potassium 4.2 mmol/L N 3.5-5.0 Chloride 100 [...] N >60 60 CBC Auto Diff 07/07/2016 [facility] White Blood 6.9 10^3/uL N 3.5-10.[address] [place] [address] [phone] Red Blood Count 4.77 10^6/uL N 4.0-5.4 [...] initially measuring >2.0 mmol/L be repeated. 2 Animal Doctor: [id number] 3 SEE RESULT BELOW Name: TERESA RESENDIZ : [address]: Mauricio Tao MD Acct: [id number] Unit: [id number] AGE: 63 Location: ED Re07/13/18 SEX: F Status: DEP ER SPEC: [id number] DOUGIE: 07/14/[address] [facility] [address]: Mauricio Tao MD REQ: [id number] RECD: 07/14/18 STATUS: CHELLY AHUJA DR: Placido Fall MD _ SOURCE: URINE SPDESC: ORDERED: Urine Culture Procedure Result Reported Site Urine Culture Final 07/15/18- 908 ML No Growth (<1,000 CFU/mL) * ML - Main Lab . END OF REPORT DEPARTMENT OF PATHOLOGY, [address] [place] [address] Fidel Matthew M.D. Director [facility] # [id number] 4 Because ethnic data is not always [...] High: >189 9 Result TnIDx:0.05 Called to [id number] at: 23:38:03 by:[id number] Read back by: [id number] Troponin-I testing on Plasma Separator Tubes (PST) [...] K:2.6 Called to WEI NEVILLE at: 14:17:07 by:[id number] Read back by:WEI NEVILLE 12 15-20 for HCAP, VAP, +++Osteomyelitis, Endocarditis, Meningitis 10-15 for All Other Infections 13 CRITICAL RESULTS CALLED AND MESSAGE LEFT TO CALL BACK AT 1309 ordered-june 05, 2018 expires-december 06 2018 14 Consistent with Previous Results Reported on 07/03/18 15 ordered-june 05, 2018 expires-december 06 2018 16 Result TnIDx:0.04 Called to [id number] at: 17:03:46 by:[id number] Read back by: [id number] Troponin-I testing on Plasma Separator Tubes (PST) has a known false positive rate of 0.20-0.40%. All positive troponins reflex immediate secondary confirmatory testing. 17 SEE RESULT BELOW Name: TERESA RESENDIZ : [address]: Mike Little MD Acct: [id number] Unit: [id number] AGE: 63 Location: ED Re05/23/18 SEX: F Status: DEP ER SPEC: [id number] DOUGIE: 05/23/[address] [facility] [address]: Lamar Crowe MD REQ: [id number] RECD: 05/23/18 STATUS: CHELLY AHUJA DR: Mike Macias WAREDRESSER _ SOURCE: BLOOD,VENO SPDES: ORDERED: Blood Cult Procedure Result Reported Site Aerobic Culture Bottle Final 05/28/18- 1635 ML No Growth Day 5 Anaerobic Culture Bottle Final 05/28/18- 1635 ML No Growth Day 5 * [facility] - [facility] . END OF REPORT DEPARTMENT OF PATHOLOGY, [address] [place] [address] Fidel Matthew M.D. Director [facility] # [id number] 18 SEE RESULT BELOW Name: TERESA RESENDIZ : [address]: Mike Little MD Acct: [id number] Unit: [id number] AGE: 63 Location: ED Re05/23/18 SEX: F Status: REG ER SPEC: [id number] DOUGIE: 05/23/[address]: Mike Little MD REQ: [id number] RECD: 05/23/18 STATUS: CHELLY AHUJA DR: Placido Macias WAREDRESSER _ SOURCE: STOOL SPDESC: ORDERED: Occult Bl, Diag Procedure Result Reported Site Stool Occult Blood (1) Final 05/23/18- 144 ML Stool Occult Blood Negative * ML - Main Lab . END OF REPORT DEPARTMENT OF PATHOLOGY, [address] [place] [address] Fidel Matthew M.D. Director [facility] # [id number] Because ethnic data is not always readily [...] to hemolysis. 22 Result TnIDx:0.04 Called to [employer] at: 13:47:14 by:[id number] Read back by: [id number] Troponin-I testing on Plasma Separator Tubes (PST) has a known false positive rate of 0.20-0.40%. All positive troponins reflex immediate secondary confirmatory testing. 23 Critical Result LACT:2.5 Called to [id number] at: 13:56:12 by:[id number] Read back by:[id number] [facility] Severe Sepsis and Septic Shock Management Bundle Measure requires all lactic acids initially measuring >2.0 mmol/L be repeated. 24 Test Performed by: [facility] [address] [place] [address] 25 SEE RESULT BELOW Name: MARTÍNTERESA : [address]: Carolyn Crawford MD Acct: [id number] Unit: [id number] AGE: 63 Location: [facility] Re05/23/18 SEX: F Status: REG REF SPEC: [id number] DOUGIE: 05/23/18-[address] [facility] [address]: Carolyn Crawford MD REQ: [id number] RECD: 05/23/18 STATUS: COMP _ SOURCE: URINE [facility]: ORDERED: Urine Culture COMMENTS: [id number] Urine Source: Random Procedure Result Reported Site Urine Culture Final 05/24/18- 1605 ML No Growth (<1,000 CFU/mL) * ML - Main Lab . END OF REPORT DEPARTMENT OF PATHOLOGY, [address] [place] [address] Fidel Matthew M.D. Director [facility] # [id number] 26 Because ethnic data is not always [...] [address]: Jennifer Downing DO Acct: [id number] Unit: [id number] AGE: 62 Location: [facility] Re04/06/18 SEX: F Status: REG REF SPEC: [id number] DOUGIE: 04/06/[address]: Jennifer Downing DO REQ: [id number] RECD: 04/06/18 STATUS: RES OT DR: Karthikeyan Nunez, _ SOURCE: BLOOD,VENO SPDESC: ORDERED: Blood Cult Procedure Result Reported Site Aerobic Culture Bottle Preliminary 04/10/18- 1514 ML No Growth Day 4 Anaerobic Culture Bottle Final 04/11/18- 1511 ML No Growth Day 5 * ML - Main Lab . END OF REPORT DEPARTMENT OF PATHOLOGY, [address] [place] [address] Fidel Matthew M.D. Director [facility] # [id number] 28 Moderate normocytic anemia noted. Additional studies as clinically warranted. Reviewed by Dr. Matthew 29 [id number] 30 Because ethnic data is not always [...] (or dialysis) 31 PLEASE FAX COPY TO [employer] [phone] DR JENNIFER DOWNING PHONE # [phone] 32 Because ethnic data is not always [...] (or dialysis) 33 PLEASE FAX COPY TO [employer] [phone] DR JENNIFER DOWNING PHONE # [phone] 34 Reference ranges based on room air. 35 SEE RESULT BELOW Name: TERESA RESENDIZ : [address]: Robin Robledo MD Acct: [id number] Unit: [id number] AGE: 62 Location: ED Re02/25/18 SEX: F Status: REG ER SPEC: [id number] DOUGIE: 02/25/[address] [facility] [address]: Robin Robledo MD REQ: [id number] RECD: 02/25/18 STATUS: COMP LEIGHA DR: Placido Macias WAREDRESSER _ SOURCE: NASAL SPDESC: ORDERED: Flu A B Request Procedure Result Reported Site Rapid Influenza A B Request Final 02/25/18916 ML Specimen received for Influenza A/B Molecular testing * ML - Main Lab . END OF REPORT DEPARTMENT OF PATHOLOGY, [address] [place] [address] Fidel Matthew M.D. Director [facility] # [id number] 36 Result TnIDx:0.80 Called to [id number] at: 09:12:51 by:[id number] Read back by: [id number] Troponin-I testing on Plasma Separator Tubes (PST) has a known false positive rate of 0.20-0.40%. All positive troponins reflex immediate secondary confirmatory testing. 37 Interpretive information available on [employer] Test Catalog at [email or web address] 38 VACUOLATED NEUTROPHILS SEEN ON SMEAR 39 Animal Doctor: [id number] 40 Because ethnic data is not always [...] dialysis) 41 Critical Result LACT:2.2 Called to [id number] at: 09:28:02 by:[id number] Read back by:[id number] [facility] Severe Sepsis and Septic Shock Management Bundle Measure requires all lactic acids initially measuring >2.0 mmol/L be repeated. 42 SEE RESULT BELOW Name: TERESA RESENDIZ DOB: [address]: Alonso Prado MD Acct: [id number] Unit: [id number] AGE: 62 Location: ICU Re02/25/18 SEX: F Status: ADM IN SPEC: [id number] DOUGIE: 02/25/[address]: Robin Robledo MD REQ: [id number] RECD: 02/25/18 STATUS: COMP OTHR DR: Placido Macias WAREDRESSER _ SOURCE: BLOOD,VENO SPDESC: ORDERED: Blood Cult COMMENTS: Verbal to [id number] by [id number] at 2320 on 02/25/18. Results read back [...] These antibiotics are not available in the [facility] Formulary Contact the Microbiology Department for any additional antibiotic reporting. Anaerobic Culture Bottle Final 02/27/18837 ML CONTINUED ON NEXT PAGE DEPARTMENT OF PATHOLOGY, [address] [place] [address] Fidel Matthew M.D. Director [facility] # [id number] Patient: TERESA RESENDIZ [id number] (Continued) Specimen: [id number] Collected: 02/25/18 Received: 02/25/18 (Continued) Procedure Result Reported Site Anaerobic Culture Bottle Final (continued) 02/27/18 0838 Anaerobic Btl Gram Stain Gram Positive Cocci resembling Staph Organism 1 STAPHYLOCOCCUS AUREUS#2 Please refer to [id number] culture AEROBIC bottle for sensitivity testing. * ML - Main Lab . END OF REPORT DEPARTMENT OF PATHOLOGY, [address] [place] [address] Fidel Matthew M.D. Director [facility] # [id number] 43 Moderate thrombocytopenia noted. No schistocytes or blasts identified. Additional studies as clinically warranted. Reviewed by Dr. Matthew 44 Animal Doctor: [id number] Animal Doctor: [id number] 47 SEE RESULT BELOW Name: TERESA RESENDIZ : [address]: Jennifer Ty MD Acct: [id number] Unit: [id number] AGE: 62 Location: [facility] Re02/24/18 SEX: F Status: DEP ER SPEC: [id number] DOUGIE: 02/24/18-[address] [facility] [address]: Nataliia Hardy NP REQ: [id number] RECD: 02/24/18 STATUS: CHELLY AHUJA DR: Beat[facility] Placido Macias NP _ SOURCE: URINE SPDESC: ORDERED: Urine Culture COMMENTS: [id number] Procedure Result Reported Site Urine Culture Final 02/26/18- 0832 ML Organism 1 STAPHYLOCOCCUS AUREUS [place] Count >100,000 (Many) CFU/ML 1. STAPHYLOCOCCUS AUREUS [...] These antibiotics are not available in the [facility] Formulary Contact the Microbiology Department for any additional antibiotic reporting. * - [facility] . END OF REPORT DEPARTMENT OF PATHOLOGY, [address] [place] [address] Fidel Matthew M.D. Director [facility] # [id number] 48 [id number] 49 SEE RESULT BELOW Name: TERESA RESENDIZ : [address]: Fredy Holbrook MD Acct: [id number] Unit: [id number] AGE: 62 Location: [facility] Re07/24/17 SEX: F Status: DEP ER SPEC: [id number] DOUGIE: 04/ ELOY DR: Davis GARAY REQ: [id number] RECD: 07/25/17 STATUS: CHELLY AHUJA DR: Fredy Macias WAREDRESSER _ SOURCE: BACK [facility]: ORDERED: MRSA/SA SSTI, Culture Stain COMMENTS: [id number] Procedure Result Reported Site MRSA/S. aureus SSTI [...] . END OF REPORT DEPARTMENT OF PATHOLOGY, [address] [place] [address] Fidel Matthew M.D. Director [facility] # [id number] 50 SEE RESULT BELOW Name: TERESA RESENDIZ : [address]: Fredy Hlobrook MD Acct: [id number] Unit: [id number] AGE: 62 Location: [facility] Re07/24/17 SEX: F Status: DEP ER SPEC: [id number] DOUGIE: 07/24/17-[address] [facility] [address]: Davis GARAY REQ: [id number] RECD: 07/25/17 STATUS: RES LEIGHA DR: Fredy Macias WAREDRESSER _ SOURCE: BACK SPDESC: ORDERED: MRSA/SA SSTI, Culture Stain COMMENTS: [id number] Procedure Result Reported Site MRSA/S. aureus SSTI PCR PENDING Wound/Misc Gram Stain Final 07/25/17- 1158 ML 2+ Neutrophils Possible 1+ Gram Positive Cocci Wound/Misc Culture PENDING * ML - Main Lab . END OF REPORT DEPARTMENT OF PATHOLOGY, [address] [place] [address] Fidel Matthew M.D. Director [facility] # [id number] 51 Because ethnic data is not always [...] 5 Kidney failure <15 (or dialysis) 52 [id number] 53 SEE RESULT BELOW Name: TERESA RESENDIZ : [address]: Angela Langston MD Acct: [id number] Unit: [id number] AGE: 61 Location: [facility] Re12/19/16 SEX: F Status: DEP REF SPEC: [id number] DOUGIE: 12/19/[address] [facility] [address]: Angela Langston MD REQ: [id number] RECD: 12/19/16 STATUS: AKHIL AHUJA DR: Placido Macias WAREDRESSER _ ORDERED: LEVEL 4 COMMENTS: [id number] FINAL DIAGNOSIS Colon, ascending, biopsy: -- Tubular [...] performed at Main Lab DEPARTMENT OF PATHOLOGY, [address] [place] [address] Fidel Matthew M.D. Director [facility] # [id number] 54 FASTING 10 HOUR 55 Normal Range [...] dialysis) Procedures Date Code Description Status 07/20/2018 73402 EKG Tracing & Interpretation Completed 07/05/2018 62744 Pace Maker Eval W/Iterative Adjment Dual Lead Completed 07/05/2018 97625 Pace Maker Eval W/Iterative Adjment Dual Lead Completed 07/04/2018 68550 EKG Tracing & Interpretation Completed 05/23/2018 55973 ECHO Transthorasic Realtime 2D W Doppler & Color Flow Completed Hosp 05/23/2018 08986 ECHO Transthoracic, Real-Time 2D With Doppler And Completed Color Flow 04/24/2018 03533 EKG Tracing & Interpretation Completed 02/27/2018 28388 Echocardiography, Transesophageal, Real Time W/Image Completed 2D W/W/O M-M 02/27/2018 71695 Pulse Wave/Continuous-Interp.RPT Completed 02/27/2018 39572 Color Flow Doppler/Interp & Reprt Completed 02/27/2018 18812 Moderate Sedation Services; Same Phys Intl 15 Mins; PT Completed >=5 Years 02/26/2018 18015 ECHO Transthorasic Realtime 2D W Doppler & Color Flow Completed Hosp 11/01/2017 [id number] Mammogram Completed 07/07/2017 57540 EKG Tracing & Interpretation Completed 12/19/2016 74522 Moderate Sedation Services; Same Phys Intl 15 Mins; PT Completed >=5 Years 12/19/2016 82692 Colonoscopy Flexible W/Biopsy Completed 12/19/2016 [id number] Colonoscopy Completed 07/13/2016 99607871 Mammogram Completed 06/29/2016 [id number] Diabetic Retinal Eye Exam Completed Encounters Type Date Location Provider Dx Diagnosis Office Visit 07/27/2018 [facility] Chan Alexander, I63.9 Cerebral 8:30a Services Of Alberto Gates infarction, unspecified I69.320 Aphasia following cerebral infarction G40.89 Other seizures Office Visit 07/20/2018 10:30a Cardiology Karthikeyanlisa Martin 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., prosthetic heart AT [facility] valve Office Visit 07/09/2018 8:40a [facility] Internal Placido Macias, I10 Essential ( primary) Medicine WAREDRESSER hypertension F32.89 Other specified depressive episodes D64.9 Anemia, unspecified Z95.2 Presence of prosthetic heart valve Z79.01 MCC (current) use of anticoagulants Office Visit 07/04/2018 1:15p [facility] Karthikeyanlisa Martin 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 Alberto Franco M.D., prosthetic heart [facility] valve Office Visit 06/06/2018 11:40a [facility] Placido Macias, Z95.2 Presence of Medicine WAREDRESSER prosthetic heart valve D59.9 Acquired hemolytic anemia, unspecified Z79.01 MCC (current) use of anticoagulants F32.89 Other specified depressive episodes Office Visit 05/23/2018 8:35a [facility] Lamar Crowe, R06.02 Shortness of Assoc,daxa Gates breath Hospitalists R31.9 Hematuria, unspecified Office Visit 05/23/2018 11:00a [facility] Internal Carolyn Ty, R31.9 Hematuria, Medicine MD unspecified R17 Unspecified jaundice R06.02 Shortness of breath Office Visit 04/24/2018 2:00p [facility] Karthikeyan Mario 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 [facility]to Franco M.D., prosthetic heart FACC, FASNC valve R07.9 Chest pain, unspecified Z79.01 technician terminal and repeater (current) use of anticoagulants Office Visit 04/23/2018 9:00a [place] Chan Alexander, Z95.2 Presence of Neurologic M.D. 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 Office Visit 03/29/2018 1:40p [facility] Internal Placido Macias, I63.9 Cerebral Medicine WAREDRESSER infarction, unspecified R65.21 Severe sepsis with septic [...] kidney failure, unspecified Office Visit 02/27/2018 12:20p [place] Jack Carlin I63.443 Cerebral infrc Cj Newton [...] 8:27a MD infarction, unspecified Office Visit 01/08/2018 [facility] Internal Placidogio Macias, WAREDRESSER I10 Essential 8:40a Medicine (primary) hypertension F32.89 Other specified depressive episodes R06.83 Snoring R53.83 Other fatigue Z23 Encounter for immunization Office Visit 07/07/2017 9:20a [facility] Internal Placidogio Macias, Z01.818 Encounter for other Medicine WAREDRESSER preprocedural examination M25.511 Pain in right shoulder I10 Essential (primary) hypertension H81.10 Benign paroxysmal vertigo, unspecified ear Office Visit 01/02/2017 10:20a [facility] Internal Placido Gilberto, F32.89 Other specified Medicine WAREDRESSER depressive episodes E78.5 Hyperlipidemia, unspecified Z23 Encounter for immunization Office Visit 09/19/2016 8:40a [facility] Internal Placido Gilberto, F32.89 Other specified Medicine WAREDRESSER depressive episodes I10 Essential (primary) hypertension Office Visit 07/25/2016 9:00a [facility] Internal Placidogio Macias, F32.89 Other specified Medicine WAREDRESSER depressive episodes Office Visit 07/01/2016 11:00a [facility] Internal Placidogio Macias, R53.83 Other fatigue Medicine WAREDRESSER Z12.31 Encntr screen mammogram for malignant neoplasm of breast Z13.220 Encounter for screening for lipoid disorders Z12.11 Encounter for screening for malignant neoplasm of colon Plan of Treatment Future Appointment(s):08/06/2018 8:00 am - Jamal Walker N.P. at [facility]10/16/2018 1:00 pm - Marietta Vargas MD at [facility]10/10/2018 1:00 pm - Karthikeyan Franco M.D., [facility], FASPR at [facility]10/01/2018 1:30 pm - Traveling ECHO 1 at [facility]08/07/2018 9:20 am - Placido Macias NP at [facility] Internal Ihzrdwku14/15/2019 9:00 am - Placido Macias NP at [facility] Internal [id number] 10:45 am - Chan Alexander M.D. at [facility]07/27/2018 - Chna Alexander M.D.I63.9 Cerebral infarction, unspecifiedFollow up:2 weeks ok with JoshI69.320 Aphasia following cerebral ppkkbemaliI38.89 Other seizuresNew Orders:EEG, Routine, Scheduled: 07/30/18
[2018-08-12] MEDS ORDERED: NS 0.9% 1000 ML** 1,000 ML IV ONE (07:52)
--- NOTE | 2018-08-12 07:54 | ED ---
Neurological HPI - HPI Summary HPI Summary: Patient is a 63 y/o F presenting to ED via private vehicle with complaints of confusion, dizziness, and impaired speech. Boyfriend is present in the room. Upon arrival, the patient had stated, "I think I'm having a stroke". Boyfriend reports that the patient had been acting confused this morning and Sx progressively worsened, noting the patient became dizzy, more confused, and had impaired speech. However, he does make note of some stuttering speech at baseline but reports that the patient would be A&OX3 at baseline. Boyfriend reports that Sx onset around an hour ago this morning at 0700. Patient is on Coumadin, patient is not a TPA candidate as a result. Hx of septic emboli, "infected" valve is reported, Hx of heart valve surgery in February 2018 and May 2018. Hx of stroke, boyfriend notes that the patient was in ED for seizure previously and had been sent to [place]. Previous episode of high fever with confusion is noted as well. No fevers, no recent illness is reported , the boyfriend notes that the patient had a cough this morning. On triage, pain is denied. Nothing is noted to aggravate/alleviate Sx. Home medications, allergies are reviewed. Provider in room at 0745 upon patient arrival into room , NIH done, mamadou bonds called at [phone], patient taken to CT. - History of Current Complaint Stated Complaint: I THINK I AM HAVING A STROKE PER PT Time Seen by Provider: 08/12/18 07:44 Hx Obtained From: Patient, Family/Linoleum Layer Apprentice - boyfriend Hx Last Menstrual Period: NA Onset/Duration: Started hours ago - onset an hour ago around 0700, Still Present Timing: Constant Current Severity: None - pain denied Pain Scale Used: 0-10 Numeric Character: Dizzy, Impaired Speech, Confusion Aggravating: Nothing Alleviating: Nothing Associated Signs and Symptoms: Positive: Confusion, Dizziness, AMS, Impaired Speech. Negative: Fever, Recent Illness - Additional Pertinent History Primary Care Physician: THAO - Allergy/Home Medications Allergies/Adverse Reactions: Allergies Allergy/AdvReac Type Severity Reaction Status Date / Time buspirone Allergy Unknown Verified 08/12/18 13:51 Reaction Details PMH/Surg Hx/FS Hx/Imm Hx Endocrine/Hematology History: Denies: Hx Diabetes, Hx Thyroid Disease Cardiovascular History: Reports: Hx Hypertension Denies: Hx Pacemaker/ICD Respiratory History: Denies: Hx Asthma, Hx Chronic Obstructive Pulmonary Disease (COPD) GI History: Denies: Hx Ulcer History: Denies: Hx Renal Disease Musculoskeletal History: Reports: Hx Arthritis - LEFT HIP Sensory History: Reports: Hx Cataracts - BILATERAL Denies: Hx Contacts or Glasses, Hx Hearing Aid Opthamlomology History: Reports: Hx Cataracts - BILATERAL Denies: Hx Contacts or Glasses Psychiatric History: Reports: Hx Anxiety - CONTROLLED WITH MED, Hx Depression - CONTROLLED WITH MED Denies: Hx Panic Disorder - Surgical History Surgery Procedure, Year, and Place: GASTRIC LAP BAND - 2006 - [place]. HAMMER TOE SURGERY X2 - 2007 - [place]. FATTY TUMOR REMOVED FROM BACK - 2008 - [place]. ROTATOR CUFF Hx Anesthesia Reactions: No - Immunization History Date of Influenza Vaccine: 01/2018 Infectious Disease History: Denies: Hx Hepatitis, Hx Human Immunodeficiency Virus (HIV), Traveled Outside the [place] in Last 30 Days - Family History Known Family History: Positive: Hypertension - Social History Alcohol Use: Daily Alcohol Amount: 3-4 DRINKS PER WEEK Substance Use Type: Reports: None Hx Tobacco Use: Yes Smoking Status (MU): Former Smoker Amount Used/How Often: 1/2 PPD Review of Systems Constitutional: Other - NEGATIVE - RECENT ILLNESS Negative: Fever Positive: Cough Neurological: Other - POSITIVE - CONFUSION, DIZZINESS Positive: Slurred Speech - IMPAIRED SPEECH All Other Systems Reviewed And Are Negative: Yes Physical Exam - Summary Physical Exam Summary: Appearance: well appearing, no pain distress Skin: warm, dry, reflects adequate perfusion; large sternotomy scar is noted Head/face: normal Eyes: EOMI, DAWSON ENT: mucous membranes moist Neck: supple, non-tender Respiratory: CTA, breath sounds present Cardiovascular: tachycardic, pulses symmetrical, no murmurs heard, pacemaker in left chest Abdomen: non-tender, soft Bowel Sounds: present Musculoskeletal: normal, strength/ROM intact Neuro: Aphasic, slow but steady gait, difficulty word finding, stuttering, mild dysarthria, some neglect of left side, no facial droop, GCS 14, NIH 6. Triage Information Reviewed: Yes Vital Signs On Initial Exam: Initial Vitals Temp Pulse Resp BP Pulse Ox 98.7 F 121 30 183/93 90 08/12/18 07:48 08/12/18 07:48 08/12/18 07:48 08/12/18 07:48 08/12/18 07:48 Vital Signs Reviewed: Yes Diagnostics - Laboratory Result Diagrams: 08/12/18 07:53 08/12/18 07:53 Lab Statement: Any lab studies that have been ordered have been reviewed, and results considered in the medical decision making process. - Radiology CHEST X-RAY Radiology Interpretation Completed By: Radiologist Summary of Radiographic Findings: CXR IMPRESSION: CARDIOMEGALY WITH INTERSTITIAL EDEMA CONSISTENT WITH CHF PROGRESSIVE SINCE. JULY 13, 2018. THIS REPORT WAS REVIEWED BY DR. LOUIE. - CT BRAIN CT CT Interpretation Completed By: Radiologist Summary of CT Findings: BRAIN CT IMPRESSION: Old infarct in the right posterior parietal lobe. No intracranial mass or. hemorrhage is noted. THIS REPORT WAS REVIEWED BY DR. LOUIE. HEAD CTA CT Interpretation Completed By: Radiologist Summary of CT Findings: HEAD CTA IMPRESSION: Calcific plaque is noted in the left internal carotid artery at its origin. with approximately 60% stenosis. The right internal carotid artery demonstrates minimal. calcification. No evidence of carotid artery dissection. No evidence of branch occlusion. No evidence of. aneurysmal dilatation. THIS REPORT WAS REVIEWED BY DR. LOUIE. - EKG 0811 Cardiac Rate: Other Rate - ventricular paced rhythm with rate of [address] Segment: Non-Specific Summary of EKG Findings: EKG showed ventricular paced rhythm with rate of 106 BPM, left axis deviation, and non-specific ST. NIH Scale - NIH Scale Level of Consciousness: Alert/Keenly Responsive Ask Patient the Month and His/Her Age: Neither Correct/Aphasic Ask Pt to Open/Close Eyes and Weaver Dobby Loom/Release Non-Paretic Hand: Both Correctly Best Gaze (Only Horizontal Eye Movement): Normal Visual Field Testing: No Visual Loss Facial Paresis-Pt to Smile & Close Eyes or Grimace Symmetry: Normal/Symmetrical Motor Function - Right Arm: No Drift-Holds 10 Seconds Motor Function - Left Arm: No Drift-Holds 10 Seconds Motor Function - Right Leg: No Drift-Holds 10 Seconds Motor Function - Left Leg: No Drift-Holds 10 Seconds Limb Ataxia-Must be out of Proportion to Weakness Present: Absent Sensory (Use Pinprick to Test Arms/Legs/Trunk/Face): Normal Best Language (Describe Picture, Name Items): Severe Aphasia Dysarthria (Read Several Words): Slurs Some Words Extinction and Inattention: Inattention Total Score: 6 Re-Evaluation - Re-Evaluation First Eval Re-Evaluation Time: 08:06 Comment: Transfer center contact was made, [place] to be contacted. Second Eval Re-Evaluation Time: 08:37 Comment: Patient is being evaluated via telestroke by Dr. Acevedo. Third Eval Re-Evaluation Time: 09:22 Comment: Patient's boyfriend presents a card that states the patient's pacemaker is safe for MRI. Course/Dx - Course Course Of Treatment: Nurse's notes reviewed. 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 Head CT, CT angiogram of the brain and neck was performed and negative for large vessel occlusion or acute blood. The patient is anticoagulated with an INR of 3.4. Online consultation with stroke neurologist at [place] was obtained and tPA obviously was not recommended. Patient is not a candidate for neuro intervention. Our neurologist was contacted and came to evaluate patient. Possible temporal lobe/partial seizures worse suspected. EEG is pending. The patient will be admitted here to the hospitalist service. There is no acute evidence for new endocarditis as the patient has no elevation of WBC, no rheumatic findings, no significant murmur or fever. Admitted to the hospitalists for further testing. It was found that the patient's pacemaker is MRI safe. - Differential Dx Differential Diagnoses Neuro: Positive: Other - Vagal reaction, CVA/TIA, seizure , septic emboli, endocarditis - Diagnoses Provider Diagnoses: Acute CVA (cerebrovascular accident), Aphasia, Elevated INR, History of endocarditis, History of seizure During the Visit The Following Alert/Code Occurred: Mamadou Norton - Provider in room at 0745 upon patient arrival into room, NIH done, mamadou bonds called at [phone] , patient taken to CT. 0823 - Dr. Krishnamurthy communicates initial impression of Brain CT - old right parietal infarct, no new changes, no blood seen. Transfer center contacted at 0806 for [place] consult. Patient's case was discussed with Dr. Acevedo, neurologist from [place] at 0812. He asks for INR stat, states that he will evaluate the patient via telestroke. 0837 - Patient is being evaluated via telestroke by Dr. Acevedo. 0910 - Patient's case was discussed with Dr. Acevedo, he notes minor stroke possibility, advised MR for possible new ischemic changes, EEG. Patient can be either admitted to [facility] or transferred to [place], where she is a known patient. 0914 - Patient's case was discussed with Dr. Garcia, patient will be admitted to [facility]. 0932 - Patient' s case was discussed with Dr. Jefferson, Dr. Jefferson accepts for admission. - Physician Notifications Discussed Care Of Patient With: Valdemar Acevedo Time Discussed With Above Provider: 08:12 Instructed by Provider To: Other - Patient's case was discussed with Dr. Acevedo, neurologist from [place] at 0812. He asks for INR stat, states that he will evaluate the patient via telestroke. 0823 - Dr. Krishnamurthy communicates results of Brain CT, old right parietal infract, no bleed, no new changes. 0910 - Patient's case was discussed with Dr. Acevedo, he notes minor stroke possibility, advised MR for possible new ischemic changes, EEG. Patient can be either admitted to [facility] or transferred to [place], where she is a known patient. 0914 - Patient's case was discussed with Dr. Garcia, patient will be admitted to [facility]. 0932 - Patient's case was discussed with Dr. Jefferson, Dr. Jefferson accepts for admission. - Critical Care Time Critical Care Time: 75-104 min - 75 minutes, CCT is EXCLUSIVE of separately billable procedures. Discharge - Sign-Out/Discharge Documenting (check all that apply): Patient Departure - admit Patient Received Moderate/Deep Sedation with Procedure: No - Discharge Plan Condition: Guarded Disposition: ADMITTED TO [facility] - Billing Disposition and Condition Condition: GUARDED Disposition: Admitted to [facility] - Attestation Statements Document Initiated by Scribe: Yes Documenting Scribe: DREW MULLIGAN Provider For Whom Scribe is Documenting (Include Credential): JOAO LOUIE MD Scribe Attestation: DREW Ptael, scribed for JOAO LOUIE MD on 08/12/18 at 1427. Scribe Documentation Reviewed: Yes Provider Attestation: The documentation as recorded by the scribeDREW accurately reflects the service I personally performed and the decisions made by me, JOAO LOUIE MD Status of Scribe Document: Viewed
[2018-08-12] MEDS ORDERED: NS 0.9% 1000 ML** 1,000 ML IV SCH (08:15)
[2018-08-12 08:16] LABS: Activated Partial Thrombo Time 37.7 seconds (26.0-36.3); INR 3.43 (0.82-1.09)
[2018-08-12 08:20] LABS: ALT 23 U/L (7-52); AST 26 U/L (13-39); Albumin 4.2 g/dL (3.2-5.2); Albumin/Globulin Ratio 1.3 (1-3); Alkaline Phosphatase 84 U/L (34-104); Anion Gap 9 mmol/L (2-11); BUN/Creatinine Ratio 17.1 (8-20); Blood Urea Nitrogen 21 mg/dL (6-24); CO2 Carbon Dioxide 25 mmol/L (22-32); Calcium 9.9 mg/dL (8.6-10.3); Chloride 106 mmol/L (101-111); Cholesterol 176 mg/dL; EGFR African American 53.2 (>60); Globulin 3.3 g/dL (2-4); Glucose 117 mg/dL (70-100); HDL Cholesterol 66.5 mg/dL; LDL Cholesterol 89 mg/dL; Potassium 3.4 mmol/L (3.5-5.0); Sodium 140 mmol/L (135-145); Total Protein 7.5 g/dL (6.4-8.9); Triglycerides 103 mg/dL
[2018-08-12] MEDS ORDERED: Iodixanol* (CONTRAST) 320 MG/ML 100 ML SDV IV ONE (08:20)
[2018-08-12 08:27] LABS: ABS Basophils 0.1 10^3/ul (0-0.2); ABS Eosinophils 0.1 10^3/ul (0-0.6); ABS Lymphocytes 0.9 10^3/ul (1.0-4.8); ABS Monocytes 0.5 10^3/ul (0-0.8); ABS Neutrophils 4.8 10^3/ul (1.5-7.7); Eosinophil % 1.9 %; Hematocrit 36 % (35-47); Hemoglobin 11.5 g/dL (12.0-16.0); Lymphocyte % 13.8 %; Mean Corpuscular HGB Conc 32 g/dL (31-36); Mean Corpuscular Hemoglobin 27 pg (27-31); Mean Corpuscular Volume 84 fL (80-97); Mean Platelet Volume 8.5 fL (7.4-10.4); Nucleated Red Blood Cells % 0.1; Platelet Count 234 10^3/uL (150-450); Red Blood Count 4.25 10^6 /uL (3.70-4.87); Red Cell Distribution Width 18 % (10.5-15); White Blood Count 6.3 10^3/uL (3.5-10.8)
[2018-08-12 08:43] LABS: Troponin I 0.06 ng/mL (<0.04)
[2018-08-12] MEDS ORDERED: Ondansetron INJ* 2 MG/ML VIAL IV ONE (09:13)
[2018-08-12] MEDS ORDERED: LORazepam INJ* 2 MG/ML 1 ML VIAL IV PUSH ONE (10:25)
[2018-08-12] MEDS ORDERED: Lorazepam PYXIS KEY PRN ×2 (10:25→17:28)
[2018-08-12] MEDS ORDERED: levETIRAcetam 1000MG IVPREMIX* 1,000 MG/100 ML BAG IVPB ONE (10:26)
[2018-08-12] MEDS ORDERED: Lorazepam PYXIS KEY ONE (10:32)
[2018-08-12] MEDS ORDERED: Ondansetron INJ* 2 MG/ML VIAL IV PRN (13:08)
[2018-08-12] MEDS ORDERED: Acetaminophen TAB* 325 MG PO PRN (13:08)
[2018-08-12 13:20] LABS: Troponin I 0.04 ng/mL (<0.04)
[2018-08-12 13:53] LABS: Erythrocyte Sed Rate 31 mm/Hr (0-29)
[2018-08-12] MEDS ORDERED: Artificial Tears* 15 ML BTL BOTH EYES PRN (14:38)
[2018-08-12] MEDS ORDERED: Docusate CAP* 100 MG PO PRN (14:38)
[2018-08-12] MEDS ORDERED: Furosemide IV* 10 MG/ML VIAL (40 MG) IV ONE (14:39)
--- NOTE | 2018-08-12 14:54 | EEG ---
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 MRI showed no evidence of stroke. She now re- presents with confusion, difficultly with speech and left- sided weakness. REPORT: This was a 16-channel EEG performed at bedside in the emergency room after receiving 1mg Ativan and 1000mg Keppra. In the beginning of the record, there was posterior dominant rhythm, which was noted in both hemispheres at approximately 11 to 12 Hz. She was tachycardic. As the record continued, there was some fragmentation of the alpha rhythm and evidence of slowing. At times, there was slower rhythm noted in the right hemisphere when compared to the left hemisphere. Occasional poorly formed nonspecific sharply contoured wave was noted in either hemisphere, none were associated with clear slowing of the background rhythm. There was no evidence of ongoing seizure activity. CLINICAL IMPRESSION: This was an abnormal EEG. There was intermittent slowing that was more predominant in the right hemisphere. No clear epileptiform activity was noted. [id number]/[facility] #: [id number] [facility]
--- NOTE | 2018-08-12 15:35 | CONS ---
CONSULTATION REPORT: DATE OF CONSULT: 08/12/18 REQUESTING PHYSICIAN: Dr. Juarez. REASON FOR CONSULT: Stroke. 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 She originally had a mechanical valve that leaked resulting in a redo with porcine valve and a pacemaker placement in May 2017. In June, she presented with confusion with difficulty speaking and left-sided weakness and was given tPA, admitted to the hospital and went onto have a seizure. She was treated with aspirin, Keppra, and transferred to [place]. In [place], she had a MRI brain (with pacemaker) which did not reveal a stroke. Her echocardiogram showed akinesis of the distal anterior septum and LV apex. Blood cultures were reported as negative and urine culture came out vanco-resistant Enterococcus faecium. She continues following with ID in [place] and is on doxycycline. Locally, she follows with Dr. Alexander and Juni Walker NP in Neurology and had a repeat EEG, which did not show epileptiform activity. She was not continued on anti- epileptic medications. She saw Dr. Franco in Cardiology and Coumadin therapy was recommended lifelong for infrequent atrial tachycardia, atrial fibrillation. She now presents with confusion, including increased speech difficulties ( expressive aphasia), left arm decreased function, and is starting to improve. Consult with [facility] showed an NIH stroke scale of 7. She was not a candidate for tPA or clot retrieval given she was on Coumadin with an INR of 3.43, and the results of her CTA did not show opportunity for large vessel clot retrieval. Her speech continues to improve. On her initial exam, her NIH stroke scale was 6. Of note, at baseline she has a left homonymous hemianopia with expressive aphasia and confusion that worsens in the setting of stress. Her boyfriend was with her this morning when about 7:30 AM she was more confused. It was difficult to figure out how to get into a car. She had worsening of her expressive aphasia and he noticed her holding her left arm up in a bent position. She adds that she had a halo of light that she saw before this happened. She has had this halo of light happen on other circumstances; she does not remember if it happened the last time that she was admitted for stroke-like symptoms and seizure. The other new symptom she has had has been pedal edema in the last 48 hours in the right greater than left leg. Orthopnea with coughing in the last 24 hours when lying flat. She has had no fever. She does have a rash on her cheeks and her hands after sun exposure yesterday. In hospital, she had a CT of the brain, which showed old right parietal stroke, which is cortical and wedge-shaped with no evidence of bleeding. Her chest x- ray showed cardiomegaly with interstitial edema consistent with congestive heart failure. Her CTA showed a left internal carotid artery 60% to 70% stenosis with minimal right internal carotid artery stenosis. Her total cholesterol was 176 and LDL was 89, her troponin was 0.06 and her INR was elevated at 3.43. Her white count was 6.3. PAST MEDICAL HISTORY: Includes hypertension, anxiety, endocarditis in February 2018 with multiple ischemic strokes, mitral valve replacement in February 2018 with mechanical valve with redo in May 2018 with porcine valve and pacemaker, seizure in June 2018 after a stroke-like presentation with expressive aphasia and left- sided weakness. Previous surgeries include gastric banding and cardiac surgeries as mentioned above as well as pacemaker placement May 2018. CURRENT MEDICATIONS: Include: 1. Oxygen 2 L while sleeping. 2. Warfarin 5 mg as directed with fluctuating doses based on her current INR. 3. Pantoprazole 40 mg take 1 tablet by mouth at bedtime. 4. Atorvastatin 80 mg p.o. day. 5. Metoprolol 25 mg half tablet by mouth every 12 hours held for systolic blood pressure less than 110, heart rate less than 60. 6. Docusate sodium 100 mg 1 tablet every 12 hours as needed for constipation. 7. Polyvinyl alcohol 1.4% 1 drop to both eyes daily as needed for dry eye. 8. Ondansetron 4 mg dissolve 1 tablet orally every 8 hours as needed for nausea. 9. Doxycycline 100 mg p.o. b.i.d. 10. Furosemide 40 mg p.o. b.i.d. 11. topical cream used as needed for leg. ALLERGIES: She has no known drug allergies. She indicates that she has been listed as having allergy to antidepressant and in the outpatient chart it is listed as BUSPIRONE, which she tells me it was just that she did not feel well, but was not that she had a true allergy. SOCIAL HISTORY: She lives in [place]. 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 She has smoked in the past and she does drink occasional alcohol and had 2 beers the night before this occurred. REVIEW OF SYSTEMS: Vision changes include left homonymous hemianopia at baseline. There has been difficulty with mixing up her words at baseline, gets worse when she is stressed and she tells me clearly today that she knows what she wants to say, but it is hard to get it out. She has more confusion with stress at baseline. There has been no difficulty swallowing. Rash includes on the cheeks and on the hands after sun exposure yesterday while on antibiotics. She has had more of a rough dry-like feeling in her sinuses and rough sounding breathing in the morning which triggers bad memories of her , who because of respiratory issues. She has been very frustrated in her repeat need for surgeries and fluctuating clinical course. There has been no new numbness, weakness other than left upper extremity symptoms, which she recognizes now that she is improving. She has had no fever. She plans to get evaluation for CPAP and sleep apnea. She had recent blood in her urine. She has had symptoms of congestive heart failure. There has been tachycardia and she has recognized the JVP pressure on her neck. There has been no other change in bowel or bladder habits. For other positive findings, please see HPI. PHYSICAL EXAM: Most recent blood pressure was 137/82. Her pulse was 70, respiratory rate was 22, saturation was 97% and her temperature was 98.7 degrees Fahrenheit. She had regular cardiac rhythm, which varied between very tachycardiac and paced. She had some crackles at her bases. There was no carotid bruit. She had full extraocular movements with no nystagmus. She had left homonymous hemianopia. Her facial expression was symmetric. There was no dysarthria, but she did stumble of her words and at times had word-finding difficulty, many times she could communicate without difficulty and this improved during the visit. Her palate was upgoing. Tongue was midline. Sternocleidomastoid and trapezius were 5/5 in strength. Of note, her pupils were equal and responsive to light and her fundi were flat. There was no pronator drift. She had full strength in her arms and legs. In her left arm, she held her hands somewhat limply when she would hold it up, but yet gave me good resistance when pulling attention to that arm. She did have neglect with double simultaneous stimulation of arms and legs with neglect of the left hand side. Her reflexes were 2+ and symmetric. Toes were flexor response. There was no asymmetry to pinprick, cold, or light touch, but there was neglect to more than 1 modality. Gait was not tested given clinical status. DIAGNOSTIC STUDIES/LAB DATA: Includes outpatient neurologic notes and cardiology notes, discharge summary from [facility], which gave detailed information regarding her complex course. She did have an EEG done on the , which was a normal awake and drowsy EEG. Her CT today was reviewed directly and showed evidence of her old right parietal ischemic injury, which is cortical and wedge- shaped; however, no new bleed. Other significant positive findings were noted in the HPI. All laboratory tests done today were reviewed and she had a normal white count. Her hemoglobin was slightly low, hematocrit was normal and platelets were normal. INR again was elevated 3.43, her potassium was slightly low at 3.4, creatinine was elevated at 1.23, glucose was 117, troponin was elevated 0.06 IMPRESSION: A 63-year-old woman with complex history of bacterial endocarditis with mitral valve replacement, which had to be repeated now with porcine valve and pacer placement, who had stroke-like symptoms similar to today in June, went on to have a generalized seizure, but no stroke seen on MRI. Now with repeat presentations highly suggestive of seizure activity. Consequently, she was loaded with 1 g of Keppra and given Ativan 1 mg IV. An EEG was in process at time of consultation. Brief view of this EEG so far shows slowing in the right hemisphere and I will refer to the dictation for further details. The differential diagnosis does include ischemic stroke and her INR is high. I would hold off on further antiplatelet agent. She is on Coumadin because of infrequent atrial fibrillation noted by Dr. Franco. In addition, she had wall motion abnormality. Depending on clinical course, I will consider an MRI. Dr. Weller will be here tomorrow who can help with a pacer-compatible MRI. Of concern is her worsening cardiac status with increased congestive heart failure with symptoms of orthopnea, elevated JVP, pedal edema, heart rate went from tachycardia to paced and back to tachycardia during the visit. I discussed the case with Cardiology who felt they could take care of her issues if she were to be admitted here, and accordingly consultation was initiated. She has no fever or elevated white count to suggest endocarditis, and C- reactive protein and sedimentation rate have been requested. Case was discussed with ER physician, ER nurse, hospitalist , Cardiology. In addition, education was given to the patient, the patient's boyfriend, brother. Over 3 hours was spent in patient care with over an hour of this in education. All questions were answered. We will continue to follow with you. [id number]/CPS #: [id number] OSIRIS
[2018-08-12] MEDS ORDERED: LORazepam INJ* 2 MG/ML 1 ML VIAL IV PUSH PRN (17:28)
[2018-08-12] MEDS ORDERED: Potassium Chlor TAB* 20 MEQ TAB.ER PO ONE ×2 (17:37→21:00)
--- NOTE | 2018-08-12 20:21 | CONSULT ---
Subjective Date of Service: 08/12/18 Interval History: Date of admission and consult 08/12/2018 Service: Hospitalist Inside Phone Sales: Dr. Karthikeyan Franco PCP: Placido Macias NP CC: Change in mental status Reason for consult: CHF HPI: Teresa Gore is a 63 year old woman with a history as below. She is accompanied by her nephew who she lives with mica parts sprayer (other time lives with significant other) She was admitted with confusion, visual changes aphasia. She is being evaluated and treated by Dr. Garcia for a suspected recurrent seizure. Coincidentally, the last few weeks she has noted some mild dyspnea on exertion with walking in the setting of not watching her diet as closely as she once had. She denies any anginal chest pain, persistent edema (intermittent has of right ankle) or pnd. She has to sleep on pillows due to persistent sternal pain from surgery. She has had an occasional cough more recently. She was found to be mildly congested and has responded well to 40 mg of IV lasix. She is intermittently pacing low 100's on heart rate monitor. She had previously been on lasix 40 mg po bid but is not currently taking this. Pmhx/surgical hx - #29 mechanical mitral valve replacement 03/05/2018 for methicillin-sensitive Staph aureus bacteremia with mitral valve endocarditis at that time complicated by cardioembolic phenomena/CVA - re-do mitral valve replacement with a #29 mm Medtronic Mosaic porcine bioprosthetic mitral valve replacement, as well as tricuspid valve repair 2018 due to initial prosthetic 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 - status post medtronic mri compatible dual chamber pacemaker - infrequent AT/AF seen on pacemaker interrogation per Dr. Franco recommended Coumadin lifelong - mild nonobstructive coronary artery disease by cardiac catheterization completed 03/05/2018, which showed mid-mild, 30% lesion in the LAD and a 10% proximal dominant RCA lesion. - transferred from [facility] to [facility] in [place] because of concern she was having a stroke causing mental status confusion and witnessed seizure in the [facility] 07/14/18. Acute troke was ruled out including negative head MRI. She was also seen by ID, blood cultures were negative, prescribed chronic antibiotic suppression therapy with Doxycycline 100 mg po bid for 3 months - lap band 2006 Allergies: Buspirone 07/20/18 allergy list reviewed on 07/20/2018 FH: Father: due to PR - 44. Mother: brain tumor Cerebrovascular Accident (CVA) - at 87. Siblings:2 - Brother at 68-throat and lung cancer, HTN Brother-66 HTN. SH: Marital: .Lives With: Family. Personal Habits: Smoking: Patient is a former smoker Patient is a former smoker - End Date: 1989 (age 15 Years).Alcohol: Currently consumes alcohol - 3-4 drinks per week.Drug Use: Denies Drug Use.Daily Medications Active Medications: Acetaminophen (Tylenol Tab*) 650 mg PO Q4H PRN PRN Reason: FEVER/PAIN Atorvastatin Calcium (Lipitor*) 80 mg PO DAILY ARIANNA Docusate Sodium (Colace Cap*) 100 mg PO BID PRN PRN Reason: CONSTIPATION Doxycycline Hyclate (Vibramycin Cap(*)) 100 mg PO BID ARIANNA Furosemide (Lasix Tab*) 20 mg PO EVERY OTHER DAY ARIANNA Levetiracetam (Keppra Tab*) 1,000 mg PO BID ARIANNA Lorazepam (Ativan Inj*) 1 mg IV PUSH Q4H PRN PRN Reason: Seizure activity Metoprolol Tartrate (Lopressor Tab*) 25 mg PO BID ARIANNA Miscellaneous (Ativan Pyxis [place]) 1 ea N/A .ATIVAN IV SHELTON PRN PRN Reason: PYXIS SHELTON Multivitamins (Theragran Tab*) 1 tab PO DAILY ARIANNA Ondansetron HCl (Zofran Inj*) 4 mg IV Q4H PRN PRN Reason: NAUSEA/VOMITING Pantoprazole Sodium (Protonix Tab*) 40 mg PO BEDTIME ARIANNA Polyvinyl Alcohol (Polyvinyl Alcohol 1.4% Opth*) 1 drop BOTH EYES DAILY PRN PRN Reason: DRY EYE Home Medications: Multivitamin [Multivitamins] 1 cap PO DAILY 02/24/18 [History Confirmed 08/12/18 ] Pantoprazole TAB (NF) [Protonix TAB (NF)] 40 mg PO BEDTIME 05/23/18 [History Confirmed 08/12/18] Artificial Tears* 15 ML BTL [Polyvinyl Alcohol 1.4% OPTH*] 1 drop BOTH EYES DAILY PRN 08/12/18 [History Confirmed 08/12/18] Atorvastatin* [Lipitor*] 80 mg PO DAILY 08/12/18 [History Confirmed 08/12/18] DOXYcycline CAP(*) [DOXYcycline 100MG CAP(*)] 100 mg PO BID 08/12/18 [History Confirmed 08/12/18] Docusate CAP* [Colace Cap*] 100 mg PO BID PRN 08/12/18 [History Confirmed ] Metoprolol Tartrate TAB* [Lopressor TAB*] 12.5 mg PO BID 08/12/18 [History Confirmed 08/12/18] Ondansetron ODT TAB* [Zofran 4 MG Odt TAB*] 4 mg PO Q8H PRN 08/12/18 [History Confirmed 08/12/18] Warfarin Sodium 5 mg PO DAILY 08/12/18 [History Confirmed 08/12/18] Review of Systems - Measurements Intake and Output: Intake and Output Last 24 Hours 08/10/18 08/11/18 08/12/18 08/13/18 06:59 06:59 06:59 06:59 Intake Total 640 Output Total 1300 Balance -660 Weight 184 lb 8 oz Intake: IV Fluids 400 Oral 240 Output: Urine 1300 Other: Estimated Void Medium # Voids 1 - Review of Systems Constitutional Symptoms: Negative: Weight Gain, Weight Loss, Fever Dermatology: Negative: Rash, Skin Lesions HEENT: Negative: Change in Hearing, Vertigo Eyes: Negative: Change in Vision, Double Vision Thyroid: Negative: Normal, Cold Intolerance, Heat Intolerance, Weight Loss, Weight Gain Pulmonary: Positive: Cough, Exercise Intolerance Cardiology: Positive: Shortness of Breath, Swelling of Ankles Gastroenterology: Negative: Abdominal Pain, Nausea, Vomiting, Anorexia, Blood in Stools, Change in Bowel Habits, Haematemesis Genital - Urinary: Negative: Dysuria, Hematuria Musculoskeletal: Negative: Joint Pain, Joint Stiffness Endocrinology: Positive: Obesity Negative: Thyroid Problems, Hyperglycemia, Hypoglycemia, Polydipsia, Polyuria Hematologic/Lymphatic: Positive: Use of Anticoagulant Negative: Hx Leukemia, Hx Lymphoma Neurology: Positive: Hx of Stroke\TIA Negative: Change in Speech, Change in Sphincter Function, Change in Walking, Hx Seizures Psychiatry: Positive: Depression, Anxiety Allergic/Immunologic: Negative: Hx HIV, Immunocompromise Review of Systems Statement: All other review of systems negative, unless stated above. Objective Vital Signs: Temp Pulse Resp BP Pulse Ox 98 F 70 18 112/58 98 08/12/18 19:55 08/12/18 18:00 08/12/18 18:00 08/12/18 18:00 08/12/18 18:00 Oxygen Devices in Use Now: None Appearance: nad, not toxic appearing Ears/Nose/Mouth/Throat: Clear Oropharnyx, Mucous Membranes Moist Neck: Trachea Midline, - - mild jvd Respiratory: Symmetrical Chest Expansion and Respiratory Effort, - - rales right base Cardiovascular: - - rrr, no diastolic murmur appreciated, sternotomy scar well healed Abdominal: - - soft, nontender Extremities: No Edema Skin: No Rash or Ulcers Neurological: Alert and Oriented x 3 Laboratory Results: 08/12/18 07:53 08/12/18 07:53 INR (Anticoag Therapy) 3.43 (0.82-1.09) H 08/12/18 07:53 APTT 37.7 seconds (26.0-36.3) H 08/12/18 07:53 Total Bilirubin 0.80 mg/dL (0.2-1.0) 08/12/18 07:53 AST 26 U/L (13-39) 08/12/18 07:53 ALT 23 U/L (7-52) 08/12/18 07:53 Alkaline Phosphatase 84 U/L (34-104) 08/12/18 07:53 B-Natriuretic Peptide 330 pg/mL (<=100) H 08/12/18 07:53 Total Protein 7.5 g/dL (6.4-8.9) 08/12/18 07:53 Albumin 4.2 g/dL (3.2-5.2) 08/12/18 07:53 Globulin 3.3 g/dL (2-4) 08/12/18 07:53 Albumin/Globulin Ratio 1.3 (1-3) 08/12/18 07:53 Triglycerides 103 mg/dL 08/12/18 07:53 Cholesterol 176 mg/dL 08/12/18 07:53 LDL Cholesterol 89 mg/dL 08/12/18 07:53 HDL Cholesterol 66.5 mg/dL 08/12/18 07:53 08/12/18 08/12/18 07:53 12:41 Troponin I 0.06 H* 0.04 H* Diagnostic Imaging: Medtronic dual chamber device interrogated 06/11/2018, and it showed that it was normally functioning. Pacer interrogated at [facility] 07/14/18 (pre head MRI) which showed 2.8% AT/AF on 07/13 and 07/14/18. Cardiac catheterization completed 03/05/2018, which showed mid-mild, 30% lesion in the LAD and a 10% proximal dominant RCA lesion. Echo 07/16/18 [facility]: Upper normal LV size, mildly depressed LVEF 45-50%, LV apex and distal anterior septum akinetic, MV bio-replacement ok with mild MR, tricuspid valve ring similarly benign. Exam Date: 08/12/18 075 IMPRESSION: CARDIOMEGALY WITH INTERSTITIAL EDEMA CONSISTENT WITH CHF PROGRESSIVE SINCE JULY 13, 2018. Exam Date: 08/12/18 075 CTA HEAD/NECK Indication: Stroke symptoms. IMPRESSION: Calcific plaque is noted in the left internal carotid artery at its origin with approximately 60% stenosis. The right internal carotid artery demonstrates minimal calcification. No evidence of carotid artery dissection. No evidence of branch occlusion. No evidence of aneurysmal dilatation. CT brain Exam Date: 08/12/18 IMPRESSION: Old infarct in the right posterior parietal lobe. No intracranial mass or hemorrhage is noted. Electroencephalogram Report DATE OF STUDY: 08/12/18 CLINICAL IMPRESSION: This was an abnormal EEG. There was intermittent slowing that was more predominant in the right hemisphere. No clear epileptiform activity was noted. EKG Data: ekg today taking into consideration telemetry likely a 1:1 atrial tracked tachycardia at 105 bpm. Other PMT variant possible Assessment/Plan 1. Heart failure with mildly reduced LVEF - Mildly decompensated, likely coincidental to chief complaint 2. s/p bioprosthetic MVR and TV repair - Patient has no elevated wbc, fever or evidence of acute recurrent infection 3. MRI compatible pacemaker 4. Paroxysmal Atrial fibrillation/atrial tachycardia - on warfarin 5. Hx of CVA 6. Probable seizures - reason for presentation - Start lasix 20 mg po Mon, Weds, Fri (ordered) with PRN dosing. Given an extra 40 meq K tonight and check Mg tomorrow (ordered). We also discussed reducing sodium intake (multiple social events recently with increased sodium intake). - Increase metoprolol from 12.5 mg po bid to 25 mg po bid (ordered), continue telemetry monitoring - Continue antibiotics as per ID - continue warfarin - Check echo - If brain MRI is requested, would check with Dr. Weller tomorrow (Monday, 08/13) regarding pacemaker setup Thank you for allowing me to participate in the cardiovascular care of this patient. Please do not hesitate to contact me with questions or concerns.
[2018-08-12] MEDS ORDERED: Metoprolol Tartrate TAB* 50 mg PO SCH (21:00)
[2018-08-12] MEDS ORDERED: Metoprolol Tartrate TAB* 25 MG PO SCH (21:00)
[2018-08-12] MEDS: levETIRAcetam TAB* 500 MG PO SCH (21:01)
[2018-08-12] MEDS: Pantoprazole TAB * 40 MG TAB PO SCH (21:01)
[2018-08-12] MEDS: DOXYcycline CAP(*) 100 MG PO SCH (21:01)
[2018-08-12] MEDS: Metoprolol Tartrate TAB* 25 MG PO SCH (21:02)
--- NOTE | 2018-08-12 22:21 | HP ---
CC: Placido Macias NP; Dr. Chan Alexander; Dr. Karthikeyan Franco * HISTORY AND PHYSICAL: DATE OF ADMISSION: 08/12/18 PRIMARY CARE PROVIDER: Placido Macias NP NEUROLOGIST: Dr. Chan Alexander. SYRUP MIXER: Dr. Karthikeyan Franco. ATTENDING PHYSICIAN: Dr. Carli Jefferson * (dictated by Valarie Bryan NP). CHIEF COMPLAINT: Altered mental status. HISTORY OF PRESENT ILLNESS: Ms. Gore is a 63-year-old female who was quite healthy until a complicated history of events beginning in February 2018. 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 The patient was admitted to this facility on 02/25/18 and ultimately was transferred out on 02/28/18 due to the need for cardiothoracic surgery evaluation. Ultimately, she had a mechanical mitral valve replacement and pacemaker placement at [facility] in February 2018. There were complications with her mechanical valve and due to leaking, underwent a replacement of a valve with a porcine valve at [facility] in May 2017. In June 2018, she presented to the emergency room here at [facility] with altered mental status and left sided weakness. She ultimately was given tPA, and while in the ED she was noted to have a witnessed grand mal seizure. She was subsequently transferred back up to [facility], where she had a MRI, which was unremarkable for any new stroke. She was noted to have a urine culture, which grew vancomycin resistant enterococcus and has been following with Infectious Disease in [place]. They have placed her on suppressive therapy with doxycycline at this point. She has additionally been following with Dr. Alexander with Neurology. She had an EEG last month, which did not show any seizure activity and therefore was not placed on any antiepileptics. She additionally has been following with Dr. Franco from Cardiology, who has kept her on Coumadin due to the presence of some atrial fibrillation on pacemaker interrogation. Today, she presents with confusion and difficulties with speech. On evaluation , the patient and her significant other note that she has been having episodes similar to this for the last month or so. These have been becoming more frequent. The episode typically last around 10 minutes and the significant other believes that they tend to come on when the patient is frustrated. The episodes typically consists of some altered mental status. The patient notes difficulty speaking and doing tasks, which require fine motor skills. She and her family report some increased shortness of breath with exertion over the last week or so. No increased shortness of breath while laying down. Mild edema to bilateral feet, worse on the right. She had been taking 40 mg of furosemide twice daily up until a couple weeks ago. This was stopped under the direction of her base filler. She denies any palpitations or chest discomfort. In the emergency room, the patient and her significant other noted that her symptoms have been gradually improving, although the patient is still having some difficulty speaking. She reports she does not have difficulty finding the right words, though has difficulty actually expressing these words. She is quite emotional about these recent medical events. She did have imaging, which was unremarkable for any acute stroke. Neurology was consulted by the physician in the emergency room, Dr. Garcia saw the patient and felt it was necessary to do an EEG prior to admission to rule out any status epilepticus. An EEG was done in the emergency room, showed some slowing of the right hemisphere. The Hospitalist service was asked to evaluate for admission. PAST MEDICAL HISTORY: 1. Mitral valve endocarditis in February 2018. 2. 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 3. Acute diastolic heart failure. 4. Seizure, one witnessed event in June 2018. 5. Coronary artery disease. 6. Hypertension. 7. Anxiety. PAST SURGICAL HISTORY: 1. Gastric banding, 2006. 2. Mitral valve replacement with mechanical valve in February 2018. 3. Mitral valve replacement with porcine valve in May 2018. 4. Pacemaker, February 2018. HOME MEDICATIONS: 1. Artificial tears 1 drop both eyes daily p.r.n. dry eye. 2. Atorvastatin 80 mg p.o. daily. 3. Docusate 100 mg p.o. b.i.d. p.r.n. constipation. 4. Doxycycline 100 mg p.o. b.i.d. 5. Metoprolol tartrate 12.5 mg p.o. b.i.d. 6. Multivitamin 1 tab p.o. daily. 7. Ondansetron 4 mg p.o. q.8 hours p.r.n. nausea, vomiting. 8. Pantoprazole 40 mg p.o. at bedtime. 9. Coumadin 5 mg p.o. daily. ALLERGIES: BUSPIRONE. FAMILY HISTORY: The patient's mother at 87 of CVA. Her father at 44 of an NM. She has 2 brothers with a hypertension. SOCIAL HISTORY: The patient denies any tobacco or recreational drug use. She reports drinking approximately 3 to 4 alcoholic beverages per week. She was with her significant other, Ramu Teague, who will be her surrogate discission maker in the event she is unable to make her own decision. REVIEW OF SYSTEMS: An 11-point review of systems was performed and all pertinent positive and negative findings are in the HPI, all other other systems were negative. PHYSICAL EXAMINATION GENERAL: Ms. Gore is a well-developed, well-nourished middle aged white woman , sitting in bed in no acute distress. She appears her stated. VITAL SIGNS: Temp 98.2, heart rate 70, respiratory rate 20, oxygen saturation 93% on room air, and blood pressure 142/67. HEENT: Head is atraumatic, normocephalic. Visual mae are grossly intact. Pupils equal, round, and reactive to light and accommodation. Extraocular movements intact. Hearing is grossly intact. Oral mucous membranes are moist and without lesions. NECK: Full range of motion. Thyroid not palpable. Trachea midline. No lymphadenopathy. LUNGS: Symmetric chest expansion. No chest wall deformities. Fine crackles to bilateral bases, otherwise clear throughout. No rhonchi or rubs. CARDIOVASCULAR: Regular rate and rhythm. S1, S2 present. No murmurs, rubs, or gallops. Positive JVD. ABDOMEN: Soft, nontender to palpation. Bowel sounds normoactive throughout. EXTREMITIES: Skin warm and smooth bilaterally. Mild nonpitting edema to bilateral lower extremities, right greater than left. No clubbing or cyanosis. Pedal pulses 2+ bilaterally. MUSCULOSKELETAL: Full range of motion. No pain or deformities. NEUROLOGIC: Awake, alert, and oriented x4. Occasional dysarthria. Cranial nerves II through XII are grossly intact. Motor strength is 5/5 in upper and lower extremities bilaterally except for the left hand, which is 4/5. SKIN: Grossly intact without lesions. DIAGNOSTIC STUDIES/LAB DATA: WBC 6.3, RBC 4.25, hemoglobin 11.5, hematocrit 36 , platelets 234. ESR 31, INR 3.43. Sodium 140, potassium 3.4, chloride 106, carbon dioxide 25, BUN 21, creatinine 1.23, glucose 117. Lactic acid 1.9. First troponin 0.06, second troponin 0.04. CRP 4. BNP 330. Triglyceride 103, total cholesterol 176, LDL 89, and HDL 66. Brain CT read as: Old infracts in the right posterior parietal lobe. No intracranial mass or hemorrhages noted. Chest x-ray read as: Cardiomegaly with interstitial edema consistent with CHF, progressive since 07/13/18. Head CTA read as: Calcific plaque is noted in the left internal carotid artery at its origin with approximately 60% stenosis. The right internal carotid artery demonstrates minimal calcification. No evidence of carotid artery dissection. No evidence of branch occlusion. No evidence of aneurysmal dilation. EKG showed 100% ventricular pacing with a rate of 106. QTc 589. ASSESSMENT AND PLAN: Ms. Gore is a 63-year-old female with past medical history of methicillin susceptible Staphylococcus aureus, mitral valve endoaortitis status post mitral valve replacement x2, cerebrovascular accident secondary to septic emboli, seizure disorder, coronary artery disease hypertension, and anxiety, who presents to the emergency room today with altered mental status. The patient will be admitted observation for: 1. Altered mental status. The patient's symptoms include confusion, difficulty with fine motor skills, and dysarthria. Apparently, these episodes have been occurring more frequently within the last month though her symptoms do resolve usually within approximately 10 minutes. So this is concerning for seizure activity. The patient does have an EEG in the emergency room, which did show "intermittent swelling that was more predominant in the right hemisphere." There was no obvious epileptiform activity. The patient was already seen by Dr. Garcia, who did load her with Keppra and a dose of Ativan. She felt as though the differential also included ischemic stroke, though I note the patient has a supratherapeutic INR. It is possible that the patient may need an MRI tomorrow. She has a pacemaker, though it is MRI compatible, so this may be considered tomorrow. At this point, Dr. Garcia recommended continuing the patient on 1,000 mg of Keppra b.i.d. starting tonight, which I have ordered. I have additionally ordered p.r.n. Ativan for any seizure activity under her recommendation. The patient will be placed on seizure precaution and neuro checks. I have ordered physical therapy, occupational therapy, and speech therapy consultation. At this point. Dr. Garcia felt as though the patient would benefit from staying in the ICU overnight tonight for close monitoring and I felt as though this was reasonable. If the patient does not have any seizure activity overnight, I will plan to transfer her up to the floor tomorrow morning. 2. Acute on chronic diastolic congestive heart failure. The patient has had acute decompensated heart failure in the past, though is not decompensated at this point. She was noted to have this here in 2018 during her short stay. She does follow with Dr. Franco from Cardiology and recently stopped taking Lasix at home under the direction of her base filler. Dr. Garcia did speak with Dr. Eller from Cardiology to have them consult on the case. At this point , I have ordered a transthoracic echo for tomorrow to assess ejection fraction and mitral valve function. I have additionally placed her on furosemide 40 mg IV daily and I will await any further recommendations from Cardiology after the consultation. The patient will have daily weights and strict intake and output monitoring. 3. History of methicillin susceptible Staphylococcus aureus endocarditis. As noted above, the patient had a mechanical mitral valve, which ultimately needed to be replaced with a porcine valve. She is following with Infectious Disease in [place] and at this point they have her on doxycycline for suppression therapy, which I will continue. I do not see any reason for an Infectious Disease consult at this point and I am not concerned about any recurrence of her endocarditis or other infection. 4. Atrial fibrillation. The patient does note that she can occasionally feel short episodes of palpitation and recent pacemaker interrogation shows a few episodes of atrial fibrillation. The patient was placed on Coumadin by Dr. Franco, which I will continue, although at this point her INR is supratherapeutic so I will hold it tonight. We will maintain a goal INR of 2 to 3. I will also continue her metoprolol. 5. Coronary artery disease. I have no acute cardiac concerns at this point. I will continue atorvastatin and metoprolol. 6. GERD. I will continue pantoprazole. 7. FEN. The patient does not require any fluid resuscitation at this point. Her potassium was slightly low at 3.4, so I will give her 20 m.e.q. of potassium. I will anticipate that she will likely need more potassium replacement due to diuresis. I have ordered a regular diet. 8. Code status: At this point, the patient will be a full code, though I would discuss this further with the patient and her family tomorrow as it sounds as though she may consider signing a MOLST to be a do not resuscitate. 9. DVT prophylaxis. According to the risk assessment, the patient's score is a 4, putting her at high risk. Again, the patient is already on Coumadin and her INR supratherapeutic, so we will hold Coumadin at this point though will plan to maintain a goal INR of 2 to 3. TIME SPENT: Approximately 90 minutes were spent on this admission, greater than half of that time spent [id number] with the patient and her family obtaining my history, perform my physical exam, and reviewing plan of care. This case has been reviewed my attending, Dr. Jefferson, who is in agreement with the plan of care. VALARIE BRYAN, SVP [employer] [id number]/CPS #: [id number] OSIRIS
[2018-08-13 07:24] LABS: ABS Eosinophils 0.1 10^3/ul (0-0.6); ABS Lymphocytes 0.7 10^3/ul (1.0-4.8); ABS Monocytes 0.4 10^3/ul (0-0.8); ABS Neutrophils 3.6 10^3/ul (1.5-7.7); Eosinophil % 2.4 %; Hematocrit 30 % (35-47); Hemoglobin 9.6 g/dL (12.0-16.0); Lymphocyte % 15.3 %; Mean Corpuscular HGB Conc 32 g/dL (31-36); Mean Corpuscular Hemoglobin 27 pg (27-31); Mean Corpuscular Volume 84 fL (80-97); Mean Platelet Volume 8.4 fL (7.4-10.4); Platelet Count 199 10^3/uL (150-450); Red Blood Count 3.56 10^6 /uL (3.70-4.87); Red Cell Distribution Width 18 % (10.5-15); White Blood Count 4.9 10^3/uL (3.5-10.8)
[2018-08-13 07:29] LABS: INR 3.07 (0.82-1.09)
[2018-08-13 07:39] LABS: Magnesium 1.6 mg/dL (1.9-2.7); Potassium 3.8 mmol/L (3.5-5.0)
[2018-08-13 07:44] LABS: BUN/Creatinine Ratio 13.9 (8-20); EGFR African American 57.5 (>60); EGFR Non-African American 47.5 (>60)
[2018-08-13] MEDS ORDERED: Furosemide IV* 10 MG/ML VIAL (40 MG) IV SCH (09:00)
[2018-08-13] MEDS: levETIRAcetam TAB* 500 MG PO SCH (10:36)
[2018-08-13] MEDS: Metoprolol Tartrate TAB* 25 MG PO SCH ×2 (10:37→20:36)
[2018-08-13] MEDS: Furosemide TAB* 20 MG PO SCH (10:37)
[2018-08-13] MEDS: Vitamin THERAPEUTIC TAB PO SCH (10:37)
[2018-08-13] MEDS: Atorvastatin* 80 MG TAB PO SCH (10:37)
[2018-08-13] MEDS: DOXYcycline CAP(*) 100 MG PO SCH ×2 (10:38→20:37)
--- NOTE | 2018-08-13 10:49 | PN ---
Subjective Date of Service: 08/13/18 Length of Stay: 1 Days Interval History: Patient states she is feeling better today. She states that she has not had any more episodes of confusion or trouble with speech. She states that today while reading the lunch menu the words were upside down and then it resolved. She denies anymore seizure activity. Review of Systems: Denied CP, SOB, or palpitations. Objective Active Medications: Acetaminophen (Tylenol Tab*) 650 mg PO Q4H PRN PRN Reason: FEVER/PAIN Atorvastatin Calcium (Lipitor*) 80 mg PO DAILY [facility] Docusate Sodium (Colace Cap*) 100 mg PO BID PRN PRN Reason: CONSTIPATION Doxycycline Hyclate (Vibramycin Cap(*)) 100 mg PO BID [facility] Last Admin: 08/12/18 21:01 Dose: 100 mg Furosemide (Lasix Tab*) 20 mg PO EVERY OTHER DAY [facility] Levetiracetam (Keppra Tab*) 1,000 mg PO BID [facility] Last Admin: 08/12/18 21:01 Dose: 1,000 mg Lorazepam (Ativan Inj*) 1 mg IV PUSH Q4H PRN PRN Reason: Seizure activity Metoprolol Tartrate (Lopressor Tab*) 25 mg PO BID [facility] Last Admin: 08/12/18 21:02 Dose: 25 mg Miscellaneous (Ativan Pyxis ) 1 ea N/A .ATIVAN IV PRN PRN Reason: PYXIS Multivitamins (Theragran Tab*) 1 tab PO DAILY [facility] Ondansetron HCl (Zofran Inj*) 4 mg IV Q4H PRN PRN Reason: NAUSEA/VOMITING Pantoprazole Sodium (Protonix Tab*) 40 mg PO BEDTIME [facility] Last Admin: 08/12/18 21:01 Dose: 40 mg Polyvinyl Alcohol (Polyvinyl Alcohol 1.4% Opth*) 1 drop BOTH EYES DAILY PRN PRN Reason: DRY EYE Vital Signs 08/12/18 08/12/18 08/12/18 10:42 11:00 11:12 Temperature Pulse Rate 116 114 114 Respiratory 19 27 27 Rate Blood Pressure 175/102 158/98 (mmHg) O2 Sat by Pulse 86 96 99 Oximetry 08/12/18 08/12/18 08/12/18 11:42 12:00 12:13 Temperature Pulse Rate 70 121 114 Respiratory 22 24 24 Rate Blood Pressure 137/82 134/89 (mmHg) O2 Sat by Pulse 97 93 91 Oximetry 08/12/18 08/12/18 08/12/18 13:00 13:38 14:00 Temperature Pulse Rate Respiratory 26 20 21 Rate Blood Pressure 142/67 (mmHg) O2 Sat by Pulse Oximetry 08/12/18 08/12/18 08/12/18 14:03 14:13 14:53 Temperature Pulse Rate 116 110 Respiratory 25 17 19 Rate Blood Pressure 118/77 126/89 121/79 (mmHg) O2 Sat by Pulse 93 98 Oximetry 08/12/18 08/12/18 08/12/18 15:03 15:04 15:06 Temperature 98.2 F 98 F Pulse Rate 124 110 115 Respiratory 24 14 17 Rate Blood Pressure 121/79 118/77 (mmHg) O2 Sat by Pulse 91 100 93 Oximetry 08/12/18 08/12/18 08/12/18 15:15 15:19 15:21 Temperature Pulse Rate 111 Respiratory 20 20 Rate Blood Pressure 110/71 (mmHg) O2 Sat by Pulse 88 93 Oximetry 08/12/18 08/12/18 08/12/18 16:00 16:35 17:00 Temperature Pulse Rate 96 70 Respiratory 17 23 19 Rate Blood Pressure 102/59 113/69 (mmHg) O2 Sat by Pulse 92 99 Oximetry 08/12/18 08/12/18 08/12/18 17:17 17:42 18:00 Temperature Pulse Rate 70 Respiratory 19 17 18 Rate Blood Pressure 112/58 (mmHg) O2 Sat by Pulse 98 Oximetry 08/12/18 08/12/18 08/12/18 18:27 19:00 19:55 Temperature 98 F Pulse Rate 119 71 Respiratory 16 25 Rate Blood Pressure 138/75 (mmHg) O2 Sat by Pulse 94 95 Oximetry 08/12/18 08/12/18 08/12/18 20:00 20:01 21:00 Temperature Pulse Rate 98 109 97 Respiratory 20 14 16 Rate Blood Pressure 118/78 127/83 (mmHg) O2 Sat by Pulse 93 97 93 Oximetry 08/12/18 08/12/18 08/13/18 22:00 23:00 00:00 Temperature 97 F Pulse Rate 108 70 89 Respiratory 16 14 14 Rate Blood Pressure (mmHg) O2 Sat by Pulse 95 97 98 Oximetry 0508/13/18 08/13/18 01:00 02:00 03:00 Temperature Pulse Rate 70 70 70 Respiratory 16 15 19 Rate Blood Pressure (mmHg) O2 Sat by Pulse 97 98 96 Oximetry 08/13/18 08/13/18 08/13/18 03:03 04:00 04:03 Temperature 97.5 F Pulse Rate 70 87 112 Respiratory 16 24 23 Rate Blood Pressure 118/60 96/77 (mmHg) O2 Sat by Pulse 97 92 88 Oximetry 08/13/18 08/13/18 08/13/18 05:00 06:00 07:00 Temperature Pulse Rate 70 70 70 Respiratory 21 15 21 Rate Blood Pressure 128/74 121/72 115/77 (mmHg) O2 Sat by Pulse 98 98 97 Oximetry 08/13/18 08/13/18 08/13/18 07:33 08:00 09:00 Temperature Pulse Rate 70 109 Respiratory 19 15 18 Rate Blood Pressure 116/71 (mmHg) O2 Sat by Pulse 98 97 95 Oximetry 08/13/18 09:29 Temperature Pulse Rate 111 Respiratory 20 Rate Blood Pressure 111/87 (mmHg) O2 Sat by Pulse 97 Oximetry Intake and Output Last 24 Hours 08/11/18 08/12/18 08/13/18 08/14/18 06:59 06:59 06:59 06:59 Intake Total 2080 Output Total 1300 Balance 780 Weight 184 lb 8 oz Intake: IV Fluids 400 Oral 1680 Output: Urine 1300 Other: Estimated Void Large Date of Last Bowel T Movement # Bowel Movements 1 Estimated Stool Amount Medium # Voids 1 Oxygen Devices in Use Now: Nasal Cannula Neurology Exam: General: Well nourished, well developed, and in no acute distress HEENT: Normocephelic/atraumatic, sclera anicteric, mucous membranes moist Neck: Supple Chest: Clear to auscultation bilaterally Cardiovascular: Regular rate and rhythm without murmurs, rubs, gallops Abdomen: Soft, non-tender/non-distended Extremities: No clubbing, cyanosis, or edema Neurological Findings: Awake, alert, and oriented to person, place, and time. Speech: fluent without dysarthria, repetition intact Cranial Nerve: PERRL, EOM intact, VFF, no nystagmus, face symmetric bilaterally , facial sensation intact, hearing intact to finger rub bilaterally, palate elevates symmetrically, tongue midline, SCM and Trapezius 5/5. Motor: 5/5 throughout, proximal and distal extremities x4 tone/bulk normal Sensation: intact to LT upper and lower extremities, Deep Tendon Reflex: 2+ symmetric in the upper extremities, 1 plus in the lower extremities, Babinski - down going Finger to nose, rapid alternating movements intact without tremor, no dysdiadochokinesia Gait: not tested, patient under going echo, Result Diagrams: 08/13/18 06:45 08/13/18 06:45 Microbiology and Other Data: Microbiology 08/12/18 15:11 Nasal Screen MRSA (PCR) - Final Nasal Mrsa Not Detected Diagnostic Imaging: Diagnostics Summary of Radiographic CXR IMPRESSION: CARDIOMEGALY WITH INTERSTITIAL Findings [CHEST X-RAY] EDEMA CONSISTENT WITH CHF PROGRESSIVE SINCE JULY 13, 2018. THIS REPORT WAS REVIEWED BY DR. LOUIE. Summary of CT Findings [HEAD HEAD CTA IMPRESSION: Calcific plaque is noted in CTA] the left internal carotid artery at its origin with approximately 60% stenosis. The right internal carotid artery demonstrates minimal calcification. No evidence of carotid artery dissection. No evidence of branch occlusion. No evidence of aneurysmal dilatation. THIS REPORT WAS REVIEWED BY DR. LOUIE. Summary of CT Findings [BRAIN BRAIN CT IMPRESSION: Old infarct in the right CT] posterior parietal lobe. No intracranial mass or hemorrhage is noted. THIS REPORT WAS REVIEWED BY DR. LOUIE. Summary of EKG Findings [0811] EKG showed ventricular paced rhythm with rate of 106 BPM, left axis deviation, and non-specific ST. Assessment/Plan 63 y/o female patient with a history of CVA involving the right posterior parietal lobe and right temperol lobe, with tiny areas of restriction on DWI to the left cerebellum, left and right parietal lobes, and left and right frontal lobes, afib, endocarditits, cad, and CHF, [place] [facility] complaints of AMS and difficulty with speech, AMS: I suspect underlying seizure activity. She has had a similar episode in June that generalized into a tonic clonic type seizure. More history was obtained from the patients significant other and it sounds as if the patient has had intermittent episodes of confusion with trouble with speech similar to her CVA in February of 2018. She reported with the most recent episode of seeing a halo which i suspect was aura. She also admitted that her left hand became stiff. Going forward I would like to continue her keppra for now at 750mg bid as she has had some dizziness and lightheadedness which could be from the medication. i am also obtaining a MRI I discussed the common side effects of this medication. I have low suspicion for cva given repeat episodes with similar deficits. I suspect underlying focal seizures related to prior CVA. EEG showed intermittent slowing. Will need further 72 hr eeg outpatient. The patient did complain of inverted vision today that was intermittent in nature her CTA of head showed vertebral arteries were patent with no aneurysmal changes, will continue to monitor . Given the continue intermittent visual disturbances and speech disturbances will check MRI brain. Will need cardiology clearance prior to MRI, will need [employer] rep to re-program, CVA: Continue with secondary prevention with Coumadin given history of PAF. Goal LDL < 70 and continue to monitor for Diabetes, no focal deficits on exam today. CHF, afib, CAD: Cardiology following Hx of endocarditits : Continue with current medications, defer to hospitalist I discussed the case today with Dr Alexander he was in agreement.
[2018-08-13] MEDS ORDERED: Perflutren Lipid Microsphere* 3 ML VIAL ONE (11:02)
--- NOTE | 2018-08-13 14:52 | PN ---
Subjective Date of Service: 08/13/18 Interval History: Ms. Gore feels much better today. She feels as though her symptoms have mostly resolved. Still slightly groggy, but not nearly as severe as yesterday. Speech is improved. Fine motor skills are at baseline. She denies headache, vision changes, neuro deficits. No CP or SOB. Still feeling very emotional about her recent medical problems and the stress this has caused. No concerns from nursing. No evidence of seizure-like activity overnight. Tele: 100% AV pacing around 70bpm. Occasional tachycardia up into the low 100s, but not sustained. Family History: Unchanged from Admission Social History: Unchanged from Admission Past Medical History: Unchanged from Admission Objective Active Medications: Acetaminophen (Tylenol Tab*) 650 mg PO Q4H PRN FEVER/PAIN Atorvastatin Calcium (Lipitor*) 80 mg PO DAILY ARIANNA Docusate Sodium (Colace Cap*) 100 mg PO BID PRN CONSTIPATION Doxycycline Hyclate (Vibramycin Cap(*)) 100 mg PO BID ARIANNA Furosemide (Lasix Tab*) 20 mg PO EVERY OTHER DAY [facility] Levetiracetam (Keppra Liq*) 750 mg PO BID ARIANNA Lorazepam (Ativan Inj*) 1 mg IV PUSH Q4H PRN Seizure activity Metoprolol Tartrate (Lopressor Tab*) 25 mg PO BID ARIANNA Multivitamins (Theragran Tab*) 1 tab PO DAILY [facility] Ondansetron HCl (Zofran Inj*) 4 mg IV Q4H PRN NAUSEA/VOMITING Pantoprazole Sodium (Protonix Tab*) 40 mg PO BEDTIME ARIANNA Polyvinyl Alcohol (Polyvinyl Alcohol 1.4% Opth*) 1 drop BOTH EYES DAILY PRN DRY EYE Vital Signs - 8 hr 08/13/18 08/13/18 08/13/18 07:00 07:33 08:00 Temperature Pulse Rate 70 70 Respiratory 21 19 15 Rate Blood Pressure 115/77 116/71 (mmHg) O2 Sat by Pulse 97 98 97 Oximetry 08/13/18 08/13/18 08/13/18 09:00 09:29 12:00 Temperature 98 F Pulse Rate 109 111 Respiratory 18 20 Rate Blood Pressure 111/87 (mmHg) O2 Sat by Pulse 95 97 Oximetry Oxygen Devices in Use Now: None Appearance: Middle-aged female sitting in bed in NAD Eyes: No Scleral Icterus Ears/Nose/Mouth/Throat: Mucous Membranes Moist Neck: NL Appearance and Movements; NL JVP, Trachea Midline Respiratory: Symmetrical Chest Expansion and Respiratory Effort, Clear to Auscultation Cardiovascular: NL Sounds; No Murmurs; No JVD, RRR Abdominal: NL Sounds; No Tenderness; No Distention Extremities: No Edema Skin: No Rash or Ulcers Neurological: Alert and Oriented x 3 Lines/Tubes/Other Access: Clean, Dry and Intact Peripheral IV Nutrition: Taking PO's Result Diagrams: 08/14/18 06:29 08/14/18 06:29 Assess/Plan/Problems-Billing Assessment: Ms. 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 - Patient Problems (1) Altered mental status Code(s): R41.82 - ALTERED MENTAL STATUS, UNSPECIFIED Comment: - Patient and family describe episodes increasing in frequency over the last month; symptoms: dysarthria, expressive aphasia, confusion, diffculty with fine motor skills - No further episode during this hospitalization - EEG in ED showed right hemisphere slowing - Appreciate Neurology consult; recommends MRI as CVA is still on the differential, continue Keppra (dose decreased) - Neuro checks q4h and seizure precautions - MRI pending; will need [employer] rep present d/t presence of pacer - Continue Keppra (2) Acute on chronic systolic heart failure Code(s): I50.23 - ACUTE ON CHRONIC SYSTOLIC (CONGESTIVE) HEART FAILURE Comment : - Not decompensated - Was taking furosemide within the last month and symptoms seem to have worsened since stopping - Echo shows EF 40-45% and global apical hypokinesis; EF is slightly decreased from echo at [facility] on 07/16/18 - Appreciate Cardiology consult; recommends furosemide and reducing Na intake - Continue furosemide (3) History of mitral valve replacement Code(s): Z95.2 - PRESENCE OF PROSTHETIC HEART VALVE Comment: - Mechanical valve in 02/2018 which dehisced promting replacement with porcine valve in 05/2018 - Echo shows normal function with mild regurgitation - Will need continue outpatient follow up, but no acute concerns at this point (4) History of bacterial endocarditis Code(s): Z86.79 - PERSONAL HISTORY OF OTHER DISEASES OF THE CIRCULATORY SYSTEM Comment: - MSSA mitral valve endocarditis in 02/2018 - Follows with ID at [facility] who have placed her on suppressive therapy d/t bacteriuria - Continue doxycylcine (5) History of CVA (cerebrovascular accident) Code(s): Z86.73 - PRSNL HX OF TIA (TIA), AND CEREB INFRC W/O RESID DEFICITS Comment: - In 02/2018 secondary to septic emboli - Follows with Dr. Alexander - Continue atorvastatin, Coumadin (6) Atrial fibrillation Code(s): I48.91 - UNSPECIFIED ATRIAL FIBRILLATION Comment: - Few episodes noted on recent pacer interrogation - Continue metoprolol, Coumadin (7) CAD (coronary artery disease) Code(s): I25.10 - ATHSCL HEART DISEASE OF [place] CORONARY ARTERY W/O ANG PCTRS Comment: - No acute concerns - Continue atorvastatin, metoprolol (8) DVT prophylaxis Code(s): Z29.9 - ENCOUNTER FOR PROPHYLACTIC MEASURES, UNSPECIFIED Comment: - Coumadin (9) Full code status Code(s): Z78.9 - OTHER SPECIFIED HEALTH STATUS Comment: Status and Disposition: Observation. Anticipate d/c home when medically stable and cleared by Neurology. Attending: Luis Daniel Webb
--- NOTE | 2018-08-13 16:20 | ECHO ---
*[facility]* [place] [address] Fax #: [phone] Transthoracic Echocardiogram Patient: Sofía, Height: 66 in / Teresa 167.6 cm : 1955 Weight: 164.7 lb / Study Date: 08/13/2018 74.8 kg Age: 63 BP: 128 / 74 Gender: F BMI/BSA: 26.6 kg/m^2 HR: 70 bpm / 1.84 m^2 *A Auxiliary: * Syeda Campos RDCS RN *Referring Physician: * Valarie Bryan *Reading Physician: * eJrsey Weller MD Indications: Congestive Heart Failure. History: PMH: Mechanical mitral valve replacement in 02/2018 for bacterial endocarditis, redo with porcine mitral valve replacement for perivalvular leak 05/2018, pacemaker, multiple ischemic strokes, seizures. Risk factors: Former tobacco use. Hypertension. Obese. Dyslipidemia. Conclusions Summary: 1. Left ventricle: Systolic function is mildly to moderately reduced. The estimated ejection fraction is 40-45%. Moderate hypokinesis of the apical myocardium. 2. Regional wall motion abnormality: Moderate hypokinesis of the apical septal and apical myocardium; mild hypokinesis of the apical anterior, apical inferior, and apical lateral myocardium. 3. Right ventricle: There is moderate pulmonary hypertension. 4. Mitral valve: There is a bioprosthesis. Normal function There is a new prosthetic valve in place since the study of 05/23/2018. There is mild regurgitation. 5. Aortic valve: The findings are consistent with mild stenosis. 6. Tricuspid valve: There is mild regurgitation. 7. Compared to study of 05/23/18, the Global Apical hypokinesis is new Study data: Transthoracic echocardiogram. Procedure: Transthoracic echocardiography was performed. Image quality was fair. The study was technically limited due to body habitus and smoking history. A total of 2 ml of Definity was given IV by Tamiko Campos RN, RDCS to enhance imaging. Complete 2D, spectral Doppler, and color flow Doppler. Patient status: Inpatient. Patient room number: ICU 2. Rhythm: Tachycardia, paced rhythm. Findings Left ventricle: The cavity size is normal. Systolic function is mildly to moderately reduced. The estimated ejection fraction is 40-45%. Regional wall motion abnormalities: Moderate hypokinesis of the apical myocardium. Moderate hypokinesis of the apical septal and apical myocardium; mild hypokinesis of the apical anterior, apical inferior, and apical lateral myocardium. Left ventricular diastolic function parameters are indeterminate. Right ventricle: The cavity size is mildly dilated. Systolic function is low normal. The estimated peak pressure is 49 mm Hg. There is moderate pulmonary hypertension. Left atrium: The atrium is normal in size. Right atrium: The atrium is normal in size. Mitral valve: There is a bioprosthesis. There is a new prosthetic valve in place since the study of 05/23/2018. There is mild regurgitation. Aortic valve: The valve is trileaflet. The leaflets are mildly thickened. The findings are consistent with mild stenosis. There is no regurgitation. Tricuspid valve: The leaflets are mildly thickened. There is no evidence of stenosis. There is mild regurgitation. Pulmonic valve: The valve is structurally normal. There is no evidence of stenosis. There is trace regurgitation. Aorta: Aortic root: The aortic root is not dilated. Ascending aorta: The ascending aorta is not dilated. Aortic arch: The aortic arch is not dilated. Pericardium: There is no pericardial effusion. Pulmonary arteries: The main pulmonary artery is normal-sized. Systemic veins: Inferior vena cava: The vessel is mildly dilated. The respirophasic diameter changes are in the normal range (>= 50%). Measurements Left ventricle Value Ref Aortic valve continued Value Ref JOANA, LAX 4.7 cm 3.8 - VTI, S 35.7 cm ---- 5.2 Mean grad, S 8.0 mm Hg ---- ESD, LAX 3.4 cm 2.2 - Peak grad, S 13.0 mm Hg ---- 3.5 LVOT/AV, VTI ratio 0.54 ---- FS, LAX 27 % 27 - 45 JOSE, VTI 1.70 cm^2 ---- PW, ED, LAX (H) 1.2 cm 0.6 - JOSE, Vmax 1.70 cm^2 ---- 0.9 Mid-wall FS 12 % -------- Mitral valve Value Ref E', lat jessie, TDI (L) 4.7 cm/sec >=10.0 Peak E 1.81 m/sec ---- E/e', lat jessie, TDI 39 -------- Peak A 0.59 m/sec --- - E', med jessie, TDI (L) 3.8 cm/sec >=7.0 Decel time 310 ms ---- E/e', med jessie, TDI 48 -------- PHT 97 ms --- - E', avg, TDI 4.3 cm/sec -------- Mean grad, D 6.0 mm Hg --- - E/e', avg, TDI (H) 43 <=14 Peak grad, D 22.0 mm Hg ---- Peak E/A ratio 3.1 ---- LVOT Value Ref MVA, PHT 2.3 cm^2 ---- Diam, S 2.00 cm -------- Area 3.1 cm^2 -------- Pulmonic valve Value Ref Peak urszula, S 0.97 m/sec -------- Peak v, S 0.89 m/sec ---- VTI, S 19.1 cm -------- Peak grad, S 3.0 mm Hg ---- Mean grad, S 2 mm Hg -------- SV 60 ml -------- Tricuspid valve Value Ref Peak RV-RA grad, S 41 mm Hg ---- Ventricular septum Value Ref Max TR urszula 3.2 m/sec ---- IVS, ED (H) 1.3 cm 0.6 - 0.9 Aortic root Value Ref Root diam 2.4 cm <4.0 Right ventricle Value Ref Root max diam, ED 2.4 cm <4.0 JOANA, LAX 3.4 cm -------- JOANA minor ax, A4C (H) 3.6 cm 1.9 - Ascending aorta Value Ref mid 3.5 AAo AP diam, S 3.1 cm ---- Left atrium Value Ref Aortic arch Value Ref ML dim, A4C 4.4 cm -------- Arch diam 2.5 cm ---- SI dim, A4C 5.0 cm -------- Vol/bsa, ES, 1-p 30 ml/m^2 11 - 40 Decending aorta Value Ref A4C Linh peak urszula 0.69 m/sec ---- Vol/bsa, ES, A/L 34 ml/m^2 16 - 34 Inferior vena cava Value Ref Right atrium Value Ref Diam 2.4 cm ---- ML dim, ES, A4C 4.2 cm 2.6 - 4.4 SI dim, ES, A4C 4.7 cm 3.4 - 5.3 Estimated RAP 8 mm Hg -------- Aortic valve Value Ref Jessie diam, ED 1.9 cm -------- Peak v, S 1.82 m/sec -------- Legend: (L) and (H) meli values outside specified reference range. Prepared and electronically signed by Jersey Weller MD 08/13/2018 16:20
[2018-08-13] MEDS: Warfarin TAB(*) 5 MG PO SCH (17:33)
[2018-08-13] MEDS: levETIRAcetam LIQ* 500 MG/5 ML UDC PO SCH (20:32)
[2018-08-13] MEDS: Pantoprazole TAB * 40 MG TAB PO SCH (20:37)
[2018-08-14 06:36] LABS: ABS Eosinophils 0.1 10^3/ul (0-0.6); ABS Lymphocytes 0.8 10^3/ul (1.0-4.8); ABS Monocytes 0.4 10^3/ul (0-0.8); ABS Neutrophils 3.1 10^3/ul (1.5-7.7); Eosinophil % 3.3 %; Hematocrit 30 % (35-47); Hemoglobin 9.7 g/dL (12.0-16.0); Lymphocyte % 18.2 %; Mean Corpuscular HGB Conc 33 g/dL (31-36); Mean Corpuscular Hemoglobin 27 pg (27-31); Mean Corpuscular Volume 84 fL (80-97); Mean Platelet Volume 7.5 fL (7.4-10.4); Nucleated Red Blood Cells % 0.1; Platelet Count 218 10^3/uL (150-450); Red Blood Count 3.55 10^6 /uL (3.70-4.87); Red Cell Distribution Width 18 % (10.5-15); White Blood Count 4.4 10^3/uL (3.5-10.8)
[2018-08-14 06:52] LABS: BUN/Creatinine Ratio 17.2 (8-20); Calcium 9.3 mg/dL (8.6-10.3); EGFR African American 56.9 (>60); Potassium 3.7 mmol/L (3.5-5.0)
[2018-08-14] MEDS: DOXYcycline CAP(*) 100 MG PO SCH ×2 (08:23→20:16)
[2018-08-14] MEDS: levETIRAcetam LIQ* 500 MG/5 ML UDC PO SCH ×2 (08:23→20:16)
[2018-08-14] MEDS: Vitamin THERAPEUTIC TAB PO SCH (08:23)
[2018-08-14] MEDS: Metoprolol Tartrate TAB* 25 MG PO SCH ×2 (08:23→20:15)
[2018-08-14] MEDS: Atorvastatin* 80 MG TAB PO SCH (08:23)
[2018-08-14] MEDS ORDERED: Magnesium Sulfate 2 GM IV* 2 GM/50 ML BAG IVPB ONE (08:49)
[2018-08-14 09:09] LABS: Magnesium 1.7 mg/dL (1.9-2.7)
[2018-08-14 09:15] LABS: INR 2.67 (0.82-1.09)
--- NOTE | 2018-08-14 09:24 | PN ---
Subjective Date of Service: 08/14/18 Length of Stay: 2 Days Patient examined today at the bedside she states she is doing well. She states she is doing better. She states her vision has improved. She states she is not feeling lightheaded. Denies chest pain and denies shortness of breath. Review of Systems: Denied CP, SOB, or palpitations. Family History: Unchanged from Admission Social History: Unchanged from Admission Past Medical History: Unchanged from Admission Objective Active Medications: Acetaminophen (Tylenol Tab*) 650 mg PO Q4H PRN PRN Reason: FEVER/PAIN Atorvastatin Calcium (Lipitor*) 80 mg PO DAILY [facility] Last Admin: 08/14/18 08:23 Dose: 80 mg Docusate Sodium (Colace Cap*) 100 mg PO BID PRN PRN Reason: CONSTIPATION Doxycycline Hyclate (Vibramycin Cap(*)) 100 mg PO BID [facility] Last Admin: 08/14/18 08:23 Dose: 100 mg Furosemide (Lasix Tab*) 20 mg PO EVERY OTHER DAY [facility] Last Admin: 08/13/18 10:37 Dose: 20 mg Magnesium Sulfate (Magnesium Sulfate 2 Gm Iv*) 2 gm in 50 mls @ 50 mls/hr IVPB ONCE ONE Stop: 08/14/18 09:48 Levetiracetam (Keppra Liq*) 750 mg PO BID [facility] Last Admin: 08/14/18 08:23 Dose: 750 mg Lorazepam (Ativan Inj*) 1 mg IV PUSH Q4H PRN PRN Reason: Seizure activity Metoprolol Tartrate (Lopressor Tab*) 25 mg PO BID [facility] Last Admin: 08/14/18 08:23 Dose: 25 mg Miscellaneous (Ativan Pyxis [place]) 1 ea N/A .ATIVAN IV [place] PRN PRN Reason: PYXIS [place] Multivitamins (Theragran Tab*) 1 tab PO DAILY [facility] Last Admin: 08/14/18 08:23 Dose: 1 tab Ondansetron HCl (Zofran Inj*) 4 mg IV Q4H PRN PRN Reason: NAUSEA/VOMITING Pantoprazole Sodium (Protonix Tab*) 40 mg PO BEDTIME [facility] Last Admin: 08/13/18 20:37 Dose: 40 mg Polyvinyl Alcohol (Polyvinyl Alcohol 1.4% Opth*) 1 drop BOTH EYES DAILY PRN PRN Reason: DRY EYE Warfarin Sodium (Coumadin Tab(*)) 5 mg PO DAILY@1700 ARIANNA; Protocol Last Admin: 08/13/18 17:33 Dose: 5 mg Vital Signs 08/13/18 08/13/18 08/13/18 09:29 10:56 12:00 Temperature 98.1 F 98 F Pulse Rate 111 87 Respiratory 20 16 Rate Blood Pressure 111/87 107/50 (mmHg) O2 Sat by Pulse 97 97 Oximetry 08/13/18 08/13/18 08/13/18 19:17 20:00 23:06 Temperature 97.8 F 97.8 F Pulse Rate 109 70 Respiratory 16 16 14 Rate Blood Pressure 117/73 106/62 (mmHg) O2 Sat by Pulse 95 98 98 Oximetry 08/14/18 03:34 Temperature 97.5 F Pulse Rate 70 Respiratory 14 Rate Blood Pressure 125/76 (mmHg) O2 Sat by Pulse 97 Oximetry Intake and Output Last 24 Hours 08/12/18 08/13/18 08/14/18 08/15/18 06:59 06:59 06:59 06:59 Intake Total 2080 810 Output Total 1300 1500 Balance 780 -690 Weight 184 lb 8 oz 179 lb 12.8 oz Intake: IV Fluids 400 Oral 1680 810 Output: Urine 1300 1500 Other: Estimated Void Large Date of Last Bowel T Movement # Bowel Movements 1 Estimated Stool Amount Medium # Voids 1 Oxygen Devices in Use Now: None Neurology Exam: General: Well nourished, well developed, and in no acute distress HEENT: Normocephelic/atraumatic, sclera anicteric, mucous membranes moist Neck: Supple Chest: Clear to auscultation bilaterally Cardiovascular: Regular rate and rhythm without murmurs, rubs, gallops Abdomen: Soft, non-tender/non-distended Extremities: No clubbing, cyanosis, or edema Neurological Findings: Awake, alert, and oriented to person, place, and time. Speech: fluent without dysarthria, repetition intact Cranial Nerve: PERRL, EOM intact, VFF, no nystagmus, face symmetric bilaterally , facial sensation intact, hearing intact to finger rub bilaterally, palate elevates symmetrically, tongue midline, SCM and Trapezius 5/5. Motor: 5/5 throughout, proximal and distal extremities x4 tone/bulk normal Sensation: intact to LT upper and lower extremities, Deep Tendon Reflex: 2+ symmetric in the upper extremities, 1 plus in the lower extremities, Babinski - down going Finger to nose, rapid alternating movements intact without tremor, no dysdiadochokinesia Gait: romberg with minimal sway with eyes closed, gait intact with normal stride and good arm swing, Result Diagrams: 08/14/18 06:29 08/14/18 06:29 Microbiology and Other Data: Microbiology 08/12/18 15:11 Nasal Screen MRSA (PCR) - Final Nasal Mrsa Not Detected Diagnostic Imaging: Diagnostics Summary of Radiographic CXR IMPRESSION: CARDIOMEGALY WITH INTERSTITIAL Findings [CHEST X-RAY] EDEMA CONSISTENT WITH CHF PROGRESSIVE SINCE JULY 13, 2018. THIS REPORT WAS REVIEWED BY DR. LOUIE. Summary of CT Findings [HEAD HEAD CTA IMPRESSION: Calcific plaque is noted in CTA] the left internal carotid artery at its origin with approximately 60% stenosis. The right internal carotid artery demonstrates minimal calcification. No evidence of carotid artery dissection. No evidence of branch occlusion. No evidence of aneurysmal dilatation. THIS REPORT WAS REVIEWED BY DR. LOUIE. Summary of CT Findings [BRAIN BRAIN CT IMPRESSION: Old infarct in the right CT] posterior parietal lobe. No intracranial mass or hemorrhage is noted. THIS REPORT WAS REVIEWED BY DR. LOUIE. Summary of EKG Findings [0811] EKG showed ventricular paced rhythm with rate of 106 BPM, left axis deviation, and non-specific ST. Assessment/Plan Assessment: Ms. 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 AMS: Resolved suspect focal seizures. She states that with the reduced dose of keppra she is not having vision issues. Continue 750 mg BID for now. But given the vision disturbances reported yesterday and MRI was ordered and is pending. Await ARELIS for dispo. She denies any further episodes and denies. No more inverted vision reported. Going forward await ARELIS and will need follow up 4-6 weeks with us and will need 72hr eeg. CVA: Continue with secondary prevention with Coumadin given history of PAF. Goal LDL < 70 and continue to monitor for Diabetes, no focal deficits on exam today. CHF, afib, CAD: Cardiology following Hx of endocarditits : Continue with current medications, defer to hospitalist I discussed the case today with Dr Alexander he was in agreement. Await MRi for dispo
--- NOTE | 2018-08-14 12:12 | PN ---
Subjective Date of Service: 08/14/18 Interval History: Ms. Gore is feeling better today. Her symptoms have mostly resolved except for a little "fuzziness." Visual changes she was having later in the day yesterday have resolved. No further speech difficulties. No numbness or weakness. Has been up ambulating. Denies CP, SOB, N/V. Anxious to have imaging and to go home. Emotional about health. No concerns from nursing. Family History: Unchanged from Admission Social History: Unchanged from Admission Past Medical History: Unchanged from Admission Objective Active Medications: Acetaminophen (Tylenol Tab*) 650 mg PO Q4H PRN FEVER/PAIN Atorvastatin Calcium (Lipitor*) 80 mg PO DAILY ARIANNA Docusate Sodium (Colace Cap*) 100 mg PO BID PRN CONSTIPATION Doxycycline Hyclate (Vibramycin Cap(*)) 100 mg PO BID ARIANNA Furosemide (Lasix Tab*) 20 mg PO EVERY OTHER DAY [facility] Levetiracetam (Keppra Liq*) 750 mg PO BID ARIANNA Lorazepam (Ativan Inj*) 1 mg IV PUSH Q4H PRN Seizure activity Metoprolol Tartrate (Lopressor Tab*) 25 mg PO BID [facility]ANNA Multivitamins (Theragran Tab*) 1 tab PO DAILY [facility]AN[facility] Ondansetron HCl (Zofran Inj*) 4 mg IV Q4H PRN NAUSEA/VOMITING Pantoprazole Sodium (Protonix Tab*) 40 mg PO BEDTIME ARIANNA Polyvinyl Alcohol (Polyvinyl Alcohol 1.4% Opth*) 1 drop BOTH EYES DAILY PRN DRY EYE Warfarin Sodium (Coumadin Tab(*)) 5 mg PO DAILY@1700 [facility] Vital Signs - 8 hr 08/14/18 08:00 Temperature 98.3 F Pulse Rate 69 Respiratory 18 Rate Blood Pressure 115/67 (mmHg) O2 Sat by Pulse 95 Oximetry Oxygen Devices in Use Now: None Appearance: Middle-aged woman sitting in bed in NAD Eyes: No Scleral Icterus Ears/Nose/Mouth/Throat: Mucous Membranes Moist Neck: NL Appearance and Movements; NL JVP, Trachea Midline Respiratory: Symmetrical Chest Expansion and Respiratory Effort, Clear to Auscultation Cardiovascular: NL Sounds; No Murmurs; No JVD, RRR Abdominal: NL Sounds; No Tenderness; No Distention Extremities: No Edema Skin: No Rash or Ulcers Neurological: Alert and Oriented x 3, NL Sensation, - - 5/5 BUE and BLE except for left hand which is 4/5 Lines/Tubes/Other Access: Clean, Dry and Intact Peripheral IV Nutrition: Taking PO's Result Diagrams: 08/14/18 06:29 08/14/18 06:29 Assess/Plan/Problems-Billing Assessment: Ms. 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 - Patient Problems (1) Altered mental status Code(s): R41.82 - ALTERED MENTAL STATUS, UNSPECIFIED Comment: - Patient and family describe episodes increasing in frequency over the last month; symptoms: dysarthria, expressive aphasia, confusion, diffculty with fine motor skills - No further episode during this hospitalization; had some visual changes yesterday which have resolved - EEG in ED showed right hemisphere slowing - MRI pending; will be tomorrow as we need [employer] rep present d/t presence of pacer - Appreciate Neurology consult; recommends MRI as CVA is still on the differential though less likely, continue Keppra - Neuro checks q4h and seizure precautions - Continue Keppra (2) Acute on chronic systolic heart failure Code(s): I50.23 - ACUTE ON CHRONIC SYSTOLIC (CONGESTIVE) HEART FAILURE Comment : - Not decompensated - Was taking furosemide within the last month and symptoms seem to have worsened since stopping - Echo shows EF 40-45% and global apical hypokinesis; EF is slightly decreased from echo at [facility] on 07/16/18 - Appreciate Cardiology consult; recommends furosemide and reducing Na intake - Continue furosemide (3) History of CVA (cerebrovascular accident) Code(s): Z86.73 - PRSNL HX OF TIA (TIA), AND CEREB INFRC W/O RESID DEFICITS Comment: - In 02/2018 secondary to septic emboli - Follows with Dr. Alexander - LDL is above goal of 70, though previous lipid panel was done non-fasting so will repeat in the AM; already maxed out on atorvastatin, so would need to add another agent such as Zetia if LDL is still elevated on repeat testing - Continue atorvastatin, Coumadin (4) History of bacterial endocarditis Code(s): Z86.79 - PERSONAL HISTORY OF OTHER DISEASES OF THE CIRCULATORY SYSTEM Comment: - MSSA mitral valve endocarditis in 02/2018 - Follows with ID at [facility] who have placed her on suppressive therapy d/t bacteriuria - Continue doxycylcine (5) History of mitral valve replacement Code(s): Z95.2 - PRESENCE OF PROSTHETIC HEART VALVE Comment: - Mechanical valve in 02/2018 which dehisced promting replacement with porcine valve in 05/2018 - Echo shows normal function with mild regurgitation - Will need continue outpatient follow up, but no acute concerns at this point (6) Atrial fibrillation Code(s): I48.91 - UNSPECIFIED ATRIAL FIBRILLATION Comment: - Few episodes noted on recent pacer interrogation - Continue metoprolol, Coumadin (7) CAD (coronary artery disease) Code(s): I25.10 - ATHSCL HEART DISEASE OF [place] CORONARY ARTERY W/O ANG PCTRS Comment: - No acute concerns - Continue atorvastatin, metoprolol (8) DVT prophylaxis Code(s): Z29.9 - ENCOUNTER FOR PROPHYLACTIC MEASURES, UNSPECIFIED Comment: - Coumadin (9) Full code status Code(s): Z78.9 - OTHER SPECIFIED HEALTH STATUS Comment: Status and Disposition: Inpatient. Anticipate d/c home when medically stable and cleared by Neurology after MRI. Attending: Luis Daniel Webb
[2018-08-14] MEDS: Warfarin TAB(*) 5 MG PO SCH (16:40)
[2018-08-14] MEDS: Pantoprazole TAB * 40 MG TAB PO SCH (20:15)
[2018-08-15 06:28] LABS: ABS Eosinophils 0.2 10^3/ul (0-0.6); ABS Lymphocytes 0.9 10^3/ul (1.0-4.8); ABS Monocytes 0.4 10^3/ul (0-0.8); Eosinophil % 4.2 %; Hematocrit 31 % (35-47); Hemoglobin 9.8 g/dL (12.0-16.0); Lymphocyte % 20.5 %; Mean Corpuscular HGB Conc 32 g/dL (31-36); Mean Corpuscular Hemoglobin 27 pg (27-31); Mean Corpuscular Volume 84 fL (80-97); Mean Platelet Volume 7.6 fL (7.4-10.4); Nucleated Red Blood Cells % 0.2; Platelet Count 219 10^3/uL (150-450); Red Blood Count 3.66 10^6 /uL (3.70-4.87); Red Cell Distribution Width 18 % (10.5-15); White Blood Count 4.6 10^3/uL (3.5-10.8)
[2018-08-15 06:38] LABS: INR 2.64 (0.82-1.09)
[2018-08-15 06:47] LABS: BUN/Creatinine Ratio 16.7 (8-20); Calcium 9.2 mg/dL (8.6-10.3); EGFR African American 61.8 (>60); EGFR Non-African American 51.1 (>60); HDL Cholesterol 54.1 mg/dL; Potassium 3.7 mmol/L (3.5-5.0)
[2018-08-15] MEDS: Metoprolol Tartrate TAB* 25 MG PO SCH (08:40)
[2018-08-15] MEDS: Vitamin THERAPEUTIC TAB PO SCH (08:40)
[2018-08-15] MEDS: Atorvastatin* 80 MG TAB PO SCH (08:40)
[2018-08-15] MEDS: DOXYcycline CAP(*) 100 MG PO SCH (08:40)
[2018-08-15] MEDS: Furosemide TAB* 20 MG PO SCH (08:40)
[2018-08-15] MEDS: levETIRAcetam LIQ* 500 MG/5 ML UDC PO SCH (08:40)
[2018-08-15 15:27] VITALS: BP 140/65
[2018-08-15] MEDS: Warfarin TAB(*) 5 MG PO SCH (17:11)
--- NOTE | 2018-08-15 21:42 | DS ---
CC: Placido Macias NP; Dr. Chan Alexander; Dr. Karthikeyan Franco; Juni Walker NP* DISCHARGE SUMMARY: DATE OF ADMISSION: 08/12/18 DATE OF DISCHARGE: 08/15/18 PRIMARY CARE PROVIDER: Placido Macias NP NEUROLOGIST: Dr. Chan Alexander. EMAIL CAMPAIGN SPECIALIST: Dr. Karthikeyan Franco. ATTENDING PHYSICIAN: Dr. Luis Daniel Webb* (dictated by Valarie Bryan NP). PRIMARY DIAGNOSES: 1. New-onset seizure disorder. 2. Acute on chronic systolic congestive heart failure. SECONDARY DIAGNOSES: 1. 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 2. History of bacterial endocarditis, on suppression therapy. 3. History of mitral valve replacement. 4. Atrial fibrillation. 5. Coronary artery disease. STUDIES WHILE IN THE HOSPITAL: 1. Brain CT on 08/12/18 reads as old infract in the right posterior parietal lobe. No intracranial mass or hemorrhage is noted. 2. Chest x-ray on 08/12/18 reads as cardiomegaly with interstitial edema consistent with CHF, progressive since 07/13/18. 3. EKG on 08/12/18 shows 100% ventricular pacing with a rate of 106, QTc 589. This EKG is consistent with previous EKG on file from last month. 4. Head CTA on 08/12/18 reads as calcific plaque is noted in the left internal carotid artery at its origin with approximately 60% stenosis. The right internal carotid artery demonstrates minimal calcification. No evidence of carotid artery dissection. No evidence of branch occlusion. No evidence of aneurysmal dilation. 5. EEG on 08/12/18 reads as normal EEG. There was intermittent slowing that was more predominant in the right hemisphere. No clear epileptiform activity was noted. 6. Transthoracic echocardiogram on 08/13/18 reads as left ventricular systolic function is mildly to moderately reduced. The estimated ejection fraction is 40 % to 45%. Moderate hypokinesis of the apical myocardium. Moderate hypokinesis of the apical septal and apical myocardium. Mild hypokinesis of the apical anterior, apical inferior, and apical lateral myocardium. There is moderate pulmonary hypertension. There is a bioprosthetic mitral valve showing normal function. There is a new prosthetic valve in place since the study of 05/08/18. There is mild mitral regurgitation. The aortic valve shows findings consistent with mild stenosis. There is mild tricuspid regurgitation. Compared to the study of 05/23/18, the global apical hypokinesis is new. 7. 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 CONSULTATIONS WHILE IN THE HOSPITAL: 1. Dr. Garcia from Neurology on 08/12/18. 2. Dr. Eller from Cardiology on 08/12/18. 3. Dr. Alexander from Neurology and Juni Walker NP, on 08/13/18 and 08/14/18. HISTORY OF PRESENT ILLNESS AND HOSPITAL COURSE: Ms. Gore is a 63-year-old female who was quite healthy until a complicated history of events beginning in February 2018 including MSSA bacteremia resulting in mitral valve endocarditis and CVA secondary to septic emboli, septic shock, acute respiratory failure, acute diastolic heart failure, mitral valve replacement x2, pacemaker placement , coronary artery disease, hypertension and anxiety, who presented to the emergency room on 08/12/18 with complaints of altered mental status. Please see the history and physical by myself for a complete summary of the events leading up to this hospitalization. In short, the patient has had a very complicated medical history over the last 6 months beginning with bacteremia, endocarditis, and septic emboli resulting in a CVA. The patient has undergone multiple surgeries for valve replacement and pacemaker placement and has had multiple complications. In June 2018, she presented to the emergency room with altered mental status and left-sided weakness and did have a witnessed seizure. She has been following with Dr. Alexander from Neurology, though was not placed on any antiepileptics, as this was possibly only a single event. Ultimately, the patient presented on 08/12/18 with reports of confusion and difficulty with speech. She and her significant other reported that these episodes have been happening recently and symptoms included dysarthria, expressive aphasia, confusion, and difficulty with fine motor skills. The patient reported feeling in a fog. She was also noted to have some increased lower extremity edema and some shortness of breath with ambulation. In the emergency room, the patient had an EEG, which was concerning for possible seizure activity, though no status epilepticus. She had lab work, which was remarkable for a normocytic normochromic anemia consistent with her baseline, a minimally supratherapeutic INR, an elevated troponin consistent with her baseline, and an elevated BNP of 330. Because of the concern for her altered mental status and the need for further workup, the patient was admitted by the hospitalist service. The patient was seen by Dr. Garcia, who did have some concerns about seizure activity and so loaded the patient on Keppra and then began Keppra at 1000 mg b.i.d. The patient had imaging as noted above and at that point new CVA remained on the differential. The patient was not able to have an MRI initially due to the presence of a pacemaker and the need for a rep from the company to be present during the MRI. The patient was also seen by Dr. Eller from Cardiology due to the concern for acute on chronic heart failure as well as her recent valve replacements. He started the patient on Lasix every Monday , Monday and Monday and had no further cardiac concerns. The patient's symptoms gradually resolved. She continued to be followed by Neurology during her stay. The patient was noted to have an elevated LDL at 76. She does have a goal LDL of less than 70, so the consideration of adding another agent such as Zetia will need to be made on an outpatient basis. As of today, the patient' s symptoms have resolved completely except for some feelings of brain fog. She did have some abnormal vision changes yesterday and Neurology decreased her Keppra dosing to 750 b.i.d. She has not had any further visual changes since then. Ultimately, the patient was able to have an MRI today. MRI results are noted above. I did discuss these results with Dr. Alexander and he felt as though the patient was stable for discharge from a neurological standpoint. Regarding her acute on chronic heart failure, the patient had a mild exacerbation of heart failure and was not decompensated. She has done well on this low-dose furosemide ordered by Cardiology. Ms. Gore is stable for discharge today. Vitals are as follows: Temp 98.0, heart rate 71, respiratory rate 16, oxygen saturation 98% on room air, blood pressure 140/65. DISCHARGE MEDICATIONS: New medications: 1. Furosemide 20 mg p.o. every other day. 2. Keppra 750 mg p.o. b.i.d. Continued medications: 1. Artificial tears 1 drop both eyes daily p.r.n. dry eye. 2. Atorvastatin 80 mg p.o. daily. 3. Docusate 100 mg p.o. b.i.d. constipation. 4. Doxycycline 100 mg p.o. b.i.d. 5. Metoprolol tartrate 12.5 mg p.o. b.i.d. 6. Multivitamin 1 tab p.o. daily. 7. Ondansetron 4 mg p.o. q.8 hours p.r.n. nausea, vomiting. 8. Pantoprazole 40 mg p.o. at bedtime. 9. Coumadin 5 mg p.o. daily. DISCHARGE PLAN: Ms. Gore will be discharged home. Activity will be as tolerated. Diet will be heart-healthy. Medications are noted above. The patient has been started on furosemide per Cardiology recommendations. She had previously been taking furosemide and stopped taking it a few weeks prior to admission and then began to retain fluid, so I do think a regular dose of Lasix will be helpful for her. Additionally, she will be maintained on Keppra 750 mg b.i.d. per Neurology. She can continue her other usual medications as noted above. I will note that the patient's INR today and yesterday was 2.6 on 5 mg of Coumadin, so I have instructed the patient to continue 5 mg of Coumadin daily at this point and to have her INR checked on Monday. She reports she has been checking her INR every few days and calls the results into her PCP. She will need close followup. She should follow up with her primary care provider in 4 to 7 days and should follow up with Dr. Franco and Dr. Alexander within the next 4 to 6 weeks. She has been instructed to return to the emergency room or nearest hospital for any worsening of symptoms, shortness of breath, lightheadedness, dizziness, chest discomfort, high fever, chills, night sweats, loss of consciousness, or any other worrisome signs or symptoms. DISCHARGE CONDITION: Stable. DISCHARGE DISPOSITION: Home. This is a summarized report of a complex medical history and hospital stay. For further details, please see the entire medical record. TIME SPENT: Approximately 60 minutes was spent on this discharge. VALARIE BRAYN NP [id number]/[facility] #: [id number] [place]
== END 2018-08-15 17:56 | disposition home or self-care (01) | DRG 53 ==
LOC: ED 07:41 → ICU 14:14 → MEDTELE 08-13 08:29 → OBSVTOIN 08-14 12:47
PROVIDERS: ADMIT Internal Medicine; ATTEND Internal Medicine
PROC: 4A00X4Z Measurement of Central Nervous Electrical Activity, External Approach (ICD-10-PCS; principal; 2018-08-12)
DX: G40.909 Epilepsy, unspecified, not intractable, without status epilepticus (principal); I50.43 Acute on chronic combined systolic (congestive) and diastolic (congestive) heart failure; I47.1 Supraventricular tachycardia; R47.01 Aphasia; M16.12 Unilateral primary osteoarthritis, left hip; H26.9 Unspecified cataract; F41.9 Anxiety disorder, unspecified; R29.706 NIHSS score 6; I25.10 Atherosclerotic heart disease of native coronary artery without angina pectoris; R47.1 Dysarthria and anarthria; I65.22 Occlusion and stenosis of left carotid artery; I11.0 Hypertensive heart disease with heart failure; I48.0 Paroxysmal atrial fibrillation; F32.9 Major depressive disorder, single episode, unspecified; K21.9 Gastro-esophageal reflux disease without esophagitis; I08.3 Combined rheumatic disorders of mitral, aortic and tricuspid valves; I27.20 Pulmonary hypertension, unspecified; D64.9 Anemia, unspecified; R79.1 Abnormal coagulation profile; Z88.8 Allergy status to other drugs, medicaments and biological substances; Z98.84 Bariatric surgery status; Z82.49 Family history of ischemic heart disease and other diseases of the circulatory system; Z87.891 Personal history of nicotine dependence; Z72.89 Other problems related to lifestyle; Z95.2 Presence of prosthetic heart valve; Z86.73 Personal history of transient ischemic attack (TIA), and cerebral infarction without residual deficits; Z95.0 Presence of cardiac pacemaker; Z82.3 Family history of stroke; Z80.1 Family history of malignant neoplasm of trachea, bronchus and lung; Z79.01 Long term (current) use of anticoagulants
CPT/HCPCS: 36415; 70450; 70496; 70498; 70551; 71045; 80048; 80053; 80061; 83605; 83735; 83880; 84484; 85025; 85610; 85652; 85730; 86140; 86850; 86900; 86901; 87641; 93005; 93306; 95816; 99285; A9270-GY; C8929; G0378; G9165-GN-CK; G9166-GN-CI; J1940; J1953; J2060; J2405; J3475; Q9967

== ENCOUNTER 2020-06-15 20:14 | Inpatient (IN) ==
[2020-06-15] MEDS ORDERED: Iodixanol (CONTRAST) 320 MG/ML 100 ML SDV IV ONE (20:45)
[2020-06-15 21:00] LABS: ABS Basophils 0.1 10^3/ul (0-0.2); ABS Eosinophils 0.1 10^3/ul (0-0.6); ABS Lymphocytes 0.8 10^3/ul (1.0-4.8); ABS Monocytes 0.4 10^3/ul (0-0.8); ABS Neutrophils 4.6 10^3/ul (1.5-7.7); Eosinophil % 1.4 %; Hematocrit 38 % (35-47); Hemoglobin 12.7 g/dL (12.0-16.0); Mean Corpuscular HGB Conc 33 g/dL (31-36); Mean Corpuscular Hemoglobin 30 pg (27-31); Mean Corpuscular Volume 90 fL (80-97); Platelet Count 208 10^3/uL (150-450); Red Blood Count 4.24 10^6 /uL (3.70-4.87); Red Cell Distribution Width 14 % (10-15)
[2020-06-15 21:08] LABS: Activated Partial Thrombo Time 43.3 seconds (26.0-38.0); INR 2.53 (0.82-1.09)
[2020-06-15 21:23] LABS: CKMB ng/mL 3.8 ng/mL (0.6-6.3)
[2020-06-15 21:46] LABS: ALT 16 U/L (7-52); Albumin/Globulin Ratio 1.4 (1-3); Alkaline Phosphatase 77 U/L (34-104); Blood Urea Nitrogen 19 mg/dL (6-24); CO2 Carbon Dioxide 26 mmol/L (22-32); Calcium 9.1 mg/dL (8.6-10.3); Chloride 104 mmol/L (101-111); EGFR African American 71.2 (>60); EGFR Non-African American 58.9 (>60); Globulin 2.8 g/dL (2-4); Glucose 97 mg/dL (70-100); Sodium 137 mmol/L (135-145); Total Protein 6.8 g/dL (6.4-8.9)
[2020-06-15 22:07] LABS: Anion Gap 7 mmol/L (2-11); Potassium 3.8 mmol/L (3.5-5.0)
[2020-06-15 22:12] LABS: AST 22 U/L (13-39)
[2020-06-16 06:30] LABS: ABS Basophils 0.1 10^3/ul (0-0.2); ABS Eosinophils 0.1 10^3/ul (0-0.6); ABS Lymphocytes 1.3 10^3/ul (1.0-4.8); ABS Monocytes 0.6 10^3/ul (0-0.8); Hematocrit 38 % (35-47); Lymphocyte % 21.2 %; Mean Corpuscular HGB Conc 34 g/dL (31-36); Mean Corpuscular Hemoglobin 31 pg (27-31); Mean Corpuscular Volume 90 fL (80-97); Mean Platelet Volume 7.9 fL (7.4-10.4); Platelet Count 203 10^3/uL (150-450); Red Blood Count 4.23 10^6 /uL (3.70-4.87); Red Cell Distribution Width 14 % (10-15)
[2020-06-16 06:47] LABS: BUN/Creatinine Ratio 15.7 (8-20); Calcium 9.2 mg/dL (8.6-10.3); EGFR African American 83.2 (>60); EGFR Non-African American 68.8 (>60); HDL Cholesterol 62.2 mg/dL; Potassium 3.5 mmol/L (3.5-5.0)
[2020-06-16] MEDS ORDERED: Warfarin per PHARMACY **NOTE FOLLOW UP SCH (09:00)
[2020-06-16 12:11] LABS: C Reactive Protein 1.88 mg/L (<8.01)
[2020-06-16] MEDS ORDERED: Perflutren Lipid Microsphere 3 ML VIAL ONE (14:19)
[2020-06-17 05:04] LABS: INR 2.48 (0.82-1.09)
[2020-06-17 13:08] VITALS: BP 98/54
[2020-06-18 11:33] LABS: Levetiracetam 29.4 mcg/mL
[2020-06-18 12:56] LABS: Lamotrigine 3.1 mcg/mL (2.5 - 15.0)
== END 2020-06-17 13:10 | disposition home or self-care (01) | DRG 58 ==
LOC: ED 20:14 → MEDTELE 22:54
PROVIDERS: ADMIT Internal Medicine; ATTEND Student in an Organized Health Care Education/Training Program